=== PATIENT | male | born 1940 | race Caucasian/White ===

== ENCOUNTER → 2017-03-16 | Outpatient (CLI) | payer MEDICARE ==
--- NOTE | 2017-03-16 08:57 | MR ---
MR lumbar spine wo con CLINICAL HISTORY: LUMBAR SPINE PAIN Multiplanar, multiecho imaging of the lumbar spine was obtained without contrast on a 3 Alicia magnet. REFERENCE:None. FINDINGS: There is mild aneurysmal dilatation of the suprarenal abdominal aorta which measures 3.2 c m in size. The infrarenal abdominal aorta is also aneurysmal measuring 3.7 cm. Iliac vessels are norm al in size. Prevertebral soft tissues are otherwise unremarkable. Vertebral body height and alignment are maintained. There is no spondylolysis or spondylolisthesis. Cord signal is normal. The conus ends normally at the level of the superior endplate of L2. At T12-L1, the intervertebral foramina are well maintained. There is no significant compressive disco linh. There is mild hypertrophic change in the facets. At L1-2, the intervertebral foramina are well maintained. There is no significant compressive discopa thy. There is mild hypertrophic change and capsulitis within the facets. At L2-3, the intervertebral foramina are well maintained. There is a diffuse disc displacement. There is hypertrophic change and capsulitis in the facets. At L3-4, the intervertebral foramina are well maintained. There is a diffuse disc displacement. This hypertrophic change and capsulitis within the facets. There is mild central canal stenosis. At L4-5, there is disc space loss and disc desiccation. Intervertebral foramina appear well maintaine d. There is a broad-based disc displacement. This hypertrophic changes in the facets. There is mild c entral canal compromise. At L5-S1, the intervertebral foramina are well maintained. There is a broad-based disc displacement e ffacing the thecal sac without definite neural compression. This hypertrophic change and capsulitis w ithin the facets. IMPRESSION: 1. DIFFUSE DEGENERATIVE DISC DISEASE AND FACET ARTHROPATHY. 2. NO SIGNIFICANT COMPRESSIVE DISCOPATHY OR NEURAL COMPRESSION. 3. ANEURYSMAL DILATATION OF THE ABDOMINAL AORTA.
== END ==
LOC: RADMRIMAIN 07:48
PROVIDERS: ATTEND Family Medicine
DX: M51.36 Other intervertebral disc degeneration, lumbar region (principal); M46.06 Spinal enthesopathy, lumbar region
CPT/HCPCS: 72148

== ENCOUNTER → 2017-03-23 | Outpatient (CLI) | payer MEDICARE ==
--- NOTE | 2017-03-24 23:50 | MR ---
EXAMINATION TYPE: MR hip LT wo con DATE OF EXAM: 03/23/2017 COMPARISON: NONE HISTORY: hip pain, left Standard multiplanar, multisequence MRI departmental protocol Multiplanar, multisequence images of the left hip were acquired. FINDINGS: There is metal artifact from left hip surgery with a pin in the left femoral neck. Right hi p joint space is fairly normal for age. There is narrowing of left hip joint space with mild spur for mation of the acetabulum and the femoral head. I see no focal bone destruction. There is no evidence of a soft tissue mass. Bladder distends smoothly. There is no evidence of avascular necrosis. Sacroil iac joints appear normal. IMPRESSION: Left hip surgery with metal artifact in the femoral neck. No fracture seen. No evidence of avascular necrosis. Mild hypertrophic osteoarthritis in the left hip joint.
== END | disposition home or self-care (01) ==
LOC: RADMRIMAIN 12:37
PROVIDERS: ATTEND Family Medicine
DX: M16.12 Unilateral primary osteoarthritis, left hip (principal); Z98.890 Other specified postprocedural states

== ENCOUNTER → 2019-07-29 | Outpatient (CLI) | payer MEDICARE ==
--- NOTE | 2019-07-29 15:15 | US ---
EXAMINATION TYPE: US kidneys/renal and bladder DATE OF EXAM: 07/29/2019 COMPARISON: NONE CLINICAL HISTORY: N18.2 CKD. CKD EXAM MEASUREMENTS: Right Kidney: 13.6 x 6.5 x 6.0 cm Left Kidney: 14.2 x 7.0 x 5.9 cm Post Void Residual Volume: 223 mL Right Kidney: Moderate hydronephrosis, cyst lateral= 4.0 x 3.7 x 4.0 cm Left Kidney: Severe hydronephrosis with cortical thinning. Bladder: Irregular, thickened bladder wall, possible sessile lesion versus ureterocele on the left. U rinary bladder wall thickening measures up to 9 mm on the left. Bilateral Jets seen: No Normal Post Void Residual: No No nephrolithiasis is seen. The urinary bladder is anechoic with wall thickening. Bilateral ureteral jets are not seen. IMPRESSION: 1. Abnormal exam. There is severe left hydronephrosis and moderate right hydronephrosis. There is cor tical renal thinning on the left indicating acute on chronic component. 2. Abnormally thickened urinary bladder wall seen multifocally measuring up to 9 mm (normal thickness of 3 mm). Additionally there is a sessile mass versus ureterocele on the left near the ureterovesicu lar junction. Direct visualization is recommended.
== END | disposition home or self-care (01) ==
LOC: RADUSWWP 14:25
PROVIDERS: ATTEND Family Medicine
DX: N13.30 Unspecified hydronephrosis (principal); N32.89 Other specified disorders of bladder; N18.2 Chronic kidney disease, stage 2 (mild)
CPT/HCPCS: 76770

== ENCOUNTER 2019-08-21 09:39 | Inpatient (IN) | payer MEDICARE ==
[2019-08-21] MEDS ORDERED: SODIUM CHLORIDE 0.9% 1,000 ML IV STA (10:03)
[2019-08-21] MEDS ORDERED: methylPREDNISolone SOD SUCCI 125 MG/2 ML VIAL IV STA (10:03)
--- NOTE | 2019-08-21 10:17 | ED ---
SOB HPI - General Chief Complaint: Shortness of Breath Stated Complaint: Sob/weakness Time Seen by Provider: 08/21/19 09:40 Source: patient, family, RN notes reviewed Mode of arrival: wheelchair Limitations: no limitations - History of Present Illness Initial Comments: This is a 78-year-old male with a history of COPD who states he's been having difficulty breathing for past several days he has had a cough he did feel feverish last night. Family is concerned he may have pneumonia. He denies any overt chest pain he has been feeling weak. No other symptoms reported at this time no other modifying factors he is not no color phlegm is coughing up. MD Complaint: shortness of breath, cough - Related Data Allergies Allergy/AdvReac Type Severity Reaction Status Date / Time No Known Allergies Allergy Verified 08/21/19 10:09 Review of Systems ROS Statement: Those systems with pertinent positive or pertinent negative responses have been documented in the HPI. ROS Other: All systems not noted in ROS Statement are negative. Past Medical History Past Medical History: Heart Failure, COPD, Hyperlipidemia, Hypertension, Myocardial Infarction (CT), Skin Disorder History of Any Multi-Drug Resistant Organisms: None Reported Past Surgical History: Joint Replacement Past Psychological History: No Psychological Hx Reported Smoking Status: Current every day smoker Past Alcohol Use History: None Reported Past Drug Use History: None Reported General Exam - General Exam Comments Initial Comments: This is a well-developed well-nourished awake alert oriented 3 male Limitations: no limitations General appearance: alert, anxious, in distress Head exam: Present: atraumatic, normocephalic, normal inspection Eye exam: Present: normal appearance, PERRL, EOMI. Absent: scleral icterus, conjunctival injection, periorbital swelling ENT exam: Present: mucous membranes dry Neck exam: Present: normal inspection, full ROM, other (No stridor JVD or bruits). Absent: tenderness, meningismus, lymphadenopathy Respiratory exam: Present: wheezes, accessory muscle use, decreased breath so unds, other (Lower lobe rhonchi). Absent: respiratory distress, rales, rhonchi, stridor Cardiovascular Exam: Present: normal rhythm, tachycardia, normal heart sounds. Absent: systolic murmur, diastolic murmur, rubs, gallop, clicks GI/Abdominal exam: Present: soft, normal bowel sounds. Absent: distended, tenderness, guarding, rebound, rigid Extremities exam: Present: normal inspection, full ROM, normal capillary refill. Absent: tenderness, pedal edema, joint swelling, calf tenderness Back exam: Present: normal inspection Neurological exam: Present: alert, oriented X3, CN II-XII intact Psychiatric exam: Present: normal affect, normal mood Skin exam: Present: warm, dry, intact, other (The patient does demonstrate p soriatic changes to the extremities). Absent: rash Course Vital Signs 08/21/19 08/21/19 08/21/19 09:44 10:00 11:09 Temperature 98.6 F Pulse Rate 130 H 126 H 77 Respiratory 20 16 Rate Blood Pressure 123/65 124/75 O2 Sat by Pulse 78 L 93 L Oximetry 08/21/19 11:30 Temperature Pulse Rate 122 H Respiratory 20 Rate Blood Pressure 112/76 O2 Sat by Pulse 92 L Oximetry - Reevaluation(s) Reevaluation #1: 08/21/19 11:54 Evaluation the patient after initial treatment revealed minimal improvement. Reevaluation #2: 08/21/19 11:56 I did discuss [employer] the patient family members patient does demonstrate evidence of CHF with a COPD exacerbation did have evidence of fever at home a pneumonitis as not ruled out. Additionally he does have evidence of acute kidney injury. He also has elevated troponin which may be in the basis of the kidney injury though and STEMI is considered. Patient be admitted the case is discussed with Dr. Santos Medical Decision Making - Lab Data Result diagrams: 08/21/19 10:10 08/21/19 10:10 Lab Results 08/21/19 08/21/19 08/21/19 Range/Units 10:10 10:10 10:10 WBC 12.4 H (3.8-10.6) k/uL RBC 3.89 L (4.30-5.90) m/uL Hgb 12.6 L (13.0-17.5) gm/dL Hct 41.8 (39.0-53.0) % MCV 107.4 H (80.0-100.0) fL MCH 32.3 (25.0-35.0) pg MCHC 30.1 L (31.0-37.0) g/dL RDW 13.5 (11.5-15.5) % Plt Count 237 (150-450) k/uL Neutrophils % 79 % Lymphocytes % 11 % Monocytes % 6 % Eosinophils % 2 % Basophils % 1 % Neutrophils # 9.9 H (1.3-7.7) k/uL Lymphocytes # 1.4 (1.0-4.8) k/uL Monocytes # 0.7 (0-1.0) k/uL Eosinophils # 0.2 (0-0.7) k/uL Basophils # 0.1 (0-0.2) k/uL Hypochromasia Marked Macrocytosis Moderate PT (9.0-12.0) sec INR (<1.2) APTT (22.0-30.0) sec Sodium 144 (137-145) mmol/L Potassium 4.8 (3.5-5.1) mmol/L Chloride 103 (98-107) mmol/L Carbon Dioxide 27 (22-30) mmol/L Anion Gap 14 mmol/L BUN 61 H (9-20) mg/dL Creatinine 3.11 H (0.66-1.25) mg/dL Est GFR (CKD-EPI)AfAm 21 (>60 ml/min/1.73 sqM) Est GFR (CKD-EPI)NonAf 18 (>60 ml/min/1.73 sqM) Glucose 132 H (74-99) mg/dL Plasma Lactic Acid Jean (0.7-2.0) mmol/L Calcium 9.0 (8.4-10.2) mg/dL Magnesium 2.5 H (1.6-2.3) mg/dL Total Bilirubin 0.6 (0.2-1.3) mg/dL AST 24 (17-59) U/L ALT 24 (21-72) U/L Alkaline Phosphatase 85 (38-126) U/L Troponin I (0.000-0.034) ng/mL NT-Pro-B Natriuret Pep 67768 pg/mL Total Protein 8.7 H (6.3-8.2) g/dL Albumin 4.2 (3.5-5.0) g/dL 08/21/19 08/21/19 08/21/19 Range/Units 10:10 10:10 10:10 WBC (3.8-10.6) k/uL RBC (4.30-5.90) m/uL Hgb (13.0-17.5) gm/dL Hct (39.0-53.0) % MCV (80.0-100.0) fL MCH (25.0-35.0) pg MCHC (31.0-37.0) g/dL RDW (11.5-15.5) % Plt Count (150-450) k/uL Neutrophils % % Lymphocytes % % Monocytes % % Eosinophils % % Basophils % % Neutrophils # (1.3-7.7) k/uL Lymphocytes # (1.0-4.8) k/uL Monocytes # (0-1.0) k/uL Eosinophils # (0-0.7) k/uL Basophils # (0-0.2) k/uL Hypochromasia Macrocytosis PT 9.6 (9.0-12.0) sec INR 0.9 (<1.2) APTT 26.6 (22.0-30.0) sec Sodium (137-145) mmol/L Potassium (3.5-5.1) mmol/L Chloride (98-107) mmol/L Carbon Dioxide (22-30) mmol/L Anion Gap mmol/L BUN (9-20) mg/dL Creatinine (0.66-1.25) mg/dL Est GFR (CKD-EPI)AfAm (>60 ml/min/1.73 sqM) Est GFR (CKD-EPI)NonAf (>60 ml/min/1.73 sqM) Glucose (74-99) mg/dL Plasma Lactic Acid Jean 2.3 H* (0.7-2.0) mmol/L Calcium (8.4-10.2) mg/dL Magnesium (1.6-2.3) mg/dL Total Bilirubin (0.2-1.3) mg/dL AST (17-59) U/L ALT (21-72) U/L Alkaline Phosphatase (38-126) U/L Troponin I 0.620 H* (0.000-0.034) ng/mL NT-Pro-B Natriuret Pep pg/mL Total Protein (6.3-8.2) g/dL Albumin (3.5-5.0) g/dL - EKG Data -: EKG Interpreted by Hi EKG shows normal: sinus rhythm EKG Comments: EKG shows sinus tachycardia of 127 appear interval 150 to QRS 82 QT since QTC 304/441 this is compared with an EKG dated 08/12/12. - Radiology Data Radiology results: report reviewed (I did review the imaging and report there is evidence of bilateral pleural effusions increased pulmonary vascular markings though there appears be unchanged from previous.), image reviewed Critical Care Time Critical Care Time: Yes Critical Care Time: 39 minutes of critical care time which includes initial presentation with history physical labs x-rays several reevaluation patient responsive therapy discuss with the patient family members regarding the findings discussed with Dr. Santos review of old charting admission orders and documentation of the above. Disposition Clinical Impression: Congestive heart failure, Acute exacerbation of chronic obstructive pulmonary disease, Acute respiratory distress syndrome in adult, Pneumonitis, Acute kidney injury, NSTEMI (non-ST elevated myocardial infarction) Disposition: ADMITTED IP TO THIS HOSP Condition: Fair Referrals: Herrera Porter MD [Primary Care Provider] - 1-2 days
[2019-08-21 10:18] LABS: Basophils # (A) 0.1 k/uL (0-0.2); Basophils % (A) 1 %; Eosinophils # (A) 0.2 k/uL (0-0.7); Eosinophils % (A) 2 %; HCT 41.8 % (39.0-53.0); HGB 12.6 gm/dL (13.0-17.5); Hypochromasia Marked; Lymphocytes # (A) 1.4 k/uL (1.0-4.8); Lymphocytes % (A) 11 %; MCH 32.3 pg (25.0-35.0); MCHC 30.1 g/dL (31.0-37.0); MCV 107.4 fL (80.0-100.0); Macrocytosis Moderate; Mean Platelet Volume 7.5; Monocytes # (A) 0.7 k/uL (0-1.0); Monocytes % (A) 6 %; Neutrophils # (A) 9.9 k/uL (1.3-7.7); Neutrophils % (A) 79 %; Platelet Count 237 k/uL (150-450); RBC 3.89 m/uL (4.30-5.90); RDW 13.5 % (11.5-15.5); WBC 12.4 k/uL (3.8-10.6)
[2019-08-21 10:29] LABS: Albumin 4.2 g/dL (3.5-5.0); Magnesium 2.5 mg/dL (1.6-2.3); Potassium 4.8 mmol/L (3.5-5.1); Total Bilirubin 0.6 mg/dL (0.2-1.3); Total Protein 8.7 g/dL (6.3-8.2)
[2019-08-21 10:50] LABS: INR 0.9 (<1.2); Partial Thromboplastin Time 26.6 sec (22.0-30.0); Prothrombin Time 9.6 sec (9.0-12.0)
--- NOTE | 2019-08-21 10:50 | XR ---
EXAMINATION TYPE: XR chest 2V DATE OF EXAM: 08/21/2019 COMPARISON: NONE HISTORY: Shortness of breath TECHNIQUE: Frontal and lateral views of the chest are obtained. FINDINGS: Scattered senescent parenchymal changes noted. Hyperinflation compatible with COPD. Small bilateral pleural effusions with basilar atelectasis. Pulmonary venous congestion noted. No ramona dence for overt failure at this time. Heart size is enlarged. Mediastinal structures are stable and grossly unremarkable. No evidence for hilar prominence. Degenerative changes dorsal spine. IMPRESSION: 1. Small bilateral pleural effusions with basilar atelectasis. Pulmonary venous congestion noted. No evidence for overt failure at this time.
[2019-08-21] MEDS ORDERED: IPRATROPIUM-ALBUTEROL 3 ML NEB INHALATION STA (10:55)
[2019-08-21] MEDS ORDERED: FUROSEMIDE 10 MG/ML 4 ML VIAL IV STA (11:53)
[2019-08-21] MEDS ORDERED: cefTRIAXone IN SWFI 1,000 MG/10 ML SYRINGE IVP STA (11:53)
[2019-08-21] MEDS ORDERED: HEPARIN SODIUM,PORCINE 5,000 UNIT/ML 1 ML VIAL IV ONE (12:04)
[2019-08-21] MEDS ORDERED: NITROGLYCERIN SL TABS 0.4 MG TAB SUBLINGUAL PRN (12:04)
[2019-08-21] MEDS ORDERED: HYDROcodone/APAP 10-325MG 1 EACH TAB PO PRN (12:09)
[2019-08-21] MEDS ORDERED: NITROGLYCERIN OINT 1 INCH/GM PACKET TOPICAL STA (12:09)
[2019-08-21] MEDS ORDERED: HEPARIN SOD,PORK IN 0.45% NACL 25,000 UNIT in 0.45% NACL 1 250ML.BAG IV SCH (12:15)
[2019-08-21] MEDS ORDERED: LORazepam 2 MG/ML INJ IV STA (13:03)
[2019-08-21] MEDS: INSULIN ASPART (NovoLOG) 100 UNIT/ML VIAL SQ SCH ×3 (14:12→21:08)
[2019-08-21] MEDS: SODIUM CHLORIDE 0.9% 1,000 ML IV SCH (14:12)
[2019-08-21] MEDS ORDERED: HEPARIN SODIUM,PORCINE 5,000 UNIT/ML 1 ML VIAL SQ SCH (16:00)
[2019-08-21 16:54] LABS: Glucose,Whole Blood 180 mg/dL (75-99)
[2019-08-21] MEDS: metFORMIN 500 MG TAB PO SCH (17:17)
[2019-08-21] MEDS: GABAPENTIN 300 MG CAP PO SCH ×2 (17:17→20:59)
[2019-08-21] MEDS ORDERED: FUROSEMIDE 10 MG/ML 10 ML VIAL IV STA (20:42)
[2019-08-21] MEDS: OXYBUTYNIN 10 MG TAB.ER.24 PO SCH (20:59)
[2019-08-21] MEDS: CYCLOBENZAPRINE 10 MG TAB PO SCH (21:00)
[2019-08-21 21:07] LABS: Glucose,Whole Blood 171 mg/dL (75-99)
--- NOTE | 2019-08-21 21:22 | P.HPIM ---
History of Present Illness H&P Date: 08/21/19 Chief Complaint: Short of breath, cough History of presenting complaint: This is 72 patient now follows with Dr. rai. Chronic stable medical conditions include diabetes, hypertension, hyperlipidemia, osteoarthritis, chronic kidney disease, home oxygen 2-3 L, chronic low back pain and psoriatic.. Patient patient was brought in by his . Most history is obtained by the at the bedside. At her baseline patient very much sits down and watches television. Does not drive. Has a fair appetite. Normally able to get around the house. Patient started coughing became short of breath wheezing yesterday with a decreased oral intake. Became a bit more confused and acute dose ER. Was given IV Lasix in the ER bronchodilators. Patient has a sitter at the beds [facility]. Patient had been quite a bit short of breath. Up some sputum. No obvious fever or chills. 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 Smoking for many years. No alcohol. Physical examination: VITAL SIGNS: 98.6, 1:30, 20, 123/65, 78% on room air GENERAL: BMI 30.4, laying in bed short of breath,diselved's. EYES: Pupils equal. Conjunctiva normal. HEENT: External appearance of nose and ears normal, oral cavity dry. NECK: JVD not raised; masses not palpable. HEART: First and second heart sounds are normal; no edema. LUNGS: Respiratory rate increased, decreased breaths on some wheezing. ABDOMEN: Soft, nontender, liver spleen not palpable, no masses palpable. PSYCH: Lethargic but arousablel. NEUROLOGICAL: [Cranial nerves grossly intact; no facial asymmetry, moving all 4 limbs LYMPHATICS: No lymph nodes palpable in the axilla and neck INVESTIGATIONS, reviewed in the clinical context: White count 12.4 hemoglobin 12.6 platelets 237 potassium 4.8 bun 61 creatinine 3.11 Troponin I 0.620, 0.807, influenza A and B both negative EKG tracing personally reviewed by me-personally reviewed by me shows normal sinus rhythm, poor R-wave progression, some T-wave changes in anterolateral leads Chest x-ray film personally reviewed by me-venous prominence, fluid in the fissure, right basilar infiltrate Assessment: -Acute on chronic congestive heart failure exacerbation, EF not on -Right-sided pneumonia, suspect gram-negative organism -Acute COPD exacerbation in a current smoker -Diabetes mellitus type 2 on oral hypoglycemic -Hyperlipidemia -Essential hypertension -Primary osteoarthritis -Chronic kidney disease stage IV -Lactic acidosis from pneumonia -Troponin leak 2 positive possibly. Hemodynamic instability. Doubt acute coronary syndrome -Acute delirium from pneumonia etc. Plan: Patient is put on IV ceftriaxone. Sputum to be sent off for Gram stain and culture. Patient did receive a dose of IV Lasix earlier today.. The patient on Lasix drip for at least 12 hours. Strict I's and O's will be followed. Accu- Cheks will be followed with sliding scale insulin. His is at the bedside. Patient also is a sitter.. Consultation was made to cardiology and nephrology. 2-D echo is pending. Care was discussed with the at the bedside. Past Medical History Past Medical History: Heart Failure, COPD, Diabetes Mellitus, Hyperlipidemia, Hypertension, Myocardial Infarction (OR), Osteoarthritis (OA), Renal Disease, Skin Disorder Additional Past Medical History / Comment(s): Bronchitis, home oxygen at 2-3 L/NC prn, chronic respiratory failure, OR per EKG-exact age unknown, NIDDM type II, renal disease-now being followed by Dr. Chester, UTI, chronic back pain, DJD, psoriasis. Last Myocardial Infarction Date:: unkn History of Any Multi-Drug Resistant Organisms: None Reported Past Surgical History: Orthopedic Surgery Additional Past Surgical History / Comment(s): L hip and L leg surgery d/t fractures when pt was in his 20s. Past Anesthesia/Blood Transfusion Reactions: No Reported Reaction Smoking Status: Current every day smoker - Past Family History Father Family Medical History: Myocardial Infarction (OR) Additional Family Medical History / Comment(s): Father of a OR in his early 60s. Mother Family Medical History: No Reported History Medications and Allergies Home Medications Medication Instructions Recorded Confirmed Type Aspirin EC [Ecotrin Low Dose] 81 mg PO DAILY 08/21/19 08/21/19 History Cholecalciferol [Vitamin D3 (25 1,000 unit PO DAILY 08/21/19 08/21/19 History Mcg = 1000 Iu)] Cyclobenzaprine [Flexeril] 10 mg PO HS 08/21/19 08/21/19 History Gabapentin [Neurontin] 300 mg PO TID 08/21/19 08/21/19 History HYDROcodone/APAP 10-325MG [Anderson 1 tab PO Q6H PRN 08/21/19 08/21/19 History 10-325] Oxybutynin Chloride [Oxybutynin 10 mg PO BID 08/21/19 08/21/19 History Chloride ER] amLODIPine [Norvasc] 2.5 mg PO DAILY 08/21/19 08/21/19 History metFORMIN HCL 1,000 mg PO BID 08/21/19 08/21/19 History Allergies Allergy/AdvReac Type Severity Reaction Status Date / Time No Known Allergies Allergy Verified 08/21/19 12:04 Physical Exam Vitals: Vital Signs Temp Pulse Pulse Resp BP BP Pulse Ox 08/21/19 21:04 18 94 L 08/21/19 20:15 18 91 L 08/21/19 20:00 99.5 F 88 18 94/52 76 L 08/21/19 16:00 18 08/21/19 14:37 98.2 F 99 18 112/72 90 L 08/21/19 14:11 98.7 F 116 H 22 118/78 91 L 08/21/19 13:33 97.8 F 120 H 18 119/66 89 L 08/21/19 12:30 118 H 25 H 129/75 89 L 08/21/19 12:00 121 H 22 130/74 86 L 08/21/19 11:30 122 H 20 112/76 92 L 08/21/19 11:09 77 08/21/19 10:00 126 H 16 124/75 93 L 08/21/19 09:44 98.6 F 130 H 20 123/65 78 L Intake and Output 08/21/19 08/21/19 08/21/19 06:59 14:59 22:59 Intake Total 0 Balance 0 Intake: Oral 0 Other: Voiding Method Diaper Incontinent Weight 90.718 kg Results CBC & Chem 7: 08/21/19 10:10 08/21/19 10:10 Labs: Abnormal Lab Results - Last 24 Hours (Table) 08/21/19 08/21/19 08/21/19 Range/Units 10:10 10:10 10:10 WBC 12.4 H (3.8-10.6) k/uL RBC 3.89 L (4.30-5.90) m/uL Hgb 12.6 L (13.0-17.5) gm/dL MCV 107.4 H (80.0-100.0) fL MCHC 30.1 L (31.0-37.0) g/dL Neutrophils # 9.9 H (1.3-7.7) k/uL BUN 61 H (9-20) mg/dL Creatinine 3.11 H (0.66-1.25) mg/dL Glucose 132 H (74-99) mg/dL POC Glucose (mg/dL) (75-99) mg/dL Plasma Lactic Acid Jean (0.7-2.0) mmol/L Magnesium 2.5 H (1.6-2.3) mg/dL Troponin I 0.620 H* (0.000-0.034) ng/mL Total Protein 8.7 H (6.3-8.2) g/dL 08/21/19 08/21/19 08/21/19 Range/Units 10:10 16:01 16:48 WBC (3.8-10.6) k/uL RBC (4.30-5.90) m/uL Hgb (13.0-17.5) gm/dL MCV (80.0-100.0) fL MCHC (31.0-37.0) g/dL Neutrophils # (1.3-7.7) k/uL BUN (9-20) mg/dL Creatinine (0.66-1.25) mg/dL Glucose (74-99) mg/dL POC Glucose (mg/dL) 180 H (75-99) mg/dL Plasma Lactic Acid Jean 2.3 H* (0.7-2.0) mmol/L Magnesium (1.6-2.3) mg/dL Troponin I 0.807 H* (0.000-0.034) ng/mL Total Protein (6.3-8.2) g/dL 08/21/19 Range/Units 21:05 WBC (3.8-10.6) k/uL RBC (4.30-5.90) m/uL Hgb (13.0-17.5) gm/dL MCV (80.0-100.0) fL MCHC (31.0-37.0) g/dL Neutrophils # (1.3-7.7) k/uL BUN (9-20) mg/dL Creatinine (0.66-1.25) mg/dL Glucose (74-99) mg/dL POC Glucose (mg/dL) 171 H (75-99) mg/dL Plasma Lactic Acid Jean (0.7-2.0) mmol/L Magnesium (1.6-2.3) mg/dL Troponin I (0.000-0.034) ng/mL Total Protein (6.3-8.2) g/dL Thrombosis Risk Factor Assmnt - Choose All That Apply Any of the Below Risk Factors Present?: Yes Each Factor Represents 1 point: Abnormal pulmonary function (COPD), Acute OR, Heart failure (<1month) Other Risk Factors: Yes Each Risk Factor Represents 3 Points: Age 75 years or older Other congenital or acquired thrombophilia - If yes, enter type in comment: No Thrombosis Risk Factor Assessment Total Risk Factor Score: 6 Thrombosis Risk Factor Assessment Level: High Risk
[2019-08-21] MEDS: NICOTINE 21MG/24HR PATCH TRANSDERM SCH (21:23)
[2019-08-21] MEDS: methylPREDNISolone SOD SUCCI 40 MG/ML 1 ML VIAL IV SCH (21:24)
[2019-08-21] MEDS: FUROSEMIDE 100 MG in SODIUM CHLORIDE 0.9% 90 ML IV SCH (21:39)
[2019-08-21] MEDS: NYSTATIN 100,000 UNIT/GM POWD 15 GM TOPICAL SCH (21:39)
--- NOTE | 2019-08-21 21:54 | CONS ---
CONSULTATION CHIEF COMPLAINT: Confusion and shortness of breath. John is a 78-year-old gentleman with history of hypertension, dyslipidemia, COPD, who presented to hospital complaining of difficulty in breathing for the last several days. He apparently also has had cough and was feeling feverish. He was also becoming more confused over the last 2 days and agitated; in fact, at the time of my evaluation on the floor the patient already received some Ativan and seems quite sleepy as a result. I obtained my information reviewing the chart and talking to the family members. There is no history of chest pain. There is no prior history of coronary artery disease or congestive heart failure. MEDICATIONS: Medications at home included: 1. Vitamin D. 2. Metformin. 3. Flexeril. 4. Aspirin. 5. Rinard. 6. Neurontin. 7. Norvasc. ALLERGIES: There are NO KNOWN DRUG ALLERGIES. FAMILY HISTORY: Negative for premature coronary artery disease. SOCIAL HISTORY: Significant for smoking. There is no history of EtOH abuse or drug abuse. REVIEW OF SYSTEMS: I am unable to obtain from the patient, who is sedated. PHYSICAL EXAMINATION: Patient is comfortable at rest. Afebrile. Heart rate is 99 beats per minute. Blood pressure is 112/72. Respiratory rate is 18. There is no jugular venous distention. Carotid upstroke is diminished. There is no bruit. Chest exam reveals good air entry bilaterally. Heart exam reveals first and second heart sounds and a systolic murmur at the left lower sternal border. Abdomen is soft. Examination of extremities revealed bilateral pitting edema. LABS/IMAGING: His labs show a white cell count of 12.4. Hemoglobin is 12.6. Platelet count is 237. Potassium is 4.8. BUN is 61, creatinine 3.1. Lactic acid is elevated. BNP is 7200. Troponin is 0.6. EKG shows sinus tachycardia with nonspecific ST-T wave changes. ASSESSMENT: 1. Troponin elevation, probably related to renal failure. 2. Acute-onset renal failure. 3. Confusion; etiology is unclear. Management as per primary. 4. Elevated BNP and leg edema; could be due to congestive heart failure. PLAN: I will obtain a 2D echo and continue to obtain troponins. Stop the intravenous heparin. Just put him on subcutaneous heparin for DVT prophylaxis. His prognosis is guarded. Will adjust therapies as needed. Please consider blood cultures on him. MMODL / IJN: [id number] /
[2019-08-22] MEDS: IPRATROPIUM-ALBUTEROL 3 ML NEB INHALATION SCH ×7 (00:51→23:41)
[2019-08-22] MEDS: METOPROLOL TARTRATE 25 MG TAB PO STA ×2 (01:43→02:42)
[2019-08-22 01:55] LABS: Glucose,Whole Blood 200 mg/dL (75-99)
[2019-08-22 02:12] LABS: ABG Base Excess -0.7 mmol/L; ABG HCO3 29 mmol/L (21-25); ABG Oxygen Saturation 74.7 % (94-97); ABG TCO2 32 mmol/L (19-24); Allen Test Performed? Yes
[2019-08-22 02:22] LABS: Glucose,Whole Blood 202 mg/dL (75-99)
[2019-08-22] MEDS ORDERED: ETOMIDATE 2 MG/ML 10 ML VIAL ONE (02:30)
[2019-08-22] MEDS ORDERED: NALOXONE 0.4 MG/ML 1 ML VIAL IV PRN (02:37)
[2019-08-22] MEDS: PROPOFOL 1,000 MG in EMPTY BAG 1 BAG IV SCH ×4 (02:40→19:52)
[2019-08-22 02:42] LABS: Basophils % (A) 0 %; Eosinophils % (A) 0 %; HCT 38.2 % (39.0-53.0); HGB 11.6 gm/dL (13.0-17.5); Hypochromasia Marked; Lymphocytes # (A) 0.9 k/uL (1.0-4.8); Lymphocytes % (A) 6 %; MCH 32.7 pg (25.0-35.0); MCHC 30.3 g/dL (31.0-37.0); Macrocytosis Moderate; Mean Platelet Volume 7.4; Monocytes # (A) 0.3 k/uL (0-1.0); Monocytes % (A) 2 %; Neutrophils # (A) 13.3 k/uL (1.3-7.7); Neutrophils % (A) 91 %; Platelet Count 317 k/uL (150-450); RBC 3.54 m/uL (4.30-5.90); RDW 13.5 % (11.5-15.5); WBC 14.7 k/uL (3.8-10.6)
[2019-08-22 02:51] LABS: ABG PCO2 96 mmHg (35-45); ABG PH 7.09 (7.35-7.45)
[2019-08-22 02:52] LABS: ABG PO2 51 mmHg (83-108)
--- NOTE | 2019-08-22 02:54 | XR ---
EXAMINATION TYPE: XR chest 1V portable DATE OF EXAM: 08/22/2019 COMPARISON: 08/21/2018 HISTORY: Check line placement TECHNIQUE: Single frontal view of the chest is obtained. FINDINGS: Endotracheal tube is 4 cm from the vidya. There is pulmonary interstitial and alveolar ed cookie. There is some blunting of the costophrenic angles. There is nasogastric tube in the stomach. The re are chest leads. IMPRESSION: Endotracheal tube in good position. There is increased pulmonary edema compared to yeste rday. This could relate to congestive heart failure or RDS.
[2019-08-22 03:02] LABS: Albumin 3.9 g/dL (3.5-5.0); Calcium 8.9 mg/dL (8.4-10.2); Magnesium 2.5 mg/dL (1.6-2.3); Phosphorus 8.3 mg/dL (2.5-4.5); Potassium 5.5 mmol/L (3.5-5.1); Total Bilirubin 0.5 mg/dL (0.2-1.3)
[2019-08-22 03:03] LABS: Cholesterol 157 mg/dL (<200); HDL Cholesterol 35 mg/dL (40-60); LDL Cholesterol,Calculated 98 mg/dL (0-99); Triglycerides 119 mg/dL (<150)
[2019-08-22 03:37] LABS: Appearance,Urine Cloudy (Clear); Bacteria,Urine Rare /hpf; Bilirubin,Urine Negative (Negative); Blood,Urine Large (Negative); Color,Urine Yellow; Glucose,Urine (UA) Negative (Negative); Ketones,Urine Negative (Negative); Leukocyte Esterase,Urine Large (Negative); Nitrite,Urine Negative (Negative); Protein,Urine Trace (Negative); RBC,Urine >182 /hpf (0-5); Squamous Epithelial Cell,Urine <1 /hpf (0-4); Urobilinogen,Urine <2.0 mg/dL (<2.0); WBC,Urine 90 /hpf (0-5)
[2019-08-22 03:41] LABS: ABG Base Excess -0.1 mmol/L; ABG HCO3 27 mmol/L (21-25); ABG Oxygen Saturation 93.3 % (94-97); ABG PCO2 59 mmHg (35-45); ABG PH 7.27 (7.35-7.45); ABG PO2 70 mmHg (83-108); ABG TCO2 29 mmol/L (19-24); Allen Test Performed? Yes
[2019-08-22] MEDS: NOREPINEPHRINE 4 MG in SODIUM CHLORIDE 0.9% 250 ML IV SCH ×2 (04:16→19:08)
[2019-08-22 05:31] LABS: Basophils % (A) 0 %; Eosinophils % (A) 0 %; HCT 33.8 % (39.0-53.0); HGB 10.5 gm/dL (13.0-17.5); Hypochromasia Moderate; Lymphocytes # (A) 0.7 k/uL (1.0-4.8); Lymphocytes % (A) 6 %; MCH 32.7 pg (25.0-35.0); MCHC 31.1 g/dL (31.0-37.0); MCV 105.4 fL (80.0-100.0); Macrocytosis Moderate; Mean Platelet Volume 6.9; Monocytes # (A) 0.5 k/uL (0-1.0); Monocytes % (A) 4 %; Neutrophils # (A) 10.1 k/uL (1.3-7.7); Neutrophils % (A) 89 %; Platelet Count 249 k/uL (150-450); RDW 13.3 % (11.5-15.5); WBC 11.3 k/uL (3.8-10.6)
[2019-08-22 05:55] LABS: Calcium 8.7 mg/dL (8.4-10.2); Potassium 5.2 mmol/L (3.5-5.1)
[2019-08-22] MEDS: INSULIN ASPART (NovoLOG) 100 UNIT/ML VIAL SQ SCH ×4 (06:24→23:55)
[2019-08-22] MEDS: FUROSEMIDE 100 MG in SODIUM CHLORIDE 0.9% 90 ML IV SCH ×3 (06:25→23:17)
[2019-08-22 06:33] LABS: Glucose,Whole Blood 143 mg/dL (75-99)
[2019-08-22] MEDS: metFORMIN 500 MG TAB PO SCH (06:52)
[2019-08-22] MEDS: BUDESONIDE 1 MG/2 ML NEBU INHALATION SCH ×2 (07:27→21:19)
[2019-08-22] MEDS ORDERED: amLODIPine 2.5 MG TAB PO SCH (09:00)
[2019-08-22] MEDS ORDERED: NON FORMULARY DRUG (Aspirin Ec 81 MG) PO SCH (09:00)
[2019-08-22] MEDS ORDERED: ENOXAPARIN 40 MG/0.4 ML SYRINGE SQ SCH (09:00)
--- NOTE | 2019-08-22 09:40 | P.NPCON ---
History of Present Illness - Reason for Consult acute renal failure, chronic renal failure - History of Present Illness Reason for consultation: Acute kidney injury on chronic kidney disease History of present illness: Patient is a 78-year-old male seen in renal consultation for acute kidney injury on chronic kidney disease. Patient has history of chronic kidney disease stage III. Patient's creatinine February 2019 was near 2. This admission his creatinine was 3.11 and is up to 3.86 today. Patient presented to the hospital with progressively worsening shortness of breath over the last 3-4 days. Last night the patient became more confused and was noted to be in acute mixed hypoxic and hypercapnic respiratory failure. He was subsequently intubated and transferred to the intensive care unit. Chest x-ray suggestive of pulmonary edema. He is maintained on Lasix drip. Urine output about 30 mL an hour. Patient had a kidney ultrasound done in July 2019 which revealed severe left-sided and moderate right-sided hydronephrosis. He was also noted to have a thickened bladder wall. Patient also became hypotensive last night the systolic blood pressure in the 50s to 60s. He is currently maintained on low-dose Levophed. He had an echocardiogram done this morning. Patient has a history of diabetes mellitus and is maintained on metformin outpatient. I don't see any nonsteroidals and his home medications. Family is present at bedside. Vital signs are stable. On low-dose Levophed. General: The patient appeared well nourished and normally developed. HEENT: Head exam is unremarkable. Neck is without jugular venous distension. Intubated. LUNGS: Lungs are clear to auscultation and percussion. Breath sounds decreased. HEART: Rate and Rhythm are regular. First and second heart sounds normal. No murmurs, rubs or gallops. ABDOMEN: Abdominal exam reveals normal bowel sounds. Non-tender and non- distended. EXTREMITITES: No clubbing, cyanosis, or edema. Past Medical History Past Medical History: Heart Failure, COPD, Diabetes Mellitus, Hyperlipidemia, Hypertension, Myocardial Infarction (VA), Osteoarthritis (OA), Renal Disease, Skin Disorder Additional Past Medical History / Comment(s): Bronchitis, home oxygen at 2-3 L/NC prn, chronic respiratory failure, VA per EKG-exact age unknown, NIDDM type II, renal disease-now being followed by Dr. Chester, UTI, chronic back pain, DJD, psoriasis. Last Myocardial Infarction Date:: unkn History of Any Multi-Drug Resistant Organisms: None Reported Past Surgical History: Orthopedic Surgery Additional Past Surgical History / Comment(s): L hip and L leg surgery d/t fract ures when pt was in his 20s. Past Anesthesia/Blood Transfusion Reactions: No Reported Reaction Smoking Status: Current every day smoker - Past Family History Father Family Medical History: Myocardial Infarction (VA) Additional Family Medical History / Comment(s): Father of a VA in his early 60s. Mother Family Medical History: No Reported History Medications and Allergies Home Medications Medication Instructions Recorded Confirmed Type Aspirin EC [Ecotrin Low Dose] 81 mg PO DAILY 08/21/19 08/21/19 History Cholecalciferol [Vitamin D3 (25 1,000 unit PO DAILY 08/21/19 08/21/19 History Mcg = 1000 Iu)] Cyclobenzaprine [Flexeril] 10 mg PO HS 08/21/19 08/21/19 History Gabapentin [Neurontin] 300 mg PO TID 08/21/19 08/21/19 History HYDROcodone/APAP 10-325MG [[place] 1 tab PO Q6H PRN 08/21/19 08/21/19 History 10-325] Oxybutynin Chloride [Oxybutynin 10 mg PO BID 08/21/19 08/21/19 History Chloride ER] amLODIPine [Norvasc] 2.5 mg PO DAILY 08/21/19 08/21/19 History metFORMIN HCL 1,000 mg PO BID 08/21/19 08/21/19 History Allergies Allergy/AdvReac Type Severity Reaction Status Date / Time No Known Allergies Allergy Verified 08/21/19 12:04 Physical Exam Vitals: Vital Signs Temp Pulse Pulse Resp BP BP Pulse Ox 08/22/19 08:30 113 H 18 106/68 96 08/22/19 08:15 113 H 18 111/73 97 08/22/19 08:00 98.2 F 114 H 112 H 18 96 08/22/19 07:54 118 H 08/22/19 07:45 113 H 18 109/74 96 08/22/19 07:34 118 H 08/22/19 07:30 116 H 17 97 08/22/19 07:15 112 H 18 111/70 95 08/22/19 07:00 112 H 18 116/74 96 08/22/19 06:45 111 H 18 108/70 96 08/22/19 06:30 114 H 18 121/76 96 08/22/19 06:15 112 H 18 109/70 95 08/22/19 06:00 112 H 18 113/78 95 08/22/19 05:45 112 H 18 110/73 96 08/22/19 05:30 112 H 18 107/72 98 08/22/19 05:15 111 H 17 109/70 08/22/19 05:00 112 H 18 99/68 08/22/19 04:45 111 H 18 109/69 08/22/19 04:30 97.9 F 111 H 18 109/69 95 08/22/19 04:15 112 H 18 86/60 95 08/22/19 04:00 117 H 27 H 54/44 90 L 08/22/19 03:45 115 H 18 65/45 92 L 08/22/19 03:30 120 H 18 64/51 08/22/19 03:15 124 H 15 56/41 93 L 08/22/19 03:00 122 H 16 90/67 08/22/19 02:45 133 H 9 L 130/77 08/22/19 02:30 97.7 F 135 H 30 H 135/78 90 L 08/22/19 01:50 120 H 22 08/22/19 01:04 108 H 08/22/19 00:52 100 08/21/19 23:23 120 H 18 08/21/19 23:19 99.0 F 120 H 18 115/67 93 L 08/21/19 21:15 94 L 08/21/19 21:04 18 94 L 08/21/19 20:15 18 91 L 08/21/19 20:00 99.5 F 88 18 94/52 76 L 08/21/19 16:00 18 08/21/19 14:37 98.2 F 99 18 112/72 90 L 08/21/19 14:11 98.7 F 116 H 22 118/78 91 L 08/21/19 13:33 97.8 F 120 H 18 119/66 89 L 08/21/19 12:30 118 H 25 H 129/75 89 L 08/21/19 12:00 121 H 22 130/74 86 L 08/21/19 11:30 122 H 20 112/76 92 L 08/21/19 11:09 77 08/21/19 10:00 126 H 16 124/75 93 L 08/21/19 09:44 98.6 F 130 H 20 123/65 78 L Intake and Output 08/21/19 08/22/19 08/22/19 22:59 06:59 14:59 Intake Total 0 215.151 40 Output Total 735 60 Balance 0 -519.849 -20 Intake: IV 60 40 Sodium Chloride 0.9% 1, 60 40 000 ml @ 20 mls/hr IV . Q24H [facility] Rx#:[id number] Intake, IV Titration 155.151 Amount Furosemide 100 mg In 87.667 Sodium Chloride 0.9% 90 ml @ 10 MG/HR 10 mls/hr IV .Q10H EUGEN[facility] Rx#: [id number] Norepinephrine 4 mg In 8.065 Sodium Chloride 0.9% 250 ml @ 0.05 MCG/KG/MIN 17. 282 mls/hr IV .[id number] [facility] Rx#:[id number] Propofol 1,000 mg In 59.419 Empty Bag 1 bag @ Titrate IV .Q0M EUGEN[facility] Rx#: [id number] Oral 0 Output: Urine 735 60 Other: Voiding Method Diaper Indwelling Catheter Indwelling Catheter Incontinent # Voids 1 2 Weight 82.4 kg Results - Lab Results Most recent lab results ABG pH 7.27 (7.35-7.45) L 08/22/19 03:40 ABG pCO2 59 mmHg (35-45) H 08/22/19 03:40 ABG pO2 70 mmHg (83-108) L 08/22/19 03:40 ABG HCO3 27 mmol/L (21-25) H 08/22/19 03:40 ABG O2 Saturation 93.3 % (94-97) L 08/22/19 03:40 Calcium 8.7 mg/dL (8.4-10.2) 08/22/19 04:23 Phosphorus 8.3 mg/dL (2.5-4.5) H 08/22/19 02:17 Magnesium 2.5 mg/dL (1.6-2.3) H 08/22/19 02:17 08/22/19 04:23 08/22/19 04:23 Assessment and Plan Plan: Assessment: 1. Acute kidney injury secondary to ATN secondary to hypotension and component of cardiorenal syndrome. Creatinine 3.86 today. There is also concern for obstructive uropathy as his kidney ultrasound from earlier this month revealed bilateral hydronephrosis. Trace proteinuria on UA. 2. Chronic kidney disease stage III. Patient's creatinine in March 2019 was near 2. Etiology is most likely diabetic kidney disease. 3. Acute hypoxic and hypercapnic respiratory failure. Currently intubated. 4. Volume overload. 5. Acute CHF. Unknown ejection fraction. 6. Bilateral hydronephrosis. Plan: Maintain Lasix drip at 10 mL an hour. Avoid nephrotoxins. Discontinue metformin. Consult urology for the hydronephrosis. Follow-up echocardiogram. If ejection fraction less than 35%, will start dobutamine. Continue to monitor renal function and urine output. Hold all at hypertensives. Wean Levophed. Thank you for the consultation. I will continue to follow the patient with you during his hospital stay.
[2019-08-22] MEDS: CHLORHEXIDINE GLUCONATE 15 ML CUP MUCOUS MEM SCH ×2 (09:50→20:07)
[2019-08-22] MEDS: OXYBUTYNIN 10 MG TAB.ER.24 PO SCH ×2 (09:51→20:08)
[2019-08-22] MEDS: ASPIRIN 325 MG TAB PO SCH (09:51)
[2019-08-22] MEDS: NICOTINE 21MG/24HR PATCH TRANSDERM SCH (09:51)
[2019-08-22] MEDS: CHOLECALCIFEROL 1,000 UNIT TAB PO SCH (09:51)
[2019-08-22] MEDS: GABAPENTIN 300 MG CAP PO SCH ×3 (09:51→22:04)
[2019-08-22] MEDS: methylPREDNISolone SOD SUCCI 40 MG/ML 1 ML VIAL IV SCH ×3 (09:51→23:55)
[2019-08-22] MEDS: NYSTATIN 100,000 UNIT/GM POWD 15 GM TOPICAL SCH ×2 (09:52→20:08)
--- NOTE | 2019-08-22 11:48 | ECHOF ---
Referral Reason:CHF MEASUREMENTS -------- HEIGHT: 172.7 cm WEIGHT: 82.1 kg BP: 116/74 RVIDd: 3.6 cm (< 3.3) IVSd: 1.3 cm (0.6 - 1.1) LVIDd: 5.8 cm (3.9 - 5.3) LVPWd: 1.6 cm (0.6 - 1.1) IVSs: 1.5 cm LVIDs: 5.1 cm LVPWs: 2.0 cm LAESV Index (A-L): 31.85 ml/m Ao Diam: 3.0 cm (2.0 - 3.7) AV Cusp: 1.5 cm (1.5 - 2.6) LA Diam: 4.4 cm (2.7 - 3.8) FINDINGS -------- Resting tachycardia (HR>100bpm). This was a technically adequate study. The left ventricular size is normal. There is mild concentric left ventricular hypertrophy. There is severe global hypokinesis of LV . Overall left ventricular systolic function is severely impair ed with, an EF between 20 - 25 %. Increased Lap Grade III Diastolic Dysfunction. The right ventricle is mildly enlarged. LA is midly dilated 29-33ml/m2. The right atrial size is normal. Interatrial and interventricular septum intact. The aortic valve was not well visualized. There is no evidence of aortic regurgitation. There is no evidence of aortic stenosis. Mild mitral regurgitation is present. No regurgitation noted Unable to estimate RVSP due to inadequate TR jet spectral doppler profile. There is no pulmonic regurgitation present. The aortic root size is normal. There is a small, generalized pericardial effusion present. CONCLUSIONS -------- 1. Resting tachycardia (HR>100bpm). 2. This was a technically adequate study. 3. The left ventricular size is normal. 4. There is mild concentric left ventricular hypertrophy. 5. There is severe global hypokinesis of LV . 6. Overall left ventricular systolic function is severely impaired with, an EF between 20 - 25 %. 7. Increased Lap Grade III Diastolic Dysfunction. 8. The right ventricle is mildly enlarged. 9. LA is midly dilated 29-33ml/m2. 10. The right atrial size is normal. 11. Interatrial and interventricular septum intact. 12. The aortic valve was not well visualized. 13. There is no evidence of aortic regurgitation. 14. There is no evidence of aortic stenosis. 15. Mild mitral regurgitation is present. 16. No regurgitation noted 17. Unable to estimate RVSP due to inadequate TR jet spectral doppler profile. 18. There is no pulmonic regurgitation present. 19. The aortic root size is normal. 20. There is a small, generalized pericardial effusion present. W[employer] M[employer] KNITTER: Juany Chamorro RDCS
--- NOTE | 2019-08-22 11:54 | P.CNPUL ---
History of Present Illness Consult date: 08/22/19 Chief complaint: CHF/pneumonia/respiratory failure History of present illness: This is a 78-year-old male patient who was brought into the hospital yesterday because of worsening shortness of breath. The patient follows up with Dr. Porter. He has not been hospitalized here in our location for quite some time. He does have multiple medical problems. He has coronary artery disease and a remote history of IA, congestion heart failure, chronic stage III kidney disease, hypertension, hyperlipidemia and diabetes mellitus and extensive psor iasis. Is a chronic smoker. 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 Over the past 24-48 hours, the patient was having increased shortness of breath. It was thought that he may be having a pneumonia. He did not want in to come into the hospital. He ultimately came into emergency and overnight he became u nresponsive and his blood gas showed acute respiratory acidosis with a pH of 7.09 with a pCO2 of 96 and pO2 of 51 and this was on 100% nonrebreather. Based on that, I made recommendations to intubate the patient around 3 AM this morning. He was placed on a mechanical ventilator and he was brought into the intensive care unit. Currently is on assist control mode of ventilation at the rate of 18 with a tidal volume of 550 FiO2 of 70% and a PEEP of 5. The follow- up blood gases showed a pH of 7.27 with a pCO2 of 59 and pO2 of 70 and this was done and FiO2 of 80%. Peak airway pressure is around 22. He is on propofol which is currently running at 50 g per KG per minute. He is also on norep inephrine infusion at 0.05 g per KG per minute. He was started on Lasix drip at 10 mg an hour. His blood work with a white cell count of 11. Hemoglobin is at 12.6. His potassium level is at 5.2. Creatinine is at 3.8. Troponin maxed was at 1.1 and his EKG showing a sinus rhythm in the form of sinus tachycardia. There are Q waves over the anterior leads consistent with an old anterior wall m yocardial infarction. Echocardiogram has been done and the results are still pending for now. Urine output is in the order of 30 mL an hour and the chest x-ray from today shows adequate positioning of the orotracheal tube. There is pulmonary edema and there is increased consolidation of the right lower lobe which may suggest the potential of an underlying right lower lobe pneumonia. NG tube is in a good location for now. There was copious amount of rest or secretions post intubation and the patient had sputum sent for Gram stain and culture. He was given antibiotics and currently is on Rocephin. His ultrasound the kidneys showed bilateral hydronephrosis. 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 Urology has been consulted. Review of Systems ROS unobtainable: due to endotracheal tube Past Medical History Past Medical History: Heart Failure, COPD, Diabetes Mellitus, Hyperlipidemia, Hypertension, Myocardial Infarction (IA), Osteoarthritis (OA), Renal Disease, Skin Disorder Additional Past Medical History / Comment(s): COPD, home oxygen at 2-3 L/NC prn, chronic respiratory failure, CAD, IA per EKG-exact age unknown, NIDDM type II, chronic kidney disease being followed by Dr. Chester, UTI, chronic back pain, DJD, psoriasis. Last Myocardial Infarction Date:: unkn History of Any Multi-Drug Resistant Organisms: None Reported Past Surgical History: Orthopedic Surgery Additional Past Surgical History / Comment(s): L hip and L leg surgery d/t fractures when pt was in his 20s. Past Anesthesia/Blood Transfusion Reactions: No Reported Reaction Smoking Status: Current every day smoker - Past Family History Father Family Medical History: Myocardial Infarction (IA) Additional Family Medical History / Comment(s): Father of a IA in his early 60s. Mother Family Medical History: No Reported History Medications and Allergies Home Medications Medication Instructions Recorded Confirmed Type Aspirin EC [Ecotrin Low Dose] 81 mg PO DAILY 08/21/19 08/21/19 History Cholecalciferol [Vitamin D3 (25 1,000 unit PO DAILY 08/21/19 08/21/19 History Mcg = 1000 Iu)] Cyclobenzaprine [Flexeril] 10 mg PO HS 08/21/19 08/21/19 History Gabapentin [Neurontin] 300 mg PO TID 08/21/19 08/21/19 History HYDROcodone/APAP 10-325MG [[place] 1 tab PO Q6H PRN 08/21/19 08/21/19 History 10-325] Oxybutynin Chloride [Oxybutynin 10 mg PO BID 08/21/19 08/21/19 History Chloride ER] amLODIPine [Norvasc] 2.5 mg PO DAILY 08/21/19 08/21/19 History metFORMIN HCL 1,000 mg PO BID 08/21/19 08/21/19 History Allergies Allergy/AdvReac Type Severity Reaction Status Date / Time No Known Allergies Allergy Verified 08/21/19 12:04 Physical Exam Vitals: Vital Signs Temp Pulse Pulse Resp BP BP Pulse Ox 08/22/19 11:30 117 H 18 143/133 08/22/19 11:23 120 H 08/22/19 11:15 121 H 10 L 116/78 94 L 08/22/19 11:14 120 H 08/22/19 11:00 118 H 18 113/76 08/22/19 10:45 115 H 18 108/71 97 08/22/19 10:30 115 H 18 114/71 96 08/22/19 10:15 114 H 18 118/77 08/22/19 10:00 117 H 18 117/73 08/22/19 09:45 117 H 18 114/72 97 08/22/19 09:30 115 H 18 113/74 97 08/22/19 09:15 115 H 18 111/75 97 08/22/19 09:00 115 H 18 109/73 97 08/22/19 08:45 115 H 18 101/70 96 08/22/19 08:30 113 H 18 106/68 96 08/22/19 08:15 113 H 18 111/73 97 08/22/19 08:00 98.2 F 114 H 112 H 18 96 08/22/19 07:54 118 H 08/22/19 07:45 113 H 18 109/74 96 08/22/19 07:34 118 H 08/22/19 07:30 116 H 17 97 08/22/19 07:15 112 H 18 111/70 95 08/22/19 07:00 112 H 18 116/74 96 08/22/19 06:45 111 H 18 108/70 96 08/22/19 06:30 114 H 18 121/76 96 08/22/19 06:15 112 H 18 109/70 95 08/22/19 06:00 112 H 18 113/78 95 08/22/19 05:45 112 H 18 110/73 96 08/22/19 05:30 112 H 18 107/72 98 08/22/19 05:15 111 H 17 109/70 08/22/19 05:00 112 H 18 99/68 08/22/19 04:45 111 H 18 109/69 08/22/19 04:30 97.9 F 111 H 18 109/69 95 08/22/19 04:15 112 H 18 86/60 95 08/22/19 04:00 117 H 27 H 54/44 90 L 08/22/19 03:45 115 H 18 65/45 92 L 08/22/19 03:30 120 H 18 64/51 08/22/19 03:15 124 H 15 56/41 93 L 08/22/19 03:00 122 H 16 90/67 08/22/19 02:45 133 H 9 L 130/77 08/22/19 02:30 97.7 F 135 H 30 H 135/78 90 L 08/22/19 01:50 120 H 22 08/22/19 01:04 108 H 08/22/19 00:52 100 08/21/19 23:23 120 H 18 08/21/19 23:19 99.0 F 120 H 18 115/67 93 L 08/21/19 21:15 94 L 08/21/19 21:04 18 94 L 08/21/19 20:15 18 91 L 08/21/19 20:00 99.5 F 88 18 94/52 76 L 08/21/19 16:00 18 08/21/19 14:37 98.2 F 99 18 112/72 90 L 08/21/19 14:11 98.7 F 116 H 22 118/78 91 L 08/21/19 13:33 97.8 F 120 H 18 119/66 89 L 08/21/19 12:30 118 H 25 H 129/75 89 L 08/21/19 12:00 121 H 22 130/74 86 L Intake and Output 08/21/19 08/22/19 08/22/19 22:59 06:59 14:59 Intake Total 0 215.151 60 Output Total 735 110 Balance 0 -519.849 -50 Intake: IV 60 60 Sodium Chloride 0.9% 1, 60 60 000 ml @ 20 mls/hr IV . Q24H EUGEN[facility] Rx#:[id number] Intake, IV Titration 155.151 Amount Furosemide 100 mg In 87.667 Sodium Chloride 0.9% 90 ml @ 10 MG/HR 10 mls/hr IV .Q10H EUGENIO Rx#: [id number] Norepinephrine 4 mg In 8.065 Sodium Chloride 0.9% 250 ml @ 0.05 MCG/KG/MIN 17. 282 mls/hr IV .[id number] EUGEN[facility] Rx#:[id number] Propofol 1,000 mg In 59.419 Empty Bag 1 bag @ Titrate IV .Q0M EUGENIO Rx#: [id number] Oral 0 Output: Urine 735 110 Other: Voiding Method Diaper Indwelling Catheter Indwelling Catheter Incontinent # Voids 1 2 Weight 82.4 kg Gen. appearance sedated, comfortable likely distress. He has a orotracheal and orogastric tube are both in place. His symptoms with the mechanical ventilator. Head exam was generally normal. There was no scleral icterus or corneal arcus. Mucous membranes were moist. Neck was supple and without jugular venous distension, thyromegaly, or carotid bruits. Carotids were easily palpable bilaterally. There was no adenopathy. Heart sounds are tachycardic. It is in a sinus rhythm. No murmurs appreciated.Cardiac exam revealed the PMI to be normally situated and sized. The rhythm was regular and no extrasystoles were noted during several minutes of auscultation. The first and second heart sounds were normal and physiologic splitting of the second heart sound was noted. There were no murmurs, rubs, clicks, or gallops. Lungs were clear to auscultation and percussion, and with normal diaphragmatic excursion. No wheezes or rales were noted. Abdominal exam revealed normal bowel sounds. The abdomen was soft, non-tender, and without masses, organomegaly, or appreciable enlargement of the abdominal aorta. Examination of the extremities revealed easily palpable radial, femoral and pedal pulses. There was no cyanosis, clubbing or edema. Skin the patient has extensive psoriatic patches throughout his body mainly in t he lower extremities bilaterally. Neurologic is well sedated and calm and comfortable, arousable. Pupils are 2 mm in size. No facial asymmetry. Positive cough and gag. Results - Laboratory Findings CBC and BMP: 08/22/19 04:23 08/22/19 04:23 ABG ABG pH 7.27 (7.35-7.45) L 08/22/19 03:40 ABG pCO2 59 mmHg (35-45) H 08/22/19 03:40 ABG pO2 70 mmHg (83-108) L 08/22/19 03:40 ABG O2 Saturation 93.3 % (94-97) L 08/22/19 03:40 PT/INR, D-dimer PT 9.6 sec (9.0-12.0) 08/21/19 10:10 INR 0.9 (<1.2) 08/21/19 10:10 Abnormal lab findings: Abnormal Labs 08/21/19 08/21/19 08/21/19 10:10 10:10 10:10 WBC 12.4 H RBC 3.89 L Hgb 12.6 L Hct MCV 107.4 H MCHC 30.1 L Neutrophils # 9.9 H Lymphocytes # ABG pH ABG pCO2 ABG pO2 ABG HCO3 ABG Total CO2 ABG O2 Saturation Potassium BUN 61 H Creatinine 3.11 H Glucose 132 H POC Glucose (mg/dL) Plasma Lactic Acid Jean Phosphorus Magnesium 2.5 H ALT Troponin I 0.620 H* Total Protein 8.7 H HDL Cholesterol Urine Protein Urine Blood Ur Leukocyte Esterase Urine RBC Urine WBC Urine WBC Clumps Urine Bacteria 08/21/19 08/21/19 08/21/19 10:10 16:01 16:48 WBC RBC Hgb Hct MCV MCHC Neutrophils # Lymphocytes # ABG pH ABG pCO2 ABG pO2 ABG HCO3 ABG Total CO2 ABG O2 Saturation Potassium BUN Creatinine Glucose POC Glucose (mg/dL) 180 H Plasma Lactic Acid Jean 2.3 H* Phosphorus Magnesium ALT Troponin I 0.807 H* Total Protein HDL Cholesterol Urine Protein Urine Blood Ur Leukocyte Esterase Urine RBC Urine WBC Urine WBC Clumps Urine Bacteria 08/21/19 08/21/19 08/22/19 21:05 22:16 01:54 WBC RBC Hgb Hct MCV MCHC Neutrophils # Lymphocytes # ABG pH ABG pCO2 ABG pO2 ABG HCO3 ABG Total CO2 ABG O2 Saturation Potassium BUN Creatinine Glucose POC Glucose (mg/dL) 171 H 200 H Plasma Lactic Acid Jean Phosphorus Magnesium ALT Troponin I 1.140 H* Total Protein HDL Cholesterol Urine Protein Urine Blood Ur Leukocyte Esterase Urine RBC Urine WBC Urine WBC Clumps Urine Bacteria 08/22/19 08/22/19 08/22/19 02:10 02:11 02:17 WBC RBC Hgb Hct MCV MCHC Neutrophils # Lymphocytes # ABG pH 7.09 L* ABG pCO2 96 H* ABG pO2 51 L* ABG HCO3 29 H ABG Total CO2 32 H ABG O2 Saturation 74.7 L Potassium BUN Creatinine Glucose POC Glucose (mg/dL) 202 H Plasma Lactic Acid Jean Phosphorus Magnesium ALT Troponin I Total Protein HDL Cholesterol 35 L Urine Protein Urine Blood Ur Leukocyte Esterase Urine RBC Urine WBC Urine WBC Clumps Urine Bacteria 08/22/19 08/22/19 08/22/19 02:17 02:17 03:10 WBC 14.7 H RBC 3.54 L Hgb 11.6 L Hct 38.2 L MCV 108.0 H MCHC 30.3 L Neutrophils # 13.3 H Lymphocytes # 0.9 L ABG pH ABG pCO2 ABG pO2 ABG HCO3 ABG Total CO2 ABG O2 Saturation Potassium 5.5 H BUN 72 H Creatinine 3.66 H Glucose 224 H POC Glucose (mg/dL) Plasma Lactic Acid Jean Phosphorus 8.3 H Magnesium 2.5 H ALT 17 L Troponin I Total Protein HDL Cholesterol Urine Protein Trace H Urine Blood Large H Ur Leukocyte Esterase Large H Urine RBC >182 H Urine WBC 90 H Urine WBC Clumps Few H Urine Bacteria Rare H 08/22/19 08/22/19 08/22/19 03:40 04:23 04:23 WBC 11.3 H RBC 3.20 L Hgb 10.5 L Hct 33.8 L MCV 105.4 H MCHC Neutrophils # 10.1 H Lymphocytes # 0.7 L ABG pH 7.27 L ABG pCO2 59 H ABG pO2 70 L ABG HCO3 27 H ABG Total CO2 29 H ABG O2 Saturation 93.3 L Potassium 5.2 H BUN 76 H Creatinine 3.86 H Glucose 189 H POC Glucose (mg/dL) Plasma Lactic Acid Jean Phosphorus Magnesium ALT Troponin I Total Protein HDL Cholesterol Urine Protein Urine Blood Ur Leukocyte Esterase Urine RBC Urine WBC Urine WBC Clumps Urine Bacteria 08/22/19 06:21 WBC RBC Hgb Hct MCV MCHC Neutrophils # Lymphocytes # ABG pH ABG pCO2 ABG pO2 ABG HCO3 ABG Total CO2 ABG O2 Saturation Potassium BUN Creatinine Glucose POC Glucose (mg/dL) 143 H Plasma Lactic Acid Jean Phosphorus Magnesium ALT Troponin I Total Protein HDL Cholesterol Urine Protein Urine Blood Ur Leukocyte Esterase Urine RBC Urine WBC Urine WBC Clumps Urine Bacteria - Diagnostic Findings Chest x-ray: image reviewed Assessment and Plan Plan: 1 acute hypoxic/hypercapnic respiratory failure, multifactorial, likely secondary to decompensated CHF/pulmonary edema in addition to pneumonia possibly involving the right lower lobe. The patient had acute respiratory acidosis and acute hypoxic respiratory failure, intubated on a mechanical ventilator. Currently well sedated hemodynamically hypotensive on low-dose pressors 2 congestion heart failure with likely systolic dysfunction, awaiting echocardiogram 3 CAD with previous old IA with Q waves involving the inferior leads. The patient had elevation in troponins with negative acute ST segment elevation or depressions. Consider troponin leak secondary to above. Consider non-STEMI 4 chronic kidney disease, stage III in the patient has bilateral hydronephrosis left more than right and based on the ultrasound of the kidneys there is a lesion at the left UV junction that needs to be further visualized. Urology on the case. 5 diabetes mellitus 6 COPD with chronic hypoxic respiratory failure and the patient on 3 L of oxygen by nasal cannula. He is a smoker smoking around half pack of cigarettes a day. 7 hypertension 8 hyperlipidemia 9 extensive psoriasis Plan Continue vent support. Necessity ventilator changes were done. Check another blood gas and wean down the FiO2 further if possible. Acid base status is improved. Obtain sputum Gram stain and culture. Obtain blood culture. With the patient on a combination of Zosyn and Levaquin for now. Obtain Legionella urine antigen. Obtain echocardiogram the fourth. Continue Lasix drip. Urology consultation. There is a concern of a obstructive uropathy with abnormal ultrasound the bladder showing possibility of a UV junction obstruction. Monitor renal function. Monitor potassium level. Continue bronchodilators. Keep pressors. Incidental triple-lumen catheter. Insert an outlying catheter. Condition is critical. We'll continue to follow. Keep nothing by mouth for another 24 hours. Insulin size. Coverage for blood sugar control. He is on with heparin subcu for DVT prophylaxis every 12 hours. Time with Patient: Greater than 30
[2019-08-22] MEDS ORDERED: HEPARIN SODIUM,PORCINE 5,000 UNIT/ML 1 ML VIAL SQ SCH (12:00)
[2019-08-22] MEDS ORDERED: DOBUTamine DRIP 500 MG in DEXTROSE/WATER 1 250ML.BAG IV SCH (12:15)
--- NOTE | 2019-08-22 12:21 | PN ---
PROGRESS NOTE FOLLOW-UP NOTE: John is a 78-year-old gentleman who was admitted to hospital with shortness of breath, agitation, and he was found to be in renal failure. Patient received Ativan and was quite sleepy. Last night he became short of breath and was given a dose of Lasix and transferred to ICU, where he was found to be in respiratory failure. His pH was 7, pCO2 was 96, PO2 was 51. Patient has been intubated and is currently on vent. Echocardiogram shows severe LV systolic dysfunction. The troponin came back mildly elevated. On his initial admission it was 0.6. It has gone up to 1.1. BUN and creatinine are still elevated at 72 and 3.6. EKG showed sinus tachycardia with poor R- wave progression. Patient is currently on Lasix drip and is making very little urine. Chest x-ray shows worsening pulmonary congestion. On exam, heart rate is 110 beats per minute. Blood pressure is 116/78. Chest exam reveals diminished air entry with occasional rhonchi. Heart exam reveals first and second heart sounds. No gallop. Examination of extremities reveals mild edema with chronic skin changes and diminished pulses. Labs show a hemoglobin of 10.5. BUN is 72, creatinine is 3.6. Potassium is 5.5. ASSESSMENT: 1. Acute-onset systolic heart failure. 2. Acute renal failure. 3. Acute respiratory failure. His respiratory failure is not cardiac in origin. Patient has known COPD and developed hypoventilation and respiratory failure as a result. I agree with the Lasix drip. I do not believe intravenous dobutamine is the right option at this time, given the elevated troponin and possible recent myocardial infarction. If there is no response to the IV Lasix by tomorrow, we will consider starting him on dobutamine and see if it makes a difference. If necessary, we may have to dialyze the patient. MMODL / IJN: [id number] /
[2019-08-22 13:18] LABS: ABG HCO3 28 mmol/L (21-25); ABG Oxygen Saturation 93.6 % (94-97); ABG PCO2 49 mmHg (35-45); ABG PH 7.36 (7.35-7.45); ABG PO2 75 mmHg (83-108); ABG TCO2 29 mmol/L (19-24); Allen Test Performed? Yes
[2019-08-22] MEDS: PIPERACILLIN-TAZOBACTAM 3.375 GM in SODIUM CHLORIDE 0.9% 100 ML IVPB SCH ×2 (13:20→20:05)
--- NOTE | 2019-08-22 13:32 | XR ---
EXAMINATION TYPE: XR chest 1V portable DATE OF EXAM: 08/22/2019 CLINICAL HISTORY: Central line placement. TECHNIQUE: Single AP portable upright view of the chest is obtained. COMPARISON: Chest x-ray from earlier today FINDINGS: Stable-appearing endotracheal and orogastric tubes. New left subclavian central venous cat heter terminating in SVC. Stable mild cardiomegaly. Background chronic parenchymal change with inters titial edema and small bilateral pleural effusions. Improved central vascular congestion and edema/ef fusions from prior. Osseous structures are intact. IMPRESSION: New left subclavian central venous catheter with tip in SVC. No pneumothorax. Improved ce ntral vascular congestion along with interstitial edema and bilateral pleural effusions from comparis on.
[2019-08-22 13:35] LABS: Glucose,Whole Blood 150 mg/dL (75-99)
--- NOTE | 2019-08-22 13:57 | P.GSCN ---
History of Present Illness Consult date: 08/22/19 Reason for Consult: Bilateral hydronephrosis History of present illness: Mr. Iqbal 78-year-old male patient who was admitted to the hospital for shortness of breath. He does have multiple medical problems. The patient was having increased shortness of breath, and went into respiratory distress and required intubation. Urology is counsulted for bilateral hydronephrosis. Creatinine is at 3.8. . His ultrasound the kidneys showed bilateral hydronephrosis that was severe left-sided and moderate right-sided hydronephrosis, in addition to thickening of the urinary bladder wall. There is also a possibile sessile mass Vs Ureterocele near the left UO Per patient He has been having difficulty voiding for the past month, no know hx o gross hematuria, recurrent UTI. No hx of renal stones, or radiation or any abdominal surgery. Review of Systems ROS unobtainable: due to endotracheal tube, due to mental status Past Medical History Past Medical History: Heart Failure, COPD, Diabetes Mellitus, Hyperlipidemia, Hypertension, Myocardial Infarction (NH), Osteoarthritis (OA), Renal Disease, Skin Disorder Additional Past Medical History / Comment(s): COPD, home oxygen at 2-3 L/NC prn, chronic respiratory failure, CAD, NH per EKG-exact age unknown, NIDDM type II, chronic kidney disease being followed by Dr. Chester, UTI, chronic back pain, DJD, psoriasis. Last Myocardial Infarction Date:: unkn History of Any Multi-Drug Resistant Organisms: None Reported Past Surgical History: Orthopedic Surgery Additional Past Surgical History / Comment(s): L hip and L leg surgery d/t fractures when pt was in his 20s. Past Anesthesia/Blood Transfusion Reactions: No Reported Reaction Smoking Status: Current every day smoker - Past Family History Father Family Medical History: Myocardial Infarction (NH) Additional Family Medical History / Comment(s): Father of a NH in his early 60s. Mother Family Medical History: No Reported History Medications and Allergies Home Medications Medication Instructions Recorded Confirmed Type Aspirin EC [Ecotrin Low Dose] 81 mg PO DAILY 08/21/19 08/21/19 History Cholecalciferol [Vitamin D3 (25 1,000 unit PO DAILY 08/21/19 08/21/19 History Mcg = 1000 Iu)] Cyclobenzaprine [Flexeril] 10 mg PO HS 08/21/19 08/21/19 History Gabapentin [Neurontin] 300 mg PO TID 08/21/19 08/21/19 History HYDROcodone/APAP 10-325MG [[place] 1 tab PO Q6H PRN 08/21/19 08/21/19 History 10-325] Oxybutynin Chloride [Oxybutynin 10 mg PO BID 08/21/19 08/21/19 History Chloride ER] amLODIPine [Norvasc] 2.5 mg PO DAILY 08/21/19 08/21/19 History metFORMIN HCL 1,000 mg PO BID 08/21/19 08/21/19 History Allergies Allergy/AdvReac Type Severity Reaction Status Date / Time No Known Allergies Allergy Verified 08/21/19 12:04 Surgical - Exam Vital Signs Temp Pulse Resp BP Pulse Ox 98.6 F 130 H 20 123/65 78 L 08/21/19 09:44 08/21/19 09:44 08/21/19 09:44 08/21/19 09:44 08/21/19 09:44 - General no distress - Respiratory intubated - Abdomen Abdomen: soft, non tender - Genitourinary No circumcised phallus gray with clear yellow urine - Integumentary Psoriasis invloving lower extremity Results - Labs 08/22/19 04:23 08/22/19 04:23 Abnormal Lab Results - Last 24 Hours (Table) 08/21/19 08/21/19 08/21/19 Range/Units 16:01 16:48 21:05 WBC (3.8-10.6) k/uL RBC (4.30-5.90) m/uL Hgb (13.0-17.5) gm/dL Hct (39.0-53.0) % MCV (80.0-100.0) fL MCHC (31.0-37.0) g/dL Neutrophils # (1.3-7.7) k/uL Lymphocytes # (1.0-4.8) k/uL ABG pH (7.35-7.45) ABG pCO2 (35-45) mmHg ABG pO2 (83-108) mmHg ABG HCO3 (21-25) mmol/L ABG Total CO2 (19-24) mmol/L ABG O2 Saturation (94-97) % Potassium (3.5-5.1) mmol/L BUN (9-20) mg/dL Creatinine (0.66-1.25) mg/dL Glucose (74-99) mg/dL POC Glucose (mg/dL) 180 H 171 H (75-99) mg/dL Phosphorus (2.5-4.5) mg/dL Magnesium (1.6-2.3) mg/dL ALT (21-72) U/L Troponin I 0.807 H* (0.000-0.034) ng/mL HDL Cholesterol (40-60) mg/dL Urine Protein (Negative) Urine Blood (Negative) Ur Leukocyte Esterase (Negative) Urine RBC (0-5) /hpf Urine WBC (0-5) /hpf Urine WBC Clumps (None) /hpf Urine Bacteria (None) /hpf 08/21/19 08/22/19 08/22/19 Range/Units 22:16 01:54 02:10 WBC (3.8-10.6) k/uL RBC (4.30-5.90) m/uL Hgb (13.0-17.5) gm/dL Hct (39.0-53.0) % MCV (80.0-100.0) fL MCHC (31.0-37.0) g/dL Neutrophils # (1.3-7.7) k/uL Lymphocytes # (1.0-4.8) k/uL ABG pH (7.35-7.45) ABG pCO2 (35-45) mmHg ABG pO2 (83-108) mmHg ABG HCO3 (21-25) mmol/L ABG Total CO2 (19-24) mmol/L ABG O2 Saturation (94-97) % Potassium (3.5-5.1) mmol/L BUN (9-20) mg/dL Creatinine (0.66-1.25) mg/dL Glucose (74-99) mg/dL POC Glucose (mg/dL) 200 H 202 H (75-99) mg/dL Phosphorus (2.5-4.5) mg/dL Magnesium (1.6-2.3) mg/dL ALT (21-72) U/L Troponin I 1.140 H* (0.000-0.034) ng/mL HDL Cholesterol (40-60) mg/dL Urine Protein (Negative) Urine Blood (Negative) Ur Leukocyte Esterase (Negative) Urine RBC (0-5) /hpf Urine WBC (0-5) /hpf Urine WBC Clumps (None) /hpf Urine Bacteria (None) /hpf 08/22/19 08/22/19 08/22/19 Range/Units 02:11 02:17 02:17 WBC 14.7 H (3.8-10.6) k/uL RBC 3.54 L (4.30-5.90) m/uL Hgb 11.6 L (13.0-17.5) gm/dL Hct 38.2 L (39.0-53.0) % MCV 108.0 H (80.0-100.0) fL MCHC 30.3 L (31.0-37.0) g/dL Neutrophils # 13.3 H (1.3-7.7) k/uL Lymphocytes # 0.9 L (1.0-4.8) k/uL ABG pH 7.09 L* (7.35-7.45) ABG pCO2 96 H* (35-45) mmHg ABG pO2 51 L* (83-108) mmHg ABG HCO3 29 H (21-25) mmol/L ABG Total CO2 32 H (19-24) mmol/L ABG O2 Saturation 74.7 L (94-97) % Potassium (3.5-5.1) mmol/L BUN (9-20) mg/dL Creatinine (0.66-1.25) mg/dL Glucose (74-99) mg/dL POC Glucose (mg/dL) (75-99) mg/dL Phosphorus (2.5-4.5) mg/dL Magnesium (1.6-2.3) mg/dL ALT (21-72) U/L Troponin I (0.000-0.034) ng/mL HDL Cholesterol 35 L (40-60) mg/dL Urine Protein (Negative) Urine Blood (Negative) Ur Leukocyte Esterase (Negative) Urine RBC (0-5) /hpf Urine WBC (0-5) /hpf Urine WBC Clumps (None) /hpf Urine Bacteria (None) /hpf 08/22/19 08/22/19 08/22/19 Range/Units 02:17 03:10 03:40 WBC (3.8-10.6) k/uL RBC (4.30-5.90) m/uL Hgb (13.0-17.5) gm/dL Hct (39.0-53.0) % MCV (80.0-100.0) fL MCHC (31.0-37.0) g/dL Neutrophils # (1.3-7.7) k/uL Lymphocytes # (1.0-4.8) k/uL ABG pH 7.27 L (7.35-7.45) ABG pCO2 59 H (35-45) mmHg ABG pO2 70 L (83-108) mmHg ABG HCO3 27 H (21-25) mmol/L ABG Total CO2 29 H (19-24) mmol/L ABG O2 Saturation 93.3 L (94-97) % Potassium 5.5 H (3.5-5.1) mmol/L BUN 72 H (9-20) mg/dL Creatinine 3.66 H (0.66-1.25) mg/dL Glucose 224 H (74-99) mg/dL POC Glucose (mg/dL) (75-99) mg/dL Phosphorus 8.3 H (2.5-4.5) mg/dL Magnesium 2.5 H (1.6-2.3) mg/dL ALT 17 L (21-72) U/L Troponin I (0.000-0.034) ng/mL HDL Cholesterol (40-60) mg/dL Urine Protein Trace H (Negative) Urine Blood Large H (Negative) Ur Leukocyte Esterase Large H (Negative) Urine RBC >182 H (0-5) /hpf Urine WBC 90 H (0-5) /hpf Urine WBC Clumps Few H (None) /hpf Urine Bacteria Rare H (None) /hpf 08/22/19 08/22/19 08/22/19 Range/Units 04:23 04:23 06:21 WBC 11.3 H (3.8-10.6) k/uL RBC 3.20 L (4.30-5.90) m/uL Hgb 10.5 L (13.0-17.5) gm/dL Hct 33.8 L (39.0-53.0) % MCV 105.4 H (80.0-100.0) fL MCHC (31.0-37.0) g/dL Neutrophils # 10.1 H (1.3-7.7) k/uL Lymphocytes # 0.7 L (1.0-4.8) k/uL ABG pH (7.35-7.45) ABG pCO2 (35-45) mmHg ABG pO2 (83-108) mmHg ABG HCO3 (21-25) mmol/L ABG Total CO2 (19-24) mmol/L ABG O2 Saturation (94-97) % Potassium 5.2 H (3.5-5.1) mmol/L BUN 76 H (9-20) mg/dL Creatinine 3.86 H (0.66-1.25) mg/dL Glucose 189 H (74-99) mg/dL POC Glucose (mg/dL) 143 H (75-99) mg/dL Phosphorus (2.5-4.5) mg/dL Magnesium (1.6-2.3) mg/dL ALT (21-72) U/L Troponin I (0.000-0.034) ng/mL HDL Cholesterol (40-60) mg/dL Urine Protein (Negative) Urine Blood (Negative) Ur Leukocyte Esterase (Negative) Urine RBC (0-5) /hpf Urine WBC (0-5) /hpf Urine WBC Clumps (None) /hpf Urine Bacteria (None) /hpf Microbiology - Last 24 Hours (Table) 08/21/19 10:10 Blood Culture - Preliminary Blood No Growth after 24 hours 08/22/19 03:10 Urine Culture - Preliminary Urine,Voided 08/22/19 03:06 Sputum Culture - Preliminary Sputum Diabetes panel 08/22/19 08/22/19 08/22/19 Range/Units 02:17 02:17 04:23 Sodium 140 142 (137-145) mmol/L Potassium 5.5 H 5.2 H (3.5-5.1) mmol/L Chloride 105 105 (98-107) mmol/L Carbon Dioxide 28 25 (22-30) mmol/L BUN 72 H 76 H (9-20) mg/dL Creatinine 3.66 H 3.86 H (0.66-1.25) mg/dL Glucose 224 H 189 H (74-99) mg/dL Calcium 8.9 8.7 (8.4-10.2) mg/dL AST 30 (17-59) U/L ALT 17 L (21-72) U/L Alkaline Phosphatase 76 (38-126) U/L Total Protein 8.0 (6.3-8.2) g/dL Albumin 3.9 (3.5-5.0) g/dL Triglycerides 119 (<150) mg/dL HDL Cholesterol 35 L (40-60) mg/dL Calcium panel 08/22/19 08/22/19 Range/Units 02:17 04:23 Calcium 8.9 8.7 (8.4-10.2) mg/dL Phosphorus 8.3 H (2.5-4.5) mg/dL Albumin 3.9 (3.5-5.0) g/dL Pituitary panel 08/22/19 08/22/19 Range/Units 02:17 04:23 Sodium 140 142 (137-145) mmol/L Potassium 5.5 H 5.2 H (3.5-5.1) mmol/L Chloride 105 105 (98-107) mmol/L Carbon Dioxide 28 25 (22-30) mmol/L BUN 72 H 76 H (9-20) mg/dL Creatinine 3.66 H 3.86 H (0.66-1.25) mg/dL Glucose 224 H 189 H (74-99) mg/dL Calcium 8.9 8.7 (8.4-10.2) mg/dL Adrenal panel 08/22/19 08/22/19 Range/Units 02:17 04:23 Sodium 140 142 (137-145) mmol/L Potassium 5.5 H 5.2 H (3.5-5.1) mmol/L Chloride 105 105 (98-107) mmol/L Carbon Dioxide 28 25 (22-30) mmol/L BUN 72 H 76 H (9-20) mg/dL Creatinine 3.66 H 3.86 H (0.66-1.25) mg/dL Glucose 224 H 189 H (74-99) mg/dL Calcium 8.9 8.7 (8.4-10.2) mg/dL Total Bilirubin 0.5 (0.2-1.3) mg/dL AST 30 (17-59) U/L ALT 17 L (21-72) U/L Alkaline Phosphatase 76 (38-126) U/L Total Protein 8.0 (6.3-8.2) g/dL Albumin 3.9 (3.5-5.0) g/dL Assessment and Plan Assessment: 70-year-old male admitted to the hospital for shortness of breath currently in the ICU due to respiratory distress he is intubated. Urology is consultative for bilateral Hydronephrosis and a possible mass versus a ureterocele at the left UVJ. He has voiding symptoms at baseline per patient and are no history of gross hematuria or kidney stones Plan: -Keep Gray in place -CT renal stone protocol to better evaluate hydronephrosis
--- NOTE | 2019-08-22 15:48 | P.PN ---
Progress Note - Text Progress Note Date: 08/22/19 Chief Complaint: Short of breath, cough History of presenting complaint: This is 72 patient now follows with Dr. rai. Chronic stable medical conditions include diabetes, hypertension, hyperlipidemia, osteoarthritis, chronic kidney disease, home oxygen 2-3 L, chronic low back pain and psoriatic.. Patient patient was brought in by his . Most history is obtained by the at the bedside. At her baseline patient very much sits down and watches television. Does not drive. Has a fair appetite. Normally able to get around the house. Patient started coughing became short of breath wheezing yesterday with a decreased oral intake. Became a bit more confused and acute dose ER. Was given IV Lasix in the ER bronchodilators. Patient has a sitter at the bedside. Patient had been quite a bit short of breath. Up some sputum. No obvious fever or chills. The patient admitted with a diagnosis of right-sided pneumonia, CHF exacerbation, COPD exacerbation, acute delirium. Patient was started on Lasix drip and IV ceftriaxone. Today-old right patient became more short of breath and went into respiratory distress. Had to be intubated. Copious secretions were obtained. Patient is the ICU with the levo fed drip. Patient seen by Dr. Forrester from critical care. Review of systems cannot be done as patient is intubated Active Medications Hydrocodone Bitart/Acetaminophen ([place] 10) 1 each PO Q6H PRN PRN Reason: Pain Albuterol/Ipratropium (Duoneb 0.5 Mg-3 Mg/3 Ml Soln) 3 ml INHALATION RT-Q4H [facility] Last Admin: 08/22/19 11:10 Dose: 3 ml Documented by: Aspirin (Aspirin) 325 mg PO DAILY [facility] Last Admin: 08/22/19 09:51 Dose: 325 mg Documented by: Budesonide (Pulmicort) 1 mg INHALATION RT-BID [facility] Last Admin: 08/22/19 07:27 Dose: 1 mg Documented by: Chlorhexidine Gluconate (Peridex) 15 ml MUCOUS MEM BID [facility] Last Admin: 08/22/19 09:50 Dose: 15 ml Documented by: Cholecalciferol (Vitamin D3 (25 Mcg = 1000 Iu)) 1,000 unit PO DAILY [facility] Last Admin: 08/22/19 09:51 Dose: 1,000 unit Documented by: Cyclobenzaprine HCl (Flexeril) 10 mg PO HS [facility] Last Admin: 08/21/19 21:00 Dose: 10 mg Documented by: Gabapentin (Neurontin) 300 mg PO TID [facility] Last Admin: 08/22/19 09:51 Dose: 300 mg Documented by: Heparin Sodium (Porcine) (Heparin) 5,000 unit SQ Q12HR [facility] Sodium Chloride (Saline 0.9%) 1,000 mls @ 20 mls/hr IV .Q24H [facility] Last Admin: 08/21/19 14:12 Dose: Not Given Documented by: Furosemide 100 mg/ Sodium (Chloride) 100 mls @ 10 mls/hr IV .Q10H [facility] Last Admin: 08/22/19 06:25 Dose: 10 mg/hr, 10 mls/hr Documented by: Propofol 1,000 mg/ IV Solution 100 mls @ 0 mls/hr IV .Q0M [facility]; Protocol Last Titration: 08/22/19 11:30 Dose: 50 mcg/kg/min, 24.72 mls/hr Documented by: Norepinephrine Bitartrate 4 mg (/ Sodium Chloride) 254 mls @ 17.282 mls/hr IV .[id number] [facility]; Protocol Last Titration: 08/22/19 11:00 Dose: Infused Documented by: Piperacillin Sod/Tazobactam (Sod 3.375 gm/ Sodium Chloride) 100 mls @ 25 mls/hr IVPB Q12HR [facility] Last Admin: 08/22/19 13:20 Dose: 25 mls/hr Documented by: Dobutamine HCl/Dextrose 500 mg (/ IV Solution) 250 mls @ 6.18 mls/hr IV .Q24H [facility] Insulin Aspart (Novolog) 0 unit SQ 0000,0600,1200,1800 [facility]; Protocol Last Admin: 08/22/19 13:28 Dose: 1 unit Documented by: Methylprednisolone Sodium Succinate (Solu-Medrol) 40 mg IV Q8HR [facility] Last Admin: 08/22/19 09:51 Dose: 40 mg Documented by: Naloxone HCl (Narcan) 0.2 mg IV Q2M PRN PRN Reason: Opioid Reversal Nicotine (Habitrol 21mg/24hr Patch) 1 patch TRANSDERM DAILY [facility] Last Admin: 08/22/19 09:51 Dose: 1 patch Documented by: Nitroglycerin (Nitrostat) 0.4 mg SUBLINGUAL Q5M PRN PRN Reason: Chest Pain Nystatin (Mycostatin Powder) 1 applic TOPICAL BID [facility] Last Admin: 08/22/19 09:52 Dose: 1 applic Documented by: Oxybutynin Chloride (Ditropan Xl) 10 mg PO BID [facility] Last Admin: 08/22/19 09:51 Dose: 10 mg Documented by: Physical examination: VITAL SIGNS: 99.6, 118, 20, 110/68, 98% on ventilator GENERAL: Laying in bed, intubated EYES: Pupils equal. Conjunctiva normal. HEENT: External appearance of nose and ears normal, oral cavity dry., Endotracheal tube in place NECK: JVD not raised; masses not palpable. HEART: First and second heart sounds are normal; no edema. LUNGS: Respiratory rate increased, decreased breaths ABDOMEN: Soft, nontender, liver spleen not palpable, no masses palpable. DERMATOLOGICAL: Area of redness in both the groin,siver demarcated plaques, and both legs PSYCH: Unable to assess, intubated. NEUROLOGICAL: Pupils are reactive INVESTIGATIONS, reviewed in the clinical context: White count 10.3 hemoglobin 10.5 platelets 249, ABG noted Potassium 5.2.76 creatinine 3.86 2-D echo-EF 20/25 percent Previous testing White count 12.4 hemoglobin 12.6 platelets 237 potassium 4.8 bun 61 creatinine 3.11 Troponin I 0.620, 0.807, influenza A and B both negative EKG tracing personally reviewed by me-personally reviewed by me shows normal sinus rhythm, poor R-wave progression, some T-wave changes in anterolateral leads Chest x-ray film personally reviewed by me-venous prominence, fluid in the fissure, right basilar infiltrate Abdominal ultrasound on 07/29/2019-severe left hydronephrosis and moderate right hydronephrosis, abnormally thickened urinary bladder wall seen multifocally, additionally a sessile mass questionable degree of the left ureteral was cycled junction Assessment: -Acute on chronic congestive heart failure exacerbation, from systolic and diastolic dysfunction EF 20-25% -Cardiogenic and septic shock requiring pressor support and IV dobutamine -Severe Right-sided pneumonia, suspect gram-negative organism, slow to respond, POA, POA -Acute COPD exacerbation in a current smoker, worsening, POA, POA -Acute hypoxic and hypercapnic respiratory failure due to COPD and pneumonia, POA -Bilateral hydronephrosis, with distal obstruction and evidence of chronic kidney disease on the left kidney -Chronic kidney disease, baseline unknown, including obstructive pattern -Acute renal failure, possibly combination of cardiorenal syndrome and obstructive pattern, including ATN -Hyperkalemia secondary to renal failure -Diabetes mellitus type 2 on oral hypoglycemic -Hyperlipidemia -Essential hypertension -Primary osteoarthritis -Chronic kidney disease stage IV -Lactic acidosis from pneumonia -Troponin leak 2 positive possibly. Hemodynamic instability. Doubt acute coronary syndrome -Acute delirium from pneumonia etc. Plan: Patient is now on IV Zosyn, on the ventilator on the levo fed, IV dobutamine, IV Lasix drip, IV propofol. In the ICU. Prognosis guarded
--- NOTE | 2019-08-22 17:55 | CT ---
EXAMINATION TYPE: CT renal stones wo con DATE OF EXAM: 08/22/2019 HISTORY: bilateral hydronephrosis per order. Flank pain. CT DLP: 1083.4 mGycm. Automated Exposure Control for Dose Reduction was Utilized. TECHNIQUE: CT scan of the abdomen and pelvis is performed without oral or IV contrast. COMPARISON: Chest x-ray earlier today. Renal ultrasound July 29, 2019. FINDINGS: Within the limitations of a non-contrast study, the following observations are made. LUNG BASES: Small right greater than left pleural effusions with associated bibasilar compressive ate lectasis. Prominent bilateral gynecomastia. Tiny pericardial effusion. LIVER/GB: Slightly heterogeneous liver which is somewhat small in size. Gallbladder has distended mar gins. PANCREAS: Mild to moderate generalized fat replaced atrophy. SPLEEN: No significant abnormality is seen. ADRENALS: No significant abnormality is seen. KIDNEYS: There are 3 nonobstructing left renal calculi measuring 2 mm in size.. Severe left-sided hyd ronephrosis with cortical thinning. No obstructing calculus is identified. There is more mild right-s ided hydronephrosis. There is 4.0 cm exophytic hypodense lesion posterior lateral aspect lower pole r ight kidney, Hounsfield units average 32. Bladder is poorly distended with severe concentric wall thi ckening. Caldwell catheter is in place. Foci of nondependent air noted. BOWEL: Orogastric tube coiled in stomach with successful decompression. No suspicious small or large bowel dilatation. Mild prominence of fecal material throughout the colon. More moderate prominence at level of rectum. GENITAL ORGANS: No gross abnormality seen. LYMPH NODES: No greater than 1cm abdominal or pelvic lymph nodes are appreciated. OSSEOUS STRUCTURES: Hemangioma T10 vertebra. Osseous structures demineralized. Partial visualization of surgical change left proximal femur through healed fracture. OTHER: Moderate calcified plaque in ectatic abdominal aorta. Focal ectatic aneurysm up to 4.1 cm with right lateral prominence axial image 88 may be present. Difficulty differentiating IVC versus aorta at this level without fat plane separation. Aneurysm 4.0 cm noted AP diameter axial image 80. IMPRESSION: Abnormal bladder wall thickening, neoplasm cannot be excluded. Other etiologies are not e xcluded. Severe left-sided hydronephrosis and mild right-sided hydronephrosis. No obstructing calculi . Consider cystoscopy to further evaluate. Findings correlate with recent ultrasound. Right-sided hyd ronephrosis but less prominent versus ultrasound. Lesion of concern on CT right kidney corresponds to simple appearing thin-walled cyst on ultrasound. Mild diffuse colonic fecal stasis with slightly mor e moderate rectal fecal stasis. Overall nonobstructive bowel gas pattern. 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
[2019-08-22 18:18] LABS: Glucose,Whole Blood 155 mg/dL (75-99)
[2019-08-22] MEDS: SODIUM CHLORIDE 0.9% 1,000 ML IV SCH (19:09)
[2019-08-22] MEDS: CYCLOBENZAPRINE 10 MG TAB PO SCH (20:07)
--- NOTE | 2019-08-22 23:20 | OP ---
OPERATIVE REPORT PREOP DIAGNOSIS: Acute hypoxic respiratory failure. POSTOP DIAGNOSIS: Acute hypoxic respiratory failure. ILLUTATION DESCRIPTION OF PROCEDURE: Insertion of a triple-lumen catheter site of insertion. Indication Pleural effusion. A time-out was completed verifying correct patient, procedure, site, positioning , and implant (s) or special equipment if applicable. Ultrasound guidance was/was not used and appropriate fluid pocket was identified and marked. Patient was positioned, prepped and draped in usual sterile fashion. Lidocaine was used to anesthetize the area. A Thoracentesis catheter was introduced into the pleural space and fluid was removed. Blood loss was none. A chest x-ray was ordered to evaluate for pneumothorax. Total Fluid Removed @@ Color of Fluid @@ Fluid acute hypoxic respiratory failure, was/was not sent for appropriate. Patient tolerated the procedure well and there were no complications. The right subclavian vein. No bedside complication or bleeding. No pneumothorax on the chest x-ray and a 2nd procedure insertion of an art line catheter site of insertion. The right radial artery. Left radial artery. The left radial artery. No bedside complications or bleeding. Signed my name on 12/1999. Both of these procedures preop diagnosis acute hypoxic respiratory failure. Postop diagnosis same. MMODL / IJN: [id number] /
[2019-08-23 00:04] LABS: Glucose,Whole Blood 190 mg/dL (75-99)
[2019-08-23] MEDS: PROPOFOL 1,000 MG in EMPTY BAG 1 BAG IV SCH ×4 (00:10→19:26)
[2019-08-23] MEDS: IPRATROPIUM-ALBUTEROL 3 ML NEB INHALATION SCH ×5 (03:09→19:53)
[2019-08-23 04:43] LABS: ABG Base Excess 4.2 mmol/L; ABG HCO3 29 mmol/L (21-25); ABG Oxygen Saturation 98.5 % (94-97); ABG PCO2 48 mmHg (35-45); ABG PH 7.39 (7.35-7.45); ABG PO2 129 mmHg (83-108); ABG TCO2 31 mmol/L (19-24); Allen Test Performed? Yes
[2019-08-23 05:35] LABS: Basophils % (A) 0 %; Eosinophils % (A) 0 %; HCT 33.6 % (39.0-53.0); HGB 10.5 gm/dL (13.0-17.5); Lymphocytes # (A) 0.6 k/uL (1.0-4.8); Lymphocytes % (A) 4 %; MCH 31.9 pg (25.0-35.0); MCHC 31.2 g/dL (31.0-37.0); MCV 102.3 fL (80.0-100.0); Macrocytosis Slight; Mean Platelet Volume 7.8; Monocytes # (A) 0.7 k/uL (0-1.0); Monocytes % (A) 5 %; Neutrophils # (A) 14.7 k/uL (1.3-7.7); Neutrophils % (A) 91 %; Platelet Count 206 k/uL (150-450); RBC 3.28 m/uL (4.30-5.90); RDW 13.5 % (11.5-15.5); WBC 16.1 k/uL (3.8-10.6)
[2019-08-23 05:45] LABS: Calcium 8.6 mg/dL (8.4-10.2); Potassium 4.4 mmol/L (3.5-5.1)
[2019-08-23 06:50] LABS: Glucose,Whole Blood 175 mg/dL (75-99)
[2019-08-23] MEDS: INSULIN ASPART (NovoLOG) 100 UNIT/ML VIAL SQ SCH ×3 (07:16→18:20)
[2019-08-23] MEDS: BUDESONIDE 1 MG/2 ML NEBU INHALATION SCH ×2 (07:18→19:53)
[2019-08-23] MEDS: methylPREDNISolone SOD SUCCI 40 MG/ML 1 ML VIAL IV SCH ×2 (08:32→18:20)
[2019-08-23] MEDS: NICOTINE 21MG/24HR PATCH TRANSDERM SCH (08:36)
[2019-08-23] MEDS: ASPIRIN 325 MG TAB PO SCH (08:38)
[2019-08-23] MEDS: CHLORHEXIDINE GLUCONATE 15 ML CUP MUCOUS MEM SCH ×2 (08:38→21:08)
[2019-08-23] MEDS: CHOLECALCIFEROL 1,000 UNIT TAB PO SCH (08:38)
[2019-08-23] MEDS: HEPARIN SODIUM,PORCINE 5,000 UNIT/ML 1 ML VIAL SQ SCH ×2 (08:39→21:08)
[2019-08-23] MEDS: NYSTATIN 100,000 UNIT/GM POWD 15 GM TOPICAL SCH ×2 (08:41→21:08)
[2019-08-23] MEDS: PIPERACILLIN-TAZOBACTAM 3.375 GM in SODIUM CHLORIDE 0.9% 100 ML IVPB SCH ×2 (08:49→21:09)
[2019-08-23] MEDS: GABAPENTIN 300 MG CAP PO SCH (09:17)
[2019-08-23] MEDS: OXYBUTYNIN 10 MG TAB.ER.24 PO SCH (09:17)
--- NOTE | 2019-08-23 09:18 | P.PN ---
Subjective Progress Note Date: 08/23/19 This is a 78-year-old male patient who was brought into the hospital yesterday because of worsening shortness of breath. The patient follows up with Dr. Porter. He has not been hospitalized here in our location for quite some time. He does have multiple medical problems. He has coronary artery disease and a remote history of DE, congestion heart failure, chronic stage III kidney disease, hypertension, hyperlipidemia and diabetes mellitus and extensive psoriasis. Is a chronic smoker. 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 Over the past 24-48 hours, the patient was having increased shortness of breath. It was thought that he may be having a pneumonia. He did not want in to come into the hospital. He ultimately came into emergency and overnight he became unresponsive and his blood gas showed acute respiratory acidosis with a pH of 7.09 with a pCO2 of 96 and pO2 of 51 and this was on 100% nonrebreather. Based on that, I made recommendations to intubate the patient around 3 AM this morning. He was placed on a mechanical ventilator and he was brought into the intensive care unit. Currently is on assist control mode of ventilation at the rate of 18 with a tidal volume of 550 FiO2 of 70% and a PEEP of 5. The follow- up blood gases showed a pH of 7.27 with a pCO2 of 59 and pO2 of 70 and this was done and FiO2 of 80%. Peak airway pressure is around 22. He is on propofol which is currently running at 50 g per KG per minute. He is also on norepinephrine infusion at 0.05 g per KG per minute. He was started on Lasix drip at 10 mg an hour. His blood work with a white cell count of 11. Hemoglobin is at 12.6. His potassium level is at 5.2. Creatinine is at 3.8. Troponin maxed was at 1.1 and his EKG showing a sinus rhythm in the form of sinus tachycardia. There are Q waves over the anterior leads consistent with an old anterior wall myocardial infarction. Echocardiogram has been done and the results are still pending for now. Urine output is in the order of 30 mL an hour and the chest x-ray from today shows adequate positioning of the orotr acheal tube. There is pulmonary edema and there is increased consolidation of the right lower lobe which may suggest the potential of an underlying right lower lobe pneumonia. NG tube is in a good location for now. There was copious amount of rest or secretions post intubation and the patient had sputum sent for Gram stain and culture. He was given antibiotics and currently is on Rocephin. His ultrasound the kidneys showed bilateral hydronephrosis. 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 Urology has been consulted. His evaluation of 08/23/2019 I'm seeing this patient for a follow-up. The patient is well sedated with propofol and is calm and comfortable. He is currently on 50 g per KG per minute of propofol. He remains arousable upon lower degree of sedation. As far as the vent support, the patient is on assist control mode at the rate of 18 with a tidal volume of 550 and FiO2 of 50% with a PEEP of 10. The blood gases from today showed a pH of 7.39 with a pCO2 of 48 and pO2 129 and this was done on FiO2 of 70%. Chest x-ray shows stable findings with CHF and possible right lower lobe pneumonia. ET tube is in a good location. Triple-lumen catheter is in a good location. NG tube is in a good location. The patient is still on Lasix drip at 10 mg an hour. He is producing excellent urine output and urine output is more than 50 mL an hour. The labs from today showed a BUN of 102 with a creatinine of 4.38. His serum bicarbs at 27. Note that the patient had a CAT scan of the abdomen based on the fact that he had bilateral hydronephrosis. The CAT scan was completed yesterday and it showed and confirmed the left-sided hydronephrosis. There is a 3 mm nonobstructive left renal calculus and severe left-sided hydronephrosis with cortical thickening. No obstruction by calculus was identified. There is a moderate degree of right-sided hydronephrosis. There is a 4 cm exophytic lesion posterior lateral aspect of the lower pole of the right kidney. The bladder is poorly distended with severe concentric wall thickening and a Caldwell catheter is in place. There was a concern of a left UV junction obstruction and a cystoscopy will be needed. 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 Urology on the case. Caldwell cath is in place. The patient is currently on IV Zosyn. Sputum and blood culture sent and the results are still pending for now. Echocardiogram showed impaired left ventricular ejection fraction of less than 20%. Cardiology is on the case. Objective - Vital Signs Vital signs: Vital Signs Temp 98.2 F 08/23/19 08:00 Pulse 115 H 08/23/19 09:00 Resp 18 08/23/19 09:00 BP 106/71 08/22/19 20:15 Pulse Ox 96 08/23/19 09:00 Intake & Output 08/22/19 08/23/19 08/23/19 18:59 06:59 18:59 Intake Total 685.935 794.889 122.157 Output Total 630 1215 895 Balance 55.935 -420.111 -772.843 Weight 82.4 kg 85.1 kg Intake: IV 240 240 60 Sodium Chloride 0.9% 1, 240 240 60 000 ml @ 20 mls/hr IV . Q24H [facility] Rx#:[id number] Intake, IV Titration 445.935 554.889 62.157 Amount Furosemide 100 mg In 100 65.833 Sodium Chloride 0.9% 90 ml @ 10 MG/HR 10 mls/hr IV .Q10H [facility] Rx#: [id number] Norepinephrine 4 mg In 245.935 89.056 62.157 Sodium Chloride 0.9% 250 ml @ 0.05 MCG/KG/MIN 17. 282 mls/hr IV .[id number] [facility] Rx#:[id number] Piperacillin-Tazobactam 3 100 .375 gm In Sodium Chloride 0.9% 100 ml @ 25 mls/hr IVPB Q12HR [facility] Rx #:[id number] Propofol 1,000 mg In 100.000 300 Empty Bag 1 bag @ Titrate IV .Q0M [facility] Rx#: [id number] Output: Gastric Drainage 750 Urine 630 465 895 Other: Voiding Method Indwelling Catheter Indwelling Catheter Indwelling Catheter # Bowel Movements 1 ABP, PAP, CO, CI - Last Documented Arterial Blood Pressure 135/58 - Exam Gen. appearance sedated, comfortable likely distress. He has a orotracheal and orogastric tube are both in place. His symptoms with the mechanical ventilator. Head exam was generally normal. There was no scleral icterus or corneal arcus. Mucous membranes were moist. Neck was supple and without jugular venous distension, thyromegaly, or carotid bruits. Carotids were easily palpable bilaterally. There was no adenopathy. Heart sounds in a sinus rhythm. It is in a sinus rhythm. No murmurs appreciated.Cardiac exam revealed the PMI to be normally situated and sized. The rhythm was regular and no extrasystoles were noted during several minutes of auscultation. The first and second heart sounds were normal and physiologic s plitting of the second heart sound was noted. There were no murmurs, rubs, clicks, or gallops. Lungs were clear to auscultation and percussion, and with normal diaphragmatic excursion. No wheezes or rales were noted. Abdominal exam revealed normal bowel sounds. The abdomen was soft, non-tender, and without masses, organomegaly, or appreciable enlargement of the abdominal aorta. Examination of the extremities revealed easily palpable radial, femoral and pedal pulses. There was no cyanosis, clubbing or edema. Skin the patient has extensive psoriatic patches throughout his body mainly in the lower extremities bilaterally. Neurologic is well sedated and calm and comfortable, arousable. Pupils are 2 mm in size. No facial asymmetry. Positive cough and gag. - Labs CBC & Chem 7: 08/23/19 05:00 08/23/19 05:00 Labs: Abnormal Lab Results - Last 24 Hours (Table) 08/22/19 08/22/19 08/22/19 Range/Units 13:16 13:23 18:06 WBC (3.8-10.6) k/uL RBC (4.30-5.90) m/uL Hgb (13.0-17.5) gm/dL Hct (39.0-53.0) % MCV (80.0-100.0) fL Neutrophils # (1.3-7.7) k/uL Lymphocytes # (1.0-4.8) k/uL ABG pCO2 49 H (35-45) mmHg ABG pO2 75 L (83-108) mmHg ABG HCO3 28 H (21-25) mmol/L ABG Total CO2 29 H (19-24) mmol/L ABG O2 Saturation 93.6 L (94-97) % BUN (9-20) mg/dL Creatinine (0.66-1.25) mg/dL Glucose (74-99) mg/dL POC Glucose (mg/dL) 150 H 155 H (75-99) mg/dL 08/22/19 08/23/19 08/23/19 Range/Units 23:52 04:40 05:00 WBC 16.1 H (3.8-10.6) k/uL RBC 3.28 L (4.30-5.90) m/uL Hgb 10.5 L (13.0-17.5) gm/dL Hct 33.6 L (39.0-53.0) % MCV 102.3 H (80.0-100.0) fL Neutrophils # 14.7 H (1.3-7.7) k/uL Lymphocytes # 0.6 L (1.0-4.8) k/uL ABG pCO2 48 H (35-45) mmHg ABG pO2 129 H (83-108) mmHg ABG HCO3 29 H (21-25) mmol/L ABG Total CO2 31 H (19-24) mmol/L ABG O2 Saturation 98.5 H (94-97) % BUN (9-20) mg/dL Creatinine (0.66-1.25) mg/dL Glucose (74-99) mg/dL POC Glucose (mg/dL) 190 H (75-99) mg/dL 08/23/19 08/23/19 Range/Units 05:00 06:38 WBC (3.8-10.6) k/uL RBC (4.30-5.90) m/uL Hgb (13.0-17.5) gm/dL Hct (39.0-53.0) % MCV (80.0-100.0) fL Neutrophils # (1.3-7.7) k/uL Lymphocytes # (1.0-4.8) k/uL ABG pCO2 (35-45) mmHg ABG pO2 (83-108) mmHg ABG HCO3 (21-25) mmol/L ABG Total CO2 (19-24) mmol/L ABG O2 Saturation (94-97) % BUN 102 H* (9-20) mg/dL Creatinine 4.38 H (0.66-1.25) mg/dL Glucose 187 H (74-99) mg/dL POC Glucose (mg/dL) 175 H (75-99) mg/dL Microbiology - Last 24 Hours (Table) 08/22/19 03:06 Gram Stain - Preliminary Sputum Sputum Culture - Preliminary 08/21/19 10:10 Blood Culture - Preliminary Blood No Growth after 24 hours 08/22/19 03:10 Urine Culture - Preliminary Urine,Voided Assessment and Plan Plan: 1 acute hypoxic/hypercapnic respiratory failure, multifactorial, likely secondary to decompensated CHF/pulmonary edema in addition to pneumonia possibly involving the right lower lobe. The patient had acute respiratory acidosis and acute hypoxic respiratory failure, intubated on a mechanical ventilator. Currently well sedated hemodynamically hypotensive on low-dose pressors. This morning, the patient is still on pressors at 0.01 g per KG per minute of norepinephrine. Echo of the heart showed impaired LV function with an EF of around 20-25%. Final report is still pending for now. The patient is covered with IV Zosyn as broad-spectrum antibiotic coverage. He remains on Lasix drip at 10 mg an hour with an excellent urine output. 2 congestion heart failure with likely systolic dysfunction, awaiting echocardiogram, preliminary results showed an EF around 20-25% 3 CAD with previous old DE with Q waves involving the inferior leads. The patient had elevation in troponins with negative acute ST segment elevation or depressions. Consider troponin leak secondary to above. Consider non-STEMI 4 chronic kidney disease, stage III in the patient has bilateral hydronephrosis left more than right and based on the ultrasound of the kidneys there is a lesion at the left UV junction that needs to be further visualized. Urology on the case. The CAT scan of the abdomen was noted and the patient has bilateral hydronephrosis left more than right with possible obstructive uropathy and possibility of bladder tumor cannot be completely excluded. 5 diabetes mellitus 6 COPD with chronic hypoxic respiratory failure and the patient on 3 L of oxygen by nasal cannula. He is a smoker smoking around half pack of cigarettes a day. 7 hypertension 8 hyperlipidemia 9 extensive psoriasis Plan Continue vent support. Check a CVP monitor. Cut down the Lasix down to 5 mg an hour. Continue the levothyroxine and wean it down to continue a mean arterial pressure above 65. Start the patient on enteral feeding for nutritional support. Continue propofol. Keep the same vent setting for today. We'll discuss with urology the possibility of doing a cystoscopy for evaluation of the bladder and obstructive uropathy. Nephrology is on the case. Cardiology is on the case. We'll continue to follow make further recommendations based on his progress. Condition is critical. This critically care evaluation, more than 30 minutes. Family was updated on his condition. Time with Patient: Greater than 30
--- NOTE | 2019-08-23 10:16 | XR ---
EXAMINATION TYPE: XR chest 1V portable DATE OF EXAM: 08/23/2019 COMPARISON: 08/22/2019 HISTORY: SOB, Follow Up FINDINGS: Indwelling tubes and catheters are unchanged. No change in bibasilar opacities. Stable appearance of the cardio-mediastinal structures at this time. Pleural effusion unchanged. IMPRESSION: 1. Stable portable chest. Clinical correlation and follow up until resolution is recommended.
--- NOTE | 2019-08-23 12:16 | P.PN ---
Subjective Patient is seen in follow-up for acute kidney injury on chronic disease. Renal function is worsening. Creatinine up to 4.3 today. Patient's Caldwell catheter was kinked therefore the urine output was low overnight. This morning when the catheter was fixed, 700 mL of urine was obtained. He is maintained on Lasix drip at 5 mL an hour. He remains intubated. Ejection fraction 20-25%. Vital signs are stable. General: The patient appeared well nourished and normally developed. Intubated. HEENT: Head exam is unremarkable. Neck is without jugular venous distension. LUNGS: Lungs are clear to auscultation and percussion. Breath sounds decreased. HEART: Rate and Rhythm are regular. First and second heart sounds normal. No murmurs, rubs or gallops. ABDOMEN: Abdominal exam reveals normal bowel sounds. Non-tender and non- distended. EXTREMITITES: 1+ edema. Objective - Vital Signs Vital signs: Vital Signs Temp 98.2 F 08/23/19 08:00 Pulse 112 H 08/23/19 11:17 Resp 18 08/23/19 11:00 BP 106/71 08/22/19 20:15 Pulse Ox 95 08/23/19 11:00 Intake & Output 08/22/19 08/23/19 08/23/19 18:59 06:59 18:59 Intake Total 685.935 794.889 122.157 Output Total 630 1215 915 Balance 55.935 -420.111 -792.843 Weight 82.4 kg 85.1 kg Intake: IV 240 240 60 Sodium Chloride 0.9% 1, 240 240 60 000 ml @ 20 mls/hr IV . Q24H [facility] Rx#:[id number] Intake, IV Titration 445.935 554.889 62.157 Amount Furosemide 100 mg In 100 65.833 Sodium Chloride 0.9% 90 ml @ 5 MG/HR 5 mls/hr IV .Q20H [facility] Rx#:[id number] Norepinephrine 4 mg In 245.935 89.056 62.157 Sodium Chloride 0.9% 250 ml @ 0.05 MCG/KG/MIN 17. 282 mls/hr IV .[id number] [facility] Rx#:[id number] Piperacillin-Tazobactam 3 100 .375 gm In Sodium Chloride 0.9% 100 ml @ 25 mls/hr IVPB Q12HR [facility] Rx #:[id number] Propofol 1,000 mg In 100.000 300 Empty Bag 1 bag @ Titrate IV .Q0M [facility] Rx#: [id number] Output: Gastric Drainage 750 Urine 630 465 915 Other: Voiding Method Indwelling Catheter Indwelling Catheter Indwelling Catheter # Bowel Movements 1 ABP, PAP, CO, CI - Last Documented Arterial Blood Pressure 90/44 - Labs CBC & Chem 7: 08/23/19 05:00 08/23/19 05:00 Labs: Abnormal Lab Results - Last 24 Hours (Table) 08/22/19 08/22/19 08/22/19 Range/Units 13:16 13:23 18:06 WBC (3.8-10.6) k/uL RBC (4.30-5.90) m/uL Hgb (13.0-17.5) gm/dL Hct (39.0-53.0) % MCV (80.0-100.0) fL Neutrophils # (1.3-7.7) k/uL Lymphocytes # (1.0-4.8) k/uL ABG pCO2 49 H (35-45) mmHg ABG pO2 75 L (83-108) mmHg ABG HCO3 28 H (21-25) mmol/L ABG Total CO2 29 H (19-24) mmol/L ABG O2 Saturation 93.6 L (94-97) % BUN (9-20) mg/dL Creatinine (0.66-1.25) mg/dL Glucose (74-99) mg/dL POC Glucose (mg/dL) 150 H 155 H (75-99) mg/dL 08/22/19 08/23/19 08/23/19 Range/Units 23:52 04:40 05:00 WBC 16.1 H (3.8-10.6) k/uL RBC 3.28 L (4.30-5.90) m/uL Hgb 10.5 L (13.0-17.5) gm/dL Hct 33.6 L (39.0-53.0) % MCV 102.3 H (80.0-100.0) fL Neutrophils # 14.7 H (1.3-7.7) k/uL Lymphocytes # 0.6 L (1.0-4.8) k/uL ABG pCO2 48 H (35-45) mmHg ABG pO2 129 H (83-108) mmHg ABG HCO3 29 H (21-25) mmol/L ABG Total CO2 31 H (19-24) mmol/L ABG O2 Saturation 98.5 H (94-97) % BUN (9-20) mg/dL Creatinine (0.66-1.25) mg/dL Glucose (74-99) mg/dL POC Glucose (mg/dL) 190 H (75-99) mg/dL 08/23/19 08/23/19 Range/Units 05:00 06:38 WBC (3.8-10.6) k/uL RBC (4.30-5.90) m/uL Hgb (13.0-17.5) gm/dL Hct (39.0-53.0) % MCV (80.0-100.0) fL Neutrophils # (1.3-7.7) k/uL Lymphocytes # (1.0-4.8) k/uL ABG pCO2 (35-45) mmHg ABG pO2 (83-108) mmHg ABG HCO3 (21-25) mmol/L ABG Total CO2 (19-24) mmol/L ABG O2 Saturation (94-97) % BUN 102 H* (9-20) mg/dL Creatinine 4.38 H (0.66-1.25) mg/dL Glucose 187 H (74-99) mg/dL POC Glucose (mg/dL) 175 H (75-99) mg/dL Microbiology - Last 24 Hours (Table) 08/22/19 03:10 Urine Culture - Final Urine,Voided 08/22/19 03:06 Gram Stain - Preliminary Sputum Sputum Culture - Preliminary 08/21/19 10:10 Blood Culture - Preliminary Blood No Growth after 24 hours Assessment and Plan Plan: Assessment: 1. Acute kidney injury secondary to ATN secondary to hypotension and component of cardiorenal syndrome. Creatinine 4.38 today. There is also concern for obstructive uropathy as his kidney ultrasound from earlier this month revealed bilateral hydronephrosis. CAT scan done yesterday revealed severe left-sided and mild right-sided hydronephrosis. Trace proteinuria on UA. 2. Chronic kidney disease stage III. Patient's creatinine in March 2019 was near 2. Etiology is most likely diabetic kidney disease. 3. Acute hypoxic and hypercapnic respiratory failure. Currently intubated. 4. Volume overload. Improving. 5. Acute systolic CHF with ejection fraction of 20-25%. 6. Bilateral hydronephrosis. Urology following. 7. Elevated BUN which is due to renal failure as well as steroids. Plan: Maintain Lasix drip at 5 mL an hour. Avoid nephrotoxins. Discontinued metformin. Continue to monitor renal function and urine output. Hold all anti-hypertensives. Off vasopressors. If urine output drops, will start dobutamine. No urgent need for renal replacement therapy at this time.
[2019-08-23] MEDS: SODIUM CHLORIDE 0.9% 1,000 ML IV SCH (13:55)
[2019-08-23 13:58] LABS: Glucose,Whole Blood 159 mg/dL (75-99)
[2019-08-23] MEDS: NOREPINEPHRINE 4 MG in SODIUM CHLORIDE 0.9% 250 ML IV SCH (16:14)
[2019-08-23 17:21] LABS: Glucose,Whole Blood 147 mg/dL (75-99)
--- NOTE | 2019-08-23 18:35 | PN ---
PROGRESS NOTE 78-year-old gentleman that remains intubated and on vent. There is worsening of his renal function, has an ejection fraction of about 20-25%. EXAM: Heart rate is around 110 beats per minute, blood pressure is 90/44, respiratory rate is 18. Chest exam reveals diminished air entry at the bases. Heart exam reveals first and second heart sounds and a systolic murmur at the left lower sternal border. Exam of extremities reveals mild edema, chronic skin changes. The patient is on Levophed, aspirin and subcu heparin. ASSESSMENT: 1. Respiratory failure. 2. Renal failure. 3. Elevated troponin secondary to renal failure. 4. Cardiomyopathy with severe LV dysfunction. PLAN: The patient needs evaluation for his cardiomyopathy once he is more stable medically and the renal functions improve. JESSICA / YVONNEN: [id number] /
--- NOTE | 2019-08-23 19:06 | P.PN ---
Progress Note - Text Progress Note Date: 08/23/19 Chief Complaint: Short of breath, cough Interval history: This is [address] rai. Chronic stable medical conditions include diabetes, hypertension, hyperlipidemia, osteoarthritis, chronic kidney disease, home oxygen 2-3 L, chronic low back pain and psoriatic.. Patient was brought in by his . Most history is obtained by the at the bedside. At her baseline patient very much sits down and watches television. Does not drive. Has a fair appetite. Normally able to get around the house. Patient started coughing became short of breath wheezing for 1 day, with a decreased oral intake. Became a bit more confused and presented ER. Patient was not willing to come to the hospital but brought him in. Was given IV Lasix in the ER , bronchodilators. Patient had been quite a bit short of breath. Bringing some sputum. No obvious fever or chills. admitted with a diagnosis of right-sided pneumonia, CHF exacerbation, COPD exacerbation, acute delirium. Patient also found to have from recent renal ultrasound-bilateral hydronephrosis and possibly growth in the bladder.. Also acute kidney injury . Patient was started on Lasix drip and IV ceftriaxone, switched to IV Zosyn. Patient on the medical floor 10 became lethargic and went into respiratory failure and was intubated on August 22. Today-remains in the ICU. Intubated. FiO2 50% and PEEP of 10. Some secretions were endotracheal tube. NG tube was putting out dark aspirate. Current drips include-Lasix, propofol, levo fed. Patient's and daughter by the bedside. , Review of systems cannot be done as patient is intubated Active Medications Hydrocodone Bitart/Acetaminophen ([place] 10) 1 each PO Q6H PRN PRN Reason: Pain Albuterol/Ipratropium (Duoneb 0.5 Mg-3 Mg/3 Ml Soln) 3 ml INHALATION RT-Q4H [facility] Last Admin: 08/23/19 15:48 Dose: 3 ml Documented by: Aspirin (Aspirin) 325 mg PO DAILY [facility] Last Admin: 08/23/19 08:38 Dose: 325 mg Documented by: Budesonide (Pulmicort) 1 mg INHALATION RT-BID [facility] Last Admin: 08/23/19 07:18 Dose: 1 mg Documented by: Chlorhexidine Gluconate (Peridex) 15 ml MUCOUS MEM BID [facility] Last Admin: 08/23/19 08:38 Dose: 15 ml Documented by: Cholecalciferol (Vitamin D3 (25 Mcg = 1000 Iu)) 1,000 unit PO DAILY [facility] Last Admin: 08/23/19 08:38 Dose: 1,000 unit Documented by: Cyclobenzaprine HCl (Flexeril) 10 mg PO HS [facility] Last Admin: 08/22/19 20:07 Dose: 10 mg Documented by: Heparin Sodium (Porcine) (Heparin) 5,000 unit SQ Q12HR [facility] Last Admin: 08/23/19 08:39 Dose: 5,000 unit Documented by: Sodium Chloride (Saline 0.9%) 1,000 mls @ 20 mls/hr IV .Q24H [facility] Last Admin: 08/23/19 13:55 Dose: 20 mls/hr Documented by: Furosemide 100 mg/ Sodium (Chloride) 100 mls @ 5 mls/hr IV .Q20H [facility] Last Admin: 08/22/19 23:17 Dose: 10 mg/hr, 10 mls/hr Documented by: Propofol 1,000 mg/ IV Solution 100 mls @ 0 mls/hr IV .Q0M [facility]; Protocol Last Admin: 08/23/19 17:11 Dose: 50 mcg/kg/min, 25.53 mls/hr Documented by: Norepinephrine Bitartrate 4 mg (/ Sodium Chloride) 254 mls @ 17.282 mls/hr IV .[id number] [facility]; Protocol Last Admin: 08/23/19 16:14 Dose: Not Given Documented by: Piperacillin Sod/Tazobactam (Sod 3.375 gm/ Sodium Chloride) 100 mls @ 25 mls/hr IVPB Q12HR [facility] Last Admin: 08/23/19 08:49 Dose: 25 mls/hr Documented by: Insulin Aspart (Novolog) 0 unit SQ 0000,0600,1200,1800 [facility]; Protocol Last Admin: 08/23/19 18:20 Dose: 1 unit Documented by: Methylprednisolone Sodium Succinate (Solu-Medrol) 40 mg IV Q8HR [facility] Last Admin: 08/23/19 18:20 Dose: 40 mg Documented by: Naloxone HCl (Narcan) 0.2 mg IV Q2M PRN PRN Reason: Opioid Reversal Nicotine (Habitrol 21mg/24hr Patch) 1 patch TRANSDERM DAILY [facility] Last Admin: 08/23/19 08:36 Dose: 1 patch Documented by: Nitroglycerin (Nitrostat) 0.4 mg SUBLINGUAL Q5M PRN PRN Reason: Chest Pain Nystatin (Mycostatin Powder) 1 applic TOPICAL BID [facility] Last Admin: 08/23/19 08:41 Dose: 1 applic Documented by: Physical examination: VITAL SIGNS: 98.2, 112, 18, 130/54, 96% on ventilator-50% GENERAL: Laying in bed, intubated EYES: Pupils equal. Conjunctiva normal. HEENT: External appearance of nose and ears normal, oral cavity dry., Endotracheal tube in place, NG tube in place NECK: JVD unable to assess,; masses not palpable. HEART: First and second heart sounds are normal; no edema. LUNGS: Respiratory rate increased, decreased breaths ABDOMEN: Soft, nontender, liver spleen not palpable, no masses palpable. DERMATOLOGICAL: Area of redness in both the groin,siver demarcated plaques, and both legs PSYCH: Unable to assess, intubated. NEUROLOGICAL: Pupils are reactive INVESTIGATIONS, reviewed in the clinical context: White count 16.1, hemoglobin 10.5, potassium 4.4, bun 102, creatinine 4.38 Previous testing White count 12.4 hemoglobin 12.6 platelets 237 potassium 4.8 bun 61 creatinine 3.11 Troponin I 0.620, 0.807, influenza A and B both negative EKG tracing personally reviewed by me-personally reviewed by me shows normal sinus rhythm, poor R-wave progression, some T-wave changes in anterolateral leads Chest x-ray film personally reviewed by me-venous prominence, fluid in the fissure, right basilar infiltrate Abdominal ultrasound on 07/29/2019-severe left hydronephrosis and moderate right hydronephrosis, abnormally thickened urinary bladder wall seen multifocally, additionally a sessile mass questionable degree of the left ureteral was cycled junction 2-D [id number] percent Assessment: -Acute on chronic congestive heart failure exacerbation, from systolic and diastolic dysfunction EF 20-25%, slow to respond -Cardiogenic and septic shock requiring pressor support and IV dobutamine, slow to respond -Severe Right-sided pneumonia, suspect gram-negative organism, slow to respond, POA, POA -Acute COPD exacerbation in a current smoker, slow to respond, POA, -Acute hypoxic and hypercapnic respiratory failure due to COPD and pneumonia, POA -Bilateral hydronephrosis, with distal obstruction and evidence of chronic kidney disease on the left kidney -Chronic kidney disease, baseline unknown, including obstructive pattern -Acute renal failure, possibly combination of cardiorenal syndrome and obstructive pattern, including ATN, worsening -Hyperkalemia secondary to renal failure -Diabetes mellitus type 2 on oral hypoglycemic -Hyperlipidemia -Essential hypertension -Primary osteoarthritis -Chronic kidney disease stage IV -Lactic acidosis from pneumonia -Troponin leak 2 positive possibly. Hemodynamic instability. Doubt acute coronary syndrome -Acute delirium from pneumonia etc. Plan: Patient's prognosis still remains guarded. Continue compression pressor support, IV antibiotics and includes Zosyn, and IV Lasix drip and IV propofol and levo fed. Care was discussed with the family the bedside. Cultures are pending.
[2019-08-23] MEDS: CYCLOBENZAPRINE 10 MG TAB PO SCH (21:08)
[2019-08-23] MEDS: FUROSEMIDE 100 MG in SODIUM CHLORIDE 0.9% 90 ML IV SCH (22:06)
[2019-08-24] MEDS: IPRATROPIUM-ALBUTEROL 3 ML NEB INHALATION SCH ×7 (00:28→23:26)
[2019-08-24] MEDS: INSULIN ASPART (NovoLOG) 100 UNIT/ML VIAL SQ SCH ×4 (01:08→17:17)
[2019-08-24] MEDS: methylPREDNISolone SOD SUCCI 40 MG/ML 1 ML VIAL IV SCH ×3 (01:11→16:37)
[2019-08-24 01:15] LABS: Glucose,Whole Blood 178 mg/dL (75-99)
[2019-08-24] MEDS: NOREPINEPHRINE 4 MG in SODIUM CHLORIDE 0.9% 250 ML IV SCH ×2 (01:21→16:13)
[2019-08-24 05:08] LABS: ABG Base Excess 8.5 mmol/L; ABG HCO3 33 mmol/L (21-25); ABG Oxygen Saturation 95.7 % (94-97); ABG PCO2 49 mmHg (35-45); ABG PH 7.44 (7.35-7.45); ABG PO2 90 mmHg (83-108); ABG TCO2 34 mmol/L (19-24); Allen Test Performed? Yes
[2019-08-24 05:55] LABS: Basophils % (A) 0 %; Eosinophils % (A) 0 %; HGB 10.7 gm/dL (13.0-17.5); Lymphocytes # (A) 0.5 k/uL (1.0-4.8); Lymphocytes % (A) 2 %; MCHC 31.6 g/dL (31.0-37.0); MCV 101.3 fL (80.0-100.0); Macrocytosis Slight; Mean Platelet Volume 8.1; Monocytes % (A) 5 %; Neutrophils # (A) 17.2 k/uL (1.3-7.7); Neutrophils % (A) 91 %; Platelet Count 193 k/uL (150-450); RBC 3.35 m/uL (4.30-5.90); RDW 13.5 % (11.5-15.5); WBC 18.8 k/uL (3.8-10.6)
[2019-08-24 06:09] LABS: Calcium 8.2 mg/dL (8.4-10.2); Potassium 3.6 mmol/L (3.5-5.1)
[2019-08-24 06:45] LABS: Glucose,Whole Blood 154 mg/dL (75-99)
[2019-08-24] MEDS: BUDESONIDE 1 MG/2 ML NEBU INHALATION SCH ×2 (07:21→20:09)
--- NOTE | 2019-08-24 08:35 | XR ---
EXAMINATION TYPE: XR chest 1V portable DATE OF EXAM: 08/24/2019 CLINICAL HISTORY: Difficulty breathing progress study. TECHNIQUE: Single AP portable upright view of the chest is obtained. COMPARISON: Chest x-ray from one day earlier and older studies. FINDINGS: Stable endotracheal tube, orogastric tube, and left subclavian central venous catheter. Chronic parenchymal changes with bibasilar opacities redemonstrated. Cardiac silhouette size is stabl e and within normal limits. Osseous structures are intact. IMPRESSION: Chronic parenchymal changes with right greater than left bibasilar acute infiltrate and/o r atelectasis are redemonstrated. Suspect stable small to tiny bilateral pleural effusion seen better on recent CT.
[2019-08-24] MEDS: ASPIRIN 81 MG PO SCH (08:45)
[2019-08-24] MEDS: CHLORHEXIDINE GLUCONATE 15 ML CUP MUCOUS MEM SCH ×2 (08:45→22:19)
[2019-08-24] MEDS: NICOTINE 21MG/24HR PATCH TRANSDERM SCH (08:45)
[2019-08-24] MEDS: METOPROLOL TARTRATE 25 MG TAB PO SCH ×2 (08:45→22:19)
[2019-08-24] MEDS: CHOLECALCIFEROL 1,000 UNIT TAB PO SCH (08:46)
[2019-08-24] MEDS: ATORVASTATIN 40 MG TAB PO SCH (08:46)
[2019-08-24] MEDS: HEPARIN SODIUM,PORCINE 5,000 UNIT/ML 1 ML VIAL SQ SCH ×2 (08:46→22:19)
[2019-08-24] MEDS: PIPERACILLIN-TAZOBACTAM 3.375 GM in SODIUM CHLORIDE 0.9% 100 ML IVPB SCH ×2 (08:47→22:19)
[2019-08-24] MEDS: NYSTATIN 100,000 UNIT/GM POWD 15 GM TOPICAL SCH (08:47)
--- NOTE | 2019-08-24 08:53 | PN ---
PROGRESS NOTE Mr. Iqbal is a 78-year-old male who presented with symptoms of progressive dyspnea and respiratory failure requiring mechanical ventilation. He was noted to have severely impaired left ventricular systolic function and possible pneumonia in addition to CHF. He has underlying renal failure that has worsened. Hemodynamically, he is stable. He is on no pressor. Continued to be in sinus tachycardia and he is on IV Lasix drip. He has good urinary output. He is sedated. He has no evidence of ventricle ectopic activity or atrial arrhythmia. He continues to be on aspirin once a day, Lasix 5 mg an hour, methyl prednisolone 40 mg IV q.8 hours. PHYSICAL EXAMINATION: Blood pressure running in the 120s to 140s with a heart rate in the low 100s. LUNGS: Clear anteriorly. HEART: Regular rate and rhythm, tachycardic, S1, S2. No S3. No rub. ABDOMEN: Soft, positive bowel sounds, no organomegaly. EXTREMITIES: No significant edema. LAB DATA: Revealed a hemoglobin of 10.7, white blood cell of 18.8. BUN and creatinine of 118 and 4.45, potassium 3.6. IMPRESSION: 1. Respiratory failure with a combination of pneumonia and fluid overload, congestive heart failure with systolic dysfunction. His echocardiogram that was performed on 08/22 revealed ejection fraction 20% to 25% with mild mitral regurgitation. 2. Worsening renal failure. 3. History of coronary artery disease. 4. Sinus tachycardia. 5. History of diabetes. 6. History of chronic obstructive lung disease and chronic tobacco use. 7. History of hyperlipidemia. RECOMMENDATION: Will continue present therapy. I will add to his regimen a low-dose beta quin. I will also follow his renal function closely. The prognosis remains guarded. MMODL / IJN: [id number] /
[2019-08-24] MEDS: PROPOFOL 1,000 MG in EMPTY BAG 1 BAG IV SCH ×4 (09:00→21:56)
--- NOTE | 2019-08-24 10:15 | P.PN ---
Subjective Progress Note Date: 08/24/19 Principal diagnosis: acute hypoxic and hypercapnic respiratory failure secondary to acute exacerbation of COPD, community-acquired right lower lobe pneumonia and acute systolic congestive heart failure. This is a 78-year-old male patient who was brought into the hospital yesterday because of worsening shortness of breath. The patient follows up with Dr. Porter. He has not been hospitalized here in our location for quite some time. He does have multiple medical problems. He has coronary artery disease and a remote history of AK, congestion heart failure, chronic stage III kidney disease, hypertension, hyperlipidemia and diabetes mellitus and extensive psoriasis. Is a chronic smoker. 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 Over the past 24-48 hours, the patient was having increased shortness of breath. It was thought that he may be having a pneumonia. He did not want in to come into the hospital. He ultimately came into emergency and overnight he became unresponsive and his blood gas showed acute respiratory acidosis with a pH of 7.09 with a pCO2 of 96 and pO2 of 51 and this was on 100% nonrebreather. Based on that, I made recommendations to intubate the patient around 3 AM this morning. He was placed on a mechanical ventilator and he was brought into the intensive care unit. Currently is on assist control mode of ventilation at the rate of 18 with a tidal volume of 550 FiO2 of 70% and a PEEP of 5. The follow- up blood gases showed a pH of 7.27 with a pCO2 of 59 and pO2 of 70 and this was done and FiO2 of 80%. Peak airway pressure is around 22. He is on propofol which is currently running at 50 g per KG per minute. He is also on norepinephrine infusion at 0.05 g per KG per minute. He was started on Lasix drip at 10 mg an hour. His blood work with a white cell count of 11. Hemoglobin is at 12.6. His potassium level is at 5.2. Creatinine is at 3.8. Troponin maxed was at 1.1 and his EKG showing a sinus rhythm in the form of sinus tachycardia. There are Q waves over the anterior leads consistent with an old anterior wall myocardial infarction. Echocardiogram has been done and the results are still pending for now. Urine output is in the order of 30 mL an hour and the chest x-ray from today shows adequate positioning of the suzette tracheal tube. There is pulmonary edema and there is increased consolidation of the right lower lobe which may suggest the potential of an underlying right lower lobe pneumonia. NG tube is in a good location for now. There was copious amount of rest or secretions post intubation and the patient had sputum sent for Gram stain and culture. He was given antibiotics and currently is on Rocephin. His ultrasound the kidneys showed bilateral hydronephrosis. 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 Urology has been consulted. His evaluation of 08/23/2019 I'm seeing this patient for a follow-up. The patient is well sedated with propofol and is calm and comfortable. He is currently on 50 g per KG per minute of propofol. He remains arousable upon lower degree of sedation. As far as the vent support, the patient is on assist control mode at the rate of 18 with a tidal volume of 550 and FiO2 of 50% with a PEEP of 10. The blood gases from today showed a pH of 7.39 with a pCO2 of 48 and pO2 129 and this was done on FiO2 of 70%. Chest x-ray shows stable findings with CHF and possible right lower lobe pneumonia. ET tube is in a good location. Triple-lumen catheter is in a good location. NG tube is in a good location. The patient is still on Lasix drip at 10 mg an hour. He is producing excellent urine output and urine output is more than 50 mL an hour. The labs from today showed a BUN of 102 with a creatinine of 4.38. His serum bicarbs at 27. Note that the patient had a CAT scan of the abdomen based on the fact that he had bilateral hydronephrosis. The CAT scan was completed yesterday and it showed and confirmed the left-sided hydronephrosis. There is a 3 mm nonobstructive left renal calculus and severe left-sided hydronephrosis with cortical thickening. No obstruction by calculus was identified. There is a moderate degree of right-sided hydronephrosis. There is a 4 cm exophytic lesion posterior lateral aspect of the lower pole of the right kidney. The bladder is poorly distended with severe concentric wall thickening and a Caldwell catheter is in place. There was a concern of a left UV junction obstruction and a cystoscopy will be needed. 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 Urology on the case. Caldwell cath is in place. The patient is currently on IV Zosyn. Sputum and blood culture sent and the results are still pending for now. Echocardiogram showed impaired left ventricular ejection fraction of less than 20%. Cardiology is on the case. Patient was reevaluated today on 08/24/2019, remains on mechanical ventilation, and his ventilator settings are tidal volume of 550 assist-control rate of 18 FiO2 of 50% PEEP of 10 and I lowered the down to 8. Remains on multiple drips including Lasix at 5 mg per hour. He is also on propofol at 50 mcg/kg/m,ABG showed a pO2 of 90 pCO2 of 49 and pH of 7.44. His peak airway pressure is in the high 20s, and plateau pressure is about 19.chest x-ray continues to show evidence of right lower lobe infiltrate.with chronic parenchymal changes and bib asilar atelectasis.patient is not requiring any pressors at this point, his renal functioning seems to be worsening, added Lasix drip was cut down from 10-5 mg per hour. Urine output remains excellent.his last echocardiogram showed ejection fraction of 20-25%. And mild mitral regurgitation.CBC showed leukocytosis with WBC count of 18.8 hemoglobin is 10.7. Electrolytes showed sodium 145 potassium 3.6 bicarb is 31BUN is 118 creatinine 4.45, gradually rising since 08/21 from 3.11. Patient remains on diuretics, bronchodilators, methylprednisolone, beta blockers,and Zosyn empirically.again he is not requiring any pressors today. Remains on GI and DVT prophylaxis. He is also on insulin as per protocol. Objective - Vital Signs Vital signs: Vital Signs Temp 98.4 F 08/24/19 08:00 Pulse 114 H 08/24/19 09:00 Resp 18 08/24/19 09:00 BP 130/85 08/23/19 16:00 Pulse Ox 95 08/24/19 09:00 Intake & Output 08/23/19 08/24/19 08/24/19 18:59 06:59 18:59 Intake Total 537.229 437.443 340 Output Total 2395 1640 305 Balance -0877.771 -1202.557 35 Weight 85.1 kg 80.1 kg Intake: IV 270 250 60 Sodium Chloride 0.9% 1, 270 250 60 000 ml @ 20 mls/hr IV . Q24H [facility] Rx#:[id number] Intake, IV Titration 262.229 157.443 200 Amount Furosemide 100 mg In 100 100 Sodium Chloride 0.9% 90 ml @ 5 MG/HR 5 mls/hr IV .Q20H [facility] Rx#:[id number] Norepinephrine 4 mg In 62.229 Sodium Chloride 0.9% 250 ml @ 0.05 MCG/KG/MIN 17. 282 mls/hr IV .[id number] [facility] Rx#:[id number] Piperacillin-Tazobactam 3 100 .375 gm In Sodium Chloride 0.9% 100 ml @ 25 mls/hr IVPB Q12HR [facility] Rx #:[id number] Propofol 1,000 mg In 100 157.443 Empty Bag 1 bag @ Titrate IV .Q0M [facility] Rx#: [id number] Tube Feeding 5 30 20 Other 60 Output: Gastric Drainage 600 200 Urine 1795 1440 305 Other: Voiding Method Indwelling Catheter Indwelling Catheter Indwelling Catheter # Voids 2 # Bowel Movements 1 1 ABP, PAP, CO, CI - Last Documented Arterial Blood Pressure 122/53 - Exam Physical Exam: Revealed a 78-year-old white male, on mechanical ventilation, sedated, on propofol drip. Very comfortable. Head: Atraumatic, normocephalic. HEENT:[Neck is supple.] [No neck masses.] [No thyromegaly.] [No JVD.]PERRLA, EOMI, no icterus, moist mucous membranes noted.endotracheal tube and orogastric tube are intact. Chest: [symmetrical chest expansion, minimal fine crackles at the bases, no rhonchi and no wheezes. No chest wall tenderness.] Cardiac Exam: [Normal S1 and S2, no S3 gallop,2/6 systolic murmur at the left lower sternal border. Abdomen: [obese,Soft, nontender, no megaly, no rebound, no guarding, normal bowel sounds.] Extremities: [No clubbing, trace of bipedal edema, no cyanosis.] Neurological Exam: sedated, on propofol, could not fully assess neurologically. Patient will be given a sedation interruption, and mental status will be assessed. Psychiatric: Cannot be assessed. Skin: extensive psoriasis patches noted throughout the whole body and lower extremities bilaterally. Lymphatics: No lymphadenopathy. - Labs CBC & Chem 7: 08/24/19 05:30 08/24/19 05:30 Labs: Abnormal Lab Results - Last 24 Hours (Table) 08/23/19 08/23/19 08/24/19 Range/Units 13:46 17:10 01:03 WBC (3.8-10.6) k/uL RBC (4.30-5.90) m/uL Hgb (13.0-17.5) gm/dL Hct (39.0-53.0) % MCV (80.0-100.0) fL Neutrophils # (1.3-7.7) k/uL Lymphocytes # (1.0-4.8) k/uL ABG pCO2 (35-45) mmHg ABG HCO3 (21-25) mmol/L ABG Total CO2 (19-24) mmol/L Carbon Dioxide (22-30) mmol/L BUN (9-20) mg/dL Creatinine (0.66-1.25) mg/dL Glucose (74-99) mg/dL POC Glucose (mg/dL) 159 H 147 H 178 H (75-99) mg/dL Calcium (8.4-10.2) mg/dL 08/24/19 08/24/19 08/24/19 Range/Units 05:06 05:30 05:30 WBC 18.8 H (3.8-10.6) k/uL RBC 3.35 L (4.30-5.90) m/uL Hgb 10.7 L (13.0-17.5) gm/dL Hct 34.0 L (39.0-53.0) % MCV 101.3 H (80.0-100.0) fL Neutrophils # 17.2 H (1.3-7.7) k/uL Lymphocytes # 0.5 L (1.0-4.8) k/uL ABG pCO2 49 H (35-45) mmHg ABG HCO3 33 H (21-25) mmol/L ABG Total CO2 34 H (19-24) mmol/L Carbon Dioxide 31 H (22-30) mmol/L BUN 118 H* (9-20) mg/dL Creatinine 4.45 H (0.66-1.25) mg/dL Glucose 183 H (74-99) mg/dL POC Glucose (mg/dL) (75-99) mg/dL Calcium 8.2 L (8.4-10.2) mg/dL 08/24/19 Range/Units 06:24 WBC (3.8-10.6) k/uL RBC (4.30-5.90) m/uL Hgb (13.0-17.5) gm/dL Hct (39.0-53.0) % MCV (80.0-100.0) fL Neutrophils # (1.3-7.7) k/uL Lymphocytes # (1.0-4.8) k/uL ABG pCO2 (35-45) mmHg ABG HCO3 (21-25) mmol/L ABG Total CO2 (19-24) mmol/L Carbon Dioxide (22-30) mmol/L BUN (9-20) mg/dL Creatinine (0.66-1.25) mg/dL Glucose (74-99) mg/dL POC Glucose (mg/dL) 154 H (75-99) mg/dL Calcium (8.4-10.2) mg/dL Microbiology - Last 24 Hours (Table) 08/21/19 10:10 Blood Culture - Preliminary Blood No Growth after 48 hours 08/22/19 03:10 Urine Culture - Final Urine,Voided Assessment and Plan Assessment: impression: 1 acute hypoxic and hypercapnic respiratory failure secondary to pneumonia, most likely community-acquired involving the right lower lobe, acute exacerbation of COPD, and acute systolic congestive heart failure. 2 acute systolic congestive heart failure, ejection fraction of 20-25%. 3 acute exacerbation of COPD 4 acute right lower lobe cavity community-acquired pneumonia 5 chronic kidney disease stage III and there is evidence of acute on chronic kidney injury. Abnormal renal CT, showing significant left sided hydronephrosis, being addressed by urology, and there is a possibility of bladder tumor. 6 type 2 diabetes, patient remains on insulin as per protocol. 7 benign essential hypertension 8 dyslipidemia 9 history of extensive psoriasis. 10 chronic hypoxic respiratory failure patient has been on oxygen at 2-3 L/m when necessary. 11 history of coronary artery disease and previous AK 12 chronic back pain. Recommendation: Continue ventilatory support, no changes made and ventilator settings except cut down the PEEP to 8. Hold propofol, and brief assessment of mental status today. Continue diuretics, bronchodilators, antibiotics, steroids, Continue GI and DVT prophylaxis. Urology to address his abnormal renal CT as well as his hydronephrosis and questionable bladder tumor. Continue to monitor daily labs including renal profile, and electrolytes. daily assessment of chest x-ray and ABG Daily assessment of mental status off sedation Daily assessment of ventilatory settings and adjustments accordingly based on the ABG No plans to wean and extubate today. Discussed his condition with his family at bedside, and they were fully updated on his overall critical care status. Critical care time is 40 minutes. Time with Patient: Greater than 30
[2019-08-24] MEDS: FUROSEMIDE 100 MG in SODIUM CHLORIDE 0.9% 90 ML IV SCH (11:05)
[2019-08-24] MEDS ORDERED: Potassium Replacement Protocol 1 EACH MISC MISCELLANE PRN (12:18)
[2019-08-24 12:19] LABS: Glucose,Whole Blood 170 mg/dL (75-99)
[2019-08-24] MEDS: SODIUM CHLORIDE 0.9% 1,000 ML IV SCH (12:30)
[2019-08-24] MEDS: POTASSIUM BICARBONATE/CIT AC 20 MEQ TABLET.EFF NG-TUBE SCH (13:04)
--- NOTE | 2019-08-24 13:41 | P.PN ---
Subjective Patient is seen in follow-up for acute kidney injury on chronic disease. Renal function is fairly stable. Creatinine 4.45 today. Patient is nonoliguric with urine output over 75 mL per hour. He is maintained on Lasix drip at 5 mL an hour. Also started on tube feeding. He remains intubated. Ejection fraction 20-25%. Vital signs are stable. General: The patient appeared well nourished and normally developed. Intubated. HEENT: Head exam is unremarkable. Neck is without jugular venous distension. LUNGS: Lungs are clear to auscultation and percussion. Breath sounds decreased. HEART: Rate and Rhythm are regular. First and second heart sounds normal. No murmurs, rubs or gallops. ABDOMEN: Abdominal exam reveals normal bowel sounds. Non-tender and non- distended. EXTREMITITES: 1+ edema. Objective - Vital Signs Vital signs: Vital Signs Temp 98.7 F 08/24/19 12:00 Pulse 107 H 08/24/19 12:00 Resp 17 08/24/19 12:00 BP 130/85 08/23/19 16:00 Pulse Ox 94 L 08/24/19 12:00 Intake & Output 08/23/19 08/24/19 08/24/19 18:59 06:59 18:59 Intake Total 537.229 437.443 609.355 Output Total 2395 1640 690 Balance -1857.771 -1202.557 -80.645 Weight 85.1 kg 80.1 kg Intake: IV 270 250 140 Sodium Chloride 0.9% 1, 270 250 140 000 ml @ 20 mls/hr IV . Q24H [facility] Rx#:[id number] Intake, IV Titration 262.229 157.443 289.355 Amount Furosemide 100 mg In 100 100 Sodium Chloride 0.9% 90 ml @ 5 MG/HR 5 mls/hr IV .Q20H [facility] Rx#:[id number] Norepinephrine 4 mg In 62.229 Sodium Chloride 0.9% 250 ml @ 0.05 MCG/KG/MIN 17. 282 mls/hr IV .[id number] [facility] Rx#:[id number] Piperacillin-Tazobactam 3 100 .375 gm In Sodium Chloride 0.9% 100 ml @ 25 mls/hr IVPB Q12HR [facility] Rx #:[id number] Propofol 1,000 mg In 100 157.443 89.355 Empty Bag 1 bag @ Titrate IV .Q0M [facility] Rx#: [id number] Tube Feeding 5 30 90 Other 90 Output: Gastric Drainage 600 200 Urine 1795 1440 690 Other: Voiding Method Indwelling Catheter Indwelling Catheter Indwelling Catheter # Voids 2 # Bowel Movements 1 1 ABP, PAP, CO, CI - Last Documented Arterial Blood Pressure 111/50 - Labs CBC & Chem 7: 08/24/19 05:30 08/24/19 05:30 Labs: Abnormal Lab Results - Last 24 Hours (Table) 08/23/19 08/23/19 08/24/19 Range/Units 13:46 17:10 01:03 WBC (3.8-10.6) k/uL RBC (4.30-5.90) m/uL Hgb (13.0-17.5) gm/dL Hct (39.0-53.0) % MCV (80.0-100.0) fL Neutrophils # (1.3-7.7) k/uL Lymphocytes # (1.0-4.8) k/uL ABG pCO2 (35-45) mmHg ABG HCO3 (21-25) mmol/L ABG Total CO2 (19-24) mmol/L Carbon Dioxide (22-30) mmol/L BUN (9-20) mg/dL Creatinine (0.66-1.25) mg/dL Glucose (74-99) mg/dL POC Glucose (mg/dL) 159 H 147 H 178 H (75-99) mg/dL Calcium (8.4-10.2) mg/dL 08/24/19 08/24/19 08/24/19 Range/Units 05:06 05:30 05:30 WBC 18.8 H (3.8-10.6) k/uL RBC 3.35 L (4.30-5.90) m/uL Hgb 10.7 L (13.0-17.5) gm/dL Hct 34.0 L (39.0-53.0) % MCV 101.3 H (80.0-100.0) fL Neutrophils # 17.2 H (1.3-7.7) k/uL Lymphocytes # 0.5 L (1.0-4.8) k/uL ABG pCO2 49 H (35-45) mmHg ABG HCO3 33 H (21-25) mmol/L ABG Total CO2 34 H (19-24) mmol/L Carbon Dioxide 31 H (22-30) mmol/L BUN 118 H* (9-20) mg/dL Creatinine 4.45 H (0.66-1.25) mg/dL Glucose 183 H (74-99) mg/dL POC Glucose (mg/dL) (75-99) mg/dL Calcium 8.2 L (8.4-10.2) mg/dL 08/24/19 08/24/19 Range/Units 06:24 12:08 WBC (3.8-10.6) k/uL RBC (4.30-5.90) m/uL Hgb (13.0-17.5) gm/dL Hct (39.0-53.0) % MCV (80.0-100.0) fL Neutrophils # (1.3-7.7) k/uL Lymphocytes # (1.0-4.8) k/uL ABG pCO2 (35-45) mmHg ABG HCO3 (21-25) mmol/L ABG Total CO2 (19-24) mmol/L Carbon Dioxide (22-30) mmol/L BUN (9-20) mg/dL Creatinine (0.66-1.25) mg/dL Glucose (74-99) mg/dL POC Glucose (mg/dL) 154 H 170 H (75-99) mg/dL Calcium (8.4-10.2) mg/dL Microbiology - Last 24 Hours (Table) 08/21/19 10:10 Blood Culture - Preliminary Blood No Growth after 72 hours 08/22/19 03:10 Urine Culture - Final Urine,Voided Assessment and Plan Plan: Assessment: 1. Acute kidney injury secondary to ATN secondary to hypotension and component of cardiorenal syndrome. Creatinine fairly stable at 4.45 today. There is also concern for obstructive uropathy as his kidney ultrasound from earlier this month revealed bilateral hydronephrosis. CAT scan done yesterday revealed severe left-sided and mild right-sided hydronephrosis. Trace proteinuria on UA. 2. Chronic kidney disease stage III. Patient's creatinine in March 2019 was near 2. Etiology is most likely diabetic kidney disease. 3. Acute hypoxic and hypercapnic respiratory failure. Currently intubated. 4. Volume overload. Improving. 5. Acute systolic CHF with ejection fraction of 20-25%. 6. Bilateral hydronephrosis. Urology following. 7. Elevated BUN which is due to renal failure as well as steroids. 8. Hyperkalemia secondary to diuresis. Plan: Discontinue Lasix drip. Start Lasix 40 mg IV twice daily. Replace potassium. 40 mEq today. Avoid nephrotoxins. Discontinued metformin. Continue to monitor renal function and urine output. Off vasopressors. If urine output drops, will start dobutamine. No urgent need for renal replacement therapy at this time.
--- NOTE | 2019-08-24 15:08 | P.PN ---
Subjective Progress Note Date: 08/24/19 Principal diagnosis: Bilateral hydronephrosis No acute overnight events, he underwent a CT on Saturday which showed bilateral hydronephrosis and a thickened bladder wall. No gross hematuria noted. Objective - Vital Signs Vital signs: Vital Signs Temp 98.7 F 08/24/19 12:00 Pulse 112 H 08/24/19 14:00 Resp 19 08/24/19 14:00 BP 130/85 08/23/19 16:00 Pulse Ox 94 L 08/24/19 14:00 Intake & Output 08/23/19 08/24/19 08/24/19 18:59 06:59 18:59 Intake Total 537.229 437.443 680.995 Output Total 2395 1640 815 Balance -1857.771 -1202.557 -134.005 Weight 85.1 kg 80.1 kg Intake: IV 270 250 160 Sodium Chloride 0.9% 1, 270 250 160 000 ml @ 20 mls/hr IV . Q24H [facility] Rx#:[id number] Intake, IV Titration 262.229 157.443 320.995 Amount Furosemide 100 mg In 100 100 Sodium Chloride 0.9% 90 ml @ 5 MG/HR 5 mls/hr IV .Q20H [facility] Rx#:[id number] Norepinephrine 4 mg In 62.229 Sodium Chloride 0.9% 250 ml @ 0.05 MCG/KG/MIN 17. 282 mls/hr IV .[id number] [facility] Rx#:[id number] Piperacillin-Tazobactam 3 100 .375 gm In Sodium Chloride 0.9% 100 ml @ 25 mls/hr IVPB Q12HR [facility] Rx #:[id number] Propofol 1,000 mg In 100 157.443 120.995 Empty Bag 1 bag @ Titrate IV .Q0M [facility] Rx#: [id number] Tube Feeding 5 30 110 Other 90 Output: Gastric Drainage 600 200 Urine 1795 1440 815 Other: Voiding Method Indwelling Catheter Indwelling Catheter Indwelling Catheter # Voids 2 # Bowel Movements 1 1 ABP, PAP, CO, CI - Last Documented Arterial Blood Pressure 109/50 - Constitutional General appearance: Present: no acute distress - Respiratory Details: Intubated - Genitourinary Genitourinary Comment(s): Caldwell draining clear yellow urine - Labs CBC & Chem 7: 08/24/19 05:30 08/24/19 05:30 Labs: Abnormal Lab Results - Last 24 Hours (Table) 08/23/19 08/24/19 08/24/19 Range/Units 17:10 01:03 05:06 WBC (3.8-10.6) k/uL RBC (4.30-5.90) m/uL Hgb (13.0-17.5) gm/dL Hct (39.0-53.0) % MCV (80.0-100.0) fL Neutrophils # (1.3-7.7) k/uL Lymphocytes # (1.0-4.8) k/uL ABG pCO2 49 H (35-45) mmHg ABG HCO3 33 H (21-25) mmol/L ABG Total CO2 34 H (19-24) mmol/L Carbon Dioxide (22-30) mmol/L BUN (9-20) mg/dL Creatinine (0.66-1.25) mg/dL Glucose (74-99) mg/dL POC Glucose (mg/dL) 147 H 178 H (75-99) mg/dL Calcium (8.4-10.2) mg/dL 08/24/19 08/24/19 08/24/19 Range/Units 05:30 05:30 06:24 WBC 18.8 H (3.8-10.6) k/uL RBC 3.35 L (4.30-5.90) m/uL Hgb 10.7 L (13.0-17.5) gm/dL Hct 34.0 L (39.0-53.0) % MCV 101.3 H (80.0-100.0) fL Neutrophils # 17.2 H (1.3-7.7) k/uL Lymphocytes # 0.5 L (1.0-4.8) k/uL ABG pCO2 (35-45) mmHg ABG HCO3 (21-25) mmol/L ABG Total CO2 (19-24) mmol/L Carbon Dioxide 31 H (22-30) mmol/L BUN 118 H* (9-20) mg/dL Creatinine 4.45 H (0.66-1.25) mg/dL Glucose 183 H (74-99) mg/dL POC Glucose (mg/dL) 154 H (75-99) mg/dL Calcium 8.2 L (8.4-10.2) mg/dL 08/24/19 Range/Units 12:08 WBC (3.8-10.6) k/uL RBC (4.30-5.90) m/uL Hgb (13.0-17.5) gm/dL Hct (39.0-53.0) % MCV (80.0-100.0) fL Neutrophils # (1.3-7.7) k/uL Lymphocytes # (1.0-4.8) k/uL ABG pCO2 (35-45) mmHg ABG HCO3 (21-25) mmol/L ABG Total CO2 (19-24) mmol/L Carbon Dioxide (22-30) mmol/L BUN (9-20) mg/dL Creatinine (0.66-1.25) mg/dL Glucose (74-99) mg/dL POC Glucose (mg/dL) 170 H (75-99) mg/dL Calcium (8.4-10.2) mg/dL Microbiology - Last 24 Hours (Table) 08/22/19 03:06 Gram Stain - Final Sputum Sputum Culture - Final Corynebacterium striatum 08/21/19 10:10 Blood Culture - Preliminary Blood No Growth after 72 hours 08/22/19 03:10 Urine Culture - Final Urine,Voided Assessment and Plan Assessment: 70-year-old male admitted to the hospital for shortness of breath currently in the ICU due to respiratory distress he is intubated. Urology is consultative for bilateral Hydronephrosis and a possible mass versus a ureterocele at the left UVJ. Underwent a CT which showed persistent hydronephrosis, severe on the left and mild on the right. Was also significant bladder wall thickening Plan: -Keep Caldwell in place -Repeat ultrasound tomorrow to assess for improvement of hydronephrosis with bladder drainage -Continue to trend creatinine
[2019-08-24 17:13] LABS: Glucose,Whole Blood 202 mg/dL (75-99)
[2019-08-24] MEDS: CYCLOBENZAPRINE 10 MG TAB PO SCH (22:19)
[2019-08-24] MEDS: FUROSEMIDE 10 MG/ML 4 ML VIAL IV SCH (22:19)
[2019-08-25 00:09] LABS: Glucose,Whole Blood 241 mg/dL (75-99)
--- NOTE | 2019-08-25 00:39 | P.PN ---
Progress Note - Text Progress Note Date: 08/24/19 Chief Complaint: Short of breath, cough Interval history: This is [address] rai. Chronic stable medical conditions include diabetes, hypertension, hyperlipidemia, osteoarthritis, chronic kidney disease, home oxygen 2-3 L, chronic low back pain and psoriatic.. Patient was brought in by his . Most history is obtained by the at the bedside. At her baseline patient very much sits down and watches television. Does not drive. Has a fair appetite. Normally able to get around the house. Patient started coughing became short of breath wheezing for 1 day, with a decreased oral intake. Became a bit more confused and presented ER. Patient was not willing to come to the hospital but brought him in. Was given IV Lasix in the ER , bronchodilators. Patient had been quite a bit short of breath. Bringing some sputum. No obvious fever or chills. admitted with a diagnosis of right-sided pneumonia, CHF exacerbation, COPD exacerbation, acute delirium. Patient also found to have from recent renal ultrasound-bilateral hydronephrosis and possibly growth in the bladder.. Also acute kidney injury . Patient was started on Lasix drip and IV ceftriaxone, switched to IV Zosyn. Patient on the medical floor 10 became lethargic and went into respiratory failure and was intubated on August 22. Today-ICU. Started on tube feeds at 20 mL an hour. Remains on the ventilator with FiO2 15 of PEEP of 8. Had a bowel movement. She was taking also Lasix drip. On Lasix bolus. He was on IV propofol. at the bedside. , Review of systems cannot be done as patient is intubated Active Medications Hydrocodone Bitart/Acetaminophen ([place] 10) 1 each PO Q6H PRN PRN Reason: Pain Albuterol/Ipratropium (Duoneb 0.5 Mg-3 Mg/3 Ml Soln) 3 ml INHALATION RT-Q4H [facility] Last Admin: 08/24/19 23:26 Dose: 3 ml Documented by: Aspirin (Aspirin) 81 mg PO DAILY [facility] Last Admin: 08/24/19 08:45 Dose: 81 mg Documented by: Atorvastatin Calcium (Lipitor) 40 mg PO DAILY [facility] Last Admin: 08/24/19 08:46 Dose: 40 mg Documented by: Budesonide (Pulmicort) 1 mg INHALATION RT-BID [facility] Last Admin: 08/24/19 20:09 Dose: 1 mg Documented by: Chlorhexidine Gluconate (Peridex) 15 ml MUCOUS MEM BID [facility] Last Admin: 08/24/19 22:19 Dose: 15 ml Documented by: Cholecalciferol (Vitamin D3 (25 Mcg = 1000 Iu)) 1,000 unit PO DAILY [facility] Last Admin: 08/24/19 08:46 Dose: 1,000 unit Documented by: Cyclobenzaprine HCl (Flexeril) 10 mg PO HS [facility] Last Admin: 08/24/19 22:19 Dose: 10 mg Documented by: Furosemide (Lasix) 40 mg IV Q12HR [facility] Last Admin: 08/24/19 22:19 Dose: 40 mg Documented by: Heparin Sodium (Porcine) (Heparin) 5,000 unit SQ Q12HR [facility] Last Admin: 08/24/19 22:19 Dose: 5,000 unit Documented by: Sodium Chloride (Saline 0.9%) 1,000 mls @ 20 mls/hr IV .Q24H [facility] Last Admin: 08/24/19 12:30 Dose: Not Given Documented by: Propofol 1,000 mg/ IV Solution 100 mls @ 0 mls/hr IV .Q0M [facility]; Protocol Last Admin: 08/24/19 21:56 Dose: 45 mcg/kg/min, 21.627 mls/hr Documented by: Norepinephrine Bitartrate 4 mg (/ Sodium Chloride) 254 mls @ 17.282 mls/hr IV .[id number] [facility]; Protocol Last Admin: 08/24/19 16:13 Dose: Not Given Documented by: Piperacillin Sod/Tazobactam (Sod 3.375 gm/ Sodium Chloride) 100 mls @ 25 mls/hr IVPB Q12HR [facility] Last Admin: 08/24/19 22:19 Dose: 25 mls/hr Documented by: Insulin Aspart (Novolog) 0 unit SQ 0000,0600,1200,1800 [facility]; Protocol Last Admin: 08/24/19 17:17 Dose: 2 unit Documented by: Methylprednisolone Sodium Succinate (Solu-Medrol) 40 mg IV Q8HR [facility] Last Admin: 08/24/19 16:37 Dose: 40 mg Documented by: Metoprolol Tartrate (Lopressor) 25 mg PO BID [facility] Last Admin: 08/24/19 22:19 Dose: 25 mg Documented by: Miscellaneous Information (Potassium Per Protocol) 1 each MISCELLANE DAILY PRN; Protocol PRN Reason: Per Protocol Naloxone HCl (Narcan) 0.2 mg IV Q2M PRN PRN Reason: Opioid Reversal Nicotine (Habitrol 21mg/24hr Patch) 1 patch TRANSDERM DAILY [facility] Last Admin: 08/24/19 08:45 Dose: 1 patch Documented by: Nitroglycerin (Nitrostat) 0.4 mg SUBLINGUAL Q5M PRN PRN Reason: Chest Pain Nystatin (Mycostatin Powder) 1 applic TOPICAL BID [facility] Last Admin: 08/24/19 08:47 Dose: 1 applic Documented by: Physical examination: VITAL SIGNS: 99, 114, 18, 11 4/51, 94% on the ventilator GENERAL: Laying in bed, intubated EYES: Pupils equal. Conjunctiva normal. HEENT: External appearance of nose and ears normal, oral cavity dry., Endotracheal tube in place, NG tube in place NECK: JVD unable to assess,; masses not palpable. HEART: First and second heart sounds are normal; no edema. LUNGS: Respiratory rate increased, decreased breaths ABDOMEN: Soft, nontender, liver spleen not palpable, no masses palpable. DERMATOLOGICAL: Area of redness in both the groin,siver demarcated plaques, and both legs PSYCH: Unable to assess, intubated. NEUROLOGICAL: Pupils are reactive INVESTIGATIONS, reviewed in the clinical context: White count 18.8 hemoglobin 10.7 potassium 3.6 bun 118 creatinine 4.45 Previous testing White count 12.4 hemoglobin 12.6 platelets 237 potassium 4.8 bun 61 creatinine 3.11 Troponin I 0.620, 0.807, influenza A and B both negative EKG tracing personally reviewed by me-personally reviewed by me shows normal sinus rhythm, poor R-wave progression, some T-wave changes in anterolateral leads Chest x-ray film personally reviewed by me-venous prominence, fluid in the fissure, right basilar infiltrate Abdominal ultrasound on 07/29/2019-severe left hydronephrosis and moderate right hydronephrosis, abnormally thickened urinary bladder wall seen multifocally, additionally a sessile mass questionable degree of the left ureteral was cycled junction 2-D [id number] percent Assessment: -Acute on chronic congestive heart failure exacerbation, from systolic and diastolic dysfunction EF 20-25%, slow to respond -Cardiogenic and septic shock requiring pressor support and IV dobutamine, slow to respond -Severe Right-sided pneumonia, suspect gram-negative organism, slow to respond, POA, POA -Acute COPD exacerbation in a current smoker, slow to respond, POA, -Acute hypoxic and hypercapnic respiratory failure due to COPD and pneumonia, POA -Bilateral hydronephrosis, with distal obstruction and evidence of chronic kidney disease on the left kidney -Chronic kidney disease, baseline unknown, including obstructive pattern -Acute renal failure, possibly combination of cardiorenal syndrome and obstructive pattern, including ATN, worsening -Hyperkalemia secondary to renal failure -Diabetes mellitus type 2 on oral hypoglycemic -Hyperlipidemia -Essential hypertension -Primary osteoarthritis -Chronic kidney disease stage IV -Lactic acidosis from pneumonia -Troponin leak 2 positive possibly. Hemodynamic instability. Doubt acute coronary syndrome -Acute delirium from pneumonia etc. Plan: Continue current medication treatment plan. Patient is on IV bolus Lasix. On propofol. Weaning trial tomorrow. Prognosis guarded. Antibiotics include Zosyn. Lasix 40 mg every 12. Spoke to the at the bedside.
[2019-08-25] MEDS: methylPREDNISolone SOD SUCCI 40 MG/ML 1 ML VIAL IV SCH ×3 (00:40→16:07)
[2019-08-25] MEDS: INSULIN ASPART (NovoLOG) 100 UNIT/ML VIAL SQ SCH ×4 (00:40→18:12)
[2019-08-25] MEDS: NYSTATIN 100,000 UNIT/GM POWD 15 GM TOPICAL SCH ×3 (01:50→20:36)
[2019-08-25] MEDS: PROPOFOL 1,000 MG in EMPTY BAG 1 BAG IV SCH ×3 (01:50→10:16)
[2019-08-25] MEDS: IPRATROPIUM-ALBUTEROL 3 ML NEB INHALATION SCH ×6 (03:18→23:15)
[2019-08-25 04:59] LABS: Basophils % (A) 0 %; Eosinophils % (A) 0 %; HCT 33.2 % (39.0-53.0); HGB 10.7 gm/dL (13.0-17.5); Lymphocytes # (A) 0.4 k/uL (1.0-4.8); Lymphocytes % (A) 2 %; MCH 32.6 pg (25.0-35.0); MCHC 32.2 g/dL (31.0-37.0); MCV 101.1 fL (80.0-100.0); Macrocytosis Slight; Mean Platelet Volume 8.6; Monocytes # (A) 0.6 k/uL (0-1.0); Monocytes % (A) 3 %; Neutrophils # (A) 18.1 k/uL (1.3-7.7); Neutrophils % (A) 94 %; Platelet Count 217 k/uL (150-450); RBC 3.28 m/uL (4.30-5.90); RDW 13.5 % (11.5-15.5); WBC 19.2 k/uL (3.8-10.6)
[2019-08-25 05:09] LABS: Calcium 8.4 mg/dL (8.4-10.2); Potassium 4.1 mmol/L (3.5-5.1)
[2019-08-25] MEDS: NOREPINEPHRINE 4 MG in SODIUM CHLORIDE 0.9% 250 ML IV SCH ×2 (06:35→20:24)
[2019-08-25 06:48] LABS: Glucose,Whole Blood 194 mg/dL (75-99)
[2019-08-25 07:22] LABS: ABG Base Excess 10.5 mmol/L; ABG HCO3 35 mmol/L (21-25); ABG Oxygen Saturation 95.7 % (94-97); ABG PCO2 54 mmHg (35-45); ABG PH 7.42 (7.35-7.45); ABG PO2 82 mmHg (83-108); ABG TCO2 37 mmol/L (19-24)
[2019-08-25] MEDS: BUDESONIDE 1 MG/2 ML NEBU INHALATION SCH ×2 (07:26→19:32)
--- NOTE | 2019-08-25 08:31 | XR ---
EXAMINATION TYPE: XR chest 1V portable DATE OF EXAM: 08/25/2019 Comparison: 08/24/2019 Clinical History: 78-year-old male Tube placement Findings: ET tube is satisfactory. NG tube courses below the diaphragm is looped within the expected gastric fu ndus. Left subclavian CVC tip at the mid to lower SVC. Heart upper limits of normal in size. Relative upper lung lucencies and hyperinflation suggests underlying COPD. Mild patchy residual bibasilar opa cities remain. Impression: COPD with stable patchy bibasilar infiltrates.
[2019-08-25] MEDS: FUROSEMIDE 10 MG/ML 4 ML VIAL IV SCH ×2 (08:46→20:35)
[2019-08-25] MEDS: CHOLECALCIFEROL 1,000 UNIT TAB PO SCH (08:46)
[2019-08-25] MEDS: CHLORHEXIDINE GLUCONATE 15 ML CUP MUCOUS MEM SCH ×2 (08:46→20:35)
[2019-08-25] MEDS: ATORVASTATIN 40 MG TAB PO SCH (08:46)
[2019-08-25] MEDS: ASPIRIN 81 MG PO SCH (08:46)
[2019-08-25] MEDS: NICOTINE 21MG/24HR PATCH TRANSDERM SCH (08:47)
[2019-08-25] MEDS: HEPARIN SODIUM,PORCINE 5,000 UNIT/ML 1 ML VIAL SQ SCH ×2 (08:47→20:35)
[2019-08-25] MEDS: METOPROLOL TARTRATE 25 MG TAB PO SCH ×3 (08:47→20:35)
--- NOTE | 2019-08-25 08:47 | PN ---
PROGRESS NOTE Mr. Iqbal is a 78-year-old male who presented with symptoms of progressive dyspnea and subsequently respiratory failure requiring mechanical ventilation. He remains sedated and intubated. He is in sinus tachycardia. He has probable community-acquired pneumonia with exacerbation of COPD and systolic congestive heart failure. Patient has a known history of cardiomyopathy with ejection fraction of 20% to 25%. His blood pressure has been stable. He has not required any pressors. His urine output has been good. He is in sinus mechanism. He continues to be at this time on aspirin 81 mg daily, Lipitor 40 mg daily, furosemide 40 mg IV q.12 hours, metoprolol tartrate 25 mg twice a day, Solu-Medrol, Nicotine patch in addition to the antibiotics. PHYSICAL EXAMINATION: Blood pressure 120/50 with a heart rate in the 100s. LUNGS: Clear anteriorly. HEART: Tachycardic, S1, S2. No S3. No rub appreciated. ABDOMEN: Soft, positive bowel sounds. EXTREMITIES: No edema. LAB DATA: Revealed BUN and creatinine 129 and 4.31, potassium 4.1, hemoglobin of 10.7. His sodium is up to 147. IMPRESSION: 1. Respiratory failure, multifactorial with evidence of pneumonia and of systolic heart failure. 2. Severe cardiomyopathy. 3. Exacerbation of chronic obstructive pulmonary disease. 4. Worsening renal failure. 5. History of diabetes mellitus. 6. History of psoriasis. 7. Prior history of coronary artery disease. RECOMMENDATION: From the cardiac standpoint, I will continue on the present therapy. I will increase the dose of his beta quin. Will continue to follow his renal function and depending on his progress further recommendation will be made. The prognosis remains guarded. MMODL / IJN: [id number] /
[2019-08-25] MEDS: PIPERACILLIN-TAZOBACTAM 3.375 GM in SODIUM CHLORIDE 0.9% 100 ML IVPB SCH ×2 (09:05→20:36)
[2019-08-25] MEDS: DEXTROSE 5% IN WATER 1,000 ML IV SCH (09:13)
--- NOTE | 2019-08-25 11:28 | US ---
EXAMINATION TYPE: US kidneys/renal and bladder DATE OF EXAM: 08/25/2019 COMPARISON: 07/29/2019 CLINICAL HISTORY: 78-year-old male Hematuria. TECHNIQUE: Multiple sonographic images of the kidneys and bladder are obtained. FINDINGS: EXAM MEASUREMENTS: Right Kidney: 11.7 x 4.7 x 5.5 cm Left Kidney: 10.2 x 4.8 x 5.6 cm [employer] notes: ICU patient on vent, difficult to assess left kidney due to patient position. Right Kidney: cyst measuring 3.1 x 3.0 x 3.4cm. No hydronephrosis. Left Kidney: Moderate to severe hydronephrosis, limited visualization Bladder: Nondistended with Caldwell catheter in place. IMPRESSION: 1. Persistent moderate to severe left-sided hydronephrosis. 2. The previous hydronephrosis within the right kidney has resolved. 3. Caldwell catheter in place. 4. Benign 3.4 cm right renal cyst.
--- NOTE | 2019-08-25 11:32 | P.PN ---
Subjective Progress Note Date: 08/25/19 Principal diagnosis: acute hypoxic and hypercapnic respiratory failure secondary to acute exacerbation of COPD, community-acquired right lower lobe pneumonia and acute systolic congestive heart failure. This is a 78-year-old male patient who was brought into the hospital yesterday because of worsening shortness of breath. The patient follows up with Dr. Porter. He has not been hospitalized here in our location for quite some time. He does have multiple medical problems. He has coronary artery disease and a remote history of MS, congestion heart failure, chronic stage III kidney disease, hypertension, hyperlipidemia and diabetes mellitus and extensive psoriasis. Is a chronic smoker. 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 Over the past 24-48 hours, the patient was having increased shortness of breath. It was thought that he may be having a pneumonia. He did not want in to come into the hospital. He ultimately came into emergency and overnight he became unresponsive and his blood gas showed acute respiratory acidosis with a pH of 7.09 with a pCO2 of 96 and pO2 of 51 and this was on 100% nonrebreather. Based on that, I made recommendations to intubate the patient around 3 AM this morning. He was placed on a mechanical ventilator and he was brought into the intensive care unit. Currently is on assist control mode of ventilation at the rate of 18 with a tidal volume of 550 FiO2 of 70% and a PEEP of 5. The follow- up blood gases showed a pH of 7.27 with a pCO2 of 59 and pO2 of 70 and this was done and FiO2 of 80%. Peak airway pressure is around 22. He is on propofol which is currently running at 50 g per KG per minute. He is also on norepinephrine infusion at 0.05 g per KG per minute. He was started on Lasix drip at 10 mg an hour. His blood work with a white cell count of 11. Hemoglobin is at 12.6. His potassium level is at 5.2. Creatinine is at 3.8. Troponin maxed was at 1.1 and his EKG showing a sinus rhythm in the form of sinus tachycardia. There are Q waves over the anterior leads consistent with an old anterior wall myocardial infarction. Echocardiogram has been done and the results are still pending for now. Urine output is in the order of 30 mL an hour and the chest x-ray from today shows adequate positioning of the suzette tracheal tube. There is pulmonary edema and there is increased consolidation of the right lower lobe which may suggest the potential of an underlying right lower lobe pneumonia. NG tube is in a good location for now. There was copious amount of rest or secretions post intubation and the patient had sputum sent for Gram stain and culture. He was given antibiotics and currently is on Rocephin. His ultrasound the kidneys showed bilateral hydronephrosis. 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 Urology has been consulted. His evaluation of 08/23/2019 I'm seeing this patient for a follow-up. The patient is well sedated with propofol and is calm and comfortable. He is currently on 50 g per KG per minute of propofol. He remains arousable upon lower degree of sedation. As far as the vent support, the patient is on assist control mode at the rate of 18 with a tidal volume of 550 and FiO2 of 50% with a PEEP of 10. The blood gases from today showed a pH of 7.39 with a pCO2 of 48 and pO2 129 and this was done on FiO2 of 70%. Chest x-ray shows stable findings with CHF and possible right lower lobe pneumonia. ET tube is in a good location. Triple-lumen catheter is in a good location. NG tube is in a good location. The patient is still on Lasix drip at 10 mg an hour. He is producing excellent urine output and urine output is more than 50 mL an hour. The labs from today showed a BUN of 102 with a creatinine of 4.38. His serum bicarbs at 27. Note that the patient had a CAT scan of the abdomen based on the fact that he had bilateral hydronephrosis. The CAT scan was completed yesterday and it showed and confirmed the left-sided hydronephrosis. There is a 3 mm nonobstructive left renal calculus and severe left-sided hydronephrosis with cortical thickening. No obstruction by calculus was identified. There is a moderate degree of right-sided hydronephrosis. There is a 4 cm exophytic lesion posterior lateral aspect of the lower pole of the right kidney. The bladder is poorly distended with severe concentric wall thickening and a Caldwell catheter is in place. There was a concern of a left UV junction obstruction and a cystoscopy will be needed. 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 Urology on the case. Caldwell cath is in place. The patient is currently on IV Zosyn. Sputum and blood culture sent and the results are still pending for now. Echocardiogram showed impaired left ventricular ejection fraction of less than 20%. Cardiology is on the case. Patient was reevaluated today on 08/24/2019, remains on mechanical ventilation, and his ventilator settings are tidal volume of 550 assist-control rate of 18 FiO2 of 50% PEEP of 10 and I lowered the down to 8. Remains on multiple drips including Lasix at 5 mg per hour. He is also on propofol at 50 mcg/kg/m,ABG showed a pO2 of 90 pCO2 of 49 and pH of 7.44. His peak airway pressure is in the high 20s, and plateau pressure is about 19.chest x-ray continues to show evidence of right lower lobe infiltrate.with chronic parenchymal changes and bib asilar atelectasis.patient is not requiring any pressors at this point, his renal functioning seems to be worsening, added Lasix drip was cut down from 10-5 mg per hour. Urine output remains excellent.his last echocardiogram showed ejection fraction of 20-25%. And mild mitral regurgitation.CBC showed leukocytosis with WBC count of 18.8 hemoglobin is 10.7. Electrolytes showed sodium 145 potassium 3.6 bicarb is 31BUN is 118 creatinine 4.45, gradually rising since 08/21 from 3.11. Patient remains on diuretics, bronchodilators, methylprednisolone, beta blockers,and Zosyn empirically.again he is not requiring any pressors today. Remains on GI and DVT prophylaxis. He is also on insulin as per protocol. Reevaluated today on 08/25/2019, remains in the ICU, mechanically ventilated, his ventilator settings are tidal volume of 550 assist-control rate 18 FiO2 of 50%, and PEEP was cut down to 5. ABG showed a pO2 of 82 pCO2 of 54 pH of 7.42. Patient is not requiring any pressors, he is still on propofol at 45 mcg/kg/m, his IV fluid was changed to D5W, and I have recommended fluid boluses/free water via nasogastric tube. His urine output is excellent at 75 ML per hour. Patient is a scheduled by urology to have a renal ultrasound, may require nephrostomy tube placement. However that's yet to be decided. Chest x-ray, continues to show COPD and patchy bibasilar infiltrates. Remains on Lasix at 40 mg IV push every 12 hours. Remains on antibiotics, and bronchodilators. His mental status was assessed yesterday off sedation, and he seemed to be appropriate according to the nurse taking care of him. We plan to have sedation interruption also today, and assessment of mental status. However considering his ABG is marginal, considering his chest x-ray, I have no plans to extubate the patient today. But if the patient is to have nephrostomy tube placement, hopefully it could be done today. Renal profile remains abnormal with a BUN of 129 creatinine 4.31. Slightly improved compared to creatinine yesterday of 4.45. Nutrition-jenkins, the patient remains on enteral feeding via nasogastric tube. He also remains on GI and DVT prophylaxis. And on insulin as per protocol. Objective - Vital Signs Vital signs: Vital Signs Temp 99.3 F 08/25/19 08:00 Pulse 105 H 08/25/19 11:00 Resp 19 08/25/19 11:00 BP 118/70 08/25/19 09:00 Pulse Ox 93 L 08/25/19 11:00 Intake & Output 08/24/19 08/25/19 08/25/19 18:59 06:59 18:59 Intake Total 594.223 0488.345 561.191 Output Total 1115 1175 640 Balance -175.645 -70.655 -78.809 Weight 80.6 kg 80.6 kg Intake: IV 240 240 260 Dextrose 5% in Water 1, 100 000 ml @ 50 mls/hr IV . Q20H [facility] Rx#:[id number] Piperacillin-Tazobactam 3 100 .375 gm In Sodium Chloride 0.9% 100 ml @ 25 mls/hr IVPB Q12HR [facility] Rx #:[id number] Sodium Chloride 0.9% 1, 240 240 60 000 ml @ 20 mls/hr IV . Q24H [facility] Rx#:[id number] Intake, IV Titration 389.355 384.345 86.191 Amount Furosemide 100 mg In 100 Sodium Chloride 0.9% 90 ml @ 5 MG/HR 5 mls/hr IV .Q20H [facility] Rx#:[id number] Piperacillin-Tazobactam 3 100 100 .375 gm In Sodium Chloride 0.9% 100 ml @ 25 mls/hr IVPB Q12HR [facility] Rx #:[id number] Propofol 1,000 mg In 189.355 284.345 86.191 Empty Bag 1 bag @ Titrate IV .Q0M [facility] Rx#: [id number] Tube Feeding 190 420 150 Other 120 60 65 Output: Urine 1115 1175 640 Other: Voiding Method Indwelling Catheter Indwelling Catheter Indwelling Catheter # Bowel Movements 1 ABP, PAP, CO, CI - Last Documented Arterial Blood Pressure 137/61 - Exam Physical Exam: Revealed a 78-year-old white male, on mechanical ventilation, sedated, on propofol drip. Very comfortable. Head: Atraumatic, normocephalic. HEENT:[Neck is supple.] [No neck masses.] [No thyromegaly.] [No JVD.]PERRLA, EOMI, no icterus, moist mucous membranes noted.endotracheal tube and orogastric tube are intact. Chest: [symmetrical chest expansion, minimal fine crackles at the bases, no rhonchi and no wheezes. No chest wall tenderness.] Cardiac Exam: [Normal S1 and S2, no S3 gallop,2/6 systolic murmur at the left lower sternal border. Abdomen: [obese,Soft, nontender, no megaly, no rebound, no guarding, normal bowel sounds.] Extremities: [No clubbing, trace of bipedal edema, no cyanosis.] Neurological Exam: sedated, on propofol, could not fully assess neurologically. Patient will be given a sedation interruption, and mental status will be assessed. Psychiatric: Cannot be assessed. Skin: extensive psoriasis patches noted throughout the whole body and lower extremities bilaterally. Lymphatics: No lymphadenopathy. - Labs CBC & Chem 7: 08/25/19 04:50 08/25/19 04:50 Labs: Abnormal Lab Results - Last 24 Hours (Table) 08/24/19 08/24/19 08/24/19 Range/Units 12:08 17:02 23:57 WBC (3.8-10.6) k/uL RBC (4.30-5.90) m/uL Hgb (13.0-17.5) gm/dL Hct (39.0-53.0) % MCV (80.0-100.0) fL Neutrophils # (1.3-7.7) k/uL Lymphocytes # (1.0-4.8) k/uL ABG pCO2 (35-45) mmHg ABG pO2 (83-108) mmHg ABG HCO3 (21-25) mmol/L ABG Total CO2 (19-24) mmol/L Sodium (137-145) mmol/L Carbon Dioxide (22-30) mmol/L BUN (9-20) mg/dL Creatinine (0.66-1.25) mg/dL Glucose (74-99) mg/dL POC Glucose (mg/dL) 170 H 202 H 241 H (75-99) mg/dL Phosphorus (2.5-4.5) mg/dL 08/25/19 08/25/19 08/25/19 Range/Units 04:50 04:50 04:50 WBC 19.2 H (3.8-10.6) k/uL RBC 3.28 L (4.30-5.90) m/uL Hgb 10.7 L (13.0-17.5) gm/dL Hct 33.2 L (39.0-53.0) % MCV 101.1 H (80.0-100.0) fL Neutrophils # 18.1 H (1.3-7.7) k/uL Lymphocytes # 0.4 L (1.0-4.8) k/uL ABG pCO2 (35-45) mmHg ABG pO2 (83-108) mmHg ABG HCO3 (21-25) mmol/L ABG Total CO2 (19-24) mmol/L Sodium 147 H (137-145) mmol/L Carbon Dioxide 35 H (22-30) mmol/L BUN 129 H* (9-20) mg/dL Creatinine 4.31 H (0.66-1.25) mg/dL Glucose 196 H (74-99) mg/dL POC Glucose (mg/dL) (75-99) mg/dL Phosphorus 6.0 H (2.5-4.5) mg/dL 08/25/19 08/25/19 Range/Units 06:37 07:18 WBC (3.8-10.6) k/uL RBC (4.30-5.90) m/uL Hgb (13.0-17.5) gm/dL Hct (39.0-53.0) % MCV (80.0-100.0) fL Neutrophils # (1.3-7.7) k/uL Lymphocytes # (1.0-4.8) k/uL ABG pCO2 54 H (35-45) mmHg ABG pO2 82 L (83-108) mmHg ABG HCO3 35 H (21-25) mmol/L ABG Total CO2 37 H (19-24) mmol/L Sodium (137-145) mmol/L Carbon Dioxide (22-30) mmol/L BUN (9-20) mg/dL Creatinine (0.66-1.25) mg/dL Glucose (74-99) mg/dL POC Glucose (mg/dL) 194 H (75-99) mg/dL Phosphorus (2.5-4.5) mg/dL Microbiology - Last 24 Hours (Table) 08/22/19 03:06 Gram Stain - Final Sputum Sputum Culture - Final Corynebacterium striatum 08/21/19 10:10 Blood Culture - Preliminary Blood No Growth after 72 hours Assessment and Plan Assessment: impression: 1 acute hypoxic and hypercapnic respiratory failure secondary to pneumonia, most likely community-acquired involving the right lower lobe, acute exacerbation of COPD, and acute systolic congestive heart failure. 2 acute systolic congestive heart failure, ejection fraction of 20-25%. 3 acute exacerbation of COPD 4 acute right lower lobe cavity community-acquired pneumonia 5 chronic kidney disease stage III and there is evidence of acute on chronic kidney injury. Abnormal renal CT, showing significant left sided hydronephrosis , being addressed by urology, and there is a possibility of bladder tumor. 6 type 2 diabetes, patient remains on insulin as per protocol. 7 benign essential hypertension 8 dyslipidemia 9 history of extensive psoriasis. 10 chronic hypoxic respiratory failure patient has been on oxygen at 2-3 L/m when necessary. 11 history of coronary artery disease and previous MS 12 chronic back pain. Recommendation: Continue ventilatory support, PEEP was decreased to 5. Brief hold off sedation today and mental status assessment again today. Continue diuretics, bronchodilators, antibiotics, steroids, Continue GI and DVT prophylaxis. Urology is addressing his hydronephrosis, may or may not require surgery. Continue to monitor daily labs including renal profile, and electrolytes. Continue daily assessment of chest x-ray and ABG Continued daily assessment of mental status off sedation Daily assessment of ventilatory settings and adjustments accordingly based on the ABG Again I have no plans to wean her x-ray the patient today, his overall pulmonary status remains marginal, not to mention the patient may require surgery for his hydronephrosis, that is yet to be decided upon by urology. Critical care time is 35 minutes. We'll continue to follow. Time with Patient: Greater than 30
[2019-08-25 12:19] LABS: Glucose,Whole Blood 236 mg/dL (75-99)
[2019-08-25] MEDS ORDERED: INSULIN NPH 300 UNIT/3 ML VIAL SQ STA (12:29)
[2019-08-25 12:59] LABS: Glucose,Whole Blood 234 mg/dL (75-99)
--- NOTE | 2019-08-25 13:19 | P.PN ---
Subjective Progress Note Date: 08/25/19 Principal diagnosis: Left hydronephrosi No acute overnight events, he underwent resolution of right hydronephrosis and persistent left hydro. No gross hematuria noted. Objective - Vital Signs Vital signs: Vital Signs Temp 98.9 F 08/25/19 12:00 Pulse 101 H 08/25/19 13:00 Resp 19 08/25/19 13:00 BP 118/70 08/25/19 09:00 Pulse Ox 92 L 08/25/19 13:00 Intake & Output 08/24/19 08/25/19 08/25/19 18:59 06:59 18:59 Intake Total 053.571 2883.345 751.191 Output Total 1115 1175 1020 Balance -175.645 -70.655 -268.809 Weight 80.6 kg 80.6 kg Intake: IV 240 240 360 Dextrose 5% in Water 1, 200 000 ml @ 50 mls/hr IV . Q20H [facility] Rx#:[id number] Piperacillin-Tazobactam 3 100 .375 gm In Sodium Chloride 0.9% 100 ml @ 25 mls/hr IVPB Q12HR [facility] Rx #:[id number] Sodium Chloride 0.9% 1, 240 240 60 000 ml @ 20 mls/hr IV . Q24H [facility] Rx#:[id number] Intake, IV Titration 389.355 384.345 86.191 Amount Furosemide 100 mg In 100 Sodium Chloride 0.9% 90 ml @ 5 MG/HR 5 mls/hr IV .Q20H [facility] Rx#:[id number] Piperacillin-Tazobactam 3 100 100 .375 gm In Sodium Chloride 0.9% 100 ml @ 25 mls/hr IVPB Q12HR [facility] Rx #:[id number] Propofol 1,000 mg In 189.355 284.345 86.191 Empty Bag 1 bag @ Titrate IV .Q0M [facility] Rx#: [id number] Tube Feeding 190 420 210 Other 120 60 95 Output: Urine 1115 1175 1020 Other: Voiding Method Indwelling Catheter Indwelling Catheter Indwelling Catheter # Bowel Movements 1 ABP, PAP, CO, CI - Last Documented Arterial Blood Pressure 130/57 - Constitutional General appearance: Present: no acute distress - Respiratory Details: intubated - Genitourinary Genitourinary Comment(s): Caldwell draining clear yellow urine - Labs CBC & Chem 7: 08/25/19 04:50 08/25/19 04:50 Labs: Abnormal Lab Results - Last 24 Hours (Table) 08/24/19 08/24/19 08/25/19 Range/Units 17:02 23:57 04:50 WBC (3.8-10.6) k/uL RBC (4.30-5.90) m/uL Hgb (13.0-17.5) gm/dL Hct (39.0-53.0) % MCV (80.0-100.0) fL Neutrophils # (1.3-7.7) k/uL Lymphocytes # (1.0-4.8) k/uL ABG pCO2 (35-45) mmHg ABG pO2 (83-108) mmHg ABG HCO3 (21-25) mmol/L ABG Total CO2 (19-24) mmol/L Sodium 147 H (137-145) mmol/L Carbon Dioxide 35 H (22-30) mmol/L BUN 129 H* (9-20) mg/dL Creatinine 4.31 H (0.66-1.25) mg/dL Glucose 196 H (74-99) mg/dL POC Glucose (mg/dL) 202 H 241 H (75-99) mg/dL Phosphorus (2.5-4.5) mg/dL 08/25/19 08/25/19 08/25/19 Range/Units 04:50 04:50 06:37 WBC 19.2 H (3.8-10.6) k/uL RBC 3.28 L (4.30-5.90) m/uL Hgb 10.7 L (13.0-17.5) gm/dL Hct 33.2 L (39.0-53.0) % MCV 101.1 H (80.0-100.0) fL Neutrophils # 18.1 H (1.3-7.7) k/uL Lymphocytes # 0.4 L (1.0-4.8) k/uL ABG pCO2 (35-45) mmHg ABG pO2 (83-108) mmHg ABG HCO3 (21-25) mmol/L ABG Total CO2 (19-24) mmol/L Sodium (137-145) mmol/L Carbon Dioxide (22-30) mmol/L BUN (9-20) mg/dL Creatinine (0.66-1.25) mg/dL Glucose (74-99) mg/dL POC Glucose (mg/dL) 194 H (75-99) mg/dL Phosphorus 6.0 H (2.5-4.5) mg/dL 08/25/19 08/25/19 08/25/19 Range/Units 07:18 12:07 12:48 WBC (3.8-10.6) k/uL RBC (4.30-5.90) m/uL Hgb (13.0-17.5) gm/dL Hct (39.0-53.0) % MCV (80.0-100.0) fL Neutrophils # (1.3-7.7) k/uL Lymphocytes # (1.0-4.8) k/uL ABG pCO2 54 H (35-45) mmHg ABG pO2 82 L (83-108) mmHg ABG HCO3 35 H (21-25) mmol/L ABG Total CO2 37 H (19-24) mmol/L Sodium (137-145) mmol/L Carbon Dioxide (22-30) mmol/L BUN (9-20) mg/dL Creatinine (0.66-1.25) mg/dL Glucose (74-99) mg/dL POC Glucose (mg/dL) 236 H 234 H (75-99) mg/dL Phosphorus (2.5-4.5) mg/dL Microbiology - Last 24 Hours (Table) 08/21/19 10:10 Blood Culture - Preliminary Blood No Growth after 96 hours 08/22/19 03:06 Gram Stain - Final Sputum Sputum Culture - Final Corynebacterium striatum Assessment and Plan Assessment: 70-year-old male admitted to the hospital for shortness of breath currently in the ICU due to respiratory distress he is intubated. Urology is consultative for bilateral Hydronephrosis and a possible mass versus a ureterocele at the left UVJ. Underwent a CT which showed persistent hydronephrosis, severe on the left and mild on the right. Was also significant bladder wall thickening. RBUS this am showed resolution of right hydro and moderate-severe left hydro Plan: -Keep Caldwell in place -RBUS showed resolution of right hydro and persistent left hydro.Of note left side appears to show cortical thinning and hydro appears chronic in nature. Given resolution of right hydro, no need for ureteral stent will continue to trend patient creatinine. Ok to extubate from Urology standpoint. -Outpatient cystoscopy to evaluate bladder wall thickening
[2019-08-25 18:13] LABS: Glucose,Whole Blood 226 mg/dL (75-99)
--- NOTE | 2019-08-25 20:02 | PN ---
PROGRESS NOTE The patient is seen for followup for acute kidney injury. Patient's renal function is slightly improved with creatinine down to 4.3 from 4.4 yesterday. His urine output has been at 300 to 150 mL an hour. The patient remains on the vent. Blood pressure this morning 111/67, heart rate of 104 per minute. Patient is afebrile. On examination of the heart S1, S2. Examination of the lungs, bilateral breath sounds are heard. Abdomen is soft, distended. Exam of lower extremities shows edema 1+ bilaterally. [employer] exam cannot be performed. LABS SHOW: Sodium 147, potassium 4.1, chloride 103, BUN 129, serum creatinine 4.31, calcium 8.4, phosphorus 6.0. ASSESSMENT: 1. Acute kidney injury, acute tubular necrosis, currently nonoliguric with good urine output. Lasix drip is now discontinued and patient is maintained on IV Lasix q.12 hours, which we can continue for now. Serum creatinine is slightly improved. Hopefully renal function will continue to improve. No nephrotoxic agents on board at this time. 2. Volume overload currently improved, status post Lasix drip. 3. Acute hypoxic respiratory failure, currently maintained on the vent. 4. Congestive heart failure, acute systolic. 5. Cardiomyopathy, ejection fraction 20-25 percent. 6. Elevated BUN secondary to steroids. 7. 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 Previous creatinine around 2 mg/dL. 8. Bilateral hydronephrosis. Patient has been evaluated by Urology. Repeat ultrasound shows resolution of right hydro with persistent left hydronephrosis. No plans for urological stenting at this time from urology standpoint. 9. Hypernatremia, started on D5W. PLAN: Continue to monitor for for need for renal replacement therapy. Repeat labs in a.m. Continue to avoid nephrotoxic agents. MMODL / IJN: [id number] /
[2019-08-25] MEDS: CYCLOBENZAPRINE 10 MG TAB PO SCH (20:35)
[2019-08-25] MEDS ORDERED: INSULIN DETEMIR (LEVEMIR) 100 UNIT/ML SYR SQ SCH (21:00)
--- NOTE | 2019-08-25 22:07 | P.PN ---
Progress Note - Text Progress Note Date: 08/25/19 Chief Complaint: Short of breath, cough Interval history: This is [address] rai. Chronic stable medical conditions include diabetes, hypertension, hyperlipidemia, osteoarthritis, chronic kidney disease, home oxygen 2-3 L, chronic low back pain and psoriatic.. Patient was brought in by his . Most history is obtained by the at the bedside. At her baseline patient very much sits down and watches television. Does not drive. Has a fair appetite. Normally able to get around the house. Patient started coughing became short of breath wheezing for 1 day, with a decreased oral intake. Became a bit more confused and presented ER. Patient was not willing to come to the hospital but brought him in. Was given IV Lasix in the ER , bronchodilators. Patient had been quite a bit short of breath. Bringing some sputum. No obvious fever or chills. admitted with a diagnosis of right-sided pneumonia, CHF exacerbation, COPD exacerbation, acute delirium. Patient also found to have from recent renal ultrasound-bilateral hydronephrosis and possibly growth in the bladder.. Also acute kidney injury . Patient was started on Lasix drip and IV ceftriaxone, switched to IV Zosyn. Patient on the medical floor 10 became lethargic and went into respiratory failure and was intubated on August 22. Patient was put on IV Lasix drip and IV propofol. Today-ICU. Today FiO2 70% and a PEEP of 5 on the ventilator. 2 feeding up to 30 mL an hour. Patient is on propofol since this morning. Patient had some nonpurposeful movements. Does not Follow commands. Endotracheal tube is putting out some white secretions. Given a dose of NPH this afternoon. Review of systems cannot be done as patient is intubated Active Medications Acetaminophen (Tylenol Tab) 650 mg PO Q4HR PRN PRN Reason: Fever and/ or Pain Hydrocodone Bitart/Acetaminophen ([place] 10) 1 each PO Q6H PRN PRN Reason: Pain Last Admin: 08/25/19 10:19 Dose: 1 each Documented by: Albuterol/Ipratropium (Duoneb 0.5 Mg-3 Mg/3 Ml Soln) 3 ml INHALATION RT-Q4H [facility] Last Admin: 08/25/19 19:32 Dose: 3 ml Documented by: Aspirin (Aspirin) 81 mg PO DAILY [facility] Last Admin: 08/25/19 08:46 Dose: 81 mg Documented by: Atorvastatin Calcium (Lipitor) 40 mg PO DAILY [facility] Last Admin: 08/25/19 08:46 Dose: 40 mg Documented by: Budesonide (Pulmicort) 1 mg INHALATION RT-BID [facility] Last Admin: 08/25/19 19:32 Dose: 1 mg Documented by: Chlorhexidine Gluconate (Peridex) 15 ml MUCOUS MEM BID [facility] Last Admin: 08/25/19 20:35 Dose: 15 ml Documented by: Cholecalciferol (Vitamin D3 (25 Mcg = 1000 Iu)) 1,000 unit PO DAILY [facility] Last Admin: 08/25/19 08:46 Dose: 1,000 unit Documented by: Cyclobenzaprine HCl (Flexeril) 10 mg PO HS [facility] Last Admin: 08/25/19 20:35 Dose: 10 mg Documented by: Furosemide (Lasix) 40 mg IV Q12HR [facility] Last Admin: 08/25/19 20:35 Dose: 40 mg Documented by: Heparin Sodium (Porcine) (Heparin) 5,000 unit SQ Q12HR [facility] Last Admin: 08/25/19 20:35 Dose: 5,000 unit Documented by: Propofol 1,000 mg/ IV Solution 100 mls @ 0 mls/hr IV .Q0M [facility]; Protocol Last Titration: 08/25/19 11:05 Dose: 0 mcg/kg/min, 0 mls/hr Documented by: Norepinephrine Bitartrate 4 mg (/ Sodium Chloride) 254 mls @ 17.282 mls/hr IV .[id number] [facility]; Protocol Last Admin: 08/25/19 20:24 Dose: Not Given Documented by: Piperacillin Sod/Tazobactam (Sod 3.375 gm/ Sodium Chloride) 100 mls @ 25 mls/hr IVPB Q12HR [facility] Last Admin: 08/25/19 20:36 Dose: 25 mls/hr Documented by: Dextrose/Water (Dextrose 5%-Water Iv Soln) 1,000 mls @ 50 mls/hr IV .Q20H [facility] Last Admin: 08/25/19 09:13 Dose: 50 mls/hr Documented by: Insulin Aspart (Novolog) 0 unit SQ 0000,0600,1200,1800 [facility]; Protocol Last Admin: 08/25/19 18:12 Dose: 3 unit Documented by: Insulin Detemir (Levemir) 12 unit SQ HS [facility] Last Admin: 08/25/19 20:35 Dose: 12 unit Documented by: Methylprednisolone Sodium Succinate (Solu-Medrol) 40 mg IV Q8HR [facility] Last Admin: 08/25/19 16:07 Dose: 40 mg Documented by: Metoprolol Tartrate (Lopressor) 25 mg PO TID [facility] Last Admin: 08/25/19 20:35 Dose: 25 mg Documented by: Miscellaneous Information (Potassium Per Protocol) 1 each MISCELLANE DAILY PRN; Protocol PRN Reason: Per Protocol Naloxone HCl (Narcan) 0.2 mg IV Q2M PRN PRN Reason: Opioid Reversal Nicotine (Habitrol 21mg/24hr Patch) 1 patch TRANSDERM DAILY [facility] Last Admin: 08/25/19 08:47 Dose: 1 patch Documented by: Nitroglycerin (Nitrostat) 0.4 mg SUBLINGUAL Q5M PRN PRN Reason: Chest Pain Nystatin (Mycostatin Powder) 1 applic TOPICAL BID [facility] Last Admin: 08/25/19 20:36 Dose: 1 applic Documented by: Physical examination: VITAL SIGNS: 98.9, 105, 19, 135/58, 83% on the ventilator GENERAL: Laying in bed, intubated EYES: Pupils equal. Conjunctiva normal. HEENT: External appearance of nose and ears normal, oral cavity dry., Endo tracheal tube in place, on G-tube feedings NECK: JVD unable to assess,; masses not palpable. HEART: First and second heart sounds are normal; no edema. LUNGS: Respiratory rate increased, decreased breaths ABDOMEN: Soft, nontender, liver spleen not palpable, no masses palpable. DERMATOLOGICAL: Area of redness in both the groin,siver demarcated plaques, and both legs PSYCH: Unable to assess, intubated. NEUROLOGICAL: Pupils are reactive, making nonpurposeful movements INVESTIGATIONS, reviewed in the clinical context: White count 90.2 hemoglobin 10.7 potassium 4.1 bun 4429 creatinine 4.3 on phosphorus 6 Previous testing White count 12.4 hemoglobin 12.6 platelets 237 potassium 4.8 bun 61 creatinine 3.11 Troponin I 0.620, 0.807, influenza A and B both negative EKG tracing personally reviewed by me-personally reviewed by me shows normal sinus rhythm, poor R-wave progression, some T-wave changes in anterolateral leads Chest x-ray film personally reviewed by me-venous prominence, fluid in the fissure, right basilar infiltrate Abdominal ultrasound on 07/29/2019-severe left hydronephrosis and moderate right hydronephrosis, abnormally thickened urinary bladder wall seen multifocally, additionally a sessile mass questionable degree of the left ureteral was cycled junction 2-D [id number]-[id number] percent Assessment: -Acute on chronic congestive heart failure exacerbation, from systolic and diastolic dysfunction EF 20-25%, slow improvement -Cardiogenic and septic shock requiring pressor support and IV dobutamine, stabilized -Severe Right-sided pneumonia, suspect gram-negative organism, slow to respond, POA, -Acute COPD exacerbation in a current smoker, slow to respond, POA, -Acute hypoxic and hypercapnic respiratory failure due to COPD and pneumonia, POA, requiring ventilator support -Bilateral hydronephrosis, with distal obstruction and evidence of chronic kidney disease on the left kidney, right hydronephrosis improved -Chronic kidney disease, baseline unknown, including obstructive pattern -Acute renal failure, possibly combination of cardiorenal syndrome and obstructive pattern, including ATN, slow to respond -Hyperkalemia secondary to renal failure, improved -Diabetes mellitus type 2 on oral hypoglycemic -Hyperlipidemia -Essential hypertension -Primary osteoarthritis -Chronic kidney disease stage IV -Lactic acidosis from pneumonia -Troponin leak 2 positive possibly. Hemodynamic instability. Doubt acute coronary syndrome -Acute delirium from pneumonia etc. Plan: Patient remains on IV Zosyn. 2 feeding is gone up to 30 mL an hour. Start the patient on Levemir 12 units starting tonight. Also in IV Solu-Medrol. Patient is on IV Lasix 40 mg every 12. Prognosis remains guarded. Off propofol since this morning
[2019-08-26 00:07] LABS: Glucose,Whole Blood 219 mg/dL (75-99)
[2019-08-26] MEDS: methylPREDNISolone SOD SUCCI 40 MG/ML 1 ML VIAL IV SCH ×4 (00:08→23:47)
[2019-08-26] MEDS: INSULIN ASPART (NovoLOG) 100 UNIT/ML VIAL SQ SCH ×6 (00:08→23:47)
[2019-08-26] MEDS: ACETAMINOPHEN TAB 325 MG TAB PO PRN ×2 (02:32→12:02)
[2019-08-26 04:33] LABS: Basophils % (A) 0 %; Eosinophils # (A) 0.2 k/uL (0-0.7); Eosinophils % (A) 1 %; HCT 33.6 % (39.0-53.0); HGB 10.8 gm/dL (13.0-17.5); Hypochromasia Slight; Lymphocytes # (A) 0.4 k/uL (1.0-4.8); Lymphocytes % (A) 2 %; MCH 32.6 pg (25.0-35.0); MCHC 32.1 g/dL (31.0-37.0); MCV 101.5 fL (80.0-100.0); Macrocytosis Slight; Mean Platelet Volume 8.3; Monocytes # (A) 0.6 k/uL (0-1.0); Monocytes % (A) 3 %; Neutrophils # (A) 17.6 k/uL (1.3-7.7); Neutrophils % (A) 93 %; Platelet Count 215 k/uL (150-450); RBC 3.31 m/uL (4.30-5.90); RDW 13.3 % (11.5-15.5); WBC 18.9 k/uL (3.8-10.6)
[2019-08-26 04:42] LABS: Calcium 8.4 mg/dL (8.4-10.2); Potassium 4.1 mmol/L (3.5-5.1)
[2019-08-26] MEDS: IPRATROPIUM-ALBUTEROL 3 ML NEB INHALATION SCH ×6 (05:16→23:51)
[2019-08-26] MEDS: DEXTROSE 5% IN WATER 1,000 ML IV SCH (05:34)
[2019-08-26 06:22] LABS: Glucose,Whole Blood 233 mg/dL (75-99)
[2019-08-26 07:11] LABS: ABG Base Excess 10.6 mmol/L; ABG HCO3 34 mmol/L (21-25); ABG Oxygen Saturation 94.5 % (94-97); ABG PCO2 47 mmHg (35-45); ABG PH 7.47 (7.35-7.45); ABG PO2 79 mmHg (83-108); ABG TCO2 36 mmol/L (19-24)
[2019-08-26] MEDS: BUDESONIDE 1 MG/2 ML NEBU INHALATION SCH ×2 (07:17→19:14)
[2019-08-26 07:19] LABS: Glucose,Whole Blood 232 mg/dL (75-99)
[2019-08-26] MEDS: PROPOFOL 1,000 MG in EMPTY BAG 1 BAG IV SCH ×4 (07:40→22:30)
[2019-08-26] MEDS: ATORVASTATIN 40 MG TAB PO SCH (08:03)
[2019-08-26] MEDS: ASPIRIN 81 MG PO SCH (08:03)
[2019-08-26] MEDS: CHLORHEXIDINE GLUCONATE 15 ML CUP MUCOUS MEM SCH ×2 (08:03→20:20)
[2019-08-26] MEDS: HEPARIN SODIUM,PORCINE 5,000 UNIT/ML 1 ML VIAL SQ SCH ×2 (08:03→20:21)
[2019-08-26] MEDS: METOPROLOL TARTRATE 25 MG TAB PO SCH ×3 (08:03→20:54)
[2019-08-26] MEDS: FUROSEMIDE 10 MG/ML 4 ML VIAL IV SCH ×2 (08:03→20:21)
[2019-08-26] MEDS: PIPERACILLIN-TAZOBACTAM 3.375 GM in SODIUM CHLORIDE 0.9% 100 ML IVPB SCH ×2 (08:03→20:21)
[2019-08-26] MEDS: NICOTINE 21MG/24HR PATCH TRANSDERM SCH (08:03)
[2019-08-26] MEDS: CHOLECALCIFEROL 1,000 UNIT TAB PO SCH (08:03)
[2019-08-26] MEDS ORDERED: INSULIN NPH 300 UNIT/3 ML VIAL SQ STA (08:12)
--- NOTE | 2019-08-26 08:13 | PN ---
PROGRESS NOTE Mr. Iqbal is a 78-year-old male who presented with progressive dyspnea and respiratory failure, requiring mechanical ventilation. He remains intubated. He is off sedation. He is opening his eyes. He is not following commands yet. Hemodynamically, he is stable. There is no evidence of malignant arrhythmia. He has been seen by the Urology Service and may require nephrostomy. If he is also being followed by the nephrology service. The by the nephrology service regarding his renal failure. MEDICATION: At this time includes aspirin once a day, Lipitor 40 mg daily, Lasix 40 mg IV q.12 hours, insulin, metoprolol tartrate 25 mg 3 times a day. PHYSICAL EXAMINATION: Blood pressure 115/60 with a heart rate in the low 100s, afebrile. LUNGS: No wheezes anteriorly. HEART: Regular rate and rhythm. S1, S2. No S3 with a systolic murmur. ABDOMEN: Soft, positive bowel sounds, no organomegaly. EXTREMITIES: With no significant edema. LAB DATA: From today revealed a BUN and creatinine of 145 and 3.8. His creatinine is improved compared to yesterday, potassium 4.1. His hemoglobin is 10.8, white blood cell of 18.9. His urine output has been stable. IMPRESSION: 1. Respiratory failure, multifactorial with evidence of pneumonia and congestive heart failure with systolic dysfunction. 2. Worsening chronic kidney disease with left-sided hydronephrosis. 3. Prior history of hypertension. 4. History is stage III diabetes. 5. Psoriasis. 6. History of hyperlipidemia. 7. Prior history of coronary artery disease. RECOMMENDATION: From the cardiac standpoint, will continue present therapy. Dr. Mcdermott is addressing the issue of weaning and extubation. The patient underwent an abdominal ultrasound yesterday revealed moderate to severe left-sided hydronephrosis and evidence of a right renal cyst. Will await the input of the Nephrology Service. Depending on his progress, further recommendation will be made. MMODL / IJN: [id number] /
--- NOTE | 2019-08-26 08:17 | XR ---
EXAMINATION TYPE: XR chest 1V portable DATE OF EXAM: 08/26/2019 COMPARISON: 08/25/2019 HISTORY: SOB, Follow Up FINDINGS: Indwelling tubes and catheters are unchanged. No change in bibasilar opacities. Stable appearance of the cardio-mediastinal structures at this time. Pleural effusion unchanged. IMPRESSION: 1. Stable portable chest. Clinical correlation and follow up until resolution is recommended.
[2019-08-26] MEDS: NYSTATIN 100,000 UNIT/GM POWD 15 GM TOPICAL SCH ×2 (08:21→20:21)
[2019-08-26 08:34] LABS: Glucose,Whole Blood 188 mg/dL (75-99)
[2019-08-26] MEDS: NYSTATIN 100,000 UNIT/ML SUSP 500,000 UNIT/5 ML CUP PO SCH ×4 (10:40→20:55)
--- NOTE | 2019-08-26 11:44 | P.PN ---
Subjective Progress Note Date: 08/26/19 Principal diagnosis: acute hypoxic and hypercapnic respiratory failure secondary to acute exacerbation of COPD, community-acquired right lower lobe pneumonia and acute systolic congestive heart failure. This is a 78-year-old male patient who was brought into the hospital yesterday because of worsening shortness of breath. The patient follows up with Dr. Porter. He has not been hospitalized here in our location for quite some time. He does have multiple medical problems. He has coronary artery disease and a remote history of [place], congestion heart failure, chronic stage III kidney disease, hypertension, hyperlipidemia and diabetes mellitus and extensive psoriasis. Is a chronic smoker. 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 Over the past 24-48 hours, the patient was having increased shortness of breath. It was thought that he may be having a pneumonia. He did not want in to come into the hospital. He ultimately came into emergency and overnight he became unresponsive and his blood gas showed acute respiratory acidosis with a pH of 7.09 with a pCO2 of 96 and pO2 of 51 and this was on 100% nonrebreather. Based on that, I made recommendations to intubate the patient around 3 AM this morning. He was placed on a mechanical ventilator and he was brought into the intensive care unit. Currently is on assist control mode of ventilation at the rate of 18 with a tidal volume of 550 FiO2 of 70% and a PEEP of 5. The follow- up blood gases showed a pH of 7.27 with a pCO2 of 59 and pO2 of 70 and this was done and FiO2 of 80%. Peak airway pressure is around 22. He is on propofol which is currently running at 50 g per KG per minute. He is also on norepinephrine infusion at 0.05 g per KG per minute. He was started on Lasix drip at 10 mg an hour. His blood work with a white cell count of 11. Hemoglobin is at 12.6. His potassium level is at 5.2. Creatinine is at 3.8. Troponin maxed was at 1.1 and his EKG showing a sinus rhythm in the form of sinus tachycardia. There are Q waves over the anterior leads consistent with an old anterior wall myocardial infarction. Echocardiogram has been done and the results are still pending for now. Urine output is in the order of 30 mL an hour and the chest x-ray from today shows adequate positioning of the suzette tracheal tube. There is pulmonary edema and there is increased consolidation of the right lower lobe which may suggest the potential of an underlying right lower lobe pneumonia. NG tube is in a good location for now. There was copious amount of rest or secretions post intubation and the patient had sputum sent for Gram stain and culture. He was given antibiotics and currently is on Rocephin. His ultrasound the kidneys showed bilateral hydronephrosis. 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 Urology has been consulted. His evaluation of 08/23/2019 I'm seeing this patient for a follow-up. The patient is well sedated with propofol and is calm and comfortable. He is currently on 50 g per KG per minute of propofol. He remains arousable upon lower degree of sedation. As far as the vent support, the patient is on assist control mode at the rate of 18 with a tidal volume of 550 and FiO2 of 50% with a PEEP of 10. The blood gases from today showed a pH of 7.39 with a pCO2 of 48 and pO2 129 and this was done on FiO2 of 70%. Chest x-ray shows stable findings with CHF and possible right lower lobe pneumonia. ET tube is in a good location. Triple-lumen catheter is in a good location. NG tube is in a good location. The patient is still on Lasix drip at 10 mg an hour. He is producing excellent urine output and urine output is more than 50 mL an hour. The labs from today showed a BUN of 102 with a creatinine of 4.38. His serum bicarbs at 27. Note that the patient had a CAT scan of the abdomen based on the fact that he had bilateral hydronephrosis. The CAT scan was completed yesterday and it showed and confirmed the left-sided hydronephrosis. There is a 3 mm nonobstructive left renal calculus and severe left-sided hydronephrosis with cortical thickening. No obstruction by calculus was identified. There is a moderate degree of right-sided hydronephrosis. There is a 4 cm exophytic lesion posterior lateral aspect of the lower pole of the right kidney. The bladder is poorly distended with severe concentric wall thickening and a Caldwell catheter is in place. There was a concern of a left UV junction obstruction and a cystoscopy will be needed. 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 Urology on the case. Caldwell cath is in place. The patient is currently on IV Zosyn. Sputum and blood culture sent and the results are still pending for now. Echocardiogram showed impaired left ventricular ejection fraction of less than 20%. Cardiology is on the case. Patient was reevaluated today on 08/24/2019, remains on mechanical ventilation, and his ventilator settings are tidal volume of 550 assist-control rate of 18 FiO2 of 50% PEEP of 10 and I lowered the down to 8. Remains on multiple drips including Lasix at 5 mg per hour. He is also on propofol at 50 mcg/kg/m,ABG showed a pO2 of 90 pCO2 of 49 and pH of 7.44. His peak airway pressure is in the high 20s, and plateau pressure is about 19.chest x-ray continues to show evidence of right lower lobe infiltrate.with chronic parenchymal changes and bib asilar atelectasis.patient is not requiring any pressors at this point, his renal functioning seems to be worsening, added Lasix drip was cut down from 10-5 mg per hour. Urine output remains excellent.his last echocardiogram showed ejection fraction of 20-25%. And mild mitral regurgitation.CBC showed leukocytosis with WBC count of 18.8 hemoglobin is 10.7. Electrolytes showed sodium 145 potassium 3.6 bicarb is 31BUN is 118 creatinine 4.45, gradually rising since 08/21 from 3.11. Patient remains on diuretics, bronchodilators, methylprednisolone, beta blockers,and Zosyn empirically.again he is not requiring any pressors today. Remains on GI and DVT prophylaxis. He is also on insulin as per protocol. Reevaluated today on 08/25/2019, remains in the ICU, mechanically ventilated, his ventilator settings are tidal volume of 550 assist-control rate 18 FiO2 of 50%, and PEEP was cut down to 5. ABG showed a pO2 of 82 pCO2 of 54 pH of 7.42. Patient is not requiring any pressors, he is still on propofol at 45 mcg/kg/m, his IV fluid was changed to D5W, and I have recommended fluid boluses/free water via nasogastric tube. His urine output is excellent at 75 ML per hour. Patient is a scheduled by urology to have a renal ultrasound, may require nephrostomy tube placement. However that's yet to be decided. Chest x-ray, continues to show COPD and patchy bibasilar infiltrates. Remains on Lasix at 40 mg IV push every 12 hours. Remains on antibiotics, and bronchodilators. His mental status was assessed yesterday off sedation, and he seemed to be appropriate according to the nurse taking care of him. We plan to have sedation interruption also today, and assessment of mental status. However considering his ABG is marginal, considering his chest x-ray, I have no plans to extubate the patient today. But if the patient is to have nephrostomy tube placement, hopefully it could be done today. Renal profile remains abnormal with a BUN of 129 creatinine 4.31. Slightly improved compared to creatinine yesterday of 4.45. Nutrition-jenkins, the patient remains on enteral feeding via nasogastric tube. He also remains on GI and DVT prophylaxis. And on insulin as per protocol. Patient was reevaluated again today in the ICU on 08/26/2019, remains intubated and mechanically ventilated. Overnight, his pulmonary status has deteriorated, oxygenation worsened, chest x-ray also worsened with worsening right lower lobe infiltrate and suspect ongoing interstitial edema. Although the patient has a good urine output. His FiO2 had to be increased to 70%, his PEEP was increased today to 10 again, remains on tidal volume of 550, and assist control rate of 18. His ABG on 70% today and PEEP of 5 showed a pO2 of 79 pCO2 of 47 pH of 7.47. Hence the patient was placed on a high PEEP, and I plan to titrate down his FiO2 hopefully back to 50%. Patient is obviously not ready to be weaned. It took the patient about 20 hours off sedation yesterday to respond and follow simple instructions. He was quite sedated off propofol all day yesterday. And this was for roughly about 20 hours. Today the patient is back on propofol, he was getting extremely agitated earlier, and he had to be placed back on propofol. He is at 45 mcg/kg/m. He is not requiring any pressors, he is hemody namically stable. Again his chest x-ray is worse, his CBC showed leukocytosis with WBC of 18.9 hemoglobin is 10.8. Electrolytes remain abnormal with a sodium of 147, and I recommended that we continue free water flushes via nasogastric tube today. The Lasix dose will remain the same, patient is diuresing quite well with 2 doses of Lasix a day. Objective - Vital Signs Vital signs: Vital Signs Temp 99.4 F 08/26/19 08:00 Pulse 108 H 08/26/19 11:17 Resp 18 08/26/19 11:00 BP 108/60 08/26/19 06:00 Pulse Ox 94 L 08/26/19 11:00 Intake & Output 08/25/19 08/26/19 08/26/19 18:59 06:59 18:59 Intake Total 1703.665 3166 688.970 Output Total 1682049 455 Balance -163.809 -788 233.970 Weight 80.6 kg 81.5 kg Intake: IV 610 600 250 Dextrose 5% in Water 1, 450 600 150 000 ml @ 50 mls/hr IV . Q20H [facility] Rx#:[id number] Piperacillin-Tazobactam 3 100 100 .375 gm In Sodium Chloride 0.9% 100 ml @ 25 mls/hr IVPB Q12HR [facility] Rx #:[id number] Sodium Chloride 0.9% 1, 60 000 ml @ 20 mls/hr IV . Q24H [facility] Rx#:[id number] Intake, IV Titration 86.191 30.970 Amount Propofol 1,000 mg In 86.191 30.970 Empty Bag 1 bag @ Titrate IV .Q0M [facility] Rx#: [id number] Tube Feeding 360 462 138 Other 465 200 270 Output: Urine 1684 2049 455 Other: Voiding Method Indwelling Catheter Indwelling Catheter Indwelling Catheter # Bowel Movements 1 1 ABP, PAP, CO, CI - Last Documented Arterial Blood Pressure 132/63 - Exam Physical Exam: Revealed a 78-year-old white male, on mechanical ventilation, sedated, on propofol drip. Head: Atraumatic, normocephalic. HEENT:[Neck is supple.] [No neck masses.] [No thyromegaly.] [No JVD.]PERRLA, EOMI, no icterus, moist mucous membranes noted.endotracheal tube and orogastric tube are intact. Chest: [symmetrical chest expansion, minimal fine crackles at the bases, no rhonchi and no wheezes. No chest wall tenderness.] Cardiac Exam: [Normal S1 and S2, no S3 gallop,2/6 systolic murmur at the left lower sternal border. Abdomen: [obese,Soft, nontender, no megaly, no rebound, no guarding, normal bowel sounds.] Extremities: [No clubbing, trace of bipedal edema, no cyanosis.] Neurological Exam: sedated, on propofol, patient was following instructions off propofol, however he was getting a bit agitated earlier today. Psychiatric: Cannot be assessed. Skin: extensive psoriasis patches noted throughout the whole body and lower extremities bilaterally. Lymphatics: No lymphadenopathy. - Labs CBC & Chem 7: 08/26/19 04:20 08/26/19 04:20 Labs: Abnormal Lab Results - Last 24 Hours (Table) 08/25/19 08/25/19 08/25/19 Range/Units 12:07 12:48 18:02 WBC (3.8-10.6) k/uL RBC (4.30-5.90) m/uL Hgb (13.0-17.5) gm/dL Hct (39.0-53.0) % MCV (80.0-100.0) fL Neutrophils # (1.3-7.7) k/uL Lymphocytes # (1.0-4.8) k/uL ABG pH (7.35-7.45) ABG pCO2 (35-45) mmHg ABG pO2 (83-108) mmHg ABG HCO3 (21-25) mmol/L ABG Total CO2 (19-24) mmol/L Sodium (137-145) mmol/L Carbon Dioxide (22-30) mmol/L BUN (9-20) mg/dL Creatinine (0.66-1.25) mg/dL Glucose (74-99) mg/dL POC Glucose (mg/dL) 236 H 234 H 226 H (75-99) mg/dL 08/25/19 08/26/19 08/26/19 Range/Units 23:56 04:20 04:20 WBC 18.9 H (3.8-10.6) k/uL RBC 3.31 L (4.30-5.90) m/uL Hgb 10.8 L (13.0-17.5) gm/dL Hct 33.6 L (39.0-53.0) % MCV 101.5 H (80.0-100.0) fL Neutrophils # 17.6 H (1.3-7.7) k/uL Lymphocytes # 0.4 L (1.0-4.8) k/uL ABG pH (7.35-7.45) ABG pCO2 (35-45) mmHg ABG pO2 (83-108) mmHg ABG HCO3 (21-25) mmol/L ABG Total CO2 (19-24) mmol/L Sodium 147 H (137-145) mmol/L Carbon Dioxide 33 H (22-30) mmol/L BUN 145 H* (9-20) mg/dL Creatinine 3.80 H (0.66-1.25) mg/dL Glucose 219 H (74-99) mg/dL POC Glucose (mg/dL) 219 H (75-99) mg/dL 08/26/19 08/26/19 08/26/19 Range/Units 06:10 07:06 07:08 WBC (3.8-10.6) k/uL RBC (4.30-5.90) m/uL Hgb (13.0-17.5) gm/dL Hct (39.0-53.0) % MCV (80.0-100.0) fL Neutrophils # (1.3-7.7) k/uL Lymphocytes # (1.0-4.8) k/uL ABG pH 7.47 H (7.35-7.45) ABG pCO2 47 H (35-45) mmHg ABG pO2 79 L (83-108) mmHg ABG HCO3 34 H (21-25) mmol/L ABG Total CO2 36 H (19-24) mmol/L Sodium (137-145) mmol/L Carbon Dioxide (22-30) mmol/L BUN (9-20) mg/dL Creatinine (0.66-1.25) mg/dL Glucose (74-99) mg/dL POC Glucose (mg/dL) 233 H 232 H (75-99) mg/dL 08/26/19 Range/Units 08:21 WBC (3.8-10.6) k/uL RBC (4.30-5.90) m/uL Hgb (13.0-17.5) gm/dL Hct (39.0-53.0) % MCV (80.0-100.0) fL Neutrophils # (1.3-7.7) k/uL Lymphocytes # (1.0-4.8) k/uL ABG pH (7.35-7.45) ABG pCO2 (35-45) mmHg ABG pO2 (83-108) mmHg ABG HCO3 (21-25) mmol/L ABG Total CO2 (19-24) mmol/L Sodium (137-145) mmol/L Carbon Dioxide (22-30) mmol/L BUN (9-20) mg/dL Creatinine (0.66-1.25) mg/dL Glucose (74-99) mg/dL POC Glucose (mg/dL) 188 H (75-99) mg/dL Microbiology - Last 24 Hours (Table) 08/21/19 10:10 Blood Culture - Preliminary Blood No Growth after 96 hours Assessment and Plan Assessment: impression: 1 acute hypoxic and hypercapnic respiratory failure secondary to pneumonia, most likely community-acquired involving the right lower lobe, acute exacerbation of COPD, and acute systolic congestive heart failure. 2 acute systolic congestive heart failure, ejection fraction of 20-25%. 3 acute exacerbation of COPD 4 acute right lower lobe cavity community-acquired pneumonia 5 chronic kidney disease stage III and there is evidence of acute on chronic kidney injury. Abnormal renal CT, showing significant left sided hydronep hrosis, being addressed by urology, and there is a possibility of bladder tumor. 6 type 2 diabetes, patient remains on insulin as per protocol. 7 benign essential hypertension 8 dyslipidemia 9 history of extensive psoriasis. 10 chronic hypoxic respiratory failure patient has been on oxygen at 2-3 L/m when necessary. 11 history of coronary artery disease and previous [place] 12 chronic back pain. Recommendation: Continue ventilatory support, FiO2 is up to 70% and PEEP is up to 10, plan to titrate the PEEP down again to 50%. Daily sedation interruption and assessment of mental status. 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 Continue diuretics, bronchodilators, antibiotics, steroids, Continue GI and DVT prophylaxis. No plans by urology to have any urological intervention. Continue to monitor daily labs including renal profile, and electrolytes. Continue daily assessment of chest x-ray and ABG Continued daily assessment of mental status off sedation Daily assessment of ventilatory settings and adjustments accordingly based on the ABG Continue enteral feeding. No plans for weaning today. Patient has worsened from the pulmonary perspective over the last 24 hours. Critical care time is 34 minutes. We'll continue to follow. Time with Patient: Greater than 30
[2019-08-26 12:00] LABS: Glucose,Whole Blood 181 mg/dL (75-99)
--- NOTE | 2019-08-26 16:09 | PN ---
PROGRESS NOTE Patient is seen for followup for acute kidney injury. Renal function has improved. However, BUN is significantly elevated to 145. Serum creatinine is down to 3.8 from peak of 4.45. Urine output is maintained at about 100 to 200 mL/hour. Patient is maintained on IV Lasix. He had been on Lasix drip, which is now discontinued. Patient remains on the vent. His FiO2 was increased this morning. Patient remains on sedation as well. PHYSICAL EXAMINATION: On examination, blood pressure was 121/59, heart rate 111 per minute. He is afebrile. EXAMINATION OF THE HEART: S1 and S2. EXAMINATION OF LUNGS: Decreased breath sounds at bases. Patient is on the vent. ABDOMEN: Soft, non-tender. Examination of lower extremities shows trace edema. LANDSCAPE CONTRACTOR exam cannot be performed. LABS: Sodium 147, potassium 4.1. CO2 is 33, BUN 145, serum creatinine 3.8. ASSESSMENT: 1. Acute kidney injury, acute tubular necrosis, currently nonoliguric and improving, although his BUN is disproportionately elevated and it is higher today, most likely secondary to steroids, recent diuresis. 2. Mild hypernatremia, maintained on D5W and free water down the feeding tube. I will increase the free water with the tube feedings. 3. Congestive heart failure; ejection fraction 20% to 25%. 4. Chronic kidney disease, stage III, secondary to diabetic kidney disease. Previous creatinine around 2 mg/dL. 5. Hydronephrosis bilaterally with improvement in right hydronephrosis and persistent left hydronephrosis which is most likely chronic. 6. Volume overload, currently improved. PLAN: Recommend to decrease steroids. Continue to avoid nephrotoxic agents. Decrease Lasix in a.m. MMODL / IJN: [id number] /
[2019-08-26 17:06] LABS: Glucose,Whole Blood 244 mg/dL (75-99)
--- NOTE | 2019-08-26 17:32 | P.PN ---
Progress Note - Text Progress Note Date: 08/26/19 Chief Complaint: Short of breath, cough Interval history: This is [address] rai. Chronic stable medical conditions include diabetes, hypertension, hyperlipidemia, osteoarthritis, chronic kidney disease, home oxygen 2-3 L, chronic low back pain and psoriatic.. Patient was brought in by his . Most history is obtained by the at the bedside. At her baseline patient very much sits down and watches television. Does not drive. Has a fair appetite. Normally able to get around the house. Patient started coughing became short of breath wheezing for 1 day, with a decreased oral intake. Became a bit more confused and presented ER. Patient was not willing to come to the hospital but brought him in. Was given IV Lasix in the ER , bronchodilators. Patient had been quite a bit short of breath. Bringing some sputum. No obvious fever or chills. admitted with a diagnosis of right-sided pneumonia, CHF exacerbation, COPD exacerbation, acute delirium. Patient also found to have from recent renal ultrasound-bilateral hydronephrosis and possibly growth in the bladder.. Also acute kidney injury . Patient was started on Lasix drip and IV ceftriaxone, switched to IV Zosyn. Patient on the medical floor 10 became lethargic and went into respiratory failure and was intubated on August 22. Patient was put on IV Lasix drip and IV propofol. Today-ICU. On the vent with FiO2 65% and a PEEP of 10. Put on propofol this m orning. We'll mild sedation. Spoke to the respiratory therapist did have significant secretions with endotracheal tube this morning. Tube feeding at 42 mL an hour. at the bedside. Review of systems cannot be done as patient is intubated Active Medications Acetaminophen (Tylenol Tab) 650 mg PO Q4HR PRN PRN Reason: Fever and/ or Pain Last Admin: 08/26/19 12:02 Dose: 650 mg Documented by: Hydrocodone Bitart/Acetaminophen (Liberty 10) 1 each PO Q6H PRN PRN Reason: Pain Last Admin: 08/25/19 10:19 Dose: 1 each Documented by: Albuterol/Ipratropium (Duoneb 0.5 Mg-3 Mg/3 Ml Soln) 3 ml INHALATION RT-Q4H [facility] Last Admin: 08/26/19 15:28 Dose: 3 ml Documented by: Aspirin (Aspirin) 81 mg PO DAILY [facility] Last Admin: 08/26/19 08:03 Dose: 81 mg Documented by: Atorvastatin Calcium (Lipitor) 40 mg PO DAILY [facility] Last Admin: 08/26/19 08:03 Dose: 40 mg Documented by: Budesonide (Pulmicort) 1 mg INHALATION RT-BID [facility] Last Admin: 08/26/19 07:17 Dose: 1 mg Documented by: Chlorhexidine Gluconate (Peridex) 15 ml MUCOUS MEM BID [facility] Last Admin: 08/26/19 08:03 Dose: 15 ml Documented by: Cholecalciferol (Vitamin D3 (25 Mcg = 1000 Iu)) 1,000 unit PO DAILY [facility] Last Admin: 08/26/19 08:03 Dose: 1,000 unit Documented by: Cyclobenzaprine HCl (Flexeril) 10 mg PO HS [facility] Last Admin: 08/25/19 20:35 Dose: 10 mg Documented by: Furosemide (Lasix) 40 mg IV Q12HR [facility] Last Admin: 08/26/19 08:03 Dose: 40 mg Documented by: Heparin Sodium (Porcine) (Heparin) 5,000 unit SQ Q12HR [facility] Last Admin: 08/26/19 08:03 Dose: 5,000 unit Documented by: Propofol 1,000 mg/ IV Solution 100 mls @ 0 mls/hr IV .Q0M [facility]; Protocol Last Titration: 08/26/19 15:13 Dose: 45 mcg/kg/min, 22.005 mls/hr Documented by: Piperacillin Sod/Tazobactam (Sod 3.375 gm/ Sodium Chloride) 100 mls @ 25 mls/hr IVPB Q12HR [facility] Last Admin: 08/26/19 08:03 Dose: 25 mls/hr Documented by: Dextrose/Water (Dextrose 5%-Water Iv Soln) 1,000 mls @ 50 mls/hr IV .Q20H [facility] Last Admin: 08/26/19 05:34 Dose: 50 mls/hr Documented by: Insulin Aspart (Novolog) 0 unit SQ Q4H [facility]; Protocol Last Admin: 08/26/19 17:01 Dose: 3 unit Documented by: Insulin Detemir (Levemir) 20 unit SQ [facility] Methylprednisolone Sodium Succinate (Solu-Medrol) 40 mg IV Q8HR [facility] Last Admin: 08/26/19 08:21 Dose: 40 mg Documented by: Metoprolol Tartrate (Lopressor) 25 mg PO TID [facility] Last Admin: 08/26/19 17:01 Dose: 25 mg Documented by: Miscellaneous Information (Potassium Per Protocol) 1 each MISCELLANE DAILY PRN; Protocol PRN Reason: Per Protocol Naloxone HCl (Narcan) 0.2 mg IV Q2M PRN PRN Reason: Opioid Reversal Nicotine (Habitrol 21mg/24hr Patch) 1 patch TRANSDERM DAILY [facility] Last Admin: 08/26/19 08:03 Dose: 1 patch Documented by: Nitroglycerin (Nitrostat) 0.4 mg SUBLINGUAL Q5M PRN PRN Reason: Chest Pain Nystatin (Mycostatin Powder) 1 applic TOPICAL BID [facility] Last Admin: 08/26/19 08:21 Dose: 1 applic Documented by: Nystatin (Mycostatin Oral Susp) 500,000 unit PO QID [facility] Last Admin: 08/26/19 12:02 Dose: 500,000 unit Documented by: Physical examination: VITAL SIGNS: 100.4, 107, 18, 130/62, and 95% on ventilator GENERAL: Laying in bed, intubated EYES: Pupils equal. Conjunctiva normal. HEENT: External appearance of nose and ears normal, oral cavity dry., Endotracheal tube in place, on G-tube feedings NECK: JVD unable to assess,; masses not palpable. HEART: First and second heart sounds are normal; no edema. LUNGS: Respiratory rate increased, decreased breaths ABDOMEN: Soft, nontender, liver spleen not palpable, no masses palpable. DERMATOLOGICAL: Area of redness in both the groin,siver demarcated plaques, and both legs PSYCH: Unable to assess, intubated. NEUROLOGICAL: Pupils are reactive, making nonpurposeful movements INVESTIGATIONS, reviewed in the clinical context: White count 18.9, hemoglobin 10.8 platelets 215 potassium 4.1 bun 145 creatinine 3.8 Previous testing White count 12.4 hemoglobin 12.6 platelets 237 potassium 4.8 bun 61 creatinine 3.11 Troponin I 0.620, 0.807, influenza A and B both negative EKG tracing personally reviewed by me-personally reviewed by me shows normal sinus rhythm, poor R-wave progression, some T-wave changes in anterolateral leads Chest x-ray film personally reviewed by me-venous prominence, fluid in the fissure, right basilar infiltrate Abdominal ultrasound on 07/29/2019-severe left hydronephrosis and moderate right hydronephrosis, abnormally thickened urinary bladder wall seen multifocally, additionally a sessile mass questionable 2-D [id number] percent Assessment: -Acute on chronic congestive heart failure exacerbation, from systolic and diastolic dysfunction EF 20-25%, slow improvement, on IV Lasix -Cardiogenic and septic shock requiring pressor support and IV dobutamine, stabilized -Severe Right-sided pneumonia, suspect gram-negative organism, slow to respond, POA, still having some fevers -Acute COPD exacerbation in a current smoker, slow to respond, POA, -Acute hypoxic and hypercapnic respiratory failure due to COPD and pneumonia, POA, requiring ventilator support -Bilateral hydronephrosis, with distal obstruction and evidence of chronic kidney disease on the left kidney, right hydronephrosis improved -Chronic kidney disease, baseline unknown, including obstructive pattern -Acute renal failure, possibly combination of cardiorenal syndrome and ob structive pattern, including ATN, worsening -Hyperkalemia secondary to renal failure, improved -Diabetes mellitus type 2 on oral hypoglycemic -Hyperlipidemia -Essential hypertension -Primary osteoarthritis -Chronic kidney disease stage IV -Lactic acidosis from pneumonia -Troponin leak 2 positive possibly. Hemodynamic instability. Doubt acute coronary syndrome -Acute delirium from pneumonia sepsis Plan: Patient based on the ventilator. Remains on IV Lasix 40 mg every 12. On IV Solu-Medrol 40 mg every 8. IV Zosyn. Propofol was started this morning again. Spoke to the at the bedside. Patient remains rather sick.
[2019-08-26] MEDS: CYCLOBENZAPRINE 10 MG TAB PO SCH (20:20)
[2019-08-26 20:25] LABS: Glucose,Whole Blood 189 mg/dL (75-99)
[2019-08-26] MEDS ORDERED: INSULIN DETEMIR (LEVEMIR) 100 UNIT/ML SYR SQ SCH (21:00)
[2019-08-26 23:52] LABS: Glucose,Whole Blood 185 mg/dL (75-99)
[2019-08-27] MEDS: PROPOFOL 1,000 MG in EMPTY BAG 1 BAG IV SCH ×5 (02:24→20:12)
[2019-08-27] MEDS: DEXTROSE 5% IN WATER 1,000 ML IV SCH (02:25)
[2019-08-27] MEDS: IPRATROPIUM-ALBUTEROL 3 ML NEB INHALATION SCH ×5 (03:04→19:06)
[2019-08-27 04:39] LABS: Basophils % (A) 0 %; Eosinophils # (A) 0.1 k/uL (0-0.7); Eosinophils % (A) 1 %; HCT 35.8 % (39.0-53.0); HGB 11.2 gm/dL (13.0-17.5); Hypochromasia Slight; Lymphocytes # (A) 0.5 k/uL (1.0-4.8); Lymphocytes % (A) 3 %; MCHC 31.4 g/dL (31.0-37.0); MCV 101.9 fL (80.0-100.0); Macrocytosis Slight; Mean Platelet Volume 10.1; Monocytes # (A) 0.6 k/uL (0-1.0); Monocytes % (A) 3 %; Neutrophils # (A) 16.3 k/uL (1.3-7.7); Neutrophils % (A) 93 %; Platelet Count 194 k/uL (150-450); RBC 3.51 m/uL (4.30-5.90); RDW 13.4 % (11.5-15.5); WBC 17.6 k/uL (3.8-10.6)
[2019-08-27 04:40] LABS: Glucose,Whole Blood 222 mg/dL (75-99)
[2019-08-27] MEDS: INSULIN ASPART (NovoLOG) 100 UNIT/ML VIAL SQ SCH ×5 (04:46→20:12)
[2019-08-27 04:50] LABS: Albumin 3.3 g/dL (3.5-5.0); Calcium 8.5 mg/dL (8.4-10.2); Potassium 4.5 mmol/L (3.5-5.1); Total Bilirubin 0.8 mg/dL (0.2-1.3); Total Protein 6.8 g/dL (6.3-8.2)
[2019-08-27 07:46] LABS: ABG Base Excess 10.2 mmol/L; ABG HCO3 35 mmol/L (21-25); ABG Oxygen Saturation 94.6 % (94-97); ABG PCO2 52 mmHg (35-45); ABG PH 7.43 (7.35-7.45); ABG PO2 81 mmHg (83-108); ABG TCO2 36 mmol/L (19-24); Allen Test Performed? Yes
[2019-08-27] MEDS: BUDESONIDE 1 MG/2 ML NEBU INHALATION SCH ×2 (07:55→19:06)
[2019-08-27] MEDS: METOPROLOL TARTRATE 25 MG TAB PO SCH ×3 (08:18→21:48)
[2019-08-27] MEDS: CHOLECALCIFEROL 1,000 UNIT TAB PO SCH (08:18)
[2019-08-27] MEDS: ATORVASTATIN 40 MG TAB PO SCH (08:18)
[2019-08-27] MEDS: NYSTATIN 100,000 UNIT/ML SUSP 500,000 UNIT/5 ML CUP PO SCH ×4 (08:18→21:47)
[2019-08-27] MEDS: CHLORHEXIDINE GLUCONATE 15 ML CUP MUCOUS MEM SCH ×2 (08:18→21:47)
[2019-08-27] MEDS: ASPIRIN 81 MG PO SCH (08:18)
[2019-08-27] MEDS: HEPARIN SODIUM,PORCINE 5,000 UNIT/ML 1 ML VIAL SQ SCH ×2 (08:19→21:50)
[2019-08-27] MEDS: NICOTINE 21MG/24HR PATCH TRANSDERM SCH (08:19)
[2019-08-27] MEDS: PIPERACILLIN-TAZOBACTAM 3.375 GM in SODIUM CHLORIDE 0.9% 100 ML IVPB SCH ×2 (08:19→21:47)
[2019-08-27] MEDS: methylPREDNISolone SOD SUCCI 40 MG/ML 1 ML VIAL IV SCH ×2 (08:19→15:59)
[2019-08-27] MEDS: FUROSEMIDE 10 MG/ML 4 ML VIAL IV SCH ×2 (08:19→21:47)
[2019-08-27] MEDS: NYSTATIN 100,000 UNIT/GM POWD 15 GM TOPICAL SCH ×2 (08:20→21:47)
--- NOTE | 2019-08-27 08:52 | XR ---
EXAMINATION TYPE: XR chest 1V portable DATE OF EXAM: 08/27/2019 COMPARISON: 08/26/2019 INDICATION: Tube placement TECHNIQUE: Single frontal view of the chest is obtained. FINDINGS: The heart size is normal. The pulmonary vasculature is normal. The lungs are clear. Nipple shadows likely present at the right base. Right lower lobe infiltrate beltre s improved. Left lower lobe infiltrate has largely resolved. Endotracheal tube is present with tip above the vidya. Nasogastric tube transverses the thorax the t ip in the left upper quadrant of the abdomen. Left central venous catheter is present with the tip in the superior vena cava region. EKG leads overlie the chest. IMPRESSION: 1. Improving bibasilar infiltrates. 2. Lines and catheters discussed above.
[2019-08-27 08:55] LABS: Glucose,Whole Blood 180 mg/dL (75-99)
--- NOTE | 2019-08-27 09:28 | PN ---
PROGRESS NOTE Mr. Iqbal is a 78-year-old male who presented with respiratory failure and pneumonia with evidence of congestive heart failure with systolic dysfunction. He remains intubated and sedated. Hemodynamically, he is stable. He was not felt to be a candidate for weaning and extubation yesterday. There is no evidence of malignant arrhythmia. He continues to be at this time on aspirin, Lipitor 40 mg daily, Lasix 40 mg IV q.12 hours, insulin, metoprolol tartrate 25 mg three times a day, Solu-Medrol. PHYSICAL EXAMINATION: Blood pressure 115/70 with a heart rate in the low 100s. LUNGS: Clear anteriorly. HEART: S1, S2. No S3 with a systolic murmur. No diastolic murmur. No rub. ABDOMEN: Soft. Positive bowel sounds. No organomegaly. EXTREMITIES: No edema with evidence of psoriasis. LAB DATA: Potassium 4.5, BUN and creatinine 149 and 3.55 with some improvement compared to yesterday on the creatinine. His hemoglobin is 11.2, white blood cell count is 17.6. IMPRESSION: 1. Respiratory failure with a combination of pneumonia and exacerbation of congestive heart failure with systolic dysfunction. 2. Worsening chronic kidney disease, acute on chronic, with left-sided hydronephrosis. 3. Hypertension. 4. Psoriasis. 5. Hyperlipidemia. 6. History of coronary artery disease. RECOMMENDATIONS: From the cardiac standpoint, will continue on the present therapy. Dr. Mcdermott is addressing the issue of the ventilator. The patient remains sedated at this time. Unfortunately, the prognosis remains quite guarded. MMODL / IJN: [id number] /
--- NOTE | 2019-08-27 10:42 | P.PN ---
Subjective Patient is seen in follow-up for acute kidney injury on chronic disease. Renal function improving. Creatinine 3.55 today. Patient is nonoliguric with urine output over 75 mL per hour. He is maintained on Lasix 40 mg IV twice daily. Maintained on tube feeding. He remains intubated. Ejection fraction 20-25%. Sodium level 144 today. Vital signs are stable. General: The patient appeared well nourished and normally developed. Intubated. HEENT: Head exam is unremarkable. Neck is without jugular venous distension. LUNGS: Lungs are clear to auscultation and percussion. Breath sounds decreased. HEART: Rate and Rhythm are regular. First and second heart sounds normal. No murmurs, rubs or gallops. ABDOMEN: Abdominal exam reveals normal bowel sounds. Non-tender and non- distended. EXTREMITITES: Trace edema. Objective - Vital Signs Vital signs: Vital Signs Temp 98.5 F 08/27/19 08:00 Pulse 92 08/27/19 10:00 Resp 25 H 08/27/19 10:00 BP 107/71 08/27/19 09:00 Pulse Ox 94 L 08/27/19 10:00 Intake & Output 08/26/19 08/27/19 08/27/19 18:59 06:59 18:59 Intake Total 2144.931 2322.172 146 Output Total 1305 1275 160 Balance 027.373 6144.172 -14 Weight 78.5 kg Intake: IV 700 600 100 Dextrose 5% in Water 1, 600 600 100 000 ml @ 50 mls/hr IV . Q20H [facility] Rx#:[id number] Piperacillin-Tazobactam 3 100 .375 gm In Sodium Chloride 0.9% 100 ml @ 25 mls/hr IVPB Q12HR [facility] Rx #:[id number] Intake, IV Titration 154.931 270.172 Amount Propofol 1,000 mg In 154.931 270.172 Empty Bag 1 bag @ Titrate IV .Q0M [facility] Rx#: [id number] Tube Feeding 460 552 46 Other 830 900 Output: Urine 1305 1275 160 Other: Voiding Method Indwelling Catheter Indwelling Catheter Indwelling Catheter # Bowel Movements 1 ABP, PAP, CO, CI - Last Documented Arterial Blood Pressure 132/63 - Labs CBC & Chem 7: 08/27/19 04:33 08/27/19 04:33 Labs: Abnormal Lab Results - Last 24 Hours (Table) 08/26/19 08/26/19 08/26/19 Range/Units 11:48 16:54 20:13 WBC (3.8-10.6) k/uL RBC (4.30-5.90) m/uL Hgb (13.0-17.5) gm/dL Hct (39.0-53.0) % MCV (80.0-100.0) fL Neutrophils # (1.3-7.7) k/uL Lymphocytes # (1.0-4.8) k/uL ABG pCO2 (35-45) mmHg ABG pO2 (83-108) mmHg ABG HCO3 (21-25) mmol/L ABG Total CO2 (19-24) mmol/L Carbon Dioxide (22-30) mmol/L BUN (9-20) mg/dL Creatinine (0.66-1.25) mg/dL Glucose (74-99) mg/dL POC Glucose (mg/dL) 181 H 244 H 189 H (75-99) mg/dL AST (17-59) U/L ALT (21-72) U/L Albumin (3.5-5.0) g/dL 08/26/19 08/27/19 08/27/19 Range/Units 23:41 04:28 04:33 WBC 17.6 H (3.8-10.6) k/uL RBC 3.51 L (4.30-5.90) m/uL Hgb 11.2 L (13.0-17.5) gm/dL Hct 35.8 L (39.0-53.0) % MCV 101.9 H (80.0-100.0) fL Neutrophils # 16.3 H (1.3-7.7) k/uL Lymphocytes # 0.5 L (1.0-4.8) k/uL ABG pCO2 (35-45) mmHg ABG pO2 (83-108) mmHg ABG HCO3 (21-25) mmol/L ABG Total CO2 (19-24) mmol/L Carbon Dioxide (22-30) mmol/L BUN (9-20) mg/dL Creatinine (0.66-1.25) mg/dL Glucose (74-99) mg/dL POC Glucose (mg/dL) 185 H 222 H (75-99) mg/dL AST (17-59) U/L ALT (21-72) U/L Albumin (3.5-5.0) g/dL 08/27/19 08/27/19 08/27/19 Range/Units 04:33 07:41 08:44 WBC (3.8-10.6) k/uL RBC (4.30-5.90) m/uL Hgb (13.0-17.5) gm/dL Hct (39.0-53.0) % MCV (80.0-100.0) fL Neutrophils # (1.3-7.7) k/uL Lymphocytes # (1.0-4.8) k/uL ABG pCO2 52 H (35-45) mmHg ABG pO2 81 L (83-108) mmHg ABG HCO3 35 H (21-25) mmol/L ABG Total CO2 36 H (19-24) mmol/L Carbon Dioxide 33 H (22-30) mmol/L BUN 149 H* (9-20) mg/dL Creatinine 3.55 H (0.66-1.25) mg/dL Glucose 235 H (74-99) mg/dL POC Glucose (mg/dL) 180 H (75-99) mg/dL AST 85 H (17-59) U/L ALT 97 H (21-72) U/L Albumin 3.3 L (3.5-5.0) g/dL Microbiology - Last 24 Hours (Table) 08/21/19 10:10 Blood Culture - Preliminary Blood No Growth after 120 hours Assessment and Plan Plan: Assessment: 1. Acute kidney injury secondary to ATN secondary to hypotension and component of cardiorenal syndrome. Renal function improving. Creatinine 3.55 today. There was also concern for obstructive uropathy as his kidney ultrasound from earlier this month revealed bilateral hydronephrosis. Repeat ultrasound shows resolved right-sided hydronephrosis. Trace proteinuria on UA. 2. Chronic kidney disease stage III. Patient's creatinine in March 2019 was near 2. Etiology is most likely diabetic kidney disease. 3. Acute hypoxic and hypercapnic respiratory failure. Currently intubated. 4. Volume overload. Improving. 5. Acute systolic CHF with ejection fraction of 20-25%. 6. Bilateral hydronephrosis. Urology following. Repeat ultrasound revealed resolution of right-sided hydronephrosis. 7. Elevated BUN which is due to renal failure as well as steroids. No evidence of bleeding. 8. Hyponatremia secondary to lack of oral water intake. Better. Plan: Maintained Lasix 40 mg IV twice daily. Continue to monitor renal function and urine output. Discontinue D5W. Increase free water flushes with tube feeding to 400 mL every 4 hours.
[2019-08-27 12:02] LABS: Glucose,Whole Blood 204 mg/dL (75-99)
--- NOTE | 2019-08-27 12:25 | P.PN ---
Subjective Progress Note Date: 08/27/19 Principal diagnosis: acute hypoxic and hypercapnic respiratory failure secondary to acute exacerbation of COPD, community-acquired right lower lobe pneumonia and acute systolic congestive heart failure. This is a 78-year-old male patient who was brought into the hospital yesterday because of worsening shortness of breath. The patient follows up with Dr. Porter. He has not been hospitalized here in our location for quite some time. He does have multiple medical problems. He has coronary artery disease and a remote history of [place], congestion heart failure, chronic stage III kidney disease, hypertension, hyperlipidemia and diabetes mellitus and extensive psoriasis. Is a chronic smoker. 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 Over the past 24-48 hours, the patient was having increased shortness of breath. It was thought that he may be having a pneumonia. He did not want in to come into the hospital. He ultimately came into emergency and overnight he became unresponsive and his blood gas showed acute respiratory acidosis with a pH of 7.09 with a pCO2 of 96 and pO2 of 51 and this was on 100% nonrebreather. Based on that, I made recommendations to intubate the patient around 3 AM this morning. He was placed on a mechanical ventilator and he was brought into the intensive care unit. Currently is on assist control mode of ventilation at the rate of 18 with a tidal volume of 550 FiO2 of 70% and a PEEP of 5. The follow- up blood gases showed a pH of 7.27 with a pCO2 of 59 and pO2 of 70 and this was done and FiO2 of 80%. Peak airway pressure is around 22. He is on propofol which is currently running at 50 g per KG per minute. He is also on norepinephrine infusion at 0.05 g per KG per minute. He was started on Lasix drip at 10 mg an hour. His blood work with a white cell count of 11. Hemoglobin is at 12.6. His potassium level is at 5.2. Creatinine is at 3.8. Troponin maxed was at 1.1 and his EKG showing a sinus rhythm in the form of sinus tachycardia. There are Q waves over the anterior leads consistent with an old anterior wall myocardial infarction. Echocardiogram has been done and the results are still pending for now. Urine output is in the order of 30 mL an hour and the chest x-ray from today shows adequate positioning of the suzette tracheal tube. There is pulmonary edema and there is increased consolidation of the right lower lobe which may suggest the potential of an underlying right lower lobe pneumonia. NG tube is in a good location for now. There was copious amount of rest or secretions post intubation and the patient had sputum sent for Gram stain and culture. He was given antibiotics and currently is on Rocephin. His ultrasound the kidneys showed bilateral hydronephrosis. 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 Urology has been consulted. His evaluation of 08/23/2019 I'm seeing this patient for a follow-up. The patient is well sedated with propofol and is calm and comfortable. He is currently on 50 g per KG per minute of propofol. He remains arousable upon lower degree of sedation. As far as the vent support, the patient is on assist control mode at the rate of 18 with a tidal volume of 550 and FiO2 of 50% with a PEEP of 10. The blood gases from today showed a pH of 7.39 with a pCO2 of 48 and pO2 129 and this was done on FiO2 of 70%. Chest x-ray shows stable findings with CHF and possible right lower lobe pneumonia. ET tube is in a good location. Triple-lumen catheter is in a good location. NG tube is in a good location. The patient is still on Lasix drip at 10 mg an hour. He is producing excellent urine output and urine output is more than 50 mL an hour. The labs from today showed a BUN of 102 with a creatinine of 4.38. His serum bicarbs at 27. Note that the patient had a CAT scan of the abdomen based on the fact that he had bilateral hydronephrosis. The CAT scan was completed yesterday and it showed and confirmed the left-sided hydronephrosis. There is a 3 mm nonobstructive left renal calculus and severe left-sided hydronephrosis with cortical thickening. No obstruction by calculus was identified. There is a moderate degree of right-sided hydronephrosis. There is a 4 cm exophytic lesion posterior lateral aspect of the lower pole of the right kidney. The bladder is poorly distended with severe concentric wall thickening and a Caldwell catheter is in place. There was a concern of a left UV junction obstruction and a cystoscopy will be needed. 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 Urology on the case. Caldwell cath is in place. The patient is currently on IV Zosyn. Sputum and blood culture sent and the results are still pending for now. Echocardiogram showed impaired left ventricular ejection fraction of less than 20%. Cardiology is on the case. Patient was reevaluated today on 08/24/2019, remains on mechanical ventilation, and his ventilator settings are tidal volume of 550 assist-control rate of 18 FiO2 of 50% PEEP of 10 and I lowered the down to 8. Remains on multiple drips including Lasix at 5 mg per hour. He is also on propofol at 50 mcg/kg/m,ABG showed a pO2 of 90 pCO2 of 49 and pH of 7.44. His peak airway pressure is in the high 20s, and plateau pressure is about 19.chest x-ray continues to show evidence of right lower lobe infiltrate.with chronic parenchymal changes and bib asilar atelectasis.patient is not requiring any pressors at this point, his renal functioning seems to be worsening, added Lasix drip was cut down from 10-5 mg per hour. Urine output remains excellent.his last echocardiogram showed ejection fraction of 20-25%. And mild mitral regurgitation.CBC showed leukocytosis with WBC count of 18.8 hemoglobin is 10.7. Electrolytes showed sodium 145 potassium 3.6 bicarb is 31BUN is 118 creatinine 4.45, gradually rising since 08/21 from 3.11. Patient remains on diuretics, bronchodilators, methylprednisolone, beta blockers,and Zosyn empirically.again he is not requiring any pressors today. Remains on GI and DVT prophylaxis. He is also on insulin as per protocol. Reevaluated today on 08/25/2019, remains in the ICU, mechanically ventilated, his ventilator settings are tidal volume of 550 assist-control rate 18 FiO2 of 50%, and PEEP was cut down to 5. ABG showed a pO2 of 82 pCO2 of 54 pH of 7.42. Patient is not requiring any pressors, he is still on propofol at 45 mcg/kg/m, his IV fluid was changed to D5W, and I have recommended fluid boluses/free water via nasogastric tube. His urine output is excellent at 75 ML per hour. Patient is a scheduled by urology to have a renal ultrasound, may require nephrostomy tube placement. However that's yet to be decided. Chest x-ray, continues to show COPD and patchy bibasilar infiltrates. Remains on Lasix at 40 mg IV push every 12 hours. Remains on antibiotics, and bronchodilators. His mental status was assessed yesterday off sedation, and he seemed to be appropriate according to the nurse taking care of him. We plan to have sedation interruption also today, and assessment of mental status. However considering his ABG is marginal, considering his chest x-ray, I have no plans to extubate the patient today. But if the patient is to have nephrostomy tube placement, hopefully it could be done today. Renal profile remains abnormal with a BUN of 129 creatinine 4.31. Slightly improved compared to creatinine yesterday of 4.45. Nutrition-jenkins, the patient remains on enteral feeding via nasogastric tube. He also remains on GI and DVT prophylaxis. And on insulin as per protocol. Patient was reevaluated again today in the ICU on 08/26/2019, remains intubated and mechanically ventilated. Overnight, his pulmonary status has deteriorated, oxygenation worsened, chest x-ray also worsened with worsening right lower lobe infiltrate and suspect ongoing interstitial edema. Although the patient has a good urine output. His FiO2 had to be increased to 70%, his PEEP was increased today to 10 again, remains on tidal volume of 550, and assist control rate of 18. His ABG on 70% today and PEEP of 5 showed a pO2 of 79 pCO2 of 47 pH of 7.47. Hence the patient was placed on a high PEEP, and I plan to titrate down his FiO2 hopefully back to 50%. Patient is obviously not ready to be weaned. It took the patient about 20 hours off sedation yesterday to respond and follow simple instructions. He was quite sedated off propofol all day yesterday. And this was for roughly about 20 hours. Today the patient is back on propofol, he was getting extremely agitated earlier, and he had to be placed back on propofol. He is at 45 mcg/kg/m. He is not requiring any pressors, he is hemody namically stable. Again his chest x-ray is worse, his CBC showed leukocytosis with WBC of 18.9 hemoglobin is 10.8. Electrolytes remain abnormal with a sodium of 147, and I recommended that we continue free water flushes via nasogastric tube today. The Lasix dose will remain the same, patient is diuresing quite well with 2 doses of Lasix a day. Reevaluated today on 08/27/2019, patient remains in the ICU, intubated, mechanically ventilated. Yesterday his chest x-ray showed worsening, his oxyg enation deteriorated, he had to be placed on a PEEP of 10 and FiO2 of 70%. He remains on a PEEP of 10, his FiO2 is down to 55%. And his ABG earlier on 60% showed pO2 of 81 pCO2 of 52 pH of 7.43. Chest x-ray showed slight improvement in his interstitial edema and the right lower lobe pneumonia. But not completely resolved. His ventilator settings are assist control rate of 18, tidal volume of 550, FiO2 of 55%, and PEEP is at 10. Patient will be given a sedation holiday, and we'll assess mental status again today, but clearly he is not ready for weaning. I did explain that to the family at bedside. WBC count is 17.6 hemoglobin is 11.2, a left lites are normal sodium is improving. Renal profile is basically about the same with elevated BUN of 149 creatinine of 3.55, urine output seems to be excellent. But he continues to have elevated BUN and creatinine. Nutrition-jenkins, the patient remains on enteral feeding. He is not requiring any pressors. Remains on bronchodilators and steroids. And on insulin. Remains on free water flushes. Sodium did improve with free water. Objective - Vital Signs Vital signs: Vital Signs Temp 99.2 F 08/27/19 12:00 Pulse 98 08/27/19 12:00 Resp 20 08/27/19 12:00 BP 110/70 08/27/19 12:00 Pulse Ox 93 L 08/27/19 12:00 Intake & Output 08/26/19 08/27/19 08/27/19 18:59 06:59 18:59 Intake Total 2144.931 2322.172 426 Output Total 1305 1275 640 Balance 287.197 7644.172 -214 Weight 78.5 kg Intake: IV 700 600 280 Dextrose 5% in Water 1, 600 600 180 000 ml @ 50 mls/hr IV . Q20H [facility] Rx#:[id number] Piperacillin-Tazobactam 3 100 100 .375 gm In Sodium Chloride 0.9% 100 ml @ 25 mls/hr IVPB Q12HR [facility] Rx #:[id number] Intake, IV Titration 154.931 270.172 100 Amount Propofol 1,000 mg In 154.931 270.172 100 Empty Bag 1 bag @ Titrate IV .Q0M [facility] Rx#: [id number] Tube Feeding 460 552 46 Other 830 900 Output: Urine 1305 1275 640 Other: Voiding Method Indwelling Catheter Indwelling Catheter Indwelling Catheter # Bowel Movements 1 ABP, PAP, CO, CI - Last Documented Arterial Blood Pressure 120/58 - Exam Physical Exam: Revealed a 78-year-old white male, remains on propofol this morning, sedated. Head: Atraumatic, normocephalic. HEENT:[Neck is supple.] [No neck masses.] [No thyromegaly.] [No JVD.]PERRLA, EOMI, no icterus, moist mucous membranes noted.endotracheal tube and orogastric tube are intact. Chest: [symmetrical chest expansion, minimal fine crackles at the bases, no rhonchi and no wheezes. No chest wall tenderness.] Cardiac Exam: [Normal S1 and S2, no S3 gallop,2/6 systolic murmur at the left lower sternal border. Abdomen: [obese,Soft, nontender, no megaly, no rebound, no guarding, normal bowel sounds.] Extremities: [No clubbing, trace of bipedal edema, no cyanosis.] Neurological Exam: sedated, on propofol, patient was following instructions off propofol, however he was getting a bit agitated earlier today. Psychiatric: Cannot be assessed. Skin: extensive psoriasis patches noted throughout the whole body and lower extremities bilaterally. Lymphatics: No lymphadenopathy. - Labs CBC & Chem 7: 08/27/19 04:33 08/27/19 04:33 Labs: Abnormal Lab Results - Last 24 Hours (Table) 08/26/19 08/26/19 08/26/19 Range/Units 16:54 20:13 23:41 WBC (3.8-10.6) k/uL RBC (4.30-5.90) m/uL Hgb (13.0-17.5) gm/dL Hct (39.0-53.0) % MCV (80.0-100.0) fL Neutrophils # (1.3-7.7) k/uL Lymphocytes # (1.0-4.8) k/uL ABG pCO2 (35-45) mmHg ABG pO2 (83-108) mmHg ABG HCO3 (21-25) mmol/L ABG Total CO2 (19-24) mmol/L Carbon Dioxide (22-30) mmol/L BUN (9-20) mg/dL Creatinine (0.66-1.25) mg/dL Glucose (74-99) mg/dL POC Glucose (mg/dL) 244 H 189 H 185 H (75-99) mg/dL AST (17-59) U/L ALT (21-72) U/L Albumin (3.5-5.0) g/dL 08/27/19 08/27/19 08/27/19 Range/Units 04:28 04:33 04:33 WBC 17.6 H (3.8-10.6) k/uL RBC 3.51 L (4.30-5.90) m/uL Hgb 11.2 L (13.0-17.5) gm/dL Hct 35.8 L (39.0-53.0) % MCV 101.9 H (80.0-100.0) fL Neutrophils # 16.3 H (1.3-7.7) k/uL Lymphocytes # 0.5 L (1.0-4.8) k/uL ABG pCO2 (35-45) mmHg ABG pO2 (83-108) mmHg ABG HCO3 (21-25) mmol/L ABG Total CO2 (19-24) mmol/L Carbon Dioxide 33 H (22-30) mmol/L BUN 149 H* (9-20) mg/dL Creatinine 3.55 H (0.66-1.25) mg/dL Glucose 235 H (74-99) mg/dL POC Glucose (mg/dL) 222 H (75-99) mg/dL AST 85 H (17-59) U/L ALT 97 H (21-72) U/L Albumin 3.3 L (3.5-5.0) g/dL 08/27/19 08/27/19 08/27/19 Range/Units 07:41 08:44 11:49 WBC (3.8-10.6) k/uL RBC (4.30-5.90) m/uL Hgb (13.0-17.5) gm/dL Hct (39.0-53.0) % MCV (80.0-100.0) fL Neutrophils # (1.3-7.7) k/uL Lymphocytes # (1.0-4.8) k/uL ABG pCO2 52 H (35-45) mmHg ABG pO2 81 L (83-108) mmHg ABG HCO3 35 H (21-25) mmol/L ABG Total CO2 36 H (19-24) mmol/L Carbon Dioxide (22-30) mmol/L BUN (9-20) mg/dL Creatinine (0.66-1.25) mg/dL Glucose (74-99) mg/dL POC Glucose (mg/dL) 180 H 204 H (75-99) mg/dL AST (17-59) U/L ALT (21-72) U/L Albumin (3.5-5.0) g/dL Microbiology - Last 24 Hours (Table) 08/21/19 10:10 Blood Culture - Final Blood No Growth after 144 hours Assessment and Plan Assessment: impression: 1 acute hypoxic and hypercapnic respiratory failure secondary to pneumonia, most likely community-acquired involving the right lower lobe, acute exacerbation of COPD, and acute systolic congestive heart failure. 2 acute systolic congestive heart failure, ejection fraction of 20-25%. 3 acute exacerbation of COPD 4 acute right lower lobe cavity community-acquired pneumonia 5 chronic kidney disease stage III and there is evidence of acute on chronic kidney injury. Abnormal renal CT, showing significant left sided hydronephrosis, being addressed by urology, and there is a possibility of bladder tumor. 6 type 2 diabetes, patient remains on insulin as per protocol. 7 benign essential hypertension 8 dyslipidemia 9 history of extensive psoriasis. 10 chronic hypoxic respiratory failure patient has been on oxygen at 2-3 L/m when necessary. 11 history of coronary artery disease and previous [place] 12 chronic back pain. Recommendation: Continue ventilatory support, continue PEEP 10, FiO2 at 55%, assist control rate of 18 tidal volume of 550. Daily sedation interruption and assessment of mental status But not ready for weaning trials. Continue diuretics, bronchodilators, antibiotics, steroids, Continue GI and DVT prophylaxis. Continue to monitor daily labs including renal profile, and electrolytes. Continue daily assessment of chest x-ray and ABG Continued daily assessment of mental status off sedation Daily assessment of ventilatory settings and adjustments accordingly based on the ABG Continue enteral feeding. No plans for weaning today. Family was updated on his condition today, made aware that his prognosis is guarded, made aware that if no significant improvement is noted in the next few days, may have to consider tracheostomy and PEG tube placement early next week. We'll continue to follow. Critical care time is33 minutes. Time with Patient: Greater than 30
[2019-08-27] MEDS ORDERED: INSULIN NPH 300 UNIT/3 ML VIAL SQ ONE (13:00)
[2019-08-27 14:06] LABS: Glucose,Whole Blood 196 mg/dL (75-99)
[2019-08-27 16:03] LABS: Glucose,Whole Blood 177 mg/dL (75-99)
[2019-08-27 20:09] LABS: Glucose,Whole Blood 214 mg/dL (75-99)
[2019-08-27] MEDS: PANTOPRAZOLE 40 MG/10 ML VIAL IVP SCH (21:47)
[2019-08-27] MEDS: INSULIN DETEMIR (LEVEMIR) 100 UNIT/ML SYR SQ SCH (21:48)
[2019-08-27] MEDS: CYCLOBENZAPRINE 10 MG TAB PO SCH (21:48)
[2019-08-27 22:34] LABS: HCT 34.8 % (39.0-53.0); HGB 10.9 gm/dL (13.0-17.5); Hypochromasia Slight; MCH 31.8 pg (25.0-35.0); MCHC 31.3 g/dL (31.0-37.0); MCV 101.4 fL (80.0-100.0); Macrocytosis Slight; Mean Platelet Volume 11.9; Platelet Count 204 k/uL (150-450); RBC 3.43 m/uL (4.30-5.90); RDW 13.3 % (11.5-15.5); WBC 20.5 k/uL (3.8-10.6)
[2019-08-28 00:09] LABS: Glucose,Whole Blood 223 mg/dL (75-99)
[2019-08-28] MEDS: methylPREDNISolone SOD SUCCI 40 MG/ML 1 ML VIAL IV SCH ×4 (00:15→18:33)
[2019-08-28] MEDS: INSULIN ASPART (NovoLOG) 100 UNIT/ML VIAL SQ SCH ×6 (00:15→20:29)
[2019-08-28] MEDS: IPRATROPIUM-ALBUTEROL 3 ML NEB INHALATION SCH ×6 (00:16→21:01)
[2019-08-28] MEDS: PROPOFOL 1,000 MG in EMPTY BAG 1 BAG IV SCH ×5 (00:44→20:33)
[2019-08-28 04:25] LABS: Basophils % (A) 0 %; Eosinophils # (A) 0.2 k/uL (0-0.7); Eosinophils % (A) 1 %; HCT 33.7 % (39.0-53.0); HGB 10.7 gm/dL (13.0-17.5); Hypochromasia Slight; Lymphocytes # (A) 0.5 k/uL (1.0-4.8); Lymphocytes % (A) 3 %; MCH 31.9 pg (25.0-35.0); MCHC 31.7 g/dL (31.0-37.0); MCV 100.8 fL (80.0-100.0); Mean Platelet Volume 11.2; Monocytes # (A) 0.7 k/uL (0-1.0); Monocytes % (A) 4 %; Neutrophils # (A) 16.9 k/uL (1.3-7.7); Neutrophils % (A) 92 %; Platelet Count 186 k/uL (150-450); RBC 3.34 m/uL (4.30-5.90); RDW 13.1 % (11.5-15.5); WBC 18.5 k/uL (3.8-10.6)
[2019-08-28 04:27] LABS: Glucose,Whole Blood 233 mg/dL (75-99)
[2019-08-28 04:34] LABS: Albumin 3.3 g/dL (3.5-5.0); Calcium 8.2 mg/dL (8.4-10.2); Magnesium 2.3 mg/dL (1.6-2.3); Phosphorus 8.5 mg/dL (2.5-4.5); Potassium 4.6 mmol/L (3.5-5.1); Total Bilirubin 0.8 mg/dL (0.2-1.3); Total Protein 6.7 g/dL (6.3-8.2)
[2019-08-28 07:12] LABS: ABG Base Excess 6.9 mmol/L; ABG HCO3 32 mmol/L (21-25); ABG Oxygen Saturation 92.7 % (94-97); ABG PCO2 51 mmHg (35-45); ABG PO2 72 mmHg (83-108); ABG TCO2 33 mmol/L (19-24); Allen Test Performed? Yes
[2019-08-28] MEDS: BUDESONIDE 1 MG/2 ML NEBU INHALATION SCH ×2 (07:17→21:01)
--- NOTE | 2019-08-28 08:14 | XR ---
EXAMINATION TYPE: XR chest 1V portable DATE OF EXAM: 08/28/2019 CLINICAL HISTORY: Difficulty breathing progress study. TECHNIQUE: Single AP portable upright view of the chest is obtained. COMPARISON: Chest x-ray from one day earlier and older studies. FINDINGS: Stable endotracheal tube, orogastric tube, and left subclavian central venous catheter. Ov erlying EKG leads redemonstrated. Background chronic parenchymal change with persistent bibasilar opacities and suspected tiny bilatera l pleural effusions. Cardiac silhouette size stable and within normal limits. Slight underlying scoli otic curvature is present. IMPRESSION: Overall stable findings, chronic parenchymal changes with patchy bibasilar acute infilt rate and/or atelectasis and suspected small to tiny bilateral pleural effusions all remain present.
[2019-08-28 08:28] LABS: Glucose,Whole Blood 195 mg/dL (75-99)
[2019-08-28] MEDS: PIPERACILLIN-TAZOBACTAM 3.375 GM in SODIUM CHLORIDE 0.9% 100 ML IVPB SCH ×2 (08:29→22:50)
[2019-08-28] MEDS: HEPARIN SODIUM,PORCINE 5,000 UNIT/ML 1 ML VIAL SQ SCH ×2 (08:29→22:49)
[2019-08-28] MEDS: CHLORHEXIDINE GLUCONATE 15 ML CUP MUCOUS MEM SCH ×2 (08:29→22:49)
[2019-08-28] MEDS: NYSTATIN 100,000 UNIT/ML SUSP 500,000 UNIT/5 ML CUP PO SCH ×4 (08:29→23:34)
[2019-08-28] MEDS: NICOTINE 21MG/24HR PATCH TRANSDERM SCH (08:29)
[2019-08-28] MEDS: FUROSEMIDE 10 MG/ML 4 ML VIAL IV SCH ×2 (08:29→22:49)
[2019-08-28] MEDS: PANTOPRAZOLE 40 MG/10 ML VIAL IVP SCH ×2 (08:29→22:50)
[2019-08-28] MEDS: ASPIRIN 81 MG PO SCH (08:30)
[2019-08-28] MEDS: CHOLECALCIFEROL 1,000 UNIT TAB PO SCH (08:30)
[2019-08-28] MEDS: ATORVASTATIN 40 MG TAB PO SCH (08:30)
[2019-08-28] MEDS: METOPROLOL TARTRATE 25 MG TAB PO SCH ×3 (08:30→22:49)
[2019-08-28] MEDS: NYSTATIN 100,000 UNIT/GM POWD 15 GM TOPICAL SCH ×2 (08:31→22:50)
--- NOTE | 2019-08-28 09:15 | PN ---
PROGRESS NOTE Mr. Iqbal is a 78-year-old male with a history of severe cardiomyopathy, history of chronic obstructive lung disease, who presented with progressive dyspnea, respiratory failure, requiring mechanical ventilation, was diagnosed with pneumonia with congestive heart failure with systolic dysfunction. He remains intubated and sedated. He has worsening of his renal function. His urine output has been stable. He has no malignant arrhythmia. He has no episodes of hypotension. He is tolerating his treatment. He has not been a candidate for weaning so far. He is tolerating enteral feeding. He continues to be at this time on aspirin once a day, Lipitor 40 mg daily, Lasix 40 mg IV q.12 hours, metoprolol tartrate 25 mg 3 times a day. PHYSICAL EXAMINATION: Blood pressure 117/70 with a heart rate in 90s. LUNGS: Clear anteriorly, no wheezes. HEART: Regular rate and rhythm. S1, S2. No S3. No rub. ABDOMEN: Soft. Positive bowel sounds, no organomegaly. EXTREMITIES: No edema. SKIN: With psoriasis changes. Chest x-ray shows bibasilar infiltrate with no significant changes. LAB DATA: Revealed hemoglobin 10.7, white blood cell of 18.5. BUN and creatinine are 161 and 3.36. Potassium 4.6. His urine output remains good. IMPRESSION: 1. Respiratory failure with pneumonia, superimposed on congestive heart failure with systolic dysfunction. 2. Worsening renal failure with good urine output. 3. Cardiomyopathy. 4. Chronic obstructive pulmonary disease. 5. Diabetes mellitus. 6. Hypertension. 7. Hyperlipidemia. 8. History of coronary artery disease. RECOMMENDATION: From the cardiac standpoint, will continue supportive care. He is stable at this time. Patient may require dialysis because of the worsening BUN. The issue of PEG tube and tracheostomy was discussed with the family and apparently they have not made a decision at this point. So far he has not been showing significant improvement in regards to weaning. MMODL / IJN: [id number] /
--- NOTE | 2019-08-28 10:56 | P.PN ---
Progress Note - Text Progress Note Date: 08/27/19 Chief Complaint: Short of breath, cough Interval history: This is [address] rai. Chronic stable medical conditions include diabetes, hypertension, hyperlipidemia, osteoarthritis, chronic kidney disease, home oxygen 2-3 L, chronic low back pain and psoriatic.. Patient was brought in by his . Most history is obtained by the at the bedside. At her baseline patient very much sits down and watches television. Does not drive. Has a fair appetite. Normally able to get around the house. Patient started coughing became short of breath wheezing for 1 day, with a decreased oral intake. Became a bit more confused and presented ER. Patient was not willing to come to the hospital but brought him in. Was given IV Lasix in the ER , bronchodilators. Patient had been quite a bit short of breath. Bringing some sputum. No obvious fever or chills. admitted with a diagnosis of right-sided pneumonia, CHF exacerbation, COPD exacerbation, acute delirium. Patient also found to have from recent renal ultrasound-bilateral hydronephrosis and possibly growth in the bladder.. Also acute kidney injury . Patient was started on Lasix drip and IV ceftriaxone, switched to IV Zosyn. Patient on the medical floor became lethargic and went into respiratory failure and was intubated on August 22. Patient was put on IV Lasix drip and IV propofol. Also in IV dobutamine-discontinued. Today-ICU. Remains on the ventilator. FiO2 55% and a PEEP of 10. 2 feeding at 46 mL an hour. Remains on IV propofol. Sedated. Telemetry shows sinus rhythm. at the bedside. Review of systems cannot be done as patient is intubated Current medications reviewed from today's electronic records Physical examination: VITAL SIGNS: 99, 104, 18, 110/70, 94% on the ventilator GENERAL: Laying in bed, intubated EYES: Pupils equal. Conjunctiva normal. HEENT: External appearance of nose and ears normal, oral cavity dry., Endotracheal tube in place, on G-tube feedings NECK: JVD unable to assess,; masses not palpable. HEART: First and second heart sounds are normal; no edema. LUNGS: Respiratory rate increased, decreased breath sounds ABDOMEN: Soft, nontender, liver spleen not palpable, no masses palpable. DERMATOLOGICAL: Area of redness in both the groin,siver demarcated plaques, and both legs PSYCH: Unable to assess, intubated. NEUROLOGICAL: Pupils are reactive, making nonpurposeful movements INVESTIGATIONS, reviewed in the clinical context: White count 20.5 hemoglobin 10.9 Previous testing White count 12.4 hemoglobin 12.6 platelets 237 potassium 4.8 bun 61 creatinine 3.11 Troponin I 0.620, 0.807, influenza A and B both negative EKG tracing personally reviewed by me-personally reviewed by me shows normal sinus rhythm, poor R-wave progression, some T-wave changes in anterolateral leads Chest x-ray film personally reviewed by me-venous prominence, fluid in the fissure, right basilar infiltrate Abdominal ultrasound on 07/29/2019-severe left hydronephrosis and moderate right hydronephrosis, abnormally thickened urinary bladder wall seen multifocally, additionally a sessile mass questionable 2-D [id number] percent Assessment: -Acute on chronic congestive heart failure exacerbation, from systolic and diastolic dysfunction EF 20-25%, slow improvement, on IV Lasix-bolus -Cardiogenic and septic shock requiring pressor support and IV dobutamine, stabilized -Severe Right-sided pneumonia, suspect gram-negative organism, slow to respond, POA, still having some fevers -Acute COPD exacerbation in a current smoker, slow to respond, POA, -Acute hypoxic and hypercapnic respiratory failure due to COPD and pneumonia, POA, requiring ventilator support -Bilateral hydronephrosis, with distal obstruction and evidence of chronic kidney disease on the left kidney, right hydronephrosis improved -Chronic kidney disease, baseline unknown, including obstructive pattern -Acute renal failure, possibly combination of cardiorenal syndrome and obstructive pattern, including ATN, worsening -Hyperkalemia secondary to renal failure, improved -Diabetes mellitus type 2 on oral hypoglycemic, uncontrolled with hyperglycemia -Hyperlipidemia -Essential hypertension -Primary osteoarthritis -Chronic kidney disease stage IV -Lactic acidosis from pneumonia -Troponin leak 2 positive possibly. Hemodynamic instability. Doubt acute coronary syndrome -Acute delirium from pneumonia sepsis Plan: Patient remains on IV Lasix bolus, propofol, tube feedings. Insulin doses being adjusted. Care discussed with the at the bedside. Prognosis remains guarded. IV antibiotics including IV Zosyn. On IV steroids.
[2019-08-28 12:10] LABS: Glucose,Whole Blood 206 mg/dL (75-99)
--- NOTE | 2019-08-28 13:00 | P.PN ---
Subjective Progress Note Date: 08/28/19 Principal diagnosis: acute hypoxic and hypercapnic respiratory failure secondary to acute exacerbation of COPD, community-acquired right lower lobe pneumonia and acute systolic congestive heart failure. This is a 78-year-old male patient who was brought into the hospital yesterday because of worsening shortness of breath. The patient follows up with Dr. Porter. He has not been hospitalized here in our location for quite some time. He does have multiple medical problems. He has coronary artery disease and a remote history of [place], congestion heart failure, chronic stage III kidney disease, hypertension, hyperlipidemia and diabetes mellitus and extensive psoriasis. Is a chronic smoker. 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 Over the past 24-48 hours, the patient was having increased shortness of breath. It was thought that he may be having a pneumonia. He did not want in to come into the hospital. He ultimately came into emergency and overnight he became unresponsive and his blood gas showed acute respiratory acidosis with a pH of 7.09 with a pCO2 of 96 and pO2 of 51 and this was on 100% nonrebreather. Based on that, I made recommendations to intubate the patient around 3 AM this morning. He was placed on a mechanical ventilator and he was brought into the intensive care unit. Currently is on assist control mode of ventilation at the rate of 18 with a tidal volume of 550 FiO2 of 70% and a PEEP of 5. The follow- up blood gases showed a pH of 7.27 with a pCO2 of 59 and pO2 of 70 and this was done and FiO2 of 80%. Peak airway pressure is around 22. He is on propofol which is currently running at 50 g per KG per minute. He is also on norepinephrine infusion at 0.05 g per KG per minute. He was started on Lasix drip at 10 mg an hour. His blood work with a white cell count of 11. Hemoglobin is at 12.6. His potassium level is at 5.2. Creatinine is at 3.8. Troponin maxed was at 1.1 and his EKG showing a sinus rhythm in the form of sinus tachycardia. There are Q waves over the anterior leads consistent with an old anterior wall myocardial infarction. Echocardiogram has been done and the results are still pending for now. Urine output is in the order of 30 mL an hour and the chest x-ray from today shows adequate positioning of the suzette tracheal tube. There is pulmonary edema and there is increased consolidation of the right lower lobe which may suggest the potential of an underlying right lower lobe pneumonia. NG tube is in a good location for now. There was copious amount of rest or secretions post intubation and the patient had sputum sent for Gram stain and culture. He was given antibiotics and currently is on Rocephin. His ultrasound the kidneys showed bilateral hydronephrosis. 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 Urology has been consulted. His evaluation of 08/23/2019 I'm seeing this patient for a follow-up. The patient is well sedated with propofol and is calm and comfortable. He is currently on 50 g per KG per minute of propofol. He remains arousable upon lower degree of sedation. As far as the vent support, the patient is on assist control mode at the rate of 18 with a tidal volume of 550 and FiO2 of 50% with a PEEP of 10. The blood gases from today showed a pH of 7.39 with a pCO2 of 48 and pO2 129 and this was done on FiO2 of 70%. Chest x-ray shows stable findings with CHF and possible right lower lobe pneumonia. ET tube is in a good location. Triple-lumen catheter is in a good location. NG tube is in a good location. The patient is still on Lasix drip at 10 mg an hour. He is producing excellent urine output and urine output is more than 50 mL an hour. The labs from today showed a BUN of 102 with a creatinine of 4.38. His serum bicarbs at 27. Note that the patient had a CAT scan of the abdomen based on the fact that he had bilateral hydronephrosis. The CAT scan was completed yesterday and it showed and confirmed the left-sided hydronephrosis. There is a 3 mm nonobstructive left renal calculus and severe left-sided hydronephrosis with cortical thickening. No obstruction by calculus was identified. There is a moderate degree of right-sided hydronephrosis. There is a 4 cm exophytic lesion posterior lateral aspect of the lower pole of the right kidney. The bladder is poorly distended with severe concentric wall thickening and a Caldwell catheter is in place. There was a concern of a left UV junction obstruction and a cystoscopy will be needed. 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 Urology on the case. Caldwell cath is in place. The patient is currently on IV Zosyn. Sputum and blood culture sent and the results are still pending for now. Echocardiogram showed impaired left ventricular ejection fraction of less than 20%. Cardiology is on the case. Patient was reevaluated today on 08/24/2019, remains on mechanical ventilation, and his ventilator settings are tidal volume of 550 assist-control rate of 18 FiO2 of 50% PEEP of 10 and I lowered the down to 8. Remains on multiple drips including Lasix at 5 mg per hour. He is also on propofol at 50 mcg/kg/m,ABG showed a pO2 of 90 pCO2 of 49 and pH of 7.44. His peak airway pressure is in the high 20s, and plateau pressure is about 19.chest x-ray continues to show evidence of right lower lobe infiltrate.with chronic parenchymal changes and bib asilar atelectasis.patient is not requiring any pressors at this point, his renal functioning seems to be worsening, added Lasix drip was cut down from 10-5 mg per hour. Urine output remains excellent.his last echocardiogram showed ejection fraction of 20-25%. And mild mitral regurgitation.CBC showed leukocytosis with WBC count of 18.8 hemoglobin is 10.7. Electrolytes showed sodium 145 potassium 3.6 bicarb is 31BUN is 118 creatinine 4.45, gradually rising since 08/21 from 3.11. Patient remains on diuretics, bronchodilators, methylprednisolone, beta blockers,and Zosyn empirically.again he is not requiring any pressors today. Remains on GI and DVT prophylaxis. He is also on insulin as per protocol. Reevaluated today on 08/25/2019, remains in the ICU, mechanically ventilated, his ventilator settings are tidal volume of 550 assist-control rate 18 FiO2 of 50%, and PEEP was cut down to 5. ABG showed a pO2 of 82 pCO2 of 54 pH of 7.42. Patient is not requiring any pressors, he is still on propofol at 45 mcg/kg/m, his IV fluid was changed to D5W, and I have recommended fluid boluses/free water via nasogastric tube. His urine output is excellent at 75 ML per hour. Patient is a scheduled by urology to have a renal ultrasound, may require nephrostomy tube placement. However that's yet to be decided. Chest x-ray, continues to show COPD and patchy bibasilar infiltrates. Remains on Lasix at 40 mg IV push every 12 hours. Remains on antibiotics, and bronchodilators. His mental status was assessed yesterday off sedation, and he seemed to be appropriate according to the nurse taking care of him. We plan to have sedation interruption also today, and assessment of mental status. However considering his ABG is marginal, considering his chest x-ray, I have no plans to extubate the patient today. But if the patient is to have nephrostomy tube placement, hopefully it could be done today. Renal profile remains abnormal with a BUN of 129 creatinine 4.31. Slightly improved compared to creatinine yesterday of 4.45. Nutrition-jenkins, the patient remains on enteral feeding via nasogastric tube. He also remains on GI and DVT prophylaxis. And on insulin as per protocol. Patient was reevaluated again today in the ICU on 08/26/2019, remains intubated and mechanically ventilated. Overnight, his pulmonary status has deteriorated, oxygenation worsened, chest x-ray also worsened with worsening right lower lobe infiltrate and suspect ongoing interstitial edema. Although the patient has a good urine output. His FiO2 had to be increased to 70%, his PEEP was increased today to 10 again, remains on tidal volume of 550, and assist control rate of 18. His ABG on 70% today and PEEP of 5 showed a pO2 of 79 pCO2 of 47 pH of 7.47. Hence the patient was placed on a high PEEP, and I plan to titrate down his FiO2 hopefully back to 50%. Patient is obviously not ready to be weaned. It took the patient about 20 hours off sedation yesterday to respond and follow simple instructions. He was quite sedated off propofol all day yesterday. And this was for roughly about 20 hours. Today the patient is back on propofol, he was getting extremely agitated earlier, and he had to be placed back on propofol. He is at 45 mcg/kg/m. He is not requiring any pressors, he is hemody namically stable. Again his chest x-ray is worse, his CBC showed leukocytosis with WBC of 18.9 hemoglobin is 10.8. Electrolytes remain abnormal with a sodium of 147, and I recommended that we continue free water flushes via nasogastric tube today. The Lasix dose will remain the same, patient is diuresing quite well with 2 doses of Lasix a day. Reevaluated today on 08/27/2019, patient remains in the ICU, intubated, mechanically ventilated. Yesterday his chest x-ray showed worsening, his oxyg enation deteriorated, he had to be placed on a PEEP of 10 and FiO2 of 70%. He remains on a PEEP of 10, his FiO2 is down to 55%. And his ABG earlier on 60% showed pO2 of 81 pCO2 of 52 pH of 7.43. Chest x-ray showed slight improvement in his interstitial edema and the right lower lobe pneumonia. But not completely resolved. His ventilator settings are assist control rate of 18, tidal volume of 550, FiO2 of 55%, and PEEP is at 10. Patient will be given a sedation holiday, and we'll assess mental status again today, but clearly he is not ready for weaning. I did explain that to the family at bedside. WBC count is 17.6 hemoglobin is 11.2, a left lites are normal sodium is improving. Renal profile is basically about the same with elevated BUN of 149 creatinine of 3.55, urine output seems to be excellent. But he continues to have elevated BUN and creatinine. Nutrition-jenkins, the patient remains on enteral feeding. He is not requiring any pressors. Remains on bronchodilators and steroids. And on insulin. Remains on free water flushes. Sodium did improve with free water. Reevaluated today on 08/28/2019, remains intubated, mechanically ventilated, patient is basically the same today compared to yesterday. His ABG is marginal. Remains on 55% FiO2, and PEEP was at 10. However after evaluating the patient, I cut down the FiO2 to 50%, and increased the PEEP to 12. His ABG this morning showed a pO2 of 72 pCO2 of 51 pH of 7.40. WBC count is 18.5 hemoglobin is 10.7. Renal functioning is worse today, BUN is up to 161 creatinine is 3.36. Patient continues to have good urine output with diuretics. Chest x-ray showed chronic parenchymal changes and patchy bibasilar infiltrates, small tiny pleural effusions noted. Ordered repeat sputum cultures, and these are pending. His last cultures were negative. Patient remains on assist control mode of 18, tidal volume of 550, PEEP is 12 today, FiO2 is down to 50%. Patient is tolerating enteral feeding. He is not requiring any pressors. And he seems to follow simple instructions once sedation is placed on hold. Patient is back on propofol this morning. His mental status was assessed earlier, and it was intact according to the nurse taking care of him. Remains on Zosyn empirically. Objective - Vital Signs Vital signs: Vital Signs Temp 98.8 F 08/28/19 08:00 Pulse 94 08/28/19 11:36 Resp 20 08/28/19 11:00 BP 118/71 08/28/19 11:00 Pulse Ox 92 L 08/28/19 11:00 Intake & Output 08/27/19 08/28/19 08/28/19 18:59 06:59 18:59 Intake Total 353.360 8866.325 392 Output Total 1140 895 820 Balance -362.498 0555.325 -428 Weight 80.7 kg 80.7 kg Intake: IV 460 285 200 Dextrose 5% in Water 1, 360 210 60 000 ml @ 50 mls/hr IV . Q20H [facility] Rx#:[id number] Piperacillin-Tazobactam 3 100 75 100 .375 gm In Sodium Chloride 0.9% 100 ml @ 25 mls/hr IVPB Q12HR [facility] Rx #:[id number] d5w kvo 40 Intake, IV Titration 194.988 272.325 100 Amount Propofol 1,000 mg In 194.988 272.325 100 Empty Bag 1 bag @ Titrate IV .Q0M [facility] Rx#: [id number] Tube Feeding 138 598 92 Lipid 25 Piperacillin-Tazobactam 3 25 .375 gm In Sodium Chloride 0.9% 100 ml @ 25 mls/hr IVPB Q12HR [facility] Rx #:[id number] Other 1200 Output: Urine 1140 895 820 Other: Voiding Method Indwelling Catheter Indwelling Catheter Indwelling Catheter # Bowel Movements 1 ABP, PAP, CO, CI - Last Documented Arterial Blood Pressure 120/53 - Exam Physical Exam: Revealed a 78-year-old white male, on mechanical ventilation, sedated, in no distress. Head: Atraumatic, normocephalic. HEENT:[Neck is supple.] [No neck masses.] [No thyromegaly.] [No JVD.]PERRLA, EOMI, no icterus, moist mucous membranes noted.endotracheal tube and orogastric tube are intact. Chest: [symmetrical chest expansion, crackles at the bases, no rhonchi no wheezes Cardiac Exam: [Normal S1 and S2, no S3 gallop,2/6 systolic murmur at the left lower sternal border. Abdomen: [obese,Soft, nontender, no megaly, no rebound, no guarding, normal bowel sounds.] Extremities: [No clubbing, trace of bipedal edema, no cyanosis.] Neurological Exam: sedated, on propofol, patient was following instructions off propofol, according to his nurse. Psychiatric: Cannot be assessed. Skin: extensive psoriasis patches noted throughout the whole body and lower extremities bilaterally. Lymphatics: No lymphadenopathy. - Labs CBC & Chem 7: 08/28/19 04:15 08/28/19 04:15 Labs: Abnormal Lab Results - Last 24 Hours (Table) 08/27/19 08/27/19 08/27/19 Range/Units 13:55 15:53 19:57 WBC (3.8-10.6) k/uL RBC (4.30-5.90) m/uL Hgb (13.0-17.5) gm/dL Hct (39.0-53.0) % MCV (80.0-100.0) fL Neutrophils # (1.3-7.7) k/uL Lymphocytes # (1.0-4.8) k/uL ABG pCO2 (35-45) mmHg ABG pO2 (83-108) mmHg ABG HCO3 (21-25) mmol/L ABG Total CO2 (19-24) mmol/L ABG O2 Saturation (94-97) % BUN (9-20) mg/dL Creatinine (0.66-1.25) mg/dL Glucose (74-99) mg/dL POC Glucose (mg/dL) 196 H 177 H 214 H (75-99) mg/dL Calcium (8.4-10.2) mg/dL Phosphorus (2.5-4.5) mg/dL ALT (21-72) U/L Albumin (3.5-5.0) g/dL 08/27/19 08/27/1919 Range/Units 22:20 23:57 04:15 WBC 20.5 H 18.5 H (3.8-10.6) k/uL RBC 3.43 L 3.34 L (4.30-5.90) m/uL Hgb 10.9 L 10.7 L (13.0-17.5) gm/dL Hct 34.8 L 33.7 L (39.0-53.0) % MCV 101.4 H 100.8 H (80.0-100.0) fL Neutrophils # 16.9 H (1.3-7.7) k/uL Lymphocytes # 0.5 L (1.0-4.8) k/uL ABG pCO2 (35-45) mmHg ABG pO2 (83-108) mmHg ABG HCO3 (21-25) mmol/L ABG Total CO2 (19-24) mmol/L ABG O2 Saturation (94-97) % BUN (9-20) mg/dL Creatinine (0.66-1.25) mg/dL Glucose (74-99) mg/dL POC Glucose (mg/dL) 223 H (75-99) mg/dL Calcium (8.4-10.2) mg/dL Phosphorus (2.5-4.5) mg/dL ALT (21-72) U/L Albumin (3.5-5.0) g/dL 08/28/19 08/28/19 08/28/19 Range/Units 04:15 04:15 07:06 WBC (3.8-10.6) k/uL RBC (4.30-5.90) m/uL Hgb (13.0-17.5) gm/dL Hct (39.0-53.0) % MCV (80.0-100.0) fL Neutrophils # (1.3-7.7) k/uL Lymphocytes # (1.0-4.8) k/uL ABG pCO2 51 H (35-45) mmHg ABG pO2 72 L (83-108) mmHg ABG HCO3 32 H (21-25) mmol/L ABG Total CO2 33 H (19-24) mmol/L ABG O2 Saturation 92.7 L (94-97) % BUN 161 H* (9-20) mg/dL Creatinine 3.36 H (0.66-1.25) mg/dL Glucose 230 H (74-99) mg/dL POC Glucose (mg/dL) 233 H (75-99) mg/dL Calcium 8.2 L (8.4-10.2) mg/dL Phosphorus 8.5 H (2.5-4.5) mg/dL ALT 95 H (21-72) U/L Albumin 3.3 L (3.5-5.0) g/dL 08/28/19 08/28/19 Range/Units 08:17 11:59 WBC (3.8-10.6) k/uL RBC (4.30-5.90) m/uL Hgb (13.0-17.5) gm/dL Hct (39.0-53.0) % MCV (80.0-100.0) fL Neutrophils # (1.3-7.7) k/uL Lymphocytes # (1.0-4.8) k/uL ABG pCO2 (35-45) mmHg ABG pO2 (83-108) mmHg ABG HCO3 (21-25) mmol/L ABG Total CO2 (19-24) mmol/L ABG O2 Saturation (94-97) % BUN (9-20) mg/dL Creatinine (0.66-1.25) mg/dL Glucose (74-99) mg/dL POC Glucose (mg/dL) 195 H 206 H (75-99) mg/dL Calcium (8.4-10.2) mg/dL Phosphorus (2.5-4.5) mg/dL ALT (21-72) U/L Albumin (3.5-5.0) g/dL Microbiology - Last 24 Hours (Table) 08/21/19 10:10 Blood Culture - Final Blood No Growth after 144 hours Assessment and Plan Assessment: impression: 1 acute hypoxic and hypercapnic respiratory failure secondary to pneumonia, most likely community-acquired involving the right lower lobe, acute exacerbation of COPD, and acute systolic congestive heart failure. 2 acute systolic congestive heart failure, ejection fraction of 20-25%. 3 acute exacerbation of COPD 4 acute right lower lobe cavity community-acquired pneumonia 5 chronic kidney disease stage III and there is evidence of acute on chronic kidney injury. Abnormal renal CT, showing significant left sided hydronephrosis, being addressed by urology, and there is a possibility of bladder tumor. 6 type 2 diabetes, patient remains on insulin as per protocol. 7 benign essential hypertension 8 dyslipidemia 9 history of extensive psoriasis. 10 chronic hypoxic respiratory failure patient has been on oxygen at 2-3 L/m when necessary. 11 history of coronary artery disease and previous [place] 12 chronic back pain. Recommendation: Continue ventilatory support, increase PEEP to 12 cut down FiO2 to 50%. Daily sedation interruption and assessment of mental status Continue diuretics, bronchodilators, antibiotics, steroids, Continue GI and DVT prophylaxis. Continue to monitor daily labs including renal profile, and electrolytes. Continue daily assessment of chest x-ray and ABG Continued daily assessment of mental status off sedation Daily assessment of ventilatory settings and adjustments accordingly based on the ABG. Today the change was basically addressing PEEP up to 12 and FiO2 down to 50%. Continue enteral feeding. No plans for weaning today. I had a long discussion with all his family members today, updated them on his doses and condition, and touch bases with them regarding tracheostomy and PEG tube placement most likely this will be done next week. Patient has been on mechanical ventilation now for 8 days. And so far I have not seen any progression to the point of weaning or extubation. Most likely he will require tracheostomy and PEG tube placement. Again prognosis is extremely poor and guarded. We'll continue to follow. Critical care time is 40 minutes Time with Patient: Greater than 30
[2019-08-28 14:52] LABS: Glucose,Whole Blood 193 mg/dL (75-99)
--- NOTE | 2019-08-28 15:20 | PN ---
PROGRESS NOTE Patient is seen for followup for acute kidney injury. Patient remains on the vent. Overall general condition is about the same. His serum creatinine is slightly lower at 3.36 from 3.5, however, his BUN is up to 161. Urine output is maintained at 80-100 an hour. The patient had been on D5W for hypernatremia, which seems to have improved. PHYSICAL EXAMINATION: This morning, blood pressure was 120/53, heart rate 92 per minute, he is afebrile. Examination of the heart S1, S2. Examination of lungs, bilateral breath sounds are heard. Patient is on the vent. Abdomen is soft, non-tender. Examination of the lower extremities shows chronic skin changes, 1+ edema is noted bilaterally. LABS: Show hemoglobin 10.7, sodium 142, potassium 4.6, chloride 98, BUN 161, serum creatinine 3.3. ASSESSMENT: 1. Acute kidney injury, acute tubular necrosis, nonoliguric with improving creatinine; however, BUN is disproportionately elevated and continues to increase. BUN is up to 161. The steroids have been decreased and in view of persistent volume overload as well, I will start dialysis. This is been discussed with the patient's and she is agreeable. We will plan for first treatment tomorrow. 2. Disproportionately elevated BUN, secondary to steroids, hypercatabolic state. 3. Acute hypoxic and hypercapnic respiratory failure. 4. Hypernatremia, currently improved. 5. Volume overload maintained on IV push Lasix, currently improving. 6. Chronic kidney disease stage III, previous creatinine around 2, most likely secondary to diabetic kidney disease. 7. Hydronephrosis noted on ultrasound initially with repeat ultrasound showing resolution of right-sided hydronephrosis. PLAN: Consult Vascular Surgery for dialysis catheter placement. We will plan for first treatment tomorrow given the significantly elevated BUN and persistent volume overload. MMODL / IJN: [id number] /
--- NOTE | 2019-08-28 15:32 | P.GSCN ---
History of Present Illness Consult date: 08/28/19 Reason for Consult: Respiratory failure, malnutrition History of present illness: This a 78-year-old male who has developed respiratory failure on the ventilator and protein calorie malnutrition. I've asked him regarding possible tracheostomy and PEG tube placement. Past Medical History Past Medical History: Heart Failure, COPD, Diabetes Mellitus, Hyperlipidemia, Hypertension, Myocardial Infarction (HI), Osteoarthritis (OA), Renal Disease, Skin Disorder Additional Past Medical History / Comment(s): COPD, home oxygen at 2-3 L/NC prn, chronic respiratory failure, CAD, HI per EKG-exact age unknown, NIDDM type II, chronic kidney disease being followed by Dr. Chester, UTI, chronic back pain, DJD, psoriasis. Last Myocardial Infarction Date:: unkn History of Any Multi-Drug Resistant Organisms: None Reported Past Surgical History: Orthopedic Surgery Additional Past Surgical History / Comment(s): L hip and L leg surgery d/t fractures when pt was in his 20s. Past Anesthesia/Blood Transfusion Reactions: No Reported Reaction Smoking Status: Current every day smoker - Past Family History Father Family Medical History: Myocardial Infarction (HI) Additional Family Medical History / Comment(s): Father of a HI in his early 60s. Mother Family Medical History: No Reported History Medications and Allergies Home Medications Medication Instructions Recorded Confirmed Type Aspirin EC [Ecotrin Low Dose] 81 mg PO DAILY 08/21/19 08/21/19 History Cholecalciferol [Vitamin D3 (25 1,000 unit PO DAILY 08/21/19 08/21/19 History Mcg = 1000 Iu)] Cyclobenzaprine [Flexeril] 10 mg PO HS 08/21/19 08/21/19 History Gabapentin [Neurontin] 300 mg PO TID 08/21/19 08/21/19 History HYDROcodone/APAP 10-325MG [[place] 1 tab PO Q6H PRN 08/21/19 08/21/19 History 10-325] Oxybutynin Chloride [Oxybutynin 10 mg PO BID 08/21/19 08/21/19 History Chloride ER] amLODIPine [Norvasc] 2.5 mg PO DAILY 08/21/19 08/21/19 History metFORMIN HCL 1,000 mg PO BID 08/21/19 08/21/19 History Allergies Allergy/AdvReac Type Severity Reaction Status Date / Time No Known Allergies Allergy Verified 08/21/19 12:04 Surgical - Exam Vital Signs Temp Pulse Resp BP Pulse Ox 98.6 F 130 H 20 123/65 78 L 08/21/19 09:44 08/21/19 09:44 08/21/19 09:44 08/21/19 09:44 08/21/19 09:44 - General well developed - Neck Patient is on ventilator. - Respiratory normal expansion - Abdomen Abdomen: soft, non tender Results - Labs 08/28/19 04:15 08/28/19 04:15 Abnormal Lab Results - Last 24 Hours (Table) 08/27/19 08/27/19 08/27/19 Range/Units 15:53 19:57 22:20 WBC 20.5 H (3.8-10.6) k/uL RBC 3.43 L (4.30-5.90) m/uL Hgb 10.9 L (13.0-17.5) gm/dL Hct 34.8 L (39.0-53.0) % MCV 101.4 H (80.0-100.0) fL Neutrophils # (1.3-7.7) k/uL Lymphocytes # (1.0-4.8) k/uL ABG pCO2 (35-45) mmHg ABG pO2 (83-108) mmHg ABG HCO3 (21-25) mmol/L ABG Total CO2 (19-24) mmol/L ABG O2 Saturation (94-97) % BUN (9-20) mg/dL Creatinine (0.66-1.25) mg/dL Glucose (74-99) mg/dL POC Glucose (mg/dL) 177 H 214 H (75-99) mg/dL Calcium (8.4-10.2) mg/dL Phosphorus (2.5-4.5) mg/dL ALT (21-72) U/L Albumin (3.5-5.0) g/dL 08/27/19 08/28/19 08/28/19 Range/Units 23:57 04:15 04:15 WBC 18.5 H (3.8-10.6) k/uL RBC 3.34 L (4.30-5.90) m/uL Hgb 10.7 L (13.0-17.5) gm/dL Hct 33.7 L (39.0-53.0) % MCV 100.8 H (80.0-100.0) fL Neutrophils # 16.9 H (1.3-7.7) k/uL Lymphocytes # 0.5 L (1.0-4.8) k/uL ABG pCO2 (35-45) mmHg ABG pO2 (83-108) mmHg ABG HCO3 (21-25) mmol/L ABG Total CO2 (19-24) mmol/L ABG O2 Saturation (94-97) % BUN 161 H* (9-20) mg/dL Creatinine 3.36 H (0.66-1.25) mg/dL Glucose 230 H (74-99) mg/dL POC Glucose (mg/dL) 223 H (75-99) mg/dL Calcium 8.2 L (8.4-10.2) mg/dL Phosphorus 8.5 H (2.5-4.5) mg/dL ALT 95 H (21-72) U/L Albumin 3.3 L (3.5-5.0) g/dL 08/28/19 08/28/19 08/28/19 Range/Units 04:15 07:06 08:17 WBC (3.8-10.6) k/uL RBC (4.30-5.90) m/uL Hgb (13.0-17.5) gm/dL Hct (39.0-53.0) % MCV (80.0-100.0) fL Neutrophils # (1.3-7.7) k/uL Lymphocytes # (1.0-4.8) k/uL ABG pCO2 51 H (35-45) mmHg ABG pO2 72 L (83-108) mmHg ABG HCO3 32 H (21-25) mmol/L ABG Total CO2 33 H (19-24) mmol/L ABG O2 Saturation 92.7 L (94-97) % BUN (9-20) mg/dL Creatinine (0.66-1.25) mg/dL Glucose (74-99) mg/dL POC Glucose (mg/dL) 233 H 195 H (75-99) mg/dL Calcium (8.4-10.2) mg/dL Phosphorus (2.5-4.5) mg/dL ALT (21-72) U/L Albumin (3.5-5.0) g/dL 08/28/19 08/28/19 Range/Units 11:59 14:50 WBC (3.8-10.6) k/uL RBC (4.30-5.90) m/uL Hgb (13.0-17.5) gm/dL Hct (39.0-53.0) % MCV (80.0-100.0) fL Neutrophils # (1.3-7.7) k/uL Lymphocytes # (1.0-4.8) k/uL ABG pCO2 (35-45) mmHg ABG pO2 (83-108) mmHg ABG HCO3 (21-25) mmol/L ABG Total CO2 (19-24) mmol/L ABG O2 Saturation (94-97) % BUN (9-20) mg/dL Creatinine (0.66-1.25) mg/dL Glucose (74-99) mg/dL POC Glucose (mg/dL) 206 H 193 H (75-99) mg/dL Calcium (8.4-10.2) mg/dL Phosphorus (2.5-4.5) mg/dL ALT (21-72) U/L Albumin (3.5-5.0) g/dL Microbiology - Last 24 Hours (Table) 08/21/19 10:10 Blood Culture - Final Blood No Growth after 144 hours Diabetes panel 08/28/19 Range/Units 04:15 Sodium 142 (137-145) mmol/L Potassium 4.6 (3.5-5.1) mmol/L Chloride 98 (98-107) mmol/L Carbon Dioxide 29 (22-30) mmol/L BUN 161 H* (9-20) mg/dL Creatinine 3.36 H (0.66-1.25) mg/dL Glucose 230 H (74-99) mg/dL Calcium 8.2 L (8.4-10.2) mg/dL AST 59 (17-59) U/L ALT 95 H (21-72) U/L Alkaline Phosphatase 54 (38-126) U/L Total Protein 6.7 (6.3-8.2) g/dL Albumin 3.3 L (3.5-5.0) g/dL Calcium panel 08/28/19 Range/Units 04:15 Calcium 8.2 L (8.4-10.2) mg/dL Phosphorus 8.5 H (2.5-4.5) mg/dL Albumin 3.3 L (3.5-5.0) g/dL Pituitary panel 08/28/19 Range/Units 04:15 Sodium 142 (137-145) mmol/L Potassium 4.6 (3.5-5.1) mmol/L Chloride 98 (98-107) mmol/L Carbon Dioxide 29 (22-30) mmol/L BUN 161 H* (9-20) mg/dL Creatinine 3.36 H (0.66-1.25) mg/dL Glucose 230 H (74-99) mg/dL Calcium 8.2 L (8.4-10.2) mg/dL Adrenal panel 08/28/19 Range/Units 04:15 Sodium 142 (137-145) mmol/L Potassium 4.6 (3.5-5.1) mmol/L Chloride 98 (98-107) mmol/L Carbon Dioxide 29 (22-30) mmol/L BUN 161 H* (9-20) mg/dL Creatinine 3.36 H (0.66-1.25) mg/dL Glucose 230 H (74-99) mg/dL Calcium 8.2 L (8.4-10.2) mg/dL Total Bilirubin 0.8 (0.2-1.3) mg/dL AST 59 (17-59) U/L ALT 95 H (21-72) U/L Alkaline Phosphatase 54 (38-126) U/L Total Protein 6.7 (6.3-8.2) g/dL Albumin 3.3 L (3.5-5.0) g/dL Assessment and Plan Assessment: Respiratory failure we will perform tracheostomy on Saturday or Saturday. Protein calorie mild attrition we'll perform PEG tube placement
--- NOTE | 2019-08-28 15:56 | CONS ---
CONSULTATION The patient was seen on consultation for placement of a dialysis catheter for acute chronic renal failure. Patient has been intubated, history of respiratory failure with history of COPD and also patient has a community-acquired right lower lobe pneumonia and also has history of congestive heart failure and stage 3 kidney disease. PHYSICAL EXAMINATION: Patient was seen. He is on ventilator. He has bilateral rhonchi of the lung and also abdomen is soft. No pulses are present. PLAN: Placement of the dialysis catheter. risks and complications discussed. MMODL / IJN: [id number] /
[2019-08-28 16:00] LABS: Glucose,Whole Blood 184 mg/dL (75-99)
--- NOTE | 2019-08-28 16:25 | XR ---
EXAMINATION TYPE: XR chest 1V portable DATE OF EXAM: 08/28/2019 CLINICAL HISTORY: Difficulty breathing and hypoxia. TECHNIQUE: Single AP portable upright view of the chest is obtained. COMPARISON: Chest x-ray from earlier today an older studies FINDINGS: Persistent endotracheal and orogastric tubes. Stable left subclavian central venous cathet er. Background chronic emphysematous and parenchymal changes bilaterally with small to tiny bilateral pleural effusions. No new suspicious focal airspace opacity or pneumothorax. Cardiac silhouette size stable and within normal limits with atherosclerotic aorta. Osseous structures are intact. IMPRESSION: Chronic changes with multiple tiny bilateral pleural effusions and improving bibasilar ac diana atelectasis and/or infiltrate. No new infiltrate is seen.
[2019-08-28 20:11] LABS: Glucose,Whole Blood 194 mg/dL (75-99)
--- NOTE | 2019-08-28 22:09 | PCN ---
PROCEDURE NOTE PRE-PROCEDURE DIAGNOSIS: Acute on chronic renal failure. PROCEDURE: Placement of a dialysis catheter, right femoral approach. DESCRIPTION OF PROCEDURE: Patient was seen in his room. Right groin was prepped and draped in sterile manner. Lidocaine plain 1% was infiltrated. Micropuncture was introduced into right common femoral vein. Micropuncture guidewire was passed and 4-Urdu dilator advanced on the top of the guidewire. Then we passed a regular guidewire and dilator was advanced on the top of the guidewire. Then we placed a dialysis catheter on the top of the guidewire, flushed with heparin saline and hep-locked, secured with 3-0 nylon. Dressing applied. Patient tolerated the procedure well. MMODL / IJN: [id number] /
[2019-08-28] MEDS: CYCLOBENZAPRINE 10 MG TAB PO SCH (22:49)
[2019-08-28] MEDS: INSULIN DETEMIR (LEVEMIR) 100 UNIT/ML SYR SQ SCH (22:51)
[2019-08-28 23:56] LABS: Glucose,Whole Blood 134 mg/dL (75-99)
[2019-08-29] MEDS: INSULIN ASPART (NovoLOG) 100 UNIT/ML VIAL SQ SCH ×6 (00:25→20:24)
[2019-08-29] MEDS: IPRATROPIUM-ALBUTEROL 3 ML NEB INHALATION SCH ×6 (00:48→20:16)
[2019-08-29] MEDS: methylPREDNISolone SOD SUCCI 40 MG/ML 1 ML VIAL IV SCH ×4 (00:54→17:55)
[2019-08-29 04:43] LABS: Glucose,Whole Blood 128 mg/dL (75-99)
[2019-08-29 07:41] LABS: ABG Base Excess 6.3 mmol/L; ABG HCO3 32 mmol/L (21-25); ABG Oxygen Saturation 90.5 % (94-97); ABG PCO2 56 mmHg (35-45); ABG PH 7.36 (7.35-7.45); ABG PO2 64 mmHg (83-108); ABG TCO2 34 mmol/L (19-24); Allen Test Performed? Yes
[2019-08-29] MEDS: BUDESONIDE 1 MG/2 ML NEBU INHALATION SCH ×2 (07:47→20:16)
[2019-08-29 07:57] LABS: Glucose,Whole Blood 149 mg/dL (75-99)
[2019-08-29 08:22] LABS: Basophils % (A) 0 %; Eosinophils # (A) 0.1 k/uL (0-0.7); Eosinophils % (A) 0 %; HCT 35.7 % (39.0-53.0); HGB 11.3 gm/dL (13.0-17.5); Lymphocytes # (A) 0.8 k/uL (1.0-4.8); Lymphocytes % (A) 4 %; MCH 31.8 pg (25.0-35.0); MCHC 31.7 g/dL (31.0-37.0); MCV 100.2 fL (80.0-100.0); Mean Platelet Volume 9.8; Monocytes # (A) 1.2 k/uL (0-1.0); Monocytes % (A) 6 %; Neutrophils # (A) 19.1 k/uL (1.3-7.7); Neutrophils % (A) 89 %; Platelet Count 191 k/uL (150-450); RBC 3.56 m/uL (4.30-5.90); RDW 13.2 % (11.5-15.5); WBC 21.4 k/uL (3.8-10.6)
[2019-08-29 08:32] LABS: Calcium 8.4 mg/dL (8.4-10.2); Potassium 3.6 mmol/L (3.5-5.1)
[2019-08-29] MEDS: PIPERACILLIN-TAZOBACTAM 3.375 GM in SODIUM CHLORIDE 0.9% 100 ML IVPB SCH ×2 (09:00→22:26)
[2019-08-29] MEDS: FUROSEMIDE 10 MG/ML 4 ML VIAL IV SCH (09:13)
[2019-08-29] MEDS: CHLORHEXIDINE GLUCONATE 15 ML CUP MUCOUS MEM SCH ×2 (09:13→22:30)
[2019-08-29] MEDS: ATORVASTATIN 40 MG TAB PO SCH (09:13)
[2019-08-29] MEDS: NYSTATIN 100,000 UNIT/ML SUSP 500,000 UNIT/5 ML CUP PO SCH ×4 (09:14→22:50)
[2019-08-29] MEDS: PANTOPRAZOLE 40 MG/10 ML VIAL IVP SCH ×2 (09:14→22:27)
[2019-08-29] MEDS: NYSTATIN 100,000 UNIT/GM POWD 15 GM TOPICAL SCH ×2 (09:14→22:34)
[2019-08-29] MEDS: CHOLECALCIFEROL 1,000 UNIT TAB PO SCH (09:14)
[2019-08-29] MEDS: ASPIRIN 81 MG PO SCH (09:14)
[2019-08-29] MEDS: HEPARIN SODIUM,PORCINE 5,000 UNIT/ML 1 ML VIAL SQ SCH ×2 (09:14→22:30)
[2019-08-29] MEDS: NICOTINE 21MG/24HR PATCH TRANSDERM SCH (09:14)
--- NOTE | 2019-08-29 10:11 | P.PN ---
Subjective Progress Note Date: 08/29/19 Seen and examined for the follow-up of acute kidney injury. Started on hemodialysis today. Initially tolerating well and then dropping blood pressures. Goal UF was 1 L, change to 0 UF. Objective - Vital Signs Vital signs: Vital Signs Temp 97.8 F 08/29/19 04:00 Pulse 96 08/29/19 08:34 Resp 19 08/29/19 07:00 BP 81/59 08/28/19 17:00 Pulse Ox 91 L 08/29/19 07:00 Intake & Output 08/28/19 08/29/19 08/29/19 18:59 06:59 18:59 Intake Total 668.118 430 20 Output Total 1465 685 50 Balance -796.882 -255 -30 Weight 80.7 kg 79.8 kg Intake: IV 340 240 20 Dextrose 5% in Water 1, 60 000 ml @ 50 mls/hr IV . Q20H EUGENIO Rx#:[id number] Piperacillin-Tazobactam 3 100 .375 gm In Sodium Chloride 0.9% 100 ml @ 25 mls/hr IVPB Q12HR EUGENIO Rx #:[id number] d5w kvo 180 240 20 Intake, IV Titration 190.118 100 Amount Propofol 1,000 mg In 190.118 100 Empty Bag 1 bag @ Titrate IV .Q0M EUGENIO Rx#: [id number] Tube Feeding 138 90 Output: Urine 1465 685 50 Other: Voiding Method Indwelling Catheter Indwelling Catheter # Bowel Movements 1 1 ABP, PAP, CO, CI - Last Documented Arterial Blood Pressure 122/60 - Exam No acute distress S1-S2 heard Decreased breath sounds Oral intubation [place] catheter Trace edema Right groin Zoran - Labs CBC & Chem 7: 08/29/19 08:00 08/29/19 08:00 Labs: Abnormal Lab Results - Last 24 Hours (Table) 08/28/19 08/28/19 08/28/19 Range/Units 11:59 14:50 15:58 WBC (3.8-10.6) k/uL RBC (4.30-5.90) m/uL Hgb (13.0-17.5) gm/dL Hct (39.0-53.0) % MCV (80.0-100.0) fL Neutrophils # (1.3-7.7) k/uL Lymphocytes # (1.0-4.8) k/uL Monocytes # (0-1.0) k/uL ABG pCO2 (35-45) mmHg ABG pO2 (83-108) mmHg ABG HCO3 (21-25) mmol/L ABG Total CO2 (19-24) mmol/L ABG O2 Saturation (94-97) % BUN (9-20) mg/dL Creatinine (0.66-1.25) mg/dL Glucose (74-99) mg/dL POC Glucose (mg/dL) 206 H 193 H 184 H (75-99) mg/dL 08/28/19 08/28/19 08/29/19 Range/Units 20:09 23:55 04:41 WBC (3.8-10.6) k/uL RBC (4.30-5.90) m/uL Hgb (13.0-17.5) gm/dL Hct (39.0-53.0) % MCV (80.0-100.0) fL Neutrophils # (1.3-7.7) k/uL Lymphocytes # (1.0-4.8) k/uL Monocytes # (0-1.0) k/uL ABG pCO2 (35-45) mmHg ABG pO2 (83-108) mmHg ABG HCO3 (21-25) mmol/L ABG Total CO2 (19-24) mmol/L ABG O2 Saturation (94-97) % BUN (9-20) mg/dL Creatinine (0.66-1.25) mg/dL Glucose (74-99) mg/dL POC Glucose (mg/dL) 194 H 134 H 128 H (75-99) mg/dL 08/29/19 08/29/19 08/29/19 Range/Units 07:40 07:55 08:00 WBC 21.4 H (3.8-10.6) k/uL RBC 3.56 L (4.30-5.90) m/uL Hgb 11.3 L (13.0-17.5) gm/dL Hct 35.7 L (39.0-53.0) % MCV 100.2 H (80.0-100.0) fL Neutrophils # 19.1 H (1.3-7.7) k/uL Lymphocytes # 0.8 L (1.0-4.8) k/uL Monocytes # 1.2 H (0-1.0) k/uL ABG pCO2 56 H (35-45) mmHg ABG pO2 64 L (83-108) mmHg ABG HCO3 32 H (21-25) mmol/L ABG Total CO2 34 H (19-24) mmol/L ABG O2 Saturation 90.5 L (94-97) % BUN (9-20) mg/dL Creatinine (0.66-1.25) mg/dL Glucose (74-99) mg/dL POC Glucose (mg/dL) 149 H (75-99) mg/dL 08/29/19 Range/Units 08:00 WBC (3.8-10.6) k/uL RBC (4.30-5.90) m/uL Hgb (13.0-17.5) gm/dL Hct (39.0-53.0) % MCV (80.0-100.0) fL Neutrophils # (1.3-7.7) k/uL Lymphocytes # (1.0-4.8) k/uL Monocytes # (0-1.0) k/uL ABG pCO2 (35-45) mmHg ABG pO2 (83-108) mmHg ABG HCO3 (21-25) mmol/L ABG Total CO2 (19-24) mmol/L ABG O2 Saturation (94-97) % BUN 169 H* (9-20) mg/dL Creatinine 3.03 H (0.66-1.25) mg/dL Glucose 139 H (74-99) mg/dL POC Glucose (mg/dL) (75-99) mg/dL Microbiology - Last 24 Hours (Table) 08/28/19 16:27 Gram Stain - Preliminary Sputum Sputum Culture - Preliminary Assessment and Plan Assessment: #1 nonoliguric acute kidney injury secondary to ischemic ATN. Disproportionate rise in BUNs secondary to steroids and volume depletion. #2 chronic kidney disease stage III secondary to diabetic kidney disease with a baseline creatinine of 2.0 MG per DL. #3 acute respiratory failure on ventilator with 50% FiO2 and 8 of PEEP. #4 hyponatremia resolved #5 mild hyperkalemia with alkalosis #6 respiratory acidosis with metabolic alkalosis. Plan: #1 hemodialysis today, 2.5 hours, decreased U of cold to 0 UF 4 hypotension #2 stop Lasix #3 avoid nephrotoxic agents and hypotensive episodes #4 plan hemodialysis again tomorrow.
[2019-08-29 12:10] LABS: Glucose,Whole Blood 99 mg/dL (75-99)
[2019-08-29] MEDS: PROPOFOL 1,000 MG in EMPTY BAG 1 BAG IV SCH ×2 (12:39→15:32)
[2019-08-29] MEDS: METOPROLOL TARTRATE 25 MG TAB PO SCH ×3 (12:41→22:31)
--- NOTE | 2019-08-29 12:57 | P.PN ---
Subjective Progress Note Date: 08/29/19 Principal diagnosis: acute hypoxic and hypercapnic respiratory failure secondary to acute exacerbation of COPD, community-acquired right lower lobe pneumonia and acute systolic congestive heart failure. This is a 78-year-old male patient who was brought into the hospital yesterday because of worsening shortness of breath. The patient follows up with Dr. Porter. He has not been hospitalized here in our location for quite some time. He does have multiple medical problems. He has coronary artery disease and a remote history of [place], congestion heart failure, chronic stage III kidney disease, hypertension, hyperlipidemia and diabetes mellitus and extensive psoriasis. Is a chronic smoker. 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 Over the past 24-48 hours, the patient was having increased shortness of breath. It was thought that he may be having a pneumonia. He did not want in to come into the hospital. He ultimately came into emergency and overnight he became unresponsive and his blood gas showed acute respiratory acidosis with a pH of 7.09 with a pCO2 of 96 and pO2 of 51 and this was on 100% nonrebreather. Based on that, I made recommendations to intubate the patient around 3 AM this morning. He was placed on a mechanical ventilator and he was brought into the intensive care unit. Currently is on assist control mode of ventilation at the rate of 18 with a tidal volume of 550 FiO2 of 70% and a PEEP of 5. The follow- up blood gases showed a pH of 7.27 with a pCO2 of 59 and pO2 of 70 and this was done and FiO2 of 80%. Peak airway pressure is around 22. He is on propofol which is currently running at 50 g per KG per minute. He is also on norepinephrine infusion at 0.05 g per KG per minute. He was started on Lasix drip at 10 mg an hour. His blood work with a white cell count of 11. Hemoglobin is at 12.6. His potassium level is at 5.2. Creatinine is at 3.8. Troponin maxed was at 1.1 and his EKG showing a sinus rhythm in the form of sinus tachycardia. There are Q waves over the anterior leads consistent with an old anterior wall myocardial infarction. Echocardiogram has been done and the results are still pending for now. Urine output is in the order of 30 mL an hour and the chest x-ray from today shows adequate positioning of the suzette tracheal tube. There is pulmonary edema and there is increased consolidation of the right lower lobe which may suggest the potential of an underlying right lower lobe pneumonia. NG tube is in a good location for now. There was copious amount of rest or secretions post intubation and the patient had sputum sent for Gram stain and culture. He was given antibiotics and currently is on Rocephin. His ultrasound the kidneys showed bilateral hydronephrosis. 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 Urology has been consulted. His evaluation of 08/23/2019 I'm seeing this patient for a follow-up. The patient is well sedated with propofol and is calm and comfortable. He is currently on 50 g per KG per minute of propofol. He remains arousable upon lower degree of sedation. As far as the vent support, the patient is on assist control mode at the rate of 18 with a tidal volume of 550 and FiO2 of 50% with a PEEP of 10. The blood gases from today showed a pH of 7.39 with a pCO2 of 48 and pO2 129 and this was done on FiO2 of 70%. Chest x-ray shows stable findings with CHF and possible right lower lobe pneumonia. ET tube is in a good location. Triple-lumen catheter is in a good location. NG tube is in a good location. The patient is still on Lasix drip at 10 mg an hour. He is producing excellent urine output and urine output is more than 50 mL an hour. The labs from today showed a BUN of 102 with a creatinine of 4.38. His serum bicarbs at 27. Note that the patient had a CAT scan of the abdomen based on the fact that he had bilateral hydronephrosis. The CAT scan was completed yesterday and it showed and confirmed the left-sided hydronephrosis. There is a 3 mm nonobstructive left renal calculus and severe left-sided hydronephrosis with cortical thickening. No obstruction by calculus was identified. There is a moderate degree of right-sided hydronephrosis. There is a 4 cm exophytic lesion posterior lateral aspect of the lower pole of the right kidney. The bladder is poorly distended with severe concentric wall thickening and a Caldwell catheter is in place. There was a concern of a left UV junction obstruction and a cystoscopy will be needed. 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 Urology on the case. Caldwell cath is in place. The patient is currently on IV Zosyn. Sputum and blood culture sent and the results are still pending for now. Echocardiogram showed impaired left ventricular ejection fraction of less than 20%. Cardiology is on the case. Patient was reevaluated today on 08/24/2019, remains on mechanical ventilation, and his ventilator settings are tidal volume of 550 assist-control rate of 18 FiO2 of 50% PEEP of 10 and I lowered the down to 8. Remains on multiple drips including Lasix at 5 mg per hour. He is also on propofol at 50 mcg/kg/m,ABG showed a pO2 of 90 pCO2 of 49 and pH of 7.44. His peak airway pressure is in the high 20s, and plateau pressure is about 19.chest x-ray continues to show evidence of right lower lobe infiltrate.with chronic parenchymal changes and bib asilar atelectasis.patient is not requiring any pressors at this point, his renal functioning seems to be worsening, added Lasix drip was cut down from 10-5 mg per hour. Urine output remains excellent.his last echocardiogram showed ejection fraction of 20-25%. And mild mitral regurgitation.CBC showed leukocytosis with WBC count of 18.8 hemoglobin is 10.7. Electrolytes showed sodium 145 potassium 3.6 bicarb is 31BUN is 118 creatinine 4.45, gradually rising since 08/21 from 3.11. Patient remains on diuretics, bronchodilators, methylprednisolone, beta blockers,and Zosyn empirically.again he is not requiring any pressors today. Remains on GI and DVT prophylaxis. He is also on insulin as per protocol. Reevaluated today on 08/25/2019, remains in the ICU, mechanically ventilated, his ventilator settings are tidal volume of 550 assist-control rate 18 FiO2 of 50%, and PEEP was cut down to 5. ABG showed a pO2 of 82 pCO2 of 54 pH of 7.42. Patient is not requiring any pressors, he is still on propofol at 45 mcg/kg/m, his IV fluid was changed to D5W, and I have recommended fluid boluses/free water via nasogastric tube. His urine output is excellent at 75 ML per hour. Patient is a scheduled by urology to have a renal ultrasound, may require nephrostomy tube placement. However that's yet to be decided. Chest x-ray, continues to show COPD and patchy bibasilar infiltrates. Remains on Lasix at 40 mg IV push every 12 hours. Remains on antibiotics, and bronchodilators. His mental status was assessed yesterday off sedation, and he seemed to be appropriate according to the nurse taking care of him. We plan to have sedation interruption also today, and assessment of mental status. However considering his ABG is marginal, considering his chest x-ray, I have no plans to extubate the patient today. But if the patient is to have nephrostomy tube placement, hopefully it could be done today. Renal profile remains abnormal with a BUN of 129 creatinine 4.31. Slightly improved compared to creatinine yesterday of 4.45. Nutrition-jenkins, the patient remains on enteral feeding via nasogastric tube. He also remains on GI and DVT prophylaxis. And on insulin as per protocol. Patient was reevaluated again today in the ICU on 08/26/2019, remains intubated and mechanically ventilated. Overnight, his pulmonary status has deteriorated, oxygenation worsened, chest x-ray also worsened with worsening right lower lobe infiltrate and suspect ongoing interstitial edema. Although the patient has a good urine output. His FiO2 had to be increased to 70%, his PEEP was increased today to 10 again, remains on tidal volume of 550, and assist control rate of 18. His ABG on 70% today and PEEP of 5 showed a pO2 of 79 pCO2 of 47 pH of 7.47. Hence the patient was placed on a high PEEP, and I plan to titrate down his FiO2 hopefully back to 50%. Patient is obviously not ready to be weaned. It took the patient about 20 hours off sedation yesterday to respond and follow simple instructions. He was quite sedated off propofol all day yesterday. And this was for roughly about 20 hours. Today the patient is back on propofol, he was getting extremely agitated earlier, and he had to be placed back on propofol. He is at 45 mcg/kg/m. He is not requiring any pressors, he is hemody namically stable. Again his chest x-ray is worse, his CBC showed leukocytosis with WBC of 18.9 hemoglobin is 10.8. Electrolytes remain abnormal with a sodium of 147, and I recommended that we continue free water flushes via nasogastric tube today. The Lasix dose will remain the same, patient is diuresing quite well with 2 doses of Lasix a day. Reevaluated today on 08/27/2019, patient remains in the ICU, intubated, mechanically ventilated. Yesterday his chest x-ray showed worsening, his oxyg enation deteriorated, he had to be placed on a PEEP of 10 and FiO2 of 70%. He remains on a PEEP of 10, his FiO2 is down to 55%. And his ABG earlier on 60% showed pO2 of 81 pCO2 of 52 pH of 7.43. Chest x-ray showed slight improvement in his interstitial edema and the right lower lobe pneumonia. But not completely resolved. His ventilator settings are assist control rate of 18, tidal volume of 550, FiO2 of 55%, and PEEP is at 10. Patient will be given a sedation holiday, and we'll assess mental status again today, but clearly he is not ready for weaning. I did explain that to the family at bedside. WBC count is 17.6 hemoglobin is 11.2, a left lites are normal sodium is improving. Renal profile is basically about the same with elevated BUN of 149 creatinine of 3.55, urine output seems to be excellent. But he continues to have elevated BUN and creatinine. Nutrition-jenkins, the patient remains on enteral feeding. He is not requiring any pressors. Remains on bronchodilators and steroids. And on insulin. Remains on free water flushes. Sodium did improve with free water. Reevaluated today on 08/28/2019, remains intubated, mechanically ventilated, patient is basically the same today compared to yesterday. His ABG is marginal. Remains on 55% FiO2, and PEEP was at 10. However after evaluating the patient, I cut down the FiO2 to 50%, and increased the PEEP to 12. His ABG this morning showed a pO2 of 72 pCO2 of 51 pH of 7.40. WBC count is 18.5 hemoglobin is 10.7. Renal functioning is worse today, BUN is up to 161 creatinine is 3.36. Patient continues to have good urine output with diuretics. Chest x-ray showed chronic parenchymal changes and patchy bibasilar infiltrates, small tiny pleural effusions noted. Ordered repeat sputum cultures, and these are pending. His last cultures were negative. Patient remains on assist control mode of 18, tidal volume of 550, PEEP is 12 today, FiO2 is down to 50%. Patient is tolerating enteral feeding. He is not requiring any pressors. And he seems to follow simple instructions once sedation is placed on hold. Patient is back on propofol this morning. His mental status was assessed earlier, and it was intact according to the nurse taking care of him. Remains on Zosyn empirically. Reevaluated today on 08/29/2019, remains in the ICU, intubated, mechanically ventilated. Patient is presently receiving hemodialysis. ABG remains marginal in spite of high PEEP at 12, and his FiO2 was increased yesterday to 55. Today I dialed his PEEP down, seemed to do better on a lower PEEP, hence I kept the PEEP at 8 and I kept him at 55% FiO2. I believe his PEEP may be affecting his LV function. And a lower PEEP may be better for him. ABG on 12 of PEEP and FiO2 of 55% showed a pO2 of 64 pCO2 of 56 pH of 7.36. His WBC count today is 21.4 hemoglobin is 11.3. Elective lites are normal BUN is 169 creatinine is 3.03, and that being addressed by nephrology, presently on hemodialysis. Repeat sputum cultures are negative so far, and nondiagnostic. Remains empirically on Zosyn. Chest x-ray today showed chronic changes, tiny pleural effusions noted, improved bibasilar atelectasis and/or infiltrates. Objective - Vital Signs Vital signs: Vital Signs Temp 97.9 F 08/29/19 12:26 Pulse 95 08/29/19 12:01 Resp 20 08/29/19 12:26 BP 111/62 08/29/19 12:26 Pulse Ox 100 08/29/19 12:01 Intake & Output 08/28/19 08/29/19 08/29/19 18:59 06:59 18:59 Intake Total 668.118 530 730 Output Total 1465 685 220 Balance -796.882 -155 510 Weight 80.7 kg 79.8 kg Intake: IV 340 240 220 Dextrose 5% in Water 1, 60 000 ml @ 50 mls/hr IV . Q20H [facility] Rx#:[id number] Piperacillin-Tazobactam 3 100 100 .375 gm In Sodium Chloride 0.9% 100 ml @ 25 mls/hr IVPB Q12HR [facility] Rx #:[id number] d5w kvo 180 240 120 Intake, IV Titration 190.118 200 Amount Propofol 1,000 mg In 190.118 200 Empty Bag 1 bag @ Titrate IV .Q0M [facility] Rx#: [id number] Tube Feeding 138 90 210 Hemodialysis 300 Output: Urine 1465 685 220 Hemodialysis 0 Other: Voiding Method Indwelling Catheter Indwelling Catheter Indwelling Catheter # Bowel Movements 1 1 ABP, PAP, CO, CI - Last Documented Arterial Blood Pressure 100/84 - Exam Physical Exam: Revealed a 78-year-old white male, on mechanical ventilation, sedated, in no distress. Head: Atraumatic, normocephalic. HEENT:[Neck is supple.] [No neck masses.] [No thyromegaly.] [No JVD.]PERRLA, EOMI, no icterus, moist mucous membranes noted.endotracheal tube and orogastric tube are intact. Chest: [symmetrical chest expansion, crackles at the bases, no rhonchi no wheezes Cardiac Exam: [Normal S1 and S2, no S3 gallop,2/6 systolic murmur at the left lower sternal border. Abdomen: [obese,Soft, nontender, no megaly, no rebound, no guarding, normal bowel sounds.] Extremities: [No clubbing, trace of bipedal edema, no cyanosis.] Neurological Exam: sedated, on propofol, could not be performed. Psychiatric: Cannot be assessed. Skin: extensive psoriasis patches noted throughout the whole body and lower extremities bilaterally. Lymphatics: No lymphadenopathy. - Labs CBC & Chem 7: 08/29/19 08:00 08/29/19 08:00 Labs: Abnormal Lab Results - Last 24 Hours (Table) 08/28/19 08/28/19 08/28/19 Range/Units 14:50 15:58 20:09 WBC (3.8-10.6) k/uL RBC (4.30-5.90) m/uL Hgb (13.0-17.5) gm/dL Hct (39.0-53.0) % MCV (80.0-100.0) fL Neutrophils # (1.3-7.7) k/uL Lymphocytes # (1.0-4.8) k/uL Monocytes # (0-1.0) k/uL ABG pCO2 (35-45) mmHg ABG pO2 (83-108) mmHg ABG HCO3 (21-25) mmol/L ABG Total CO2 (19-24) mmol/L ABG O2 Saturation (94-97) % BUN (9-20) mg/dL Creatinine (0.66-1.25) mg/dL Glucose (74-99) mg/dL POC Glucose (mg/dL) 193 H 184 H 194 H (75-99) mg/dL 08/28/19 08/29/19 08/29/19 Range/Units 23:55 04:41 07:40 WBC (3.8-10.6) k/uL RBC (4.30-5.90) m/uL Hgb (13.0-17.5) gm/dL Hct (39.0-53.0) % MCV (80.0-100.0) fL Neutrophils # (1.3-7.7) k/uL Lymphocytes # (1.0-4.8) k/uL Monocytes # (0-1.0) k/uL ABG pCO2 56 H (35-45) mmHg ABG pO2 64 L (83-108) mmHg ABG HCO3 32 H (21-25) mmol/L ABG Total CO2 34 H (19-24) mmol/L ABG O2 Saturation 90.5 L (94-97) % BUN (9-20) mg/dL Creatinine (0.66-1.25) mg/dL Glucose (74-99) mg/dL POC Glucose (mg/dL) 134 H 128 H (75-99) mg/dL 08/29/19 08/29/19 08/29/19 Range/Units 07:55 08:00 08:00 WBC 21.4 H (3.8-10.6) k/uL RBC 3.56 L (4.30-5.90) m/uL Hgb 11.3 L (13.0-17.5) gm/dL Hct 35.7 L (39.0-53.0) % MCV 100.2 H (80.0-100.0) fL Neutrophils # 19.1 H (1.3-7.7) k/uL Lymphocytes # 0.8 L (1.0-4.8) k/uL Monocytes # 1.2 H (0-1.0) k/uL ABG pCO2 (35-45) mmHg ABG pO2 (83-108) mmHg ABG HCO3 (21-25) mmol/L ABG Total CO2 (19-24) mmol/L ABG O2 Saturation (94-97) % BUN 169 H* (9-20) mg/dL Creatinine 3.03 H (0.66-1.25) mg/dL Glucose 139 H (74-99) mg/dL POC Glucose (mg/dL) 149 H (75-99) mg/dL Microbiology - Last 24 Hours (Table) 08/28/19 16:27 Gram Stain - Preliminary Sputum Sputum Culture - Preliminary Assessment and Plan Assessment: impression: 1 acute hypoxic and hypercapnic respiratory failure secondary to pneumonia, most likely community-acquired involving the right lower lobe, acute exacerbation of COPD, and acute systolic congestive heart failure. 2 acute systolic congestive heart failure, ejection fraction of 20-25%. 3 acute exacerbation of COPD 4 acute right lower lobe cavity community-acquired pneumonia 5 chronic kidney disease stage III and there is evidence of acute on chronic kidney injury. Patient is now on hemodialysis. 6 type 2 diabetes, patient remains on insulin as per protocol. 7 benign essential hypertension 8 dyslipidemia 9 history of extensive psoriasis. 10 chronic hypoxic respiratory failure patient has been on oxygen at 2-3 L/m when necessary. 11 history of coronary artery disease and previous [place] 12 chronic back pain. Recommendation: Continue ventilatory support, lower PEEP to 8, and FiO2 at 55% today, hopefully can cut down the FiO2 down further. Daily sedation interruption and assessment of mental status Continue diuretics, bronchodilators, antibiotics, steroids, Continue daily hemodialysis. As per nephrology. Continue GI and DVT prophylaxis. Continue to monitor daily labs including renal profile, and electrolytes. Continue daily assessment of chest x-ray and ABG Continued daily assessment of mental status off sedation Daily assessment of ventilatory settings and adjustments accordingly based on the ABG. Today, I lowered his PEEP down to 8 and kept him on FiO2 of 55%. Patient may do better on her lower PEEP.. Continue enteral feeding. Considering his overall condition and margin ABG, no plans to weaning. Overall prognosis remains poor and guarded, we have already consulted general surgery to consider tracheostomy next week and PEG tube placement. Family is aware of his condition, critical care time is 34 minutes. Time with Patient: Greater than 30
[2019-08-29 16:10] LABS: Glucose,Whole Blood 174 mg/dL (75-99)
[2019-08-29 20:17] LABS: Glucose,Whole Blood 206 mg/dL (75-99)
[2019-08-29] MEDS: CYCLOBENZAPRINE 10 MG TAB PO SCH (22:30)
[2019-08-29] MEDS: INSULIN DETEMIR (LEVEMIR) 100 UNIT/ML SYR SQ SCH (22:35)
--- NOTE | 2019-08-29 22:47 | P.PN ---
Subjective Progress Note Date: 08/29/19 CHIEF COMPLAINT: Vent dependent respiratory failure HISTORY OF PRESENT ILLNESS: The patient is a 78-year-old male vent dependent respiratory failure and protein malnutrition. He is on full ventilatory support and on tube feeds. ROS: Past fevers. No chills. No new chest pain. PHYSICAL EXAM: VITAL SIGNS: Reviewed CONSTITUTIONAL: Well developed and in no acute distress. EYES: Conjuctivae without sclera icterus. Extraocular movements grossly intact. HEAD, EARS, NOSE, THROAT: Head is atraumatic, normocephalic. RESPIRATORY: Mechanical ventilation. CARDIOVASCULAR: Palpable 2+ radial pulses. ABDOMEN: Soft. No peritonitis. MUSCULOSKELETAL: No gross deformity of the lower extremities noted. No clubbing. No cyanosis. SKIN: Moderate psoriasis. NEUROLOGIC: No focal or lateralizing signs. PSYCH: Sedated. CLINICAL LABS: White blood cell count elevated over 21,000 ASSESSMENT: 1. Vent dependent failure 2. Protein malnutrition PLAN: 1. He has been on the vent almost 2 weeks 2. Tracheostomy and gastrostomy tube placement advised Objective - Vital Signs Vital signs: Vital Signs Temp 99.1 F 08/29/19 20:00 Pulse 83 08/29/19 20:34 Resp 18 08/29/19 20:00 BP 111/62 08/29/19 12:26 Pulse Ox 94 L 08/29/19 20:00 Intake & Output 08/29/19 08/29/19 08/30/19 06:59 18:59 06:59 Intake Total 530 1085.222 100 Output Total 685 450 115 Balance -155 635.222 -15 Weight 79.8 kg Intake: IV 240 340 40 Piperacillin-Tazobactam 3 100 .375 gm In Sodium Chloride 0.9% 100 ml @ 25 mls/hr IVPB Q12HR [facility] Rx #:[id number] d5w kvo 240 240 40 Intake, IV Titration 200 55.222 Amount Propofol 1,000 mg In 200 55.222 Empty Bag 1 bag @ Titrate IV .Q0M [facility] Rx#: [id number] Tube Feeding 90 390 60 Hemodialysis 300 Output: Urine 685 450 115 Hemodialysis 0 Other: Voiding Method Indwelling Catheter Indwelling Catheter # Bowel Movements 1 ABP, PAP, CO, CI - Last Documented Arterial Blood Pressure 129/63 - Labs CBC & Chem 7: 08/29/19 08:00 08/29/19 08:00 Labs: Abnormal Lab Results - Last 24 Hours (Table) 08/28/19 08/29/19 08/29/19 Range/Units 23:55 04:41 07:40 WBC (3.8-10.6) k/uL RBC (4.30-5.90) m/uL Hgb (13.0-17.5) gm/dL Hct (39.0-53.0) % MCV (80.0-100.0) fL Neutrophils # (1.3-7.7) k/uL Lymphocytes # (1.0-4.8) k/uL Monocytes # (0-1.0) k/uL ABG pCO2 56 H (35-45) mmHg ABG pO2 64 L (83-108) mmHg ABG HCO3 32 H (21-25) mmol/L ABG Total CO2 34 H (19-24) mmol/L ABG O2 Saturation 90.5 L (94-97) % BUN (9-20) mg/dL Creatinine (0.66-1.25) mg/dL Glucose (74-99) mg/dL POC Glucose (mg/dL) 134 H 128 H (75-99) mg/dL 08/29/19 08/29/19 08/29/19 Range/Units 07:55 08:00 08:00 WBC 21.4 H (3.8-10.6) k/uL RBC 3.56 L (4.30-5.90) m/uL Hgb 11.3 L (13.0-17.5) gm/dL Hct 35.7 L (39.0-53.0) % MCV 100.2 H (80.0-100.0) fL Neutrophils # 19.1 H (1.3-7.7) k/uL Lymphocytes # 0.8 L (1.0-4.8) k/uL Monocytes # 1.2 H (0-1.0) k/uL ABG pCO2 (35-45) mmHg ABG pO2 (83-108) mmHg ABG HCO3 (21-25) mmol/L ABG Total CO2 (19-24) mmol/L ABG O2 Saturation (94-97) % BUN 169 H* (9-20) mg/dL Creatinine 3.03 H (0.66-1.25) mg/dL Glucose 139 H (74-99) mg/dL POC Glucose (mg/dL) 149 H (75-99) mg/dL 08/29/19 08/29/19 Range/Units 16:08 20:16 WBC (3.8-10.6) k/uL RBC (4.30-5.90) m/uL Hgb (13.0-17.5) gm/dL Hct (39.0-53.0) % MCV (80.0-100.0) fL Neutrophils # (1.3-7.7) k/uL Lymphocytes # (1.0-4.8) k/uL Monocytes # (0-1.0) k/uL ABG pCO2 (35-45) mmHg ABG pO2 (83-108) mmHg ABG HCO3 (21-25) mmol/L ABG Total CO2 (19-24) mmol/L ABG O2 Saturation (94-97) % BUN (9-20) mg/dL Creatinine (0.66-1.25) mg/dL Glucose (74-99) mg/dL POC Glucose (mg/dL) 174 H 206 H (75-99) mg/dL Microbiology - Last 24 Hours (Table) 08/28/19 16:27 Gram Stain - Preliminary Sputum Sputum Culture - Preliminary Assessment and Plan (1) Protein-calorie malnutrition, moderate Current Visit: Yes Status: Acute Code(s): E44.0 - MODERATE PROTEIN-CALORIE MALNUTRITION SNOMED Code(s): 123365741 (2) Ventilator dependence Current Visit: Yes Status: Acute Code(s): Z99.11 - DEPENDENCE ON RESPIRATOR [VENTILATOR] STATUS SNOMED Code(s): 327262795 (3) Acute exacerbation of chronic obstructive pulmonary disease Current Visit: Yes Status: Acute Code(s): J44.1 - CHRONIC OBSTRUCTIVE PULMONARY DISEASE W (ACUTE) EXACERBATION SNOMED Code(s): 106204970
[2019-08-29 22:59] LABS: Hepatitis B Surface AB- Quant 3.5 mIU/mL; Hepatitis B Surface Antibody Non-Reactive (Non-Reactive); Hepatitis B Surface Antigen Non-Reactive (Non-Reactive)
--- NOTE | 2019-08-29 23:06 | P.PN ---
Subjective Progress Note Date: 08/28/19 Principal diagnosis: Acute on chronic CHF with systolic dysfunction This is [address] rai. Chronic stable medical conditions include diabetes, hypertension, hyperlipidemia, osteoarthritis, chronic kidney disease, home oxygen 2-3 L, chronic low back pain and psoriatic.. Patient was brought in by his . Most history is obtained by the at the bedside. At her baseline patient very much sits down and watches television. Does not drive. Has a fair appetite. Normally able to get around the house. Patient started coughing became short of breath wheezing for 1 day, with a decreased oral intake. Became a bit more confused and presented ER. Patient was not willing to come to the hospital but brought him in. Was given IV Lasix in the ER , bronchodilators. Patient had been quite a bit short of breath. Bringing some sputum. No obvious fever or chills. admitted with a diagnosis of right-sided pneumonia, CHF exacerbation, COPD e xacerbation, acute delirium. Patient also found to have from recent renal ultrasound-bilateral hydronephrosis and possibly growth in the bladder.. Also acute kidney injury . Patient was started on Lasix drip and IV ceftriaxone, switched to IV Zosyn. Patient on the medical floor became lethargic and went into respiratory failure and was intubated on August 22. Patient was put on IV Lasix drip and IV propofol. Also in IV dobutamine-discontinued. 08/27/2019. Remains on the ventilator. FiO2 55% and a PEEP of 10. 2 feeding at 46 mL an hour. Remains on IV propofol. Sedated. Telemetry shows sinus rhythm. at the bedside. 08/28/2019 Patient is currently on mechanical ventilator and sedated. Renal function continues to get worse with BUN 161 and creatinine 3.36. WBC count went up to 18.5 and hemoglobin level X.7. Patient is having bilateral lower action the significant swelling and chest x-ray showed chronic parenchymal changes and patchy bibasilar infiltrates and tiny pleural effusion. Patient was started on Zosyn empirically. Cultures have been negative. Lasix is on hold due to worsening renal function. Nephrology and pulmonary is following. Planning for renal replacement therapy. Review of systems cannot be done as patient is intubated Current medications reviewed from today's electronic records Objective - Vital Signs Vital signs: Vital Signs Temp 98.8 F 08/28/19 08:00 Pulse 94 08/28/19 11:36 Resp 20 08/28/19 11:00 BP 118/71 08/28/19 11:00 Pulse Ox 92 L 08/28/19 11:00 Intake & Output 08/27/19 08/28/19 08/28/19 18:59 06:59 18:59 Intake Total 926.198 3097.325 392 Output Total 1140 895 820 Balance -138.189 6536.325 -428 Weight 80.7 kg 80.7 kg Intake: IV 460 285 200 Dextrose 5% in Water 1, 360 210 60 000 ml @ 50 mls/hr IV . Q20H [facility] Rx#:[id number] Piperacillin-Tazobactam 3 100 75 100 .375 gm In Sodium Chloride 0.9% 100 ml @ 25 mls/hr IVPB Q12HR [facility] Rx #:[id number] d5w kvo 40 Intake, IV Titration 194.988 272.325 100 Amount Propofol 1,000 mg In 194.988 272.325 100 Empty Bag 1 bag @ Titrate IV .Q0M [facility] Rx#: [id number] Tube Feeding 138 598 92 Lipid 25 Piperacillin-Tazobactam 3 25 .375 gm In Sodium Chloride 0.9% 100 ml @ 25 mls/hr IVPB Q12HR [facility] Rx #:[id number] Other 1200 Output: Urine 1140 895 820 Other: Voiding Method Indwelling Catheter Indwelling Catheter Indwelling Catheter # Bowel Movements 1 ABP, PAP, CO, CI - Last Documented Arterial Blood Pressure 120/53 - Exam GENERAL: Laying in bed, intubated EYES: Pupils equal. Conjunctiva normal. HEENT: External appearance of nose and ears normal, oral cavity dry., Endotr acheal tube in place, on G-tube feedings NECK: JVD unable to assess,; masses not palpable. HEART: First and second heart sounds are normal; no edema. LUNGS: Respiratory rate increased, decreased breath sounds ABDOMEN: Soft, nontender, liver spleen not palpable, no masses palpable. DERMATOLOGICAL: Area of redness in both the groin,siver demarcated plaques, and both legs PSYCH: Unable to assess, intubated. NEUROLOGICAL: Pupils are reactive, making nonpurposeful movements INVESTIGATIONS, reviewed in the clinical context: White count 20.5 hemoglobin 10.9 Previous testing White count 12.4 hemoglobin 12.6 platelets 237 potassium 4.8 bun 61 creatinine 3.11 Troponin I 0.620, 0.807, influenza A and B both negative EKG tracing personally reviewed by me-personally reviewed by me shows normal sinus rhythm, poor R-wave progression, some T-wave changes in anterolateral leads Chest x-ray film personally reviewed by me-venous prominence, fluid in the fissure, right basilar infiltrate Abdominal ultrasound on 07/29/2019-severe left hydronephrosis and moderate right hydronephrosis, abnormally thickened urinary bladder wall seen multifocally, additionally a sessile mass questionable 2-D [id number]-91-25 percent - Labs CBC & Chem 7: 08/29/19 08:00 08/29/19 08:00 Labs: Abnormal Lab Results - Last 24 Hours (Table) 08/27/19 08/27/19 08/27/19 Range/Units 15:53 19:57 22:20 WBC 20.5 H (3.8-10.6) k/uL RBC 3.43 L (4.30-5.90) m/uL Hgb 10.9 L (13.0-17.5) gm/dL Hct 34.8 L (39.0-53.0) % MCV 101.4 H (80.0-100.0) fL Neutrophils # (1.3-7.7) k/uL Lymphocytes # (1.0-4.8) k/uL ABG pCO2 (35-45) mmHg ABG pO2 (83-108) mmHg ABG HCO3 (21-25) mmol/L ABG Total CO2 (19-24) mmol/L ABG O2 Saturation (94-97) % BUN (9-20) mg/dL Creatinine (0.66-1.25) mg/dL Glucose (74-99) mg/dL POC Glucose (mg/dL) 177 H 214 H (75-99) mg/dL Calcium (8.4-10.2) mg/dL Phosphorus (2.5-4.5) mg/dL ALT (21-72) U/L Albumin (3.5-5.0) g/dL 08/27/19 08/28/19 08/28/19 Range/Units 23:57 04:15 04:15 WBC 18.5 H (3.8-10.6) k/uL RBC 3.34 L (4.30-5.90) m/uL Hgb 10.7 L (13.0-17.5) gm/dL Hct 33.7 L (39.0-53.0) % MCV 100.8 H (80.0-100.0) fL Neutrophils # 16.9 H (1.3-7.7) k/uL Lymphocytes # 0.5 L (1.0-4.8) k/uL ABG pCO2 (35-45) mmHg ABG pO2 (83-108) mmHg ABG HCO3 (21-25) mmol/L ABG Total CO2 (19-24) mmol/L ABG O2 Saturation (94-97) % BUN 161 H* (9-20) mg/dL Creatinine 3.36 H (0.66-1.25) mg/dL Glucose 230 H (74-99) mg/dL POC Glucose (mg/dL) 223 H (75-99) mg/dL Calcium 8.2 L (8.4-10.2) mg/dL Phosphorus 8.5 H (2.5-4.5) mg/dL ALT 95 H (21-72) U/L Albumin 3.3 L (3.5-5.0) g/dL 08/28/19 08/28/19 08/28/19 Range/Units 04:15 07:06 08:17 WBC (3.8-10.6) k/uL RBC (4.30-5.90) m/uL Hgb (13.0-17.5) gm/dL Hct (39.0-53.0) % MCV (80.0-100.0) fL Neutrophils # (1.3-7.7) k/uL Lymphocytes # (1.0-4.8) k/uL ABG pCO2 51 H (35-45) mmHg ABG pO2 72 L (83-108) mmHg ABG HCO3 32 H (21-25) mmol/L ABG Total CO2 33 H (19-24) mmol/L ABG O2 Saturation 92.7 L (94-97) % BUN (9-20) mg/dL Creatinine (0.66-1.25) mg/dL Glucose (74-99) mg/dL POC Glucose (mg/dL) 233 H 195 H (75-99) mg/dL Calcium (8.4-10.2) mg/dL Phosphorus (2.5-4.5) mg/dL ALT (21-72) U/L Albumin (3.5-5.0) g/dL 08/28/19 Range/Units 11:59 WBC (3.8-10.6) k/uL RBC (4.30-5.90) m/uL Hgb (13.0-17.5) gm/dL Hct (39.0-53.0) % MCV (80.0-100.0) fL Neutrophils # (1.3-7.7) k/uL Lymphocytes # (1.0-4.8) k/uL ABG pCO2 (35-45) mmHg ABG pO2 (83-108) mmHg ABG HCO3 (21-25) mmol/L ABG Total CO2 (19-24) mmol/L ABG O2 Saturation (94-97) % BUN (9-20) mg/dL Creatinine (0.66-1.25) mg/dL Glucose (74-99) mg/dL POC Glucose (mg/dL) 206 H (75-99) mg/dL Calcium (8.4-10.2) mg/dL Phosphorus (2.5-4.5) mg/dL ALT (21-72) U/L Albumin (3.5-5.0) g/dL Microbiology - Last 24 Hours (Table) 08/21/19 10:10 Blood Culture - Final Blood No Growth after 144 hours Assessment and Plan Assessment: -Acute on chronic congestive heart failure exacerbation, from systolic and diastolic dysfunction EF 20-25%, slow improvement, was on IV Lasix-bolus. On hold due to ANIA. -Cardiogenic and septic shock requiring pressor support and IV dobutamine, stabilized -Severe Right-sided pneumonia, suspect gram-negative organism, slow to respond, POA, still having some fevers -Acute COPD exacerbation in a current smoker, slow to respond, POA, -Acute hypoxic and hypercapnic respiratory failure due to COPD and pneumonia, POA, requiring ventilator support -Bilateral hydronephrosis, with distal obstruction and evidence of chronic kidney disease on the left kidney, right hydronephrosis improved -Chronic kidney disease, baseline unknown, including obstructive pattern -Acute renal failure, possibly combination of cardiorenal syndrome and o bstructive pattern, including ATN, worsening -Hyperkalemia secondary to renal failure, improved -Diabetes mellitus type 2 on oral hypoglycemic, uncontrolled with hyperglycemia -Hyperlipidemia -Essential hypertension -Primary osteoarthritis -Chronic kidney disease stage IV -Lactic acidosis from pneumonia -Troponin leak 2 positive possibly. Hemodynamic instability. Doubt acute coronary syndrome -Acute delirium from pneumonia sepsis Plan: Currently the sixth are on hold. Continue with empiric antibiotics. Follow up renal function. 2 feedings as tolerated.. Insulin doses being adjusted. Care discussed with the at the bedside. Prognosis remains guarded. IV antibiotics including IV Zosyn. On IV steroids. Time with Patient: Greater than 30
--- NOTE | 2019-08-29 23:11 | P.PN ---
Subjective Progress Note Date: 08/29/19 Principal diagnosis: Acute on chronic CHF with systolic dysfunction This is [address] rai. Chronic stable medical conditions include diabetes, hypertension, hyperlipidemia, osteoarthritis, chronic kidney disease, home oxygen 2-3 L, chronic low back pain and psoriatic.. Patient was brought in by his . Most history is obtained by the at the bedside. At her baseline patient very much sits down and watches television. Does not drive. Has a fair appetite. Normally able to get around the house. Patient started coughing became short of breath wheezing for 1 day, with a decreased oral intake. Became a bit more confused and presented ER. Patient was not willing to come to the hospital but brought him in. Was given IV Lasix in the ER , bronchodilators. Patient had been quite a bit short of breath. Bringing some sputum. No obvious fever or chills. admitted with a diagnosis of right-sided pneumonia, CHF exacerbation, COPD e xacerbation, acute delirium. Patient also found to have from recent renal ultrasound-bilateral hydronephrosis and possibly growth in the bladder.. Also acute kidney injury . Patient was started on Lasix drip and IV ceftriaxone, switched to IV Zosyn. Patient on the medical floor became lethargic and went into respiratory failure and was intubated on August 22. Patient was put on IV Lasix drip and IV propofol. Also in IV dobutamine-discontinued. 08/27/2019. Remains on the ventilator. FiO2 55% and a PEEP of 10. 2 feeding at 46 mL an hour. Remains on IV propofol. Sedated. Telemetry shows sinus rhythm. at the bedside. 08/28/2019 Patient is currently on mechanical ventilator and sedated. Renal function continues to get worse with BUN 161 and creatinine 3.36. WBC count went up to 18.5 and hemoglobin level X.7. Patient is having bilateral lower action the significant swelling and chest x-ray showed chronic parenchymal changes and patchy bibasilar infiltrates and tiny pleural effusion. Patient was started on Zosyn empirically. Cultures have been negative. Lasix is on hold due to worsening renal function. Nephrology and pulmonary is following. Planning for renal replacement therapy. 08/29/2019 Patient remained on mechanical ventilator. Patient was started on hemodialysis today. Creatinine level increased to 3.03 and BUN 169 today. WBC count increased to 21.4 and hemoglobin 11.3. Patient is currently on antibiotics in the form of Zosyn. ABG showed pH of 7.36, pCO2 56 and PaO2 64. Chest x-ray showed chronic changes, tiny pleural effusions. Bibasilar a telectasis/infiltrates. Pulmonary and nephrology is following. Review of systems cannot be done as patient is intubated Current medications reviewed from today's electronic records Objective - Vital Signs Vital signs: Vital Signs Temp 99.1 F 08/29/19 20:00 Pulse 84 08/29/19 22:00 Resp 20 08/29/19 22:00 BP 111/62 08/29/19 12:26 Pulse Ox 94 L 08/29/19 22:00 Intake & Output 08/29/19 08/29/19 08/30/19 06:59 18:59 06:59 Intake Total 530 1085.222 140 Output Total 685 450 240 Balance -155 635.222 -100 Weight 79.8 kg Intake: IV 240 340 80 Piperacillin-Tazobactam 3 100 .375 gm In Sodium Chloride 0.9% 100 ml @ 25 mls/hr IVPB Q12HR [facility] Rx #:[id number] d5w kvo 240 240 80 Intake, IV Titration 200 55.222 Amount Propofol 1,000 mg In 200 55.222 Empty Bag 1 bag @ Titrate IV .Q0M [facility] Rx#: [id number] Tube Feeding 90 390 60 Hemodialysis 300 Output: Urine 685 450 240 Hemodialysis 0 Other: Voiding Method Indwelling Catheter Indwelling Catheter # Bowel Movements 1 ABP, PAP, CO, CI - Last Documented Arterial Blood Pressure 115/56 - Exam GENERAL: Laying in bed, intubated EYES: Pupils equal. Conjunctiva normal. HEENT: External appearance of nose and ears normal, oral cavity dry., Endotracheal tube in place, on G-tube feedings NECK: JVD unable to assess,; masses not palpable. HEART: First and second heart sounds are normal; no edema. LUNGS: Respiratory rate increased, decreased breath sounds ABDOMEN: Soft, nontender, liver spleen not palpable, no masses palpable. DERMATOLOGICAL: Area of redness in both the groin,siver demarcated plaques, and both legs PSYCH: Unable to assess, intubated. NEUROLOGICAL: Pupils are reactive, making nonpurposeful movements INVESTIGATIONS, reviewed in the clinical context: White count 20.5 hemoglobin 10.9 Previous testing White count 12.4 hemoglobin 12.6 platelets 237 potassium 4.8 bun 61 creatinine 3.11 Troponin I 0.620, 0.807, influenza A and B both negative EKG tracing personally reviewed by me-personally reviewed by me shows normal sinus rhythm, poor R-wave progression, some T-wave changes in anterolateral leads Chest x-ray film personally reviewed by me-venous prominence, fluid in the fissure, right basilar infiltrate Abdominal ultrasound on 07/29/2019-severe left hydronephrosis and moderate right hydronephrosis, abnormally thickened urinary bladder wall seen multifocally, ad ditionally a sessile mass questionable 2-D khaf-[id number]-20-25 percent - Labs CBC & Chem 7: 08/29/19 08:00 08/29/19 08:00 Labs: Abnormal Lab Results - Last 24 Hours (Table) 08/28/19 08/29/19 08/29/19 Range/Units 23:55 04:41 07:40 WBC (3.8-10.6) k/uL RBC (4.30-5.90) m/uL Hgb (13.0-17.5) gm/dL Hct (39.0-53.0) % MCV (80.0-100.0) fL Neutrophils # (1.3-7.7) k/uL Lymphocytes # (1.0-4.8) k/uL Monocytes # (0-1.0) k/uL ABG pCO2 56 H (35-45) mmHg ABG pO2 64 L (83-108) mmHg ABG HCO3 32 H (21-25) mmol/L ABG Total CO2 34 H (19-24) mmol/L ABG O2 Saturation 90.5 L (94-97) % BUN (9-20) mg/dL Creatinine (0.66-1.25) mg/dL Glucose (74-99) mg/dL POC Glucose (mg/dL) 134 H 128 H (75-99) mg/dL 08/29/19 08/29/19 08/29/19 Range/Units 07:55 08:00 08:00 WBC 21.4 H (3.8-10.6) k/uL RBC 3.56 L (4.30-5.90) m/uL Hgb 11.3 L (13.0-17.5) gm/dL Hct 35.7 L (39.0-53.0) % MCV 100.2 H (80.0-100.0) fL Neutrophils # 19.1 H (1.3-7.7) k/uL Lymphocytes # 0.8 L (1.0-4.8) k/uL Monocytes # 1.2 H (0-1.0) k/uL ABG pCO2 (35-45) mmHg ABG pO2 (83-108) mmHg ABG HCO3 (21-25) mmol/L ABG Total CO2 (19-24) mmol/L ABG O2 Saturation (94-97) % BUN 169 H* (9-20) mg/dL Creatinine 3.03 H (0.66-1.25) mg/dL Glucose 139 H (74-99) mg/dL POC Glucose (mg/dL) 149 H (75-99) mg/dL 08/29/19 08/29/19 Range/Units 16:08 20:16 WBC (3.8-10.6) k/uL RBC (4.30-5.90) m/uL Hgb (13.0-17.5) gm/dL Hct (39.0-53.0) % MCV (80.0-100.0) fL Neutrophils # (1.3-7.7) k/uL Lymphocytes # (1.0-4.8) k/uL Monocytes # (0-1.0) k/uL ABG pCO2 (35-45) mmHg ABG pO2 (83-108) mmHg ABG HCO3 (21-25) mmol/L ABG Total CO2 (19-24) mmol/L ABG O2 Saturation (94-97) % BUN (9-20) mg/dL Creatinine (0.66-1.25) mg/dL Glucose (74-99) mg/dL POC Glucose (mg/dL) 174 H 206 H (75-99) mg/dL Microbiology - Last 24 Hours (Table) 08/28/19 16:27 Gram Stain - Preliminary Sputum Sputum Culture - Preliminary Assessment and Plan Assessment: -Acute on chronic congestive heart failure exacerbation, from systolic and diastolic dysfunction EF 20-25%, slow improvement, was on IV Lasix-bolus. On hold due to ANIA. -Cardiogenic and septic shock requiring pressor support and IV dobutamine, sta bilized -Severe Right-sided pneumonia, suspect gram-negative organism, slow to respond, POA, still having some fevers -Acute COPD exacerbation in a current smoker, slow to respond, POA, -Acute hypoxic and hypercapnic respiratory failure due to COPD and pneumonia, POA, requiring ventilator support -Bilateral hydronephrosis, with distal obstruction and evidence of chronic kidney disease on the left kidney, right hydronephrosis improved -Chronic kidney disease, baseline unknown, including obstructive pattern -Acute renal failure, nonoliguric. possibly combination of cardiorenal syndrome and obstructive pattern, including ATN, worsening restarted on hemodialysis on 08/29/2019 -Hyperkalemia secondary to renal failure, improved -Diabetes mellitus type 2 on oral hypoglycemic, uncontrolled with hyperglycemia -Hyperlipidemia -Essential hypertension -Primary osteoarthritis -Chronic kidney disease stage IV -Lactic acidosis from pneumonia -Troponin leak 2 positive possibly. Hemodynamic instability. Doubt acute coronary syndrome -Acute delirium from pneumonia sepsis Plan: Currently Lasix on hold. Continue with empiric antibiotics. Follow up renal function. Tube feedings feedings as tolerated.. Insulin doses being adjusted. Care discussed with the at the bedside. Prognosis remains guarded. IV antibiotics including IV Zosyn. On IV steroids. Time with Patient: Greater than 30
[2019-08-29 23:53] LABS: Glucose,Whole Blood 187 mg/dL (75-99)
[2019-08-30] MEDS: INSULIN ASPART (NovoLOG) 100 UNIT/ML VIAL SQ SCH ×6 (00:16→21:00)
[2019-08-30] MEDS: methylPREDNISolone SOD SUCCI 40 MG/ML 1 ML VIAL IV SCH ×4 (00:54→18:02)
[2019-08-30] MEDS: IPRATROPIUM-ALBUTEROL 3 ML NEB INHALATION SCH ×7 (01:10→23:34)
[2019-08-30 04:01] LABS: Glucose,Whole Blood 173 mg/dL (75-99)
[2019-08-30 06:47] LABS: Basophils % (A) 0 %; Eosinophils # (A) 0.1 k/uL (0-0.7); Eosinophils % (A) 0 %; HCT 32.2 % (39.0-53.0); HGB 10.6 gm/dL (13.0-17.5); Lymphocytes # (A) 0.7 k/uL (1.0-4.8); Lymphocytes % (A) 3 %; MCH 32.5 pg (25.0-35.0); MCHC 32.9 g/dL (31.0-37.0); MCV 98.8 fL (80.0-100.0); Mean Platelet Volume 11.5; Monocytes # (A) 1.1 k/uL (0-1.0); Monocytes % (A) 5 %; Neutrophils # (A) 21.2 k/uL (1.3-7.7); Neutrophils % (A) 92 %; Platelet Count 175 k/uL (150-450); RBC 3.26 m/uL (4.30-5.90); RDW 13.2 % (11.5-15.5); WBC 23.1 k/uL (3.8-10.6)
[2019-08-30 06:55] LABS: Calcium 8.6 mg/dL (8.4-10.2); Potassium 3.7 mmol/L (3.5-5.1)
--- NOTE | 2019-08-30 06:55 | XR ---
EXAMINATION TYPE: XR chest 1V portable DATE OF EXAM: 08/30/2019 HISTORY: Intubated. REFERENCE: Previous study dated 08/28/2019 the patient's. FINDINGS: The patient is ET tube and NG tube remain in place, unchanged in appearance. There is a lef t subclavian catheter in place. Its tip is in the superior vena cava. The lungs are overinflated. There is worsening opacity of the left lung base. There are small, bilate ral effusions. The heart is not enlarged. IMPRESSION: 1. COPD. 2. WORSENING LEFT BASILAR OPACITY, LIKELY REPRESENTING PNEUMONIA. 3. SMALL, BILATERAL EFFUSIONS.
[2019-08-30 07:28] LABS: ABG Base Excess 1.1 mmol/L; ABG HCO3 26 mmol/L (21-25); ABG Oxygen Saturation 94.3 % (94-97); ABG PCO2 44 mmHg (35-45); ABG PH 7.38 (7.35-7.45); ABG PO2 77 mmHg (83-108); ABG TCO2 28 mmol/L (19-24); Allen Test Performed? Yes
[2019-08-30] MEDS: BUDESONIDE 1 MG/2 ML NEBU INHALATION SCH ×2 (07:35→19:53)
--- NOTE | 2019-08-30 08:43 | P.PN ---
Subjective Progress Note Date: 08/30/19 Seen and examined for the follow-up of acute kidney injury. Started on hemodialysis yesterday. Tolerating well today. Still on a ventilator. Minimal UF goal. Objective - Vital Signs Vital signs: Vital Signs Temp 98.1 F 08/30/19 04:00 Pulse 93 08/30/19 07:50 Resp 18 08/30/19 07:00 BP 111/62 08/29/19 12:26 Pulse Ox 95 08/30/19 07:00 Intake & Output 08/29/19 08/30/19 08/30/19 18:59 06:59 18:59 Intake Total 1085.222 360 20 Output Total 450 760 75 Balance 635.222 -400 -55 Weight 82.5 kg Intake: IV 340 240 20 Piperacillin-Tazobactam 3 100 .375 gm In Sodium Chloride 0.9% 100 ml @ 25 mls/hr IVPB Q12HR [facility] Rx #:[id number] d5w kvo 240 240 20 Intake, IV Titration 55.222 Amount Propofol 1,000 mg In 55.222 Empty Bag 1 bag @ Titrate IV .Q0M [facility] Rx#: [id number] Tube Feeding 390 120 Hemodialysis 300 Output: Urine 450 760 75 Hemodialysis 0 Other: Voiding Method Indwelling Catheter Indwelling Catheter ABP, PAP, CO, CI - Last Documented Arterial Blood Pressure 118/54 - Exam No acute distress S1-S2 heard Decreased breath sounds Oral intubation Caldwell catheter Trace edema Right groin Zoran - Labs CBC & Chem 7: 08/30/19 06:30 08/30/19 06:30 Labs: Abnormal Lab Results - Last 24 Hours (Table) 08/29/19 08/29/19 08/29/19 Range/Units 08:00 16:08 20:16 WBC (3.8-10.6) k/uL RBC (4.30-5.90) m/uL Hgb (13.0-17.5) gm/dL Hct (39.0-53.0) % Neutrophils # (1.3-7.7) k/uL Lymphocytes # (1.0-4.8) k/uL Monocytes # (0-1.0) k/uL ABG pO2 (83-108) mmHg ABG HCO3 (21-25) mmol/L ABG Total CO2 (19-24) mmol/L Sodium (137-145) mmol/L Chloride (98-107) mmol/L BUN 169 H* (9-20) mg/dL Creatinine 3.03 H (0.66-1.25) mg/dL Glucose 139 H (74-99) mg/dL POC Glucose (mg/dL) 174 H 206 H (75-99) mg/dL 08/29/19 08/30/19 08/30/19 Range/Units 23:52 03:59 06:30 WBC 23.1 H (3.8-10.6) k/uL RBC 3.26 L (4.30-5.90) m/uL Hgb 10.6 L (13.0-17.5) gm/dL Hct 32.2 L (39.0-53.0) % Neutrophils # 21.2 H (1.3-7.7) k/uL Lymphocytes # 0.7 L (1.0-4.8) k/uL Monocytes # 1.1 H (0-1.0) k/uL ABG pO2 (83-108) mmHg ABG HCO3 (21-25) mmol/L ABG Total CO2 (19-24) mmol/L Sodium (137-145) mmol/L Chloride (98-107) mmol/L BUN (9-20) mg/dL Creatinine (0.66-1.25) mg/dL Glucose (74-99) mg/dL POC Glucose (mg/dL) 187 H 173 H (75-99) mg/dL 08/30/19 08/30/19 Range/Units 06:30 07:21 WBC (3.8-10.6) k/uL RBC (4.30-5.90) m/uL Hgb (13.0-17.5) gm/dL Hct (39.0-53.0) % Neutrophils # (1.3-7.7) k/uL Lymphocytes # (1.0-4.8) k/uL Monocytes # (0-1.0) k/uL ABG pO2 77 L (83-108) mmHg ABG HCO3 26 H (21-25) mmol/L ABG Total CO2 28 H (19-24) mmol/L Sodium 133 L (137-145) mmol/L Chloride 95 L (98-107) mmol/L BUN 124 H* (9-20) mg/dL Creatinine 2.31 H (0.66-1.25) mg/dL Glucose 149 H (74-99) mg/dL POC Glucose (mg/dL) (75-99) mg/dL Microbiology - Last 24 Hours (Table) 08/28/19 16:27 Gram Stain - Preliminary Sputum Sputum Culture - Preliminary Assessment and Plan Assessment: #1 nonoliguric acute kidney injury secondary to ischemic ATN. Disproportionate rise in BUNs secondary to steroids and volume depletion. #2 chronic kidney disease stage III secondary to diabetic kidney disease with a baseline creatinine of 2.0 MG per DL. #3 acute respiratory failure on ventilator with 50% FiO2 and 8 of PEEP. #4 hyponatremia resolved #5 mild hyperkalemia with alkalosis #6 respiratory acidosis with metabolic alkalosis. Plan: #1 hemodialysis yesterday 2.5 hours, decreased U of cold to 0 UF with hypoten brook[place]nn and plan minimal UF today. #2 hemodialysis again tomorrow. #3 avoid nephrotoxic agents and hypotensive episodes #4 ICU care
[2019-08-30 08:45] LABS: Glucose,Whole Blood 109 mg/dL (75-99)
[2019-08-30] MEDS: PIPERACILLIN-TAZOBACTAM 3.375 GM in SODIUM CHLORIDE 0.9% 100 ML IVPB SCH ×2 (08:59→21:52)
[2019-08-30] MEDS: CHLORHEXIDINE GLUCONATE 15 ML CUP MUCOUS MEM SCH ×2 (09:00→21:51)
[2019-08-30] MEDS: PANTOPRAZOLE 40 MG/10 ML VIAL IVP SCH ×2 (09:00→21:51)
[2019-08-30] MEDS: CHOLECALCIFEROL 1,000 UNIT TAB PO SCH (09:01)
[2019-08-30] MEDS: METOPROLOL TARTRATE 25 MG TAB PO SCH ×3 (09:01→21:52)
[2019-08-30] MEDS: ASPIRIN 81 MG PO SCH (09:01)
[2019-08-30] MEDS: NYSTATIN 100,000 UNIT/ML SUSP 500,000 UNIT/5 ML CUP PO SCH ×4 (09:01→22:00)
[2019-08-30] MEDS: NICOTINE 21MG/24HR PATCH TRANSDERM SCH (09:01)
[2019-08-30] MEDS: ATORVASTATIN 40 MG TAB PO SCH (09:01)
[2019-08-30] MEDS: HEPARIN SODIUM,PORCINE 5,000 UNIT/ML 1 ML VIAL SQ SCH ×2 (09:01→21:51)
[2019-08-30] MEDS: NYSTATIN 100,000 UNIT/GM POWD 15 GM TOPICAL SCH ×2 (09:02→21:53)
[2019-08-30] MEDS ORDERED: VANCOMYCIN IV PER PHARMACY 1 EACH MISC MISCELLANE PRN (09:48)
[2019-08-30] MEDS ORDERED: VANCOMYCIN 1,500 MG in SODIUM CHLORIDE 0.9% 250 ML IVPB ONE (11:00)
[2019-08-30 11:52] LABS: Glucose,Whole Blood 135 mg/dL (75-99)
[2019-08-30] MEDS: PROPOFOL 1,000 MG in EMPTY BAG 1 BAG IV SCH ×2 (11:56→16:52)
--- NOTE | 2019-08-30 12:19 | P.PN ---
Subjective Progress Note Date: 08/30/19 Principal diagnosis: acute hypoxic and hypercapnic respiratory failure secondary to acute exacerbation of COPD, community-acquired right lower lobe pneumonia and acute systolic congestive heart failure. This is a 78-year-old male patient who was brought into the hospital yesterday because of worsening shortness of breath. The patient follows up with Dr. Porter. He has not been hospitalized here in our location for quite some time. He does have multiple medical problems. He has coronary artery disease and a remote history of RI, congestion heart failure, chronic stage III kidney disease, hypertension, hyperlipidemia and diabetes mellitus and extensive psoriasis. Is a chronic smoker. 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 Over the past 24-48 hours, the patient was having increased shortness of breath. It was thought that he may be having a pneumonia. He did not want in to come into the hospital. He ultimately came into emergency and overnight he became unresponsive and his blood gas showed acute respiratory acidosis with a pH of 7.09 with a pCO2 of 96 and pO2 of 51 and this was on 100% nonrebreather. Based on that, I made recommendations to intubate the patient around 3 AM this morning. He was placed on a mechanical ventilator and he was brought into the intensive care unit. Currently is on assist control mode of ventilation at the rate of 18 with a tidal volume of 550 FiO2 of 70% and a PEEP of 5. The follow- up blood gases showed a pH of 7.27 with a pCO2 of 59 and pO2 of 70 and this was done and FiO2 of 80%. Peak airway pressure is around 22. He is on propofol which is currently running at 50 g per KG per minute. He is also on norepinephrine infusion at 0.05 g per KG per minute. He was started on Lasix drip at 10 mg an hour. His blood work with a white cell count of 11. Hemoglobin is at 12.6. His potassium level is at 5.2. Creatinine is at 3.8. Troponin maxed was at 1.1 and his EKG showing a sinus rhythm in the form of sinus tachycardia. There are Q waves over the anterior leads consistent with an old anterior wall myocardial infarction. Echocardiogram has been done and the results are still pending for now. Urine output is in the order of 30 mL an hour and the chest x-ray from today shows adequate positioning of the suzette tracheal tube. There is pulmonary edema and there is increased consolidation of the right lower lobe which may suggest the potential of an underlying right lower lobe pneumonia. NG tube is in a good location for now. There was copious amount of rest or secretions post intubation and the patient had sputum sent for Gram stain and culture. He was given antibiotics and currently is on Rocephin. His ultrasound the kidneys showed bilateral hydronephrosis. 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 Urology has been consulted. His evaluation of 08/23/2019 I'm seeing this patient for a follow-up. The patient is well sedated with propofol and is calm and comfortable. He is currently on 50 g per KG per minute of propofol. He remains arousable upon lower degree of sedation. As far as the vent support, the patient is on assist control mode at the rate of 18 with a tidal volume of 550 and FiO2 of 50% with a PEEP of 10. The blood gases from today showed a pH of 7.39 with a pCO2 of 48 and pO2 129 and this was done on FiO2 of 70%. Chest x-ray shows stable findings with CHF and possible right lower lobe pneumonia. ET tube is in a good location. Triple-lumen catheter is in a good location. NG tube is in a good location. The patient is still on Lasix drip at 10 mg an hour. He is producing excellent urine output and urine output is more than 50 mL an hour. The labs from today showed a BUN of 102 with a creatinine of 4.38. His serum bicarbs at 27. Note that the patient had a CAT scan of the abdomen based on the fact that he had bilateral hydronephrosis. The CAT scan was completed yesterday and it showed and confirmed the left-sided hydronephrosis. There is a 3 mm nonobstructive left renal calculus and severe left-sided hydronephrosis with cortical thickening. No obstruction by calculus was identified. There is a moderate degree of right-sided hydronephrosis. There is a 4 cm exophytic lesion posterior lateral aspect of the lower pole of the right kidney. The bladder is poorly distended with severe concentric wall thickening and a Caldwell catheter is in place. There was a concern of a left UV junction obstruction and a cystoscopy will be needed. 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 Urology on the case. Caldwell cath is in place. The patient is currently on IV Zosyn. Sputum and blood culture sent and the results are still pending for now. Echocardiogram showed impaired left ventricular ejection fraction of less than 20%. Cardiology is on the case. Patient was reevaluated today on 08/24/2019, remains on mechanical ventilation, and his ventilator settings are tidal volume of 550 assist-control rate of 18 FiO2 of 50% PEEP of 10 and I lowered the down to 8. Remains on multiple drips including Lasix at 5 mg per hour. He is also on propofol at 50 mcg/kg/m,ABG showed a pO2 of 90 pCO2 of 49 and pH of 7.44. His peak airway pressure is in the high 20s, and plateau pressure is about 19.chest x-ray continues to show evidence of right lower lobe infiltrate.with chronic parenchymal changes and bib asilar atelectasis.patient is not requiring any pressors at this point, his renal functioning seems to be worsening, added Lasix drip was cut down from 10-5 mg per hour. Urine output remains excellent.his last echocardiogram showed ejection fraction of 20-25%. And mild mitral regurgitation.CBC showed leukocytosis with WBC count of 18.8 hemoglobin is 10.7. Electrolytes showed sodium 145 potassium 3.6 bicarb is 31BUN is 118 creatinine 4.45, gradually rising since 08/21 from 3.11. Patient remains on diuretics, bronchodilators, methylprednisolone, beta blockers,and Zosyn empirically.again he is not requiring any pressors today. Remains on GI and DVT prophylaxis. He is also on insulin as per protocol. Reevaluated today on 08/25/2019, remains in the ICU, mechanically ventilated, his ventilator settings are tidal volume of 550 assist-control rate 18 FiO2 of 50%, and PEEP was cut down to 5. ABG showed a pO2 of 82 pCO2 of 54 pH of 7.42. Patient is not requiring any pressors, he is still on propofol at 45 mcg/kg/m, his IV fluid was changed to D5W, and I have recommended fluid boluses/free water via nasogastric tube. His urine output is excellent at 75 ML per hour. Patient is a scheduled by urology to have a renal ultrasound, may require nephrostomy tube placement. However that's yet to be decided. Chest x-ray, continues to show COPD and patchy bibasilar infiltrates. Remains on Lasix at 40 mg IV push every 12 hours. Remains on antibiotics, and bronchodilators. His mental status was assessed yesterday off sedation, and he seemed to be appropriate according to the nurse taking care of him. We plan to have sedation interruption also today, and assessment of mental status. However considering his ABG is marginal, considering his chest x-ray, I have no plans to extubate the patient today. But if the patient is to have nephrostomy tube placement, hopefully it could be done today. Renal profile remains abnormal with a BUN of 129 creatinine 4.31. Slightly improved compared to creatinine yesterday of 4.45. Nutrition-jenkins, the patient remains on enteral feeding via nasogastric tube. He also remains on GI and DVT prophylaxis. And on insulin as per protocol. Patient was reevaluated again today in the ICU on 08/26/2019, remains intubated and mechanically ventilated. Overnight, his pulmonary status has deteriorated, oxygenation worsened, chest x-ray also worsened with worsening right lower lobe infiltrate and suspect ongoing interstitial edema. Although the patient has a good urine output. His FiO2 had to be increased to 70%, his PEEP was increased today to 10 again, remains on tidal volume of 550, and assist control rate of 18. His ABG on 70% today and PEEP of 5 showed a pO2 of 79 pCO2 of 47 pH of 7.47. Hence the patient was placed on a high PEEP, and I plan to titrate down his FiO2 hopefully back to 50%. Patient is obviously not ready to be weaned. It took the patient about 20 hours off sedation yesterday to respond and follow simple instructions. He was quite sedated off propofol all day yesterday. And this was for roughly about 20 hours. Today the patient is back on propofol, he was getting extremely agitated earlier, and he had to be placed back on propofol. He is at 45 mcg/kg/m. He is not requiring any pressors, he is hemody namically stable. Again his chest x-ray is worse, his CBC showed leukocytosis with WBC of 18.9 hemoglobin is 10.8. Electrolytes remain abnormal with a sodium of 147, and I recommended that we continue free water flushes via nasogastric tube today. The Lasix dose will remain the same, patient is diuresing quite well with 2 doses of Lasix a day. Reevaluated today on 08/27/2019, patient remains in the ICU, intubated, mechanically ventilated. Yesterday his chest x-ray showed worsening, his oxyg enation deteriorated, he had to be placed on a PEEP of 10 and FiO2 of 70%. He remains on a PEEP of 10, his FiO2 is down to 55%. And his ABG earlier on 60% showed pO2 of 81 pCO2 of 52 pH of 7.43. Chest x-ray showed slight improvement in his interstitial edema and the right lower lobe pneumonia. But not completely resolved. His ventilator settings are assist control rate of 18, tidal volume of 550, FiO2 of 55%, and PEEP is at 10. Patient will be given a sedation holiday, and we'll assess mental status again today, but clearly he is not ready for weaning. I did explain that to the family at bedside. WBC count is 17.6 hemoglobin is 11.2, a left lites are normal sodium is improving. Renal profile is basically about the same with elevated BUN of 149 creatinine of 3.55, urine output seems to be excellent. But he continues to have elevated BUN and creatinine. Nutrition-jenkins, the patient remains on enteral feeding. He is not requiring any pressors. Remains on bronchodilators and steroids. And on insulin. Remains on free water flushes. Sodium did improve with free water. Reevaluated today on 08/28/2019, remains intubated, mechanically ventilated, patient is basically the same today compared to yesterday. His ABG is marginal. Remains on 55% FiO2, and PEEP was at 10. However after evaluating the patient, I cut down the FiO2 to 50%, and increased the PEEP to 12. His ABG this morning showed a pO2 of 72 pCO2 of 51 pH of 7.40. WBC count is 18.5 hemoglobin is 10.7. Renal functioning is worse today, BUN is up to 161 creatinine is 3.36. Patient continues to have good urine output with diuretics. Chest x-ray showed chronic parenchymal changes and patchy bibasilar infiltrates, small tiny pleural effusions noted. Ordered repeat sputum cultures, and these are pending. His last cultures were negative. Patient remains on assist control mode of 18, tidal volume of 550, PEEP is 12 today, FiO2 is down to 50%. Patient is tolerating enteral feeding. He is not requiring any pressors. And he seems to follow simple instructions once sedation is placed on hold. Patient is back on propofol this morning. His mental status was assessed earlier, and it was intact according to the nurse taking care of him. Remains on Zosyn empirically. Reevaluated today on 08/29/2019, remains in the ICU, intubated, mechanically ventilated. Patient is presently receiving hemodialysis. ABG remains marginal in spite of high PEEP at 12, and his FiO2 was increased yesterday to 55. Today I dialed his PEEP down, seemed to do better on a lower PEEP, hence I kept the PEEP at 8 and I kept him at 55% FiO2. I believe his PEEP may be affecting his LV function. And a lower PEEP may be better for him. ABG on 12 of PEEP and FiO2 of 55% showed a pO2 of 64 pCO2 of 56 pH of 7.36. His WBC count today is 21.4 hemoglobin is 11.3. Electrolytes are normal BUN is 169 creatinine is 3.03, and that being addressed by nephrology, presently on hemodialysis. Repeat sputum cultures are negative so far, and nondiagnostic. Remains empirically on Zosyn. Chest x-ray today showed chronic changes, tiny pleural effusions noted, improved bibasilar atelectasis and/or infiltrates. Reevaluated today on 08/30/2019, still in the ICU, intubated, on mechanical ventilation, patient received hemodialysis this morning. And 500 mL of fluid were removed. Patient is down to a PEEP of 8, and today I cut down his FiO2 to 50%. His ABG this morning showed a pO2 of 77 pCO2 of 44 pH of 7.38. Renal functioning is improving, BUN is 124 creatinine 2.31. Electrolytes are relatively normal. Sodium is 133. CBC is also unremarkable. However his white count is up to 23.1. Has been gradually rising, and today I have noted that his chest x-ray is showing a new infiltrate/pneumonia involving the left lower lobe. Patient has significant amount of endotracheal tube secretions, I went ahead and ordered another culture on the sputum, and add vancomycin. I am suspecting that the patient may be developing a hospital-acquired pneumonia involving the left lower lobe. His initial right lower lobe pneumonia is significantly improved based on the chest x-ray today. Weaning from mechanical ventilation is to be delayed, patient is not ready for any form of weaning at this point. However I have instructed the nurses to hold his sedation today, assess mental status, and place back on ventilatory support once his mental status is verified. His ABG is marginal at best. And again the patient has significant amount of endotracheal tube secretions, this will make weaning extremely difficult at this point. In the meantime the patient was seen by general surgery, I still believe the patient will need tracheostomy and PEG tube placement. And this will likely be done tomorrow unless a dramatic improvement is noted clinically in the next 24 hours. Objective - Vital Signs Vital signs: Vital Signs Temp 98.4 F 08/30/19 09:12 Pulse 95 08/30/19 11:46 Resp 42 H 08/30/19 11:00 BP 118/72 08/30/19 09:12 Pulse Ox 90 L 08/30/19 11:00 Intake & Output 08/29/19 08/30/19 08/30/19 18:59 06:59 18:59 Intake Total 1085.593 782 3079 Output Total 425 773 5845 Balance 635.222 -400 -90 Weight 82.5 kg Intake: IV 340 240 220 Piperacillin-Tazobactam 3 100 100 .375 gm In Sodium Chloride 0.9% 100 ml @ 25 mls/hr IVPB Q12HR [facility] Rx #:[id number] d5w kvo 240 240 120 Intake, IV Titration 55.222 100 Amount Propofol 1,000 mg In 55.222 100 Empty Bag 1 bag @ Titrate IV .Q0M EUGEN[facility] Rx#: [id number] Tube Feeding 390 120 150 Hemodialysis 300 Other 800 Output: Urine 450 760 360 Hemodialysis 0 500 Other 500 Other: Voiding Method Indwelling Catheter Indwelling Catheter Indwelling Catheter ABP, PAP, CO, CI - Last Documented Arterial Blood Pressure 128/58 - Exam Physical Exam: Revealed a 78-year-old white male, on mechanical ventilation, sedated, in no distress. Head: Atraumatic, normocephalic. HEENT:[Neck is supple.] [No neck masses.] [No thyromegaly.] [No JVD.]PERRLA, EOMI, no icterus, moist mucous membranes noted.endotracheal tube and orogastric tube are intact. Chest: [symmetrical chest expansion, crackles at the bases, rhonchi and wheezes noted today. Cardiac Exam: [Normal S1 and S2, no S3 gallop,2/6 systolic murmur at the left lower sternal border. Abdomen: [obese,Soft, nontender, no megaly, no rebound, no guarding, normal bowel sounds.] Extremities: [No clubbing, trace of bipedal edema, no cyanosis.] Neurological Exam: sedated, on propofol, could not be performed. Psychiatric: Cannot be assessed. Skin: extensive psoriasis patches noted throughout the whole body and lower extremities bilaterally. Lymphatics: No lymphadenopathy. - Labs CBC & Chem 7: 08/30/19 06:30 08/30/19 06:30 Labs: Abnormal Lab Results - Last 24 Hours (Table) 08/29/19 08/29/19 08/29/19 Range/Units 16:08 20:16 23:52 WBC (3.8-10.6) k/uL RBC (4.30-5.90) m/uL Hgb (13.0-17.5) gm/dL Hct (39.0-53.0) % Neutrophils # (1.3-7.7) k/uL Lymphocytes # (1.0-4.8) k/uL Monocytes # (0-1.0) k/uL ABG pO2 (83-108) mmHg ABG HCO3 (21-25) mmol/L ABG Total CO2 (19-24) mmol/L Sodium (137-145) mmol/L Chloride (98-107) mmol/L BUN (9-20) mg/dL Creatinine (0.66-1.25) mg/dL Glucose (74-99) mg/dL POC Glucose (mg/dL) 174 H 206 H 187 H (75-99) mg/dL 08/30/19 08/30/19 08/30/19 Range/Units 03:59 06:30 06:30 WBC 23.1 H (3.8-10.6) k/uL RBC 3.26 L (4.30-5.90) m/uL Hgb 10.6 L (13.0-17.5) gm/dL Hct 32.2 L (39.0-53.0) % Neutrophils # 21.2 H (1.3-7.7) k/uL Lymphocytes # 0.7 L (1.0-4.8) k/uL Monocytes # 1.1 H (0-1.0) k/uL ABG pO2 (83-108) mmHg ABG HCO3 (21-25) mmol/L ABG Total CO2 (19-24) mmol/L Sodium 133 L (137-145) mmol/L Chloride 95 L (98-107) mmol/L BUN 124 H* (9-20) mg/dL Creatinine 2.31 H (0.66-1.25) mg/dL Glucose 149 H (74-99) mg/dL POC Glucose (mg/dL) 173 H (75-99) mg/dL 08/30/19 08/30/19 08/30/19 Range/Units 07:21 08:44 11:51 WBC (3.8-10.6) k/uL RBC (4.30-5.90) m/uL Hgb (13.0-17.5) gm/dL Hct (39.0-53.0) % Neutrophils # (1.3-7.7) k/uL Lymphocytes # (1.0-4.8) k/uL Monocytes # (0-1.0) k/uL ABG pO2 77 L (83-108) mmHg ABG HCO3 26 H (21-25) mmol/L ABG Total CO2 28 H (19-24) mmol/L Sodium (137-145) mmol/L Chloride (98-107) mmol/L BUN (9-20) mg/dL Creatinine (0.66-1.25) mg/dL Glucose (74-99) mg/dL POC Glucose (mg/dL) 109 H 135 H (75-99) mg/dL Microbiology - Last 24 Hours (Table) 08/28/19 16:27 Gram Stain - Final Sputum Sputum Culture - Final Assessment and Plan Assessment: impression: 1 acute hypoxic and hypercapnic respiratory failure secondary to pneumonia, most likely community-acquired involving the right lower lobe, acute exacerbation of COPD, and acute systolic congestive heart failure. 2 acute systolic congestive heart failure, ejection fraction of 20-25%. 3 acute exacerbation of COPD 4 acute right lower lobe cavity community-acquired pneumonia 5 chronic kidney disease stage III and there is evidence of acute on chronic kidney injury. Remains on hemodialysis 6 type 2 diabetes, patient remains on insulin as per protocol. 7 benign essential hypertension 8 dyslipidemia 9 history of extensive psoriasis. 10 chronic hypoxic respiratory failure patient has been on oxygen at 2-3 L/m when necessary. 11 history of coronary artery disease and previous RI 12 chronic back pain. 13 suspected acute hospital-acquired pneumonia involving the left lower lobe. This is relatively new compared to previous x-rays of the chest. Hence vancomycin was added to Zosyn. Cultures are pending. Recommendation: Continue ventilatory support, continue FiO2 of 50%, keep the PEEP at 8 continue assist control rate at 18 and tidal volume at 550. Consider lowering PEEP if his O2 saturation improves above 93% in the next 24 hours. Daily sedation interruption and assessment of mental status . This will be done again today. Continue hemodialysis, bronchodilators, antibiotics, steroids, added vancomycin to Zosyn today. Continue daily hemodialysis. Continue GI and DVT prophylaxis. Continue to monitor daily labs including renal profile, and electrolytes. Continue daily assessment of chest x-ray and ABG Continued daily assessment of mental status off sedation Daily assessment of ventilatory settings and adjustments accordingly based on the ABG. Continue enteral feeding. Considering his overall condition remains marginal, hence not ready for w eaning, patient may require tracheostomy and PEG tube placement, already seen by general surgery on consultation. Critical care time is 36 minute Time with Patient: Greater than 30
--- NOTE | 2019-08-30 12:46 | P.PN ---
Subjective Progress Note Date: 08/30/19 CHIEF COMPLAINT: Vent dependent respiratory failure HISTORY OF PRESENT ILLNESS: The patient is a 78-year-old male vent dependent respiratory failure and protein malnutrition. He is on full ventilatory support and on tube feeds. He has not made any significant improvement of his ventilatory status. No new issues overnight ROS: Past fevers. No chills. No new chest pain. PHYSICAL EXAM: VITAL SIGNS: Reviewed CONSTITUTIONAL: Well developed and in no acute distress. EYES: Conjuctivae without sclera icterus. Extraocular movements grossly intact. HEAD, EARS, NOSE, THROAT: Head is atraumatic, normocephalic. RESPIRATORY: Mechanical ventilation. CARDIOVASCULAR: Palpable 2+ radial pulses. ABDOMEN: Soft. No peritonitis. MUSCULOSKELETAL: No gross deformity of the lower extremities noted. No clubbing. No cyanosis. SKIN: Moderate psoriasis. NEUROLOGIC: No focal or lateralizing signs. PSYCH: Sedated. CLINICAL LABS: White blood cell count elevated over 21,000 to now 23,00 ASSESSMENT: 1. Vent dependent failure 2. Protein malnutrition PLAN: 1. He has been on the vent with minimal improvement 2. Tracheostomy and gastrostomy tube placement scheduled for tomorrow. Objective - Vital Signs Vital signs: Vital Signs Temp 98.4 F 08/30/19 09:12 Pulse 95 08/30/19 11:46 Resp 42 H 08/30/19 11:00 BP 118/72 08/30/19 09:12 Pulse Ox 90 L 08/30/19 11:00 Intake & Output 08/29/19 08/30/19 08/30/19 18:59 06:59 18:59 Intake Total 1085.113 759 2893.775 Output Total 084 995 9694 Balance 635.222 -400 -84.225 Weight 82.5 kg Intake: IV 340 240 220 Piperacillin-Tazobactam 3 100 100 .375 gm In Sodium Chloride 0.9% 100 ml @ 25 mls/hr IVPB Q12HR [facility] Rx #:[id number] d5w kvo 240 240 120 Intake, IV Titration 55.222 105.775 Amount Propofol 1,000 mg In 55.222 105.775 Empty Bag 1 bag @ Titrate IV .Q0M [facility] Rx#: [id number] Tube Feeding 390 120 150 Hemodialysis 300 Other 800 Output: Urine 450 760 360 Hemodialysis 0 500 Other 500 Other: Voiding Method Indwelling Catheter Indwelling Catheter Indwelling Catheter ABP, PAP, CO, CI - Last Documented Arterial Blood Pressure 128/58 - Labs CBC & Chem 7: 08/30/19 06:30 08/30/19 06:30 Labs: Abnormal Lab Results - Last 24 Hours (Table) 08/29/19 08/29/19 08/29/19 Range/Units 16:08 20:16 23:52 WBC (3.8-10.6) k/uL RBC (4.30-5.90) m/uL Hgb (13.0-17.5) gm/dL Hct (39.0-53.0) % Neutrophils # (1.3-7.7) k/uL Lymphocytes # (1.0-4.8) k/uL Monocytes # (0-1.0) k/uL ABG pO2 (83-108) mmHg ABG HCO3 (21-25) mmol/L ABG Total CO2 (19-24) mmol/L Sodium (137-145) mmol/L Chloride (98-107) mmol/L BUN (9-20) mg/dL Creatinine (0.66-1.25) mg/dL Glucose (74-99) mg/dL POC Glucose (mg/dL) 174 H 206 H 187 H (75-99) mg/dL 08/30/19 08/30/19 08/30/19 Range/Units 03:59 06:30 06:30 WBC 23.1 H (3.8-10.6) k/uL RBC 3.26 L (4.30-5.90) m/uL Hgb 10.6 L (13.0-17.5) gm/dL Hct 32.2 L (39.0-53.0) % Neutrophils # 21.2 H (1.3-7.7) k/uL Lymphocytes # 0.7 L (1.0-4.8) k/uL Monocytes # 1.1 H (0-1.0) k/uL ABG pO2 (83-108) mmHg ABG HCO3 (21-25) mmol/L ABG Total CO2 (19-24) mmol/L Sodium 133 L (137-145) mmol/L Chloride 95 L (98-107) mmol/L BUN 124 H* (9-20) mg/dL Creatinine 2.31 H (0.66-1.25) mg/dL Glucose 149 H (74-99) mg/dL POC Glucose (mg/dL) 173 H (75-99) mg/dL 08/30/19 08/30/19 08/30/19 Range/Units 07:21 08:44 11:51 WBC (3.8-10.6) k/uL RBC (4.30-5.90) m/uL Hgb (13.0-17.5) gm/dL Hct (39.0-53.0) % Neutrophils # (1.3-7.7) k/uL Lymphocytes # (1.0-4.8) k/uL Monocytes # (0-1.0) k/uL ABG pO2 77 L (83-108) mmHg ABG HCO3 26 H (21-25) mmol/L ABG Total CO2 28 H (19-24) mmol/L Sodium (137-145) mmol/L Chloride (98-107) mmol/L BUN (9-20) mg/dL Creatinine (0.66-1.25) mg/dL Glucose (74-99) mg/dL POC Glucose (mg/dL) 109 H 135 H (75-99) mg/dL Microbiology - Last 24 Hours (Table) 08/28/19 16:27 Gram Stain - Final Sputum Sputum Culture - Final Assessment and Plan (1) Protein-calorie malnutrition, moderate Current Visit: Yes Status: Acute Code(s): E44.0 - MODERATE PROTEIN-CALORIE MALNUTRITION SNOMED Code(s): 588104902 (2) Ventilator dependence Current Visit: Yes Status: Acute Code(s): Z99.11 - DEPENDENCE ON RESPIRATOR [VENTILATOR] STATUS SNOMED Code(s): 382303223 (3) Acute exacerbation of chronic obstructive pulmonary disease Current Visit: Yes Status: Acute Code(s): J44.1 - CHRONIC OBSTRUCTIVE PULMONARY DISEASE W (ACUTE) EXACERBATION SNOMED Code(s): 404471555
[2019-08-30 16:38] LABS: Glucose,Whole Blood 165 mg/dL (75-99)
[2019-08-30 20:51] LABS: Glucose,Whole Blood 196 mg/dL (75-99)
[2019-08-30] MEDS: INSULIN DETEMIR (LEVEMIR) 100 UNIT/ML SYR SQ SCH (21:01)
[2019-08-30] MEDS: CYCLOBENZAPRINE 10 MG TAB PO SCH (21:51)
[2019-08-31 00:04] LABS: Glucose,Whole Blood 140 mg/dL (75-99)
[2019-08-31] MEDS: INSULIN ASPART (NovoLOG) 100 UNIT/ML VIAL SQ SCH ×7 (00:08→23:57)
[2019-08-31] MEDS: methylPREDNISolone SOD SUCCI 40 MG/ML 1 ML VIAL IV SCH ×5 (00:34→23:57)
--- NOTE | 2019-08-31 00:54 | P.PN ---
Subjective Progress Note Date: 08/30/19 Principal diagnosis: Acute on chronic CHF with systolic dysfunction This is [address] rai. Chronic stable medical conditions include diabetes, hypertension, hyperlipidemia, osteoarthritis, chronic kidney disease, home oxygen 2-3 L, chronic low back pain and psoriatic.. Patient was brought in by his . Most history is obtained by the at the bedside. At her baseline patient very much sits down and watches television. Does not drive. Has a fair appetite. Normally able to get around the house. Patient started coughing became short of breath wheezing for 1 day, with a decreased oral intake. Became a bit more confused and presented ER. Patient was not willing to come to the hospital but brought him in. Was given IV Lasix in the ER , bronchodilators. Patient had been quite a bit short of breath. Bringing some sputum. No obvious fever or chills. admitted with a diagnosis of right-sided pneumonia, CHF exacerbation, COPD e xacerbation, acute delirium. Patient also found to have from recent renal ultrasound-bilateral hydronephrosis and possibly growth in the bladder.. Also acute kidney injury . Patient was started on Lasix drip and IV ceftriaxone, switched to IV Zosyn. Patient on the medical floor became lethargic and went into respiratory failure and was intubated on August 22. Patient was put on IV Lasix drip and IV propofol. Also in IV dobutamine-discontinued. 08/27/2019. Remains on the ventilator. FiO2 55% and a PEEP of 10. 2 feeding at 46 mL an hour. Remains on IV propofol. Sedated. Telemetry shows sinus rhythm. at the bedside. 08/28/2019 Patient is currently on mechanical ventilator and sedated. Renal function continues to get worse with BUN 161 and creatinine 3.36. WBC count went up to 18.5 and hemoglobin level X.7. Patient is having bilateral lower action the significant swelling and chest x-ray showed chronic parenchymal changes and patchy bibasilar infiltrates and tiny pleural effusion. Patient was started on Zosyn empirically. Cultures have been negative. Lasix is on hold due to worsening renal function. Nephrology and pulmonary is following. Planning for renal replacement therapy. 08/29/2019 Patient remained on mechanical ventilator. Patient was started on hemodialysis today. Creatinine level increased to 3.03 and BUN 169 today. WBC count increased to 21.4 and hemoglobin 11.3. Patient is currently on antibiotics in the form of Zosyn. ABG showed pH of 7.36, pCO2 56 and PaO2 64. Chest x-ray showed chronic changes, tiny pleural effusions. Bibasilar a telectasis/infiltrates. Pulmonary and nephrology is following. 08/30/2019 Patient remained on mechanical ventilator. Didn't receive hemodialysis today. Patient is currently sedated . chest x-ray showed new infiltrate/pneumonia involving the left lower lobe. Patient states being continued on Zosyn and vancomycin was added. Leukocytosis is worsening with WBC count 23.1. Gen. surgery was consulted for tracheostomy and PEG tube placement. Planning for OR tomorrow. Review of systems cannot be done as patient is intubated Current medications reviewed from today's electronic records Objective - Vital Signs Vital signs: Vital Signs Temp 98.2 F 08/30/19 16:00 Pulse 101 H 08/30/19 20:12 Resp 27 H 08/30/19 19:00 BP 118/72 08/30/19 09:12 Pulse Ox 93 L 08/30/19 19:00 Intake & Output 08/30/19 08/30/19 08/31/19 06:59 18:59 06:59 Intake Total 360 1911.905 120 Output Total 760 1765 155 Balance -400 146.905 -35 Weight 82.5 kg Intake: IV 240 340 60 Piperacillin-Tazobactam 3 100 .375 gm In Sodium Chloride 0.9% 100 ml @ 25 mls/hr IVPB Q12HR [facility] Rx #:[id number] d5w kvo 240 240 60 Intake, IV Titration 441.905 Amount Propofol 1,000 mg In 191.905 Empty Bag 1 bag @ Titrate IV .Q0M [facility] Rx#: [id number] Vancomycin 1,500 mg In 250 Sodium Chloride 0.9% 250 ml @ 125 mls/hr IVPB ONCE ONE Rx#:[id number] Tube Feeding 120 330 60 Other 800 Output: Urine 760 765 155 Hemodialysis 500 Other 500 Other: Voiding Method Indwelling Catheter Indwelling Catheter ABP, PAP, CO, CI - Last Documented Arterial Blood Pressure 86/41 - Exam GENERAL: Laying in bed, intubated EYES: Pupils equal. Conjunctiva normal. HEENT: External appearance of nose and ears normal, oral cavity dry., Endotracheal tube in place, on G-tube feedings NECK: JVD unable to assess,; masses not palpable. HEART: First and second heart sounds are normal; no edema. LUNGS: Respiratory rate increased, decreased breath sounds ABDOMEN: Soft, nontender, liver spleen not palpable, no masses palpable. DERMATOLOGICAL: Area of redness in both the groin,siver demarcated plaques, and both legs PSYCH: Unable to assess, intubated. NEUROLOGICAL: Pupils are reactive, making nonpurposeful movements INVESTIGATIONS, reviewed in the clinical context: White count 20.5 hemoglobin 10.9 Previous testing White count 12.4 hemoglobin 12.6 platelets 237 potassium 4.8 bun 61 creatinine 3.11 Troponin I 0.620, 0.807, influenza A and B both negative EKG tracing personally reviewed by me-personally reviewed by me shows normal sinus rhythm, poor R-wave progression, some T-wave changes in anterolateral leads Chest x-ray film personally reviewed by me-venous prominence, fluid in the fissure, right basilar infiltrate Abdominal ultrasound on 07/29/2019-severe left hydronephrosis and moderate right hydronephrosis, abnormally thickened urinary bladder wall seen multifocally, additionally a sessile mass questionable 2-D [id number]-26-25 percent - Labs CBC & Chem 7: 08/30/19 06:30 08/30/19 06:30 Labs: Abnormal Lab Results - Last 24 Hours (Table) 08/29/19 08/30/19 08/30/19 Range/Units 23:52 03:59 06:30 WBC 23.1 H (3.8-10.6) k/uL RBC 3.26 L (4.30-5.90) m/uL Hgb 10.6 L (13.0-17.5) gm/dL Hct 32.2 L (39.0-53.0) % Neutrophils # 21.2 H (1.3-7.7) k/uL Lymphocytes # 0.7 L (1.0-4.8) k/uL Monocytes # 1.1 H (0-1.0) k/uL ABG pO2 (83-108) mmHg ABG HCO3 (21-25) mmol/L ABG Total CO2 (19-24) mmol/L Sodium (137-145) mmol/L Chloride (98-107) mmol/L BUN (9-20) mg/dL Creatinine (0.66-1.25) mg/dL Glucose (74-99) mg/dL POC Glucose (mg/dL) 187 H 173 H (75-99) mg/dL 08/30/19 08/30/19 08/30/19 Range/Units 06:30 07:21 08:44 WBC (3.8-10.6) k/uL RBC (4.30-5.90) m/uL Hgb (13.0-17.5) gm/dL Hct (39.0-53.0) % Neutrophils # (1.3-7.7) k/uL Lymphocytes # (1.0-4.8) k/uL Monocytes # (0-1.0) k/uL ABG pO2 77 L (83-108) mmHg ABG HCO3 26 H (21-25) mmol/L ABG Total CO2 28 H (19-24) mmol/L Sodium 133 L (137-145) mmol/L Chloride 95 L (98-107) mmol/L BUN 124 H* (9-20) mg/dL Creatinine 2.31 H (0.66-1.25) mg/dL Glucose 149 H (74-99) mg/dL POC Glucose (mg/dL) 109 H (75-99) mg/dL 08/30/19 08/30/19 08/30/19 Range/Units 11:51 16:37 20:50 WBC (3.8-10.6) k/uL RBC (4.30-5.90) m/uL Hgb (13.0-17.5) gm/dL Hct (39.0-53.0) % Neutrophils # (1.3-7.7) k/uL Lymphocytes # (1.0-4.8) k/uL Monocytes # (0-1.0) k/uL ABG pO2 (83-108) mmHg ABG HCO3 (21-25) mmol/L ABG Total CO2 (19-24) mmol/L Sodium (137-145) mmol/L Chloride (98-107) mmol/L BUN (9-20) mg/dL Creatinine (0.66-1.25) mg/dL Glucose (74-99) mg/dL POC Glucose (mg/dL) 135 H 165 H 196 H (75-99) mg/dL Microbiology - Last 24 Hours (Table) 08/30/19 11:59 Sputum Culture - Preliminary Sputum 08/28/19 16:27 Gram Stain - Final Sputum Sputum Culture - Final Assessment and Plan Assessment: -Acute on chronic congestive heart failure exacerbation, from systolic and diastolic dysfunction EF 20-25%, slow improvement, was on IV Lasix-bolus. On hold due to ANIA. -Cardiogenic and septic shock requiring pressor support and IV dobutamine, stabilized -Severe Right-sided pneumonia, with new left-sided infiltrates. suspect gram-negative organism, slow to respond, POA, still having some fevers -Acute COPD exacerbation in a current smoker, slow to respond, POA, -Acute hypoxic and hypercapnic respiratory failure due to COPD and pneumonia, POA, requiring ventilator support -Bilateral hydronephrosis, with distal obstruction and evidence of chronic kidney disease on the left kidney, right hydronephrosis improved -Chronic kidney disease, baseline unknown, including obstructive pattern -Acute renal failure, nonoliguric. possibly combination of cardiorenal syndrome and obstructive pattern, including ATN, worsening restarted on hemodialysis on 08/29/2019 -Hyperkalemia secondary to renal failure, improved -Diabetes mellitus type 2 on oral hypoglycemic, uncontrolled with hyperglycemia -Hyperlipidemia -Essential hypertension -Primary osteoarthritis -Chronic kidney disease stage IV -Lactic acidosis from pneumonia -Troponin leak 2 positive possibly. Hemodynamic instability. Doubt acute coronary syndrome -Acute delirium from pneumonia sepsis Plan: Currently Lasix on hold. Continued on hemodialysis. Continue with antibiotics in the form of Zosyn. Vancomycin will be added.. Follow up renal function. Tube feedings feedings as tolerated.. Insulin doses being adjusted. Care discussed with the at the bedside. Prognosis remains guarded. On IV steroids and Pulmicort inhalation. Time with Patient: Greater than 30
[2019-08-31] MEDS: IPRATROPIUM-ALBUTEROL 3 ML NEB INHALATION SCH ×6 (02:50→23:40)
[2019-08-31 04:28] LABS: ABG Base Excess -2.2 mmol/L; ABG HCO3 24 mmol/L (21-25); ABG Oxygen Saturation 97.1 % (94-97); ABG PCO2 47 mmHg (35-45); ABG PH 7.32 (7.35-7.45); ABG PO2 98 mmHg (83-108); ABG TCO2 25 mmol/L (19-24); Allen Test Performed? Yes
[2019-08-31 04:37] LABS: Glucose,Whole Blood 131 mg/dL (75-99)
[2019-08-31 05:43] LABS: Basophils % (A) 0 %; Eosinophils % (A) 0 %; HCT 32.2 % (39.0-53.0); HGB 10.4 gm/dL (13.0-17.5); Lymphocytes # (A) 0.3 k/uL (1.0-4.8); Lymphocytes % (A) 1 %; MCHC 32.4 g/dL (31.0-37.0); MCV 98.8 fL (80.0-100.0); Mean Platelet Volume 10.3; Monocytes # (A) 0.6 k/uL (0-1.0); Monocytes % (A) 3 %; Neutrophils # (A) 22.6 k/uL (1.3-7.7); Neutrophils % (A) 96 %; Platelet Count 171 k/uL (150-450); RBC 3.25 m/uL (4.30-5.90); RDW 13.3 % (11.5-15.5); WBC 23.7 k/uL (3.8-10.6)
[2019-08-31 05:59] LABS: Calcium 8.7 mg/dL (8.4-10.2)
[2019-08-31 06:08] LABS: Potassium 4.2 mmol/L (3.5-5.1)
[2019-08-31] MEDS: PROPOFOL 1,000 MG in EMPTY BAG 1 BAG IV SCH ×4 (07:48→23:05)
[2019-08-31] MEDS ORDERED: VANCOMYCIN 1,500 MG in SODIUM CHLORIDE 0.9% 250 ML IVPB ONE (08:00)
[2019-08-31 08:07] LABS: Glucose,Whole Blood 144 mg/dL (75-99)
[2019-08-31] MEDS: CHLORHEXIDINE GLUCONATE 15 ML CUP MUCOUS MEM SCH ×2 (08:24→20:37)
[2019-08-31] MEDS: NYSTATIN 100,000 UNIT/GM POWD 15 GM TOPICAL SCH ×2 (08:24→20:37)
[2019-08-31] MEDS: NICOTINE 21MG/24HR PATCH TRANSDERM SCH (08:24)
[2019-08-31] MEDS: PANTOPRAZOLE 40 MG/10 ML VIAL IVP SCH ×2 (08:24→20:37)
[2019-08-31] MEDS: NYSTATIN 100,000 UNIT/ML SUSP 500,000 UNIT/5 ML CUP PO SCH ×4 (08:25→21:53)
--- NOTE | 2019-08-31 08:26 | XR ---
EXAMINATION TYPE: XR chest 1V portable DATE OF EXAM: 08/31/2019 COMPARISON: 08/30/2019 INDICATION: Intubated, ICU management TECHNIQUE: Single frontal view of the chest is obtained. FINDINGS: The heart size is normal. The pulmonary vasculature is normal. Right basilar infiltrates are present. The left lower lobe infiltrate is improving. Continued follow- up is recommended. Some mild developing right lower lobe infiltrate is present. Endotracheal tube tip is above the vidya. Nasogastric tube transverses the thorax with tip curled wi thin the left upper quadrant of the abdomen. Left central venous catheter is present with the tip in the superior vena cava region. IMPRESSION: 1. Left lower lobe infiltrate is improving from comparison. 2. Mild right lower lobe infiltrate may be some atelectasis. Follow-up is recommended. 3. Lines and catheters discussed above.
[2019-08-31] MEDS: PIPERACILLIN-TAZOBACTAM 3.375 GM in SODIUM CHLORIDE 0.9% 100 ML IVPB SCH ×2 (08:40→20:38)
[2019-08-31] MEDS: BUDESONIDE 1 MG/2 ML NEBU INHALATION SCH ×2 (08:45→19:26)
[2019-08-31] MEDS: HEPARIN SODIUM,PORCINE 5,000 UNIT/ML 1 ML VIAL SQ SCH ×2 (09:00→20:37)
[2019-08-31] MEDS: METOPROLOL TARTRATE 25 MG TAB PO SCH ×3 (09:00→21:53)
--- NOTE | 2019-08-31 11:25 | PN ---
PROGRESS NOTE PULMONARY/CRITICAL CARE PROGRESS NOTE: DATE OF SERVICE: August 31, 2019. CRITICAL CARE TIME: 35 minutes. This is a patient who was admitted way back on August 21 with acute kidney injury, non ST-segment elevation myocardial infarction, and COPD exacerbation. He was extubated a day later for acute respiratory failure on August 22 and has been vented since. Unfortunately, the patient has not made any progress toward weaning and extubation and today, or tomorrow, he will undergo a tracheostomy and PEG tube placement. Currently, he remains on the volume assist-control mode rate of 18, tidal volume 550, FiO2 of 50%, PEEP of 8. Blood gases show pO2 of 98, pCO2 of 47, and a pH 7.32. The patient is currently getting D5W at 20 mL an hour. Tube feeds are on hold in anticipation of a surgical procedure today and propofol is at 40 mcg/kg per minute. Currently, he is well sedated. He has been stable overnight according to the nurse. PHYSICAL EXAMINATION: VITAL SIGNS: Current vital signs are reviewed. Temperature is 98 degrees, heart rate 83, respiratory rate 18, blood pressure 117/53, mean is not recorded. Saturations are mid 90s on 50% and 8 of PEEP. GENERAL: Appears in no acute distress, currently sedated. HEENT: Examination is grossly unremarkable. He has got an orally placed endotracheal tube. NECK: Supple. Full range of motion. No adenopathy, thyromegaly or neck vein distention. CARDIOVASCULAR: Examination reveals regular rhythm and rate. Heart rate in mid 80s. S1, S2 normal. Heart sounds are distant. No heart murmur. LUNGS: Reveal coarse bilateral rhonchi. No wheezes or crackles. Breath sounds equal. ABDOMEN: Soft. Bowel sounds are not noted. EXTREMITIES: Are intact. No cyanosis, clubbing, or edema. SKIN: Without rash except for his plaque psoriasis. NEUROLOGIC: Examination is difficult to assess given his current level of sedation with propofol. LABS: Labs are reviewed. White count 23.7, hemoglobin 10.4, hematocrit 32.2, platelet count 171,000. Sodium 131, potassium 4.2, chloride 96, CO2 of 21. Anion gap is 14. BUN and creatinine were 109 and 2.22. Phosphorus is 9.5. Microbiology is negative except for Corynebacterium striatum in sputum from August 22. Chest x-ray shows left lower lobe infiltrate, which is improved and a minimal infiltrate in the right lower lobe, which may relate to atelectasis or fluid. MEDICATIONS: Current medications are reviewed. The patient is currently on Tylenol, aspirin, Lipitor, Pulmicort, chlorhexidine, vitamin D3, Flexeril, heparin, [place], NovoLog insulin, Levemir insulin, updrafts, Solu-Medrol, metoprolol, Narcan, nicotine patch, sublingual nitroglycerin, nystatin powder, Protonix, Zosyn, propofol and vancomycin. ASSESSMENT: 1. Acute hypoxemic hypercapnic respiratory failure secondary to bibasilar pneumonia, likely community-acquired involving the left and right lower lobes. 2. Acute exacerbation of chronic obstructive pulmonary disease. 3. Acute systolic heart failure. 4. Severe cardiomyopathy with ejection fraction of 20% to 25%. 5. Stage 3 chronic kidney disease. 6. Type 2 diabetes mellitus. 7. Benign essential hypertension. 8. Hyperlipidemia. 9. History of plaque psoriasis. 10.History of coronary artery disease with previous myocardial infarction. 11.Chronic back pain. PLAN: The patient remains on the ventilator. He likely will undergo tracheostomy and PEG tube placement today by Dr. Chowdhury. Tube feeds are on hold. He remains on propofol at 40 mcg/kg per minute. His overall prognosis remains guarded, given his plethora of medical problems. No vent changes at the current time. Additional recommendations and suggestions are forthcoming. Medications are reviewed and unnecessary medications discontinued. We will continue to follow. CRITICAL CARE TIME: 35 minutes. JESSICA / YVONNEN: [id number] /
[2019-08-31 11:47] LABS: Glucose,Whole Blood 176 mg/dL (75-99)
--- NOTE | 2019-08-31 14:39 | P.PN ---
Subjective [address] ari. Chronic stable medical conditions include diabetes, hypertension, hyperlipidemia, osteoarthritis, chronic kidney disease, home oxygen 2-3 L, chronic low back pain and psoriatic.. Patient was brought in by his . Most history is obtained by the at the bedside. At her baseline patient very much sits down and watches television. Does not drive. Has a fair appetite. Normally able to get around the house. Patient started coughing became short of breath wheezing for 1 day, with a decreased oral intake. Became a bit more confused and presented ER. Patient was not willing to come to the hospital but brought him in. Was given IV Lasix in the ER , bronchodilators. Patient had been quite a bit short of breath. Bringing some sputum. No obvious fever or chills. admitted with a diagnosis of right-sided pneumonia, CHF exacerbation, COPD exacerbation, acute delirium. Patient also found to have from recent renal ultrasound-bilateral hydronephrosis and possibly growth in the bladder.. Also acute kidney injury . Patient was started on Lasix drip and IV ceftriaxone, switched to IV Zosyn. Patient on the medical floor became lethargic and went into respiratory failure and was intubated on August 22. Patient was put on IV Lasix drip and IV propofol. Also in IV dobutamine-discontinued. 08/27/2019. Remains on the ventilator. FiO2 55% and a PEEP of 10. 2 feeding at 46 mL an hour. Remains on IV propofol. Sedated. Telemetry shows sinus rhythm. at the bedside. 08/28/2019 Patient is currently on mechanical ventilator and sedated. Renal function continues to get worse with BUN 161 and creatinine 3.36. WBC count went up to 18.5 and hemoglobin level X.7. Patient is having bilateral lower action the significant swelling and chest x-ray showed chronic parenchymal changes and patchy bibasilar infiltrates and tiny pleural effusion. Patient was started on Zosyn empirically. Cultures have been negative. Lasix is on hold due to worsening renal function. Nephrology and pulmonary is following. Planning for renal replacement therapy. 08/29/2019 Patient remained on mechanical ventilator. Patient was started on hemodialysis today. Creatinine level increased to 3.03 and BUN 169 today. WBC count increased to 21.4 and hemoglobin 11.3. Patient is currently on antibiotics in the form of Zosyn. ABG showed pH of 7.36, pCO2 56 and PaO2 64. Chest x-ray showed chronic changes, tiny pleural effusions. Bibasilar atelectasis/infiltrates. Pulmonary and nephrology is following. 08/30/2019 Patient remained on mechanical ventilator. Didn't receive hemodialysis today. Patient is currently sedated . chest x-ray showed new infiltrate/pneumonia involving the left lower lobe. Patient states being continued on Zosyn and vancomycin was added. Leukocytosis is worsening with WBC count 23.1. Gen. surgery was consulted for tracheostomy and PEG tube placement. Planning for OR tomorrow. 08/31/2019 Patient remains on mechanical ventilator. PEG tube and tracheostomy was planned for today. Had a lengthy discussion with the family. Patient overall prognosis extremely poor considering his poor pulmonary reserve patient uses 3 L of oxygen at home at baseline patient had EF of 20-25% with acute renal failure requiring hemodialysis along with pneumonia. Patient is being treated for cardiac shock.discussed with the family regarding the hospice and comfort care. Will hold off on the tube and tracheostomy placement today gives him time to the family to make decision regarding hospice or comfort care. review of systems: Unable to obtain due to his clinical condition All inpatient medications were reviewed and appropriate changes in these medications as dictated in the interval history and assessment and plan. Objective - Vital Signs Vital signs: Vital Signs Temp 98.0 F 08/31/19 04:00 Pulse 85 08/31/19 11:28 Resp 18 08/31/19 07:00 BP 118/72 08/30/19 09:12 Pulse Ox 95 08/31/19 07:00 Intake & Output 08/30/19 08/31/19 08/31/19 18:59 06:59 18:59 Intake Total 1911.905 420 100 Output Total 1765 820 Balance 146.905 -400 100 Weight 83 kg 83 kg Intake: IV 340 260 Piperacillin-Tazobactam 3 100 .375 gm In Sodium Chloride 0.9% 100 ml @ 25 mls/hr IVPB Q12HR EUGENIO Rx #:[id number] d5w kvo 240 260 Intake, IV Titration 441.905 100 100 Amount Propofol 1,000 mg In 191.905 100 100 Empty Bag 1 bag @ Titrate IV .Q0M EUGENIO Rx#: [id number] Vancomycin 1,500 mg In 250 Sodium Chloride 0.9% 250 ml @ 125 mls/hr IVPB ONCE ONE Rx#:[id number] Tube Feeding 330 60 Other 800 Output: Urine 765 820 Hemodialysis 500 Other 500 Other: Voiding Method Indwelling Catheter Indwelling Catheter # Voids 2 ABP, PAP, CO, CI - Last Documented Arterial Blood Pressure 117/53 - Exam PHYSICAL EXAMINATION: GENERAL: patient is presently intubated sedated HEENT: Pupils are round and equally reacting to light. EOMI. No scleral icterus. No conjunctival pallor. Normocephalic, atraumatic. No pharyngeal erythema. No thyromegaly. CARDIOVASCULAR: S1 and S2 present. No murmurs, rubs, or gallops. PULMONARY: Chest is clear to auscultation, no wheezing or crackles. ABDOMEN: Soft, nontender, nondistended, normoactive bowel sounds. No palpable organomegaly. MUSCULOSKELETAL: No joint swelling or deformity. EXTREMITIES: No cyanosis, clubbing, or pedal edema. NEUROLOGICAL: unable to assess SKIN: No rashes. - Labs CBC & Chem 7: 08/31/19 05:30 08/31/19 05:30 Labs: Abnormal Lab Results - Last 24 Hours (Table) 08/30/19 08/30/19 08/31/19 Range/Units 16:37 20:50 00:02 WBC (3.8-10.6) k/uL RBC (4.30-5.90) m/uL Hgb (13.0-17.5) gm/dL Hct (39.0-53.0) % Neutrophils # (1.3-7.7) k/uL Lymphocytes # (1.0-4.8) k/uL ABG pH (7.35-7.45) ABG pCO2 (35-45) mmHg ABG Total CO2 (19-24) mmol/L ABG O2 Saturation (94-97) % Sodium (137-145) mmol/L Chloride (98-107) mmol/L Carbon Dioxide (22-30) mmol/L BUN (9-20) mg/dL Creatinine (0.66-1.25) mg/dL Glucose (74-99) mg/dL POC Glucose (mg/dL) 165 H 196 H 140 H (75-99) mg/dL Phosphorus (2.5-4.5) mg/dL 08/31/19 08/31/19 08/31/19 Range/Units 04:25 04:35 05:30 WBC (3.8-10.6) k/uL RBC (4.30-5.90) m/uL Hgb (13.0-17.5) gm/dL Hct (39.0-53.0) % Neutrophils # (1.3-7.7) k/uL Lymphocytes # (1.0-4.8) k/uL ABG pH 7.32 L (7.35-7.45) ABG pCO2 47 H (35-45) mmHg ABG Total CO2 25 H (19-24) mmol/L ABG O2 Saturation 97.1 H (94-97) % Sodium 131 L (137-145) mmol/L Chloride 96 L (98-107) mmol/L Carbon Dioxide 21 L (22-30) mmol/L BUN 109 H* (9-20) mg/dL Creatinine 2.22 H (0.66-1.25) mg/dL Glucose 130 H (74-99) mg/dL POC Glucose (mg/dL) 131 H (75-99) mg/dL Phosphorus (2.5-4.5) mg/dL 08/31/19 08/31/19 08/31/19 Range/Units 05:30 05:30 08:05 WBC 23.7 H (3.8-10.6) k/uL RBC 3.25 L (4.30-5.90) m/uL Hgb 10.4 L (13.0-17.5) gm/dL Hct 32.2 L (39.0-53.0) % Neutrophils # 22.6 H (1.3-7.7) k/uL Lymphocytes # 0.3 L (1.0-4.8) k/uL ABG pH (7.35-7.45) ABG pCO2 (35-45) mmHg ABG Total CO2 (19-24) mmol/L ABG O2 Saturation (94-97) % Sodium (137-145) mmol/L Chloride (98-107) mmol/L Carbon Dioxide (22-30) mmol/L BUN (9-20) mg/dL Creatinine (0.66-1.25) mg/dL Glucose (74-99) mg/dL POC Glucose (mg/dL) 144 H (75-99) mg/dL Phosphorus 9.5 H* (2.5-4.5) mg/dL 08/31/19 Range/Units 11:45 WBC (3.8-10.6) k/uL RBC (4.30-5.90) m/uL Hgb (13.0-17.5) gm/dL Hct (39.0-53.0) % Neutrophils # (1.3-7.7) k/uL Lymphocytes # (1.0-4.8) k/uL ABG pH (7.35-7.45) ABG pCO2 (35-45) mmHg ABG Total CO2 (19-24) mmol/L ABG O2 Saturation (94-97) % Sodium (137-145) mmol/L Chloride (98-107) mmol/L Carbon Dioxide (22-30) mmol/L BUN (9-20) mg/dL Creatinine (0.66-1.25) mg/dL Glucose (74-99) mg/dL POC Glucose (mg/dL) 176 H (75-99) mg/dL Phosphorus (2.5-4.5) mg/dL Microbiology - Last 24 Hours (Table) 08/30/19 11:59 Gram Stain - Preliminary Sputum Sputum Culture - Preliminary 08/28/19 16:27 Gram Stain - Final Sputum Sputum Culture - Final Assessment and Plan Plan: -Acute on chronic congestive heart failure exacerbation, from systolic and diast olic dysfunction EF 20-25%, slow improvement, was on IV Lasix-bolus. On hold due to ANIA. -Cardiogenic and septic shock requiring pressor support and IV dobutamine, stabilized -Severe Right-sided pneumonia, with new left-sided infiltrates. continue with the Zosyn and vancomycin, sputum cultures are negative so far -Acute COPD exacerbation in a current smoker, slow to respond, POA, -Acute hypoxic and hypercapnic respiratory failure due to COPD and pneumonia, POA, requiring ventilator support, patient does have chronic hypercapnic respiratory failure on 3 L of oxygen at home. -Bilateral hydronephrosis, with distal obstruction and evidence of chronic kidney disease on the left kidney, right hydronephrosis improved -Chronic kidney disease, baseline unknown, including obstructive pattern -Acute renal failure, nonoliguric. possibly combination of cardiorenal syndrome and obstructive pattern, including ATN, worsening restarted on hemodialysis since 08/29/2019 -Hyperkalemia secondary to renal failure, improved -Diabetes mellitus type 2 on oral hypoglycemic, uncontrolled with hyperglycemia -Hyperlipidemia -Essential hypertension -Primary osteoarthritis -Chronic kidney disease stage IV -Lactic acidosis from pneumonia -Troponin leak 2 positive possibly. Hemodynamic instability. Doubt acute coronary syndrome -Acute delirium from pneumonia sepsis discussed with the family regarding hospice hold off on tracheostomy and PEG tube placement for today
[2019-08-31 16:01] LABS: Glucose,Whole Blood 182 mg/dL (75-99)
[2019-08-31] MEDS: ASPIRIN 81 MG PO SCH (16:11)
[2019-08-31] MEDS: ATORVASTATIN 40 MG TAB PO SCH (16:11)
--- NOTE | 2019-08-31 18:37 | PN ---
PROGRESS NOTE The patient is seen for followup for acute kidney injury. Currently he remains on the ventilator. The patient is going for trach and PEG this morning. He has had 2 treatments of hemodialysis. We will hold off on treatment today and plan for dialysis again tomorrow. Patient has had good urine output, about 50-75 mL an hour. BUN is significantly decreased to about 109 from 169. EXAMINATION: Blood pressure this morning was 102/42, heart rate about 90 per minute, patient is afebrile. Examination of the heart S1, S2. Examination of the lungs, decreased breath sounds at the bases. Abdomen is soft, nontender. Examination of lower extremities shows trace edema bilaterally. MICA SIZER exam cannot be performed. LABS: Show sodium 131, potassium 4.2, chloride 96, BUN 109, serum creatinine 2.2, phosphorus 9.5, hemoglobin 10.4 g/dL. ASSESSMENT: 1. Acute kidney injury, acute tubular necrosis with improving creatinine, however, BUN was significantly elevated at 169 from steroids as well as renal failure and hypercatabolic state. He has received 2 treatments of hemodialysis and he continues to have good urine output. I will hold off on treatment today and we will plan on dialysis again tomorrow. As long as his renal function continues to improve with good urine output, we will be able to hold off on further dialysis. Chest x-ray shows no significant pulmonary vascular congestion at this time. 2. Acute hypoxic respiratory failure, currently on the vent. 3. Chronic kidney disease stage 3 secondary to diabetic kidney disease, baseline creatinine around 2. 4. Hyponatremia, now resolved. PLAN: Hold hemodialysis today, repeat dialysis in a.m. and continue to monitor for continued renal recovery. MMODL / IJN: [id number] /
[2019-08-31] MEDS: FORMOTEROL FUMARATE 20 MCG/2 ML NEBU INHALATION SCH (19:26)
[2019-08-31 20:04] LABS: Glucose,Whole Blood 177 mg/dL (75-99)
[2019-08-31] MEDS: INSULIN DETEMIR (LEVEMIR) 100 UNIT/ML SYR SQ SCH (21:53)
[2019-08-31 23:47] LABS: Glucose,Whole Blood 178 mg/dL (75-99)
[2019-09-01] MEDS: IPRATROPIUM-ALBUTEROL 3 ML NEB INHALATION SCH ×6 (03:18→23:30)
[2019-09-01 04:09] LABS: Glucose,Whole Blood 170 mg/dL (75-99)
[2019-09-01 04:25] LABS: HCT 29.7 % (39.0-53.0); HGB 9.7 gm/dL (13.0-17.5); MCH 32.4 pg (25.0-35.0); MCHC 32.6 g/dL (31.0-37.0); MCV 99.4 fL (80.0-100.0); Mean Platelet Volume 11.8; Platelet Count 203 k/uL (150-450); RBC 2.99 m/uL (4.30-5.90); RDW 13.3 % (11.5-15.5)
[2019-09-01] MEDS: INSULIN ASPART (NovoLOG) 100 UNIT/ML VIAL SQ SCH ×5 (04:27→20:16)
[2019-09-01] MEDS ORDERED: SODIUM CHLORIDE 0.9% 1,000 ML IV ONE (04:31)
[2019-09-01 04:34] LABS: Calcium 8.4 mg/dL (8.4-10.2); Potassium 3.5 mmol/L (3.5-5.1)
[2019-09-01] MEDS: PROPOFOL 1,000 MG in EMPTY BAG 1 BAG IV SCH (04:34)
[2019-09-01 04:39] LABS: Vancomycin,Random 17.2 ug/mL
[2019-09-01 04:47] LABS: Phosphorus 9.7 mg/dL (2.5-4.5)
[2019-09-01 05:17] LABS: ABG Base Excess -5.7 mmol/L; ABG HCO3 21 mmol/L (21-25); ABG Oxygen Saturation 98.7 % (94-97); ABG PCO2 42 mmHg (35-45); ABG PO2 139 mmHg (83-108); ABG TCO2 22 mmol/L (19-24); Allen Test Performed? Yes
[2019-09-01] MEDS: CALCIUM ACETATE 667 MG TAB PO SCH ×3 (06:29→17:09)
[2019-09-01] MEDS: POTASSIUM BICARBONATE/CIT AC 20 MEQ TABLET.EFF NG-TUBE SCH ×2 (06:29→08:52)
[2019-09-01] MEDS: methylPREDNISolone SOD SUCCI 40 MG/ML 1 ML VIAL IV SCH ×3 (06:29→17:11)
[2019-09-01] MEDS: FORMOTEROL FUMARATE 20 MCG/2 ML NEBU INHALATION SCH ×2 (07:31→19:54)
[2019-09-01] MEDS: BUDESONIDE 1 MG/2 ML NEBU INHALATION SCH ×2 (07:31→19:54)
--- NOTE | 2019-09-01 08:24 | XR ---
EXAMINATION TYPE: XR chest 1V portable DATE OF EXAM: 09/01/2019 COMPARISON: 08/31/2019 HISTORY: Ventilatory dependent respiratory failure. TECHNIQUE: Single frontal view of the chest is obtained. FINDINGS: There are persistent bibasilar opacities with air bronchograms and pulmonary hyperinflatio n compatible with underlying COPD. Stable lines and tubes. Cardiomediastinal silhouette is nonenlarge d. No new pneumothorax or pleural effusion. IMPRESSION: Stable bibasilar airspace disease, possible multifocal pneumonia given air bronchograms. Underlying emphysema. Stable lines and tubes.
--- NOTE | 2019-09-01 08:47 | PN ---
PROGRESS NOTE PULMONARY/CRITICAL CARE PROGRESS NOTE: DATE OF SERVICE: September 01, 2019 CRITICAL CARE TIME: 34 minutes. This is a 78-year-old gentleman who was admitted back on August 21 with acute kidney injury, non ST-segment elevation myocardial infarction, and COPD exacerbation. He was intubated a day later on August 22 for acute respiratory failure. Since that time, he has been on ventilator and has not made any progress towards weaning and extubation. The plan yesterday was that he was going to undergo tracheostomy and PEG tube. The primary service talked to the family about withdraw of life support. The patient is a DNR. They are giving some consideration to comfort measures. That would not be unreasonable given his poor overall status. Nonetheless, he remains on mechanical ventilator on the volume assist-control mode rate of 18, tidal volume 550, FiO2 of 50% to be dropped down to 40%, and PEEP of 8. Blood gases show pO2 of 139, a pCO2 of 42, and a pH of 7.29. These gases are consistent with hyperoxia and a metabolic acidosis. He is currently on propofol at 40 mcg/kg per minute, D5W 20 mL an hour, 0.9 IV KVO and tube feeds are on hold. Again, the patient has been stable overnight but has not really shown much progress. Today we are going to try to remove the patient off his sedative to assess his mental status better. PHYSICAL EXAMINATION: VITAL SIGNS: Current vital signs are reviewed. Temperature is 97.6, heart rate 77, respiratory rate 20, blood pressure 132/52 with saturations of 98%. CVP is 4. GENERAL: Appears in no acute distress. Currently sedated. HEENT: Examination is grossly unremarkable. He has got an orally placed endotracheal tube and NG tube. NECK: Supple. Full range of motion. No adenopathy. Neck veins are flat. CARDIOVASCULAR: Examination reveals regular rhythm and rate. Heart rate in mid 70s. Heart sounds are distant. S1, S2 normal. No distinct murmur. LUNGS: Reveal coarse rhonchi bilaterally. No wheezes or crackles. Breath sounds equal. ABDOMEN: Soft. Bowel sounds are noted. EXTREMITIES: Are intact. He has got diffuse edema and anasarca. SKIN: Reveals evidence of plaque psoriasis. NEUROLOGIC: Examination could not be assessed given current level of sedation. A chest x-ray is done today. It does show bibasilar infiltrates, left greater than right. There also may be a small left-sided and/or bilateral effusions. Central line is noted to be in good position. Endotracheal tube is also in good position. Microbiologic studies show evidence of Corynebacterium striatum on August 22 from the sputum. LAB DATA: Lab data is reviewed. White count 23,000, hemoglobin 9.7, hematocrit 29.7, platelet count 203,000. Sodium 134, potassium 3.5, chloride 100, CO2 of 20. Anion gap is 14. BUN and creatinine were 116 and 2.74. Phosphorus is 9.7. MEDICATIONS: Medications are reviewed. He is currently on Tylenol, aspirin, Lipitor, Pulmicort, PhosLo, Peridex, formoterol, subcu heparin, insulin, updrafts, Solu-Medrol, Lopressor, Narcan, nicotine patch, nystatin, Protonix, Zosyn, potassium replacement, propofol and vancomycin. ASSESSMENT: 1. Acute hypoxemic and hypercapnic respiratory failure secondary to bibasilar pneumonia, likely community-acquired involving the left and right lower lobes. 2. Acute exacerbation of severe chronic obstructive pulmonary disease. 3. Acute systolic heart failure. 4. Severe cardiomyopathy with ejection fraction of 20% to 25%. 5. Stage 3 chronic kidney disease. 6. Type 2 diabetes mellitus. 7. Benign essential hypertension. 8. Hyperlipidemia. 9. History of plaque psoriasis. 10.History of coronary artery disease with previous myocardial infarction. 11.History of chronic back pain. 12.Failure to wean from mechanical ventilation. PLAN: The plan yesterday was to go ahead and proceed with tracheostomy and PEG tube placement. Apparently the family has had second thoughts and is considering withdrawal from life support. Will talk to them further about that. We will clean up his med list. Will discontinue the vancomycin. Will continue with Zosyn. Overall prognosis remains poor. The patient's FiO2 is dropped from 50% to 40%. Additional recommendations and suggestions forthcoming after discussion with the family. We will do a daily interruption of sedation today. CRITICAL CARE TIME: 34 minutes. JESSICA / CARIDAD: [id number] /
[2019-09-01] MEDS: ATORVASTATIN 40 MG TAB PO SCH (08:52)
[2019-09-01] MEDS: CHLORHEXIDINE GLUCONATE 15 ML CUP MUCOUS MEM SCH (08:52)
[2019-09-01] MEDS: METOPROLOL TARTRATE 25 MG TAB PO SCH ×3 (08:52→22:58)
[2019-09-01] MEDS: ASPIRIN 81 MG PO SCH (08:52)
[2019-09-01] MEDS: HEPARIN SODIUM,PORCINE 5,000 UNIT/ML 1 ML VIAL SQ SCH ×2 (08:52→20:41)
[2019-09-01] MEDS: NICOTINE 21MG/24HR PATCH TRANSDERM SCH (08:53)
[2019-09-01] MEDS: PANTOPRAZOLE 40 MG/10 ML VIAL IVP SCH ×2 (08:53→20:41)
[2019-09-01] MEDS: NYSTATIN 100,000 UNIT/GM POWD 15 GM TOPICAL SCH ×2 (08:53→20:41)
[2019-09-01] MEDS: NYSTATIN 100,000 UNIT/ML SUSP 500,000 UNIT/5 ML CUP PO SCH ×4 (08:53→23:00)
[2019-09-01] MEDS: PIPERACILLIN-TAZOBACTAM 3.375 GM in SODIUM CHLORIDE 0.9% 100 ML IVPB SCH ×2 (08:53→20:42)
[2019-09-01] MEDS ORDERED: VANCOMYCIN 1,500 MG in SODIUM CHLORIDE 0.9% 250 ML IVPB ONE (09:00)
[2019-09-01 11:45] LABS: Glucose,Whole Blood 161 mg/dL (75-99)
--- NOTE | 2019-09-01 11:46 | CDI ---
Documentation Clarification Form Date: 09/01/2019 11:27:46 AM From: Dimple PerezGRACIELA, CCDS Admit Date: 08/21/2019 12:04:00 PM Patient Name: John Iqbal Visit Number: [id number] Discharge Date: ATTENTION: The Clinical Documentation Specialists (CDI) and [facility] Coding Staff appreciate your assistance in clarifying documentation. Please respond to the clarification below the line at the bottom and electronically sign. The CDI & [facility] Coding staff will review the response and follow-up if needed. Please note: Queries are made part of the Legal Health Record. If you have any questions, please contact the author of this message via ITS. Dr. Lalit Santos: Per the 08/31 attending progress note: "Acute delirium from pneumonia sepsis." There is documented confusion and delirium throughout the record. History/Risk Factors: CHF, COPD, DM II, Hyperlipidemia, hypertension & CKD stage IV. Clinical Indicators: SOB, cough, wheezing, appetite fair, decreased oral intake, more confused. Given a sitter on admission. Diagnosed with acute on chronic CHF combined systolic & diastolic, gram neg Sepsis secondary to pneumonia, acute COPD exacerbation in current smoker, Lactic acidosis & delirium from pneumonia. VS: T 98.6, P 130^, R 20 (sob, cough), BP 123/65, PO 78 RA - 93 3Lnc. Labs: WBC 12.4^, Hgb 12.6*, Neut 9.9^, BUN 61^, Cr 3.11^, glucose 132^, Lactic Acid 2.3^^, Mag 2.5^, Trop 0.620^^, 0.807^^, 1.140^. 08/22: pH 7.27*, pCO2 59^, pO2 70*, HCO3 27^, Total CO2 29^, O2 sat 93.3*. Treatment: IV Solumedrol, IV fl 100, INH Albuterol, IV Rocephin, IV Lasix, IV Heparin. Intubated on 10/22, remains on vent with failure to wean. Hemodialys started 08/29. Trach & PEG was scheduled but put on hold 09/01: IV Vanco, has NGT, IV fluid bolus, INH Perforomist. Family considering comfort care and/or hospice. Consults: Nephrology, Surgery for trach & PEG, Vascular for HD catheter. In your professional opinion, can you please clarify the specific type of Encephalopathy, if known? Metabolic Encephalopathy Septic Encephalopathy Toxic Encephalopathy Other, please specify Unable to determine (Last Revision: December 2017) Metabolic encephalopathy MTDD
[2019-09-01] MEDS ORDERED: LORazepam 2 MG/ML INJ IV PRN (14:48)
[2019-09-01 17:09] LABS: Glucose,Whole Blood 134 mg/dL (75-99)
--- NOTE | 2019-09-01 18:09 | PN ---
PROGRESS NOTE The patient is seen for followup for acute kidney injury. Family decided to extubate the patient with no plans for re-intubation and he did not go for trach and PEG yesterday. The patient continues to have good urine output at about 80-100 an hour. He is not on any IV fluids. He is maintained on IV antibiotics. The patient is currently awake. He has been shouting out occasionally. Not following commands. Blood pressure this morning was 138/50, heart rate of 90 per minute. Patient is afebrile. Examination of the heart S1, S2. Examination of lungs decreased breath sounds at bases. Abdomen is distended, soft. Exam of lower extremities shows no significant edema. Chronic skin changes are noted. MORTGAGE FUNDER exam cannot be performed. LABS: Sodium 134, potassium 3.5, chloride 100, CO2 is 20, BUN 116, serum creatinine 2.74, phosphorus 9.7, hemoglobin 9.7 g/dL. ASSESSMENT: 1. Acute kidney injury, acute tubular necrosis, status post 2 treatments of hemodialysis, mainly for significantly elevated BUN. The patient continues to have good urine output. His serum creatinine had actually started to improve before the dialysis was initiated. However, he had a BUN of about 169, and therefore patient had 2 treatments of dialysis. Since family has decided against trach and PEG with no plans for re-intubation and patient remaining fairly stable, I will hold off on hemodialysis today. If he is stable in a.m. and they want to pursue aggressive medical therapy, we will plan to dialyze him tomorrow. 2. Acute hypoxic respiratory failure status post extubation with no plans for re- intubation. 3. 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 4. Hyponatremia, now resolved. 5. Chronic obstructive pulmonary disease. 6. Cardiomyopathy, ejection fraction 20-25 percent. PLAN: Hold hemodialysis today and if the patient is stable tomorrow and if family wants to proceed with aggressive therapy, we will plan to dialyze him tomorrow. MMODL / IJN: [id number] /
[2019-09-01 20:00] LABS: Glucose,Whole Blood 128 mg/dL (75-99)
[2019-09-01] MEDS: INSULIN DETEMIR (LEVEMIR) 100 UNIT/ML SYR SQ SCH (20:41)
--- NOTE | 2019-09-01 20:42 | P.PN ---
Progress Note - Text Progress Note Date: 09/01/19 Chief Complaint: Short of breath, cough Interval history: This is [address] rai. Chronic stable medical conditions include diabetes, hypertension, hyperlipidemia, osteoarthritis, chronic kidney disease, home oxygen 2-3 L, chronic low back pain and psoriatic.. Patient was brought in by his . Most history is obtained by the at the bedside. At her baseline patient very much sits down and watches television. Does not drive. Has a fair appetite. Normally able to get around the house. Patient started coughing became short of breath wheezing for 1 day, with a decreased oral intake. Became a bit more confused and presented ER. Patient was not willing to come to the hospital but brought him in. Was given IV Lasix in the ER , bronchodilators. Patient had been quite a bit short of breath. Bringing some sputum. No obvious fever or chills. admitted with a diagnosis of right-sided pneumonia, CHF exacerbation, COPD exacerbation, acute delirium. Patient also found to have from recent renal ultrasound-bilateral hydronephrosis and possibly growth in the bladder.. Also acute kidney injury . Patient was started on Lasix drip and IV ceftriaxone, switched to IV Zosyn. Patient on the medical floor became lethargic and went into respiratory failure and was intubated on August 22. Patient was put on IV Lasix drip and IV propofol. Also in IV dobutamine-discontinued. Patient was extubated on 09/01/2019. Today-ICU. Pulmonary had talked to the patient's family about a PEG tube and tracheostomy. They decided against the same. And patient was extubated this morning. Patient on 6 L oxygen. He is talking. Sometimes bit delirious. Patient and daughter the bedside. Review of systems cannot be done as patient somewhat delirious Active Medications Acetaminophen (Tylenol Tab) 650 mg PO Q4HR PRN PRN Reason: Fever and/ or Pain Last Admin: 08/26/19 12:02 Dose: 650 mg Documented by: Albuterol/Ipratropium (Duoneb 0.5 Mg-3 Mg/3 Ml Soln) 3 ml INHALATION RT-Q4H [facility] Last Admin: 09/01/19 19:54 Dose: 3 ml Documented by: Aspirin (Aspirin) 81 mg PO DAILY [facility] Last Admin: 09/01/19 08:52 Dose: 81 mg Documented by: Atorvastatin Calcium (Lipitor) 40 mg PO DAILY [facility] Last Admin: 09/01/19 08:52 Dose: 40 mg Documented by: Budesonide (Pulmicort) 1 mg INHALATION RT-BID [facility] Last Admin: 09/01/19 19:54 Dose: 1 mg Documented by: Calcium Acetate (Phoslo) 667 mg PO TID-W/MEALS [facility] Last Admin: 09/01/19 17:09 Dose: Not Given Documented by: Formoterol Fumarate (Perforomist) 20 mcg INHALATION RT-BID [facility] Last Admin: 09/01/19 19:54 Dose: 20 mcg Documented by: Heparin Sodium (Porcine) (Heparin) 5,000 unit SQ Q12HR [facility] Last Admin: 09/01/19 08:52 Dose: 5,000 unit Documented by: Piperacillin Sod/Tazobactam (Sod 3.375 gm/ Sodium Chloride) 100 mls @ 25 mls/hr IVPB Q12HR [facility] Last Admin: 09/01/19 08:53 Dose: 25 mls/hr Documented by: Insulin Aspart (Novolog) 0 unit SQ Q4H [facility]; Protocol Last Admin: 09/01/19 20:16 Dose: Not Given Documented by: Insulin Detemir (Levemir) 18 unit SQ HS [facility] Lorazepam (Ativan) 1 mg IV Q6HR PRN PRN Reason: Anxiety Methylprednisolone Sodium Succinate (Solu-Medrol) 40 mg IV Q6HR [facility] Last Admin: 09/01/19 17:11 Dose: 40 mg Documented by: Metoprolol Tartrate (Lopressor) 25 mg PO TID [facility] Last Admin: 09/01/19 17:09 Dose: Not Given Documented by: Miscellaneous Information (Potassium Per Protocol) 1 each MISCELLANE DAILY PRN; Protocol PRN Reason: Per Protocol Naloxone HCl (Narcan) 0.2 mg IV Q2M PRN PRN Reason: Opioid Reversal Nicotine (Habitrol 21mg/24hr Patch) 1 patch TRANSDERM DAILY [facility] Last Admin: 09/01/19 08:53 Dose: 1 patch Documented by: Nystatin (Mycostatin Powder) 1 applic TOPICAL BID [facility] Last Admin: 09/01/19 08:53 Dose: 1 applic Documented by: Nystatin (Mycostatin Oral Susp) 500,000 unit PO QID [facility] Last Admin: 09/01/19 17:10 Dose: 500,000 unit Documented by: Pantoprazole Sodium (Protonix) 40 mg IVP BID [facility] Last Admin: 09/01/19 08:53 Dose: 40 mg Documented by: Physical examination: VITAL SIGNS: 98, 97, 50, 144/52, but he 5% on 6 L GENERAL: Laying in bed, awake with nasal cannula EYES: Pupils equal. Conjunctiva normal. HEENT: External appearance of nose and ears normal, oral cavity dry., Tongue coated NECK: JVD unable to assess,; masses not palpable. HEART: First and second heart sounds are normal; no edema. LUNGS: Respiratory rate increased, decreased breath sounds ABDOMEN: Soft, nontender, liver spleen not palpable, no masses palpable. DERMATOLOGICAL: Area of redness in both the groin,siver demarcated plaques, and both legs PSYCH: Following commands. NEUROLOGICAL: Moving all 4 limbs, talking low-grade delirious INVESTIGATIONS, reviewed in the clinical context: White count 23 hemoglobin 9.7 potassium 3.5 bun 116 creatinine 2.74 Previous testing White count 12.4 hemoglobin 12.6 platelets 237 potassium 4.8 bun 61 creatinine 3.11 Troponin I 0.620, 0.807, influenza A and B both negative EKG tracing personally reviewed by me-personally reviewed by me shows normal sinus rhythm, poor R-wave progression, some T-wave changes in anterolateral leads Chest x-ray film personally reviewed by me-venous prominence, fluid in the fissure, right basilar infiltrate Abdominal ultrasound on 07/29/2019-severe left hydronephrosis and moderate right hydronephrosis, abnormally thickened urinary bladder wall seen multifocally, additionally a sessile mass questionable 2-D [id number] percent Assessment: -Acute on chronic congestive heart failure exacerbation, from systolic and diastolic dysfunction EF 20-25%, -Cardiogenic and septic shock requiring pressor support and IV dobutamine, stabilized -Severe Right-sided pneumonia, suspect gram-negative organism, , POA, -Acute COPD exacerbation in a current smoker, POA, -Acute hypoxic and hypercapnic respiratory failure due to COPD and pneumonia, POA, requiring ventilator support, extubated today on September 01 -Bilateral hydronephrosis, with distal obstruction and evidence of chronic kidney disease on the left kidney, right hydronephrosis improved -Chronic kidney disease, baseline unknown, including obstructive pattern -Acute renal failure, possibly combination of cardiorenal syndrome and obstructive pattern, including ATN, -Hyperkalemia secondary to renal failure, improved -Diabetes mellitus type 2 on oral hypoglycemic, uncontrolled with hyperglycemia -Hyperlipidemia -Essential hypertension -Primary osteoarthritis -Chronic kidney disease stage IV -Lactic acidosis from pneumonia -Troponin leak 2 positive possibly. Hemodynamic instability. Doubt acute coronary syndrome -Acute delirium from pneumonia sepsis -CODE STATUS DO NOT RESUSCITATE. Plan: Spoke to the and the daughter the bedside. Prognosis remains guarded. Patient was extubated today. They do not wish the patient to be intubated. Patient on 6 L of nasal cannula. Oral tolerate to be done. Patient with IV Zosyn. IV Solu-Medrol. Bronchodilators.
[2019-09-02 00:03] LABS: Glucose,Whole Blood 155 mg/dL (75-99)
[2019-09-02 00:49] LABS: Glucose,Whole Blood 161 mg/dL (75-99)
[2019-09-02] MEDS: INSULIN ASPART (NovoLOG) 100 UNIT/ML VIAL SQ SCH ×6 (00:51→20:10)
[2019-09-02] MEDS: methylPREDNISolone SOD SUCCI 40 MG/ML 1 ML VIAL IV SCH ×4 (00:55→16:50)
[2019-09-02] MEDS: IPRATROPIUM-ALBUTEROL 3 ML NEB INHALATION SCH ×5 (03:20→20:22)
[2019-09-02 04:33] LABS: Glucose,Whole Blood 111 mg/dL (75-99)
[2019-09-02 04:44] LABS: Basophils % (A) 0 %; Eosinophils % (A) 0 %; HCT 30.3 % (39.0-53.0); HGB 9.8 gm/dL (13.0-17.5); Lymphocytes # (A) 0.2 k/uL (1.0-4.8); Lymphocytes % (A) 1 %; MCH 31.5 pg (25.0-35.0); MCHC 32.3 g/dL (31.0-37.0); MCV 97.5 fL (80.0-100.0); Mean Platelet Volume 10.3; Monocytes # (A) 0.5 k/uL (0-1.0); Monocytes % (A) 2 %; Neutrophils # (A) 19.4 k/uL (1.3-7.7); Neutrophils % (A) 96 %; Platelet Count 225 k/uL (150-450); RBC 3.11 m/uL (4.30-5.90); RDW 13.4 % (11.5-15.5); WBC 20.1 k/uL (3.8-10.6)
[2019-09-02 04:54] LABS: Calcium 8.4 mg/dL (8.4-10.2); Potassium 3.2 mmol/L (3.5-5.1)
[2019-09-02] MEDS: CALCIUM ACETATE 667 MG TAB PO SCH ×3 (06:31→16:49)
[2019-09-02] MEDS: POTASSIUM CHLORIDE 10 MEQ in WATER FOR INJECTION 1 100ML.BAG IVPB SCH ×4 (06:46→16:48)
--- NOTE | 2019-09-02 07:56 | XR ---
EXAMINATION TYPE: XR chest 1V portable DATE OF EXAM: 09/02/2019 COMPARISON: 09/01/2019 HISTORY: Shortness of breath TECHNIQUE: Frontal and lateral views of the chest are obtained. FINDINGS: Scattered senescent parenchymal changes noted. Hyperinflation compatible with COPD. Endotracheal and NG tubes have been removed. Left subclavian central venous line remains in place. There is pulmonary venous congestion without pleural effusions and mild cardiomegaly has progressed p rior study. Mediastinal structures are stable and grossly unremarkable. No evidence for hilar prominence. Degenerative changes dorsal spine. IMPRESSION: 1. Mildly progressive congestive failure.
[2019-09-02] MEDS: ASPIRIN 81 MG PO SCH (07:58)
[2019-09-02] MEDS: ATORVASTATIN 40 MG TAB PO SCH (07:59)
[2019-09-02] MEDS: METOPROLOL TARTRATE 25 MG TAB PO SCH ×3 (07:59→21:44)
[2019-09-02] MEDS ORDERED: VANCOMYCIN IV PER PHARMACY 1 EACH MISC MISCELLANE PRN (08:40)
[2019-09-02] MEDS: HEPARIN SODIUM,PORCINE 5,000 UNIT/ML 1 ML VIAL SQ SCH ×2 (08:41→20:11)
[2019-09-02] MEDS: NICOTINE 21MG/24HR PATCH TRANSDERM SCH (08:41)
[2019-09-02] MEDS: NYSTATIN 100,000 UNIT/GM POWD 15 GM TOPICAL SCH ×2 (08:42→20:17)
[2019-09-02] MEDS: NYSTATIN 100,000 UNIT/ML SUSP 500,000 UNIT/5 ML CUP PO SCH ×4 (08:42→21:44)
[2019-09-02] MEDS: BUDESONIDE 1 MG/2 ML NEBU INHALATION SCH ×2 (08:42→20:22)
[2019-09-02] MEDS: FORMOTEROL FUMARATE 20 MCG/2 ML NEBU INHALATION SCH ×2 (08:42→20:22)
[2019-09-02] MEDS: PANTOPRAZOLE 40 MG/10 ML VIAL IVP SCH ×2 (08:42→20:11)
[2019-09-02] MEDS ORDERED: METOPROLOL TARTRATE 5 MG/5 ML VIAL IVP PRN (08:56)
--- NOTE | 2019-09-02 10:32 | PN ---
PROGRESS NOTE PULMONARY/CRITICAL CARE PROGRESS NOTE: DATE OF SERVICE: 09/02/2019 This is a 78-year-old gentleman who was admitted back on August 21 with acute kidney injury, non ST-segment elevation myocardial infarction, and COPD exacerbation. He was intubated for respiratory failure on the following day, August 22. Since that time, he had not been making any progress toward weaning and extubation. The patient was to undergo a tracheostomy and PEG tube placement, but apparently the family did not want that and decided to make the patient a DNR and they wanted the patient to be extubated. They realized that post extubation, the patient may pass, but they were willing to take that chance. Interestingly, he had pretty reasonable weaning parameters and he was extubated yesterday and he is doing very well. The patient is not to be reintubated. The patient currently is resting comfortably. He is on O2 at 6 L by nasal cannula and his IV is saline at KVO. The patient apparently did show some evidence of methicillin- resistant Staph aureus in the sputum. He is currently on vancomycin. Zosyn will be discontinued. The patient could be transferred out to the general medical floor without telemetry. Again, we had a long conversation with the family yesterday. They are clear about the fact that he should not be reintubated or resuscitated should his heart stop or respiratory status decline. They also reiterated the fact that they did not want a tracheostomy tube or a feeding tube. Current vital signs are reviewed, temperature is 97.8, heart rate 95, respiratory rate 17, blood pressure 145/54, and saturations are 93%-94% on 6 L. Appears in no acute distress. He is yelling out but not really making much sense. HEENT: Examination is grossly unremarkable. Nasal O2 noted. NECK: Supple. Full range of motion. No adenopathy, thyromegaly or neck vein distention. CARDIOVASCULAR: Examination reveals regular rhythm and rate. Heart rate about 90 beats per minute. S1, S2 normal. LUNGS: Reveal a few scattered coarse rhonchi. Breath sounds are equal. No crackles. No wheezes. He does not take real deep breaths. ABDOMEN: Soft. Bowel sounds are heard. EXTREMITIES: Intact. Mild edema noted. Skin: With evidence of severe plaque psoriasis. NEUROLOGIC: Examination is difficult to assess but he does respond verbally. Most of what he says is jumbled and not particularly coherent. He does move all 4 extremities. Microbiology is positive for sputum showing Corynebacterium striatum and methicillin- resistant Staph aureus. The patient is on vancomycin. LABS: Reviewed. White count 20.1, hemoglobin 9.8, hematocrit 30.3, platelet count 325,000. Sodium 141, potassium 3.2, chloride is 111, CO2 is 21, anion gap is 9. BUN and creatinine were 108 and 2.11 respectively. Phosphorus is 5.2. A chest x-ray from today, September 02, shows some fluid overload/interstitial edema. Medications are reviewed. ASSESSMENT: 1. Acute hypoxemic and hypercapnic respiratory failure, secondary to bibasilar pneumonia, community-acquired, involving both left and right lower lobes. 2. Acute exacerbation of severe chronic obstructive pulmonary disease, status post intubation on August 22 and successful extubation on September 01, 2019. 3. Acute systolic heart failure. 4. Severe cardiomyopathy with ejection fraction of 20% to 25%. 5. Stage III chronic kidney disease. 6. Type 2 diabetes mellitus. 7. Benign essential hypertension. 8. Hyperlipidemia. 9. History of plaque psoriasis. 10.History of coronary artery disease with previous myocardial infarction. 11.History of chronic back pain. PLAN: The patient was successfully extubated on September 01. The patient remains on nasal O2 and a basic IV. Will transfer him out to the floor. He is a DO NOT RESUSCITATE/DO NOT INTUBATE. His sputum is showing evidence of methicillin-resistant Staph aureus. Remain on vancomycin. Zosyn will be discontinued. The patient could be transferred to the general medical floor without telemetry. His overall prognosis remains very guarded. MMODL / IJN: [id number] /
[2019-09-02 11:57] LABS: Glucose,Whole Blood 121 mg/dL (75-99)
--- NOTE | 2019-09-02 16:07 | PN ---
PROGRESS NOTE Patient is seen for follow up for acute kidney injury. The patient was extubated yesterday with no plans for reintubation. We held dialysis yesterday and this morning the patient is noted to have an improvement in his BUN and creatinine. He continues to have good urine output. Family is present at bedside. He is hemodynamically stable; however, the patient has not slept for quite a few days. He has not been eating much. He failed the swallow evaluation. PHYSICAL EXAMINATION: On examination this morning, blood pressure 145/54, heart rate 92 per minute. Patient is afebrile. Examination of the heart: S1 and S2. Examination of the lungs: Bilateral breath sounds are heard. Decreased breath sounds at the bases. Abdomen is soft, nontender. Examination of the lower extremities shows no significant edema. LABORATORY DATA: Laboratory show hemoglobin 9.8, sodium 141, potassium 3.2, chloride 111, CO2 is 21, BUN 108, creatinine 2.1, phosphorus 5.2. ASSESSMENT: 1. Acute kidney injury. ATN currently improving. We will hold off on dialysis. Patient has had two treatments. His renal function is currently improving. 2. Hypokalemia, being replaced. 3. Hypoxic respiratory failure status post extubation. 4. Pneumonia with sputum culture growing methicillin-resistant Staphylococcus aureus and Corynebacterium striatum. 5. Hyperphosphatemia from renal failure, maintained on PhosLo. 6. Disproportionately elevated BUN from steroids, renal failure, and hypercatabolic state, currently improved post-dialysis. PLAN: Continue to hold off on dialysis for now. Repeat laboratories in a.m. Continue off of intravenous fluids. MMODL / IJN: [id number] /
[2019-09-02 16:45] LABS: Glucose,Whole Blood 145 mg/dL (75-99)
[2019-09-02 20:04] LABS: Glucose,Whole Blood 148 mg/dL (75-99)
[2019-09-02] MEDS: INSULIN DETEMIR (LEVEMIR) 100 UNIT/ML SYR SQ SCH (20:11)
[2019-09-03] MEDS: INSULIN ASPART (NovoLOG) 100 UNIT/ML VIAL SQ SCH ×7 (00:09→20:32)
[2019-09-03] MEDS: methylPREDNISolone SOD SUCCI 40 MG/ML 1 ML VIAL IV SCH ×4 (00:12→23:04)
[2019-09-03 00:19] LABS: Glucose,Whole Blood 118 mg/dL (75-99)
--- NOTE | 2019-09-03 00:20 | P.PN ---
Progress Note - Text Progress Note Date: 09/02/19 Chief Complaint: Short of breath, cough Interval history: This is [address] rai. Chronic stable medical conditions include diabetes, hypertension, hyperlipidemia, osteoarthritis, chronic kidney disease, home oxygen 2-3 L, chronic low back pain and psoriatic.. Patient was brought in by his . Most history is obtained by the at the bedside. At her baseline patient very much sits down and watches television. Does not drive. Has a fair appetite. Normally able to get around the house. Patient started coughing became short of breath wheezing for 1 day, with a decreased oral intake. Became a bit more confused and presented ER. Patient was not willing to come to the hospital but brought him in. Was given IV Lasix in the ER , bronchodilators. Patient had been quite a bit short of breath. Bringing some sputum. No obvious fever or chills. admitted with a diagnosis of right-sided pneumonia, CHF exacerbation, COPD exacerbation, acute delirium. Patient also found to have from recent renal ultrasound-bilateral hydronephrosis and possibly growth in the bladder.. Also acute kidney injury . Patient was started on Lasix drip and IV ceftriaxone, switched to IV Zosyn. Patient on the medical floor became lethargic and went into respiratory failure and was intubated on August 22. Patient was put on IV Lasix drip and IV propofol. Also in IV dobutamine-discontinued. Patient was extubated on 09/01/2019. Today-ICU. Patient answering questions. No symptoms delirious. Not eating. Moving about on all his limbs. On nasal cannula. Review of systems: Was attempted for constitutional, cardiovascular, GI, pulm onary. relevant finding as above Active Medications Acetaminophen (Tylenol Tab) 650 mg PO Q4HR PRN PRN Reason: Fever and/ or Pain Last Admin: 08/26/19 12:02 Dose: 650 mg Documented by: Albuterol/Ipratropium (Duoneb 0.5 Mg-3 Mg/3 Ml Soln) 3 ml INHALATION RT-Q4H [facility] Last Admin: 09/02/19 20:22 Dose: 3 ml Documented by: Aspirin (Aspirin) 81 mg PO DAILY [facility] Last Admin: 09/02/19 07:58 Dose: Not Given Documented by: Atorvastatin Calcium (Lipitor) 40 mg PO DAILY [facility] Last Admin: 09/02/19 07:59 Dose: Not Given Documented by: Budesonide (Pulmicort) 1 mg INHALATION RT-BID [facility] Last Admin: 09/02/19 20:22 Dose: 1 mg Documented by: Calcium Acetate (Phoslo) 667 mg PO TID-W/MEALS [facility] Last Admin: 09/02/19 16:49 Dose: 667 mg Documented by: Formoterol Fumarate (Perforomist) 20 mcg INHALATION RT-BID [facility] Last Admin: 09/02/19 20:22 Dose: 20 mcg Documented by: Heparin Sodium (Porcine) (Heparin) 5,000 unit SQ Q12HR [facility] Last Admin: 09/02/19 20:11 Dose: 5,000 unit Documented by: Insulin Aspart (Novolog) 0 unit SQ Q4H [facility]; Protocol Last Admin: 09/03/19 00:09 Dose: Not Given Documented by: Insulin Detemir (Levemir) 18 unit SQ HS [facility] Last Admin: 09/02/19 20:11 Dose: 18 unit Documented by: Lorazepam (Ativan) 1 mg IV Q6HR PRN PRN Reason: Anxiety Last Admin: 09/01/19 23:06 Dose: 1 mg Documented by: Methylprednisolone Sodium Succinate (Solu-Medrol) 40 mg IV Q6HR [facility] Last Admin: 09/03/19 00:12 Dose: 40 mg Documented by: Metoprolol Tartrate (Lopressor) 25 mg PO TID [facility] Last Admin: 09/02/19 21:44 Dose: 25 mg Documented by: Miscellaneous Information (Potassium Per Protocol) 1 each MISCELLANE DAILY PRN; Protocol PRN Reason: Per Protocol Miscellaneous Information (Pharmacy To Dose Iv Vancomycin) 1 each MISCELLANE DIRECTED PRN PRN Reason: Per Protocol Naloxone HCl (Narcan) 0.2 mg IV Q2M PRN PRN Reason: Opioid Reversal Nicotine (Habitrol 21mg/24hr Patch) 1 patch TRANSDERM DAILY [facility] Last Admin: 09/02/19 08:41 Dose: 1 patch Documented by: Nystatin (Mycostatin Powder) 1 applic TOPICAL BID [facility] Last Admin: 09/02/19 20:17 Dose: 1 applic Documented by: Nystatin (Mycostatin Oral Susp) 500,000 unit PO QID [facility] Last Admin: 09/02/19 21:44 Dose: 500,000 unit Documented by: Pantoprazole Sodium (Protonix) 40 mg IVP BID [facility] Last Admin: 09/02/19 20:11 Dose: 40 mg Documented by: Physical examination: VITAL SIGNS: 97.8, 92, 20, 145/54, 93% on 6 L GENERAL: Laying in bed, awake with nasal cannula, talking EYES: Pupils equal. Conjunctiva normal. HEENT: External appearance of nose and ears normal, oral cavity dry., Tongue coated NECK: JVD unable to assess,; masses not palpable. HEART: First and second heart sounds are normal; no edema. LUNGS: Respiratory rate increased, decreased breath sounds, occasional crackles ABDOMEN: Soft, nontender, liver spleen not palpable, no masses palpable. DERMATOLOGICAL: Area of redness in both the groin,siver demarcated plaques, and both legs PSYCH: Following commands. Answers occasional questions NEUROLOGICAL: Moving all 4 limbs, talking low-grade delirious INVESTIGATIONS, reviewed in the clinical context: White count 20.1 hemoglobin 9.8 compression 3.2 bun 108 creatinine 2.1 on Previous testing White count 12.4 hemoglobin 12.6 platelets 237 potassium 4.8 bun 61 creatinine 3.11 Troponin I 0.620, 0.807, influenza A and B both negative EKG tracing personally reviewed by me-personally reviewed by me shows normal sinus rhythm, poor R-wave progression, some T-wave changes in anterolateral leads Chest x-ray film personally reviewed by me-venous prominence, fluid in the fissure, right basilar infiltrate Abdominal ultrasound on 07/29/2019-severe left hydronephrosis and moderate right hydronephrosis, abnormally thickened urinary bladder wall seen multifocally, additionally a sessile mass questionable 2-D [id number] percent Assessment: -Acute on chronic congestive heart failure exacerbation, from systolic and diastolic dysfunction EF 20-25%, compensated -Cardiogenic and septic shock requiring pressor support and IV dobutamine, stabilized -Severe Right-sided pneumonia, suspect gram-negative organism, , POA, -Acute COPD exacerbation in a current smoker, POA, -Acute hypoxic and hypercapnic respiratory failure due to COPD and pneumonia, POA, requiring ventilator support, extubated today on September 01 -Bilateral hydronephrosis, with distal obstruction and evidence of chronic kidney disease on the left kidney, right hydronephrosis improved -Chronic kidney disease, baseline unknown, including obstructive pattern -Acute renal failure, possibly combination of cardiorenal syndrome and obstructive pattern, including ATN, -Hyperkalemia secondary to renal failure, improved -Diabetes mellitus type 2 on oral hypoglycemic, uncontrolled with hyperglycemia -Hyperlipidemia -Essential hypertension -Primary osteoarthritis -Chronic kidney disease stage IV -Lactic acidosis from pneumonia -Troponin leak 2 positive possibly. Hemodynamic instability. Doubt acute coronary syndrome -Acute delirium from pneumonia sepsis -CODE STATUS DO NOT RESUSCITATE. Plan: Patient slowly improving. The overall prognosis guarded. Patient will verbalize you. Continue no family the brother bedside. Decrease a dose of Solu-Medrol. Continue with bronchodilators. Patient on insulin.
[2019-09-03] MEDS: IPRATROPIUM-ALBUTEROL 3 ML NEB INHALATION SCH ×7 (00:37→23:03)
[2019-09-03 04:10] LABS: Glucose,Whole Blood 91 mg/dL (75-99)
[2019-09-03 08:05] LABS: Glucose,Whole Blood 103 mg/dL (75-99)
[2019-09-03 08:07] LABS: Potassium 3.5 mmol/L (3.5-5.1)
[2019-09-03 08:26] LABS: Vancomycin,Random 16.7 ug/mL
[2019-09-03] MEDS: NYSTATIN 100,000 UNIT/ML SUSP 500,000 UNIT/5 ML CUP PO SCH ×4 (08:52→20:32)
[2019-09-03] MEDS: ATORVASTATIN 40 MG TAB PO SCH (08:53)
[2019-09-03] MEDS: NYSTATIN 100,000 UNIT/GM POWD 15 GM TOPICAL SCH ×2 (08:53→20:34)
[2019-09-03] MEDS: CALCIUM ACETATE 667 MG TAB PO SCH ×3 (08:53→17:41)
[2019-09-03] MEDS: METOPROLOL TARTRATE 25 MG TAB PO SCH ×3 (08:53→20:32)
[2019-09-03] MEDS: HEPARIN SODIUM,PORCINE 5,000 UNIT/ML 1 ML VIAL SQ SCH ×2 (08:53→20:32)
[2019-09-03] MEDS: PANTOPRAZOLE 40 MG/10 ML VIAL IVP SCH ×2 (08:53→20:32)
[2019-09-03] MEDS: NICOTINE 21MG/24HR PATCH TRANSDERM SCH (08:53)
[2019-09-03] MEDS: ASPIRIN 81 MG PO SCH (08:53)
[2019-09-03] MEDS: FORMOTEROL FUMARATE 20 MCG/2 ML NEBU INHALATION SCH ×2 (08:54→20:50)
[2019-09-03] MEDS: BUDESONIDE 1 MG/2 ML NEBU INHALATION SCH ×2 (08:54→20:50)
[2019-09-03] MEDS ORDERED: VANCOMYCIN 1,500 MG in SODIUM CHLORIDE 0.9% 250 ML IVPB ONE (09:00)
--- NOTE | 2019-09-03 11:43 | P.PN ---
Subjective Progress Note Date: 09/03/19 Principal diagnosis: Acute hypoxemic and hypercapnic respiratory failure secondary to bibasilar MRSA pneumonia, healthcare acquired On 09/03/2019 patient seen in follow-up on medical surgical floor. He is awake and alert, he is in no acute distress, somewhat confused, he remains on 3 L of oxygen his pulse ox of 93%, hemodynamically stable, patient is afebrile. Sputum cultures positive for Corynebacterium stratum, and methicillin-resistant staph aureus, and patient is on vancomycin, he had been on Zosyn prior to that in the Zosyn has been discontinued. Remains on IV Solu-Medrol, breathing treatments. No worsening dyspnea, patient has generalized weakness, he is working with physical therapy but most likely will require subacute rehab placement. Renal function is improving, creatinine is down to 1.87. Potassium is 3.5. No other labs for today, no new chest x-rays, reveal diminished breath sounds bilaterally. Objective - Vital Signs Vital signs: Vital Signs Temp 98.1 F 09/03/19 07:12 Pulse 94 09/03/19 09:25 Resp 16 09/03/19 07:12 BP 144/80 09/03/19 07:12 Pulse Ox 93 L 09/03/19 07:12 Intake & Output 09/02/19 09/03/19 09/03/19 18:59 06:59 18:59 Intake Total 620 220 Output Total 680 1110 Balance -60 -890 Intake: IV 620 120 Potassium Chloride 10 meq 400 In Water For Injection 1 100ml.bag @ 100 mls/hr IVPB Q1HR REPLACED BY [facility] Rx#: [id number] kvo 220 120 Oral 100 Output: Urine 680 260 Stool 850 Other: Voiding Method Indwelling Catheter Indwelling Catheter Indwelling Catheter # Voids 2 ABP, PAP, CO, CI - Last Documented Arterial Blood Pressure 145/54 - Exam GENERAL EXAM: Alert, very pleasant, 78-year-old white male, slightly confused, on 3 L of oxygen with a pulse ox of 96% comfortable in no apparent distress. HEAD: Normocephalic/atraumatic. EYES: Normal reaction of pupils, equal size. Conjunctiva pink, sclera white. NOSE: Clear with pink turbinates. THROAT: No erythema or exudates. NECK: No masses, no JVD, no thyroid enlargement, no adenopathy. CHEST: No chest wall deformity. Symmetrical expansion. LUNGS: Equal air entry with no crackles, wheeze, rhonchi or dullness. CVS: Regular rate and rhythm, normal S1 and S2, no gallops, no murmurs, no rubs ABDOMEN: Soft, nontender. No hepatosplenomegaly, normal bowel sounds, no guardi ng or rigidity. EXTREMITIES: No clubbing, no edema, no cyanosis, 2+ pulses and upper and lower extremities. MUSCULOSKELETAL: Muscle strength and tone normal. SPINE: No scoliosis or deformity SKIN: No rashes CENTRAL NERVOUS SYSTEM: Alert and oriented -1. No focal deficits, tone is normal in all 4 extremities. PSYCHIATRIC: Alert and oriented -1. Appropriate affect. Intact judgment and insight. - Labs CBC & Chem 7: 09/02/19 04:30 09/03/19 07:28 Labs: Abnormal Lab Results - Last 24 Hours (Table) 09/02/19 09/02/19 09/02/19 Range/Units 11:55 16:43 20:02 Creatinine (0.66-1.25) mg/dL POC Glucose (mg/dL) 121 H 145 H 148 H (75-99) mg/dL 09/03/19 09/03/19 09/03/19 Range/Units 00:07 07:28 08:03 Creatinine 1.87 H (0.66-1.25) mg/dL POC Glucose (mg/dL) 118 H 103 H (75-99) mg/dL Microbiology - Last 24 Hours (Table) 08/30/19 11:59 Gram Stain - Final Sputum Sputum Culture - Final Methicillin resist S. aureus Corynebacterium striatum Assessment and Plan Plan: Assessment: #1. Acute hypoxemic and hypercapnic respiratory failure related to bilateral pneumonia with sputum cultures positive for methicillin-resistant staph aureus #2. Acute exacerbation of severe chronic obstructive pulmonary disease status post intubation on August 22 and successful extubation on 09/01/2019 #3. Acute exacerbation of systolic heart failure #4. History of severe cardiomyopathy with ejection fraction of 20-25% #5. Stage III chronic kidney disease #6. Type 2 diabetes mellitus #7. Benign essential hypertension #8. Hyperlipidemia #9. History of plaque psoriasis #10. History of coronary artery disease with previous myocardial infarction #11. History of chronic back pain Plan: Continue vancomycin, continue nebulized treatments, continue IV steroids, increase activity as tolerated, deep breathing and coughing, no new chest x-ray today, vital signs are stable, patient has been afebrile, hemodynamically stable, provided incentive spirometry. We'll continue to follow I performed a history & physical examination of the patient and discussed their management with my nurse practitioner, Bailey Madsen. I reviewed the nurse practitioner's note and agree with the documented findings and plan of care. Lung sounds are positive for diminished breath sounds. The findings and the impression was discussed with the patient. I attest to the documentation by the nurse practitioner. Time with Patient: Less than 30
[2019-09-03 12:08] LABS: Glucose,Whole Blood 143 mg/dL (75-99)
[2019-09-03 17:34] LABS: Glucose,Whole Blood 139 mg/dL (75-99)
--- NOTE | 2019-09-03 18:08 | PN ---
PROGRESS NOTE Patient is seen for followup for acute kidney injury. Patient has had 2 treatments of dialysis, and hemodialysis is currently on hold. Patient denies any significant complaints. He has not slept much. They will try to feed him later on today. PHYSICAL EXAMINATION: On examination today, blood pressure was 144/80, heart rate 96 per minute. Patient is afebrile. EXAMINATION OF THE HEART: S1 and S2. EXAMINATION OF LUNGS: Bilateral breath sounds are heard. ABDOMEN: Soft, non-tender. Examination of lower extremities shows no significant edema. ADVERTISING MANAGER exam is grossly intact. LABS: Creatinine 1.87, down from 2.1. Potassium is 3.5. ASSESSMENT: 1. Acute kidney injury, acute tubular necrosis, status post 2 treatments of hemodialysis with improving renal function. Continue off of IV fluids. Monitor vancomycin levels closely. We will continue to hold off on dialysis for now. Repeat labs in a.m. 2. Hypoxic respiratory failure, status post extubation. Doing well. 3. Disproportionately elevated BUN secondary to steroids, hypercatabolic state, now improved. Repeat labs in a.m. 4. Hyperphosphatemia from renal failure, maintained on PhosLo. Check phosphorus level in a.m., as patient has not been eating much. As renal function continues to improve, we may be able to discontinue the PhosLo. PLAN: Hold dialysis. Repeat labs in a.m. MMAMILCARL / YVONNEN: [id number] /
[2019-09-03 20:29] LABS: Glucose,Whole Blood 180 mg/dL (75-99)
[2019-09-03] MEDS: INSULIN DETEMIR (LEVEMIR) 100 UNIT/ML SYR SQ SCH (20:32)
[2019-09-03] MEDS: ACETAMINOPHEN TAB 325 MG TAB PO PRN (20:36)
--- NOTE | 2019-09-03 22:34 | P.PN ---
Progress Note - Text Progress Note Date: 09/03/19 Chief Complaint: Short of breath, cough Interval history: This is [address] rai. Chronic stable medical conditions include diabetes, hypertension, hyperlipidemia, osteoarthritis, chronic kidney disease, home oxygen 2-3 L, chronic low back pain and psoriatic.. Patient was brought in by his . Most history is obtained by the at the bedside. At her baseline patient very much sits down and watches television. Does not drive. Has a fair appetite. Normally able to get around the house. Patient started coughing became short of breath wheezing for 1 day, with a decreased oral intake. Became a bit more confused and presented ER. Patient was not willing to come to the hospital but brought him in. Was given IV Lasix in the ER , bronchodilators. Patient had been quite a bit short of breath. Bringing some sputum. No obvious fever or chills. admitted with a diagnosis of right-sided pneumonia, CHF exacerbation, COPD exacerbation, acute delirium. Patient also found to have from recent renal ultrasound-bilateral hydronephrosis and possibly growth in the bladder.. Also acute kidney injury . Patient was started on Lasix drip and IV ceftriaxone, switched to IV Zosyn. Patient on the medical floor became lethargic and went into respiratory failure and was intubated on August 22. Patient was put on IV Lasix drip and IV propofol. Also in IV dobutamine-discontinued. Patient was extubated on 09/01/2019. Today-on medical floor. awake. Intermittent delirium. at the bedside.started on a dysphagia diet. Review of systems: patient delirious Active Medications Acetaminophen (Tylenol Tab) 650 mg PO Q4HR PRN PRN Reason: Fever and/ or Pain Last Admin: 09/03/19 20:36 Dose: 650 mg Documented by: Albuterol/Ipratropium (Duoneb 0.5 Mg-3 Mg/3 Ml Soln) 3 ml INHALATION RT-Q4H [facility] Last Admin: 09/03/19 20:50 Dose: 3 ml Documented by: Aspirin (Aspirin) 81 mg PO DAILY [facility] Last Admin: 09/03/19 08:53 Dose: 81 mg Documented by: Atorvastatin Calcium (Lipitor) 40 mg PO DAILY [facility] Last Admin: 09/03/19 08:53 Dose: 40 mg Documented by: Budesonide (Pulmicort) 1 mg INHALATION RT-BID [facility] Last Admin: 09/03/19 20:50 Dose: 1 mg Documented by: Calcium Acetate (Phoslo) 667 mg PO TID-W/MEALS [facility] Last Admin: 09/03/19 17:41 Dose: 667 mg Documented by: Formoterol Fumarate (Perforomist) 20 mcg INHALATION RT-BID [facility] Last Admin: 09/03/19 20:50 Dose: 20 mcg Documented by: Heparin Sodium (Porcine) (Heparin) 5,000 unit SQ Q12HR [facility] Last Admin: 09/03/19 20:32 Dose: 5,000 unit Documented by: Insulin Aspart (Novolog) 0 unit SQ ACHS [facility]; Protocol Last Admin: 09/03/19 20:32 Dose: 2 unit Documented by: Insulin Detemir (Levemir) 18 unit SQ HS [facility] Last Admin: 09/03/19 20:32 Dose: 18 unit Documented by: Lorazepam (Ativan) 1 mg IV Q6HR PRN PRN Reason: Anxiety Last Admin: 09/01/19 23:06 Dose: 1 mg Documented by: Methylprednisolone Sodium Succinate (Solu-Medrol) 40 mg IV Q8HR [facility] Last Admin: 09/03/19 17:41 Dose: 40 mg Documented by: Metoprolol Tartrate (Lopressor) 25 mg PO TID [facility] Last Admin: 09/03/19 20:32 Dose: 25 mg Documented by: Miscellaneous Information (Potassium Per Protocol) 1 each MISCELLANE DAILY PRN; Protocol PRN Reason: Per Protocol Miscellaneous Information (Pharmacy To Dose Iv Vancomycin) 1 each MISCELLANE DIRECTED PRN PRN Reason: Per Protocol Naloxone HCl (Narcan) 0.2 mg IV Q2M PRN PRN Reason: Opioid Reversal Nicotine (Habitrol 21mg/24hr Patch) 1 patch TRANSDERM DAILY [facility] Last Admin: 09/03/19 08:53 Dose: 1 patch Documented by: Nystatin (Mycostatin Powder) 1 applic TOPICAL BID [facility] Last Admin: 09/03/19 20:34 Dose: 1 applic Documented by: Nystatin (Mycostatin Oral Susp) 500,000 unit PO QID [facility] Last Admin: 09/03/19 20:32 Dose: 500,000 unit Documented by: Pantoprazole Sodium (Protonix) 40 mg IVP BID [facility] Last Admin: 09/03/19 20:32 Dose: 40 mg Documented by: Physical examination: VITAL SIGNS: 99.1, 119, 16, 142/67, 93% on 3 L GENERAL: Laying in bed, awake with nasal cannula,a bit delirious EYES: Pupils equal. Conjunctiva normal. HEENT: External appearance of nose and ears normal, oral cavity dry., Tongue coated NECK: JVD unable to assess,; masses not palpable. HEART: First and second heart sounds are normal; no edema. LUNGS: Respiratory rate increased, decreased breath sounds, occasional crackles ABDOMEN: Soft, nontender, liver spleen not palpable, no masses palpable. DERMATOLOGICAL: Area of redness in both the groin,siver demarcated plaques, and both legs PSYCH: Following commands. Answers occasional questions NEUROLOGICAL: Moving all 4 limbs, talking somee delirious INVESTIGATIONS, reviewed in the clinical context: White count 20.1 hemoglobin 9.8 compression 3.2 bun 108 creatinine 2.1 on Previous testing White count 12.4 hemoglobin 12.6 platelets 237 potassium 4.8 bun 61 creatinine 3.11 Troponin I 0.620, 0.807, influenza A and B both negative EKG tracing personally reviewed by me-personally reviewed by me shows normal sinus rhythm, poor R-wave progression, some T-wave changes in anterolateral leads Chest x-ray film personally reviewed by me-venous prominence, fluid in the fissure, right basilar infiltrate Abdominal ultrasound on 07/29/2019-severe left hydronephrosis and moderate right hydronephrosis, abnormally thickened urinary bladder wall seen multifocally, additionally a sessile mass questionable 2-D [id number] percent Assessment: -Acute on chronic congestive heart failure exacerbation, from systolic and diastolic dysfunction EF 20-25%, compensated -Cardiogenic and septic shock requiring pressor support and IV dobutamine, stabilized -Severe Right-sided pneumonia, suspect gram-negative organism, , POA, -Acute COPD exacerbation in a current smoker, POA, -Acute hypoxic and hypercapnic respiratory failure due to COPD and pneumonia, POA, requiring ventilator support, extubated today on September 01 -Bilateral hydronephrosis, with distal obstruction and evidence of chronic kidney disease on the left kidney, right hydronephrosis improved -Chronic kidney disease, baseline unknown, including obstructive pattern -Acute renal failure, possibly combination of cardiorenal syndrome and obstructive pattern, including ATN, -Hyperkalemia secondary to renal failure, improved -Diabetes mellitus type 2 on oral hypoglycemic, uncontrolled with hyperglycemia -Hyperlipidemia -Essential hypertension -Primary osteoarthritis -Chronic kidney disease stage IV -Lactic acidosis from pneumonia -Troponin leak 2 positive possibly. Hemodynamic instability. Doubt acute coronary syndrome -Acute delirium from pneumonia sepsis, slow to improve -CODE STATUS DO NOT RESUSCITATE. Plan: care was discussed with the patient at the bedside. Prognosis guarded. Was a Solu-Medrol was cut back yesterday. Encourage oral intake. All feeding to be supervised. Repeat labs in the morning.
[2019-09-04] MEDS: IPRATROPIUM-ALBUTEROL 3 ML NEB INHALATION SCH ×6 (03:22→23:11)
[2019-09-04 07:39] LABS: Glucose,Whole Blood 170 mg/dL (75-99)
[2019-09-04 07:40] LABS: Calcium 9.2 mg/dL (8.4-10.2); Phosphorus 4.8 mg/dL (2.5-4.5); Potassium 4.1 mmol/L (3.5-5.1)
[2019-09-04] MEDS: FORMOTEROL FUMARATE 20 MCG/2 ML NEBU INHALATION SCH ×2 (07:41→19:39)
[2019-09-04] MEDS: BUDESONIDE 1 MG/2 ML NEBU INHALATION SCH ×2 (07:41→19:39)
[2019-09-04] MEDS: CALCIUM ACETATE 667 MG TAB PO SCH ×3 (08:16→17:16)
[2019-09-04] MEDS: ASPIRIN 81 MG PO SCH (08:16)
[2019-09-04] MEDS: INSULIN ASPART (NovoLOG) 100 UNIT/ML VIAL SQ SCH ×4 (08:17→20:36)
[2019-09-04] MEDS: ACETAMINOPHEN TAB 325 MG TAB PO PRN ×2 (08:17→17:16)
[2019-09-04] MEDS: ATORVASTATIN 40 MG TAB PO SCH (08:17)
[2019-09-04] MEDS: METOPROLOL TARTRATE 25 MG TAB PO SCH ×3 (08:17→21:28)
[2019-09-04] MEDS: NYSTATIN 100,000 UNIT/ML SUSP 500,000 UNIT/5 ML CUP PO SCH ×4 (08:18→21:28)
[2019-09-04] MEDS: HEPARIN SODIUM,PORCINE 5,000 UNIT/ML 1 ML VIAL SQ SCH (08:18)
[2019-09-04] MEDS: methylPREDNISolone SOD SUCCI 40 MG/ML 1 ML VIAL IV SCH ×2 (08:18→17:20)
[2019-09-04] MEDS: PANTOPRAZOLE 40 MG/10 ML VIAL IVP SCH ×2 (08:19→21:28)
[2019-09-04] MEDS: NICOTINE 21MG/24HR PATCH TRANSDERM SCH (08:20)
[2019-09-04] MEDS: NYSTATIN 100,000 UNIT/GM POWD 15 GM TOPICAL SCH ×2 (08:29→21:35)
[2019-09-04 08:47] LABS: Vancomycin,Random 20.2 ug/mL
[2019-09-04] MEDS ORDERED: DEXTROSE 5%-0.9% NACL 1,000 ML IV SCH (09:15)
[2019-09-04] MEDS ORDERED: VANCOMYCIN 1,500 MG in SODIUM CHLORIDE 0.9% 250 ML IVPB ONE (11:00)
--- NOTE | 2019-09-04 11:20 | P.PN ---
Subjective Progress Note Date: 09/04/19 Principal diagnosis: Acute hypoxemic and hypercapnic respiratory failure secondary to bibasilar MRSA pneumonia, healthcare acquired On 09/03/2019 patient seen in follow-up on medical surgical floor. He is awake and alert, he is in no acute distress, somewhat confused, he remains on 3 L of oxygen his pulse ox of 93%, hemodynamically stable, patient is afebrile. Sputum cultures positive for Corynebacterium stratum, and methicillin-resistant staph aureus, and patient is on vancomycin, he had been on Zosyn prior to that in the Zosyn has been discontinued. Remains on IV Solu-Medrol, breathing treatments. No worsening dyspnea, patient has generalized weakness, he is working with physical therapy but most likely will require subacute rehab placement. Renal function is improving, creatinine is down to 1.87. Potassium is 3.5. No other labs for today, no new chest x-rays, reveal diminished breath sounds bilaterally. On 09/04/2019 patient seen in follow-up on medical surgical floor. he is more awake today, he is resting in bed, still has quite severe generalized weakness, but clinically he appears to be stable, no worsening dyspnea, he is on 3 L of oxygen and the pulse ox of 95%. 's been afebrile, hemodynamically stable, no specific complaints, speech therapy has evaluated the patient, and initially patient was started out on thickened liquids however reevaluation was done this morning, and patient passed bedside swallow evaluation with thin liquids, and he is being allowed water and thin liquids, and he is drinking water liberally. These labs have been reviewed, showing serum sodium of 149, potassium of 4.1, chloride is 119, Bun is 79 creatinine is 1.71. Patient remains on vancomycin for MRSA pneumonia. Has had no fever. No significant cough or congestion, remains on breathing treatments. Objective - Vital Signs Vital signs: Vital Signs Temp 97.7 F 09/04/19 07:00 Pulse 90 09/04/19 08:00 Resp 16 09/04/19 09:24 BP 167/103 09/04/19 07:00 Pulse Ox 95 09/04/19 07:00 Intake & Output 09/03/19 09/04/19 09/04/19 18:59 06:59 18:59 Intake Total 280 100 80 Output Total 800 Balance 280 -700 80 Weight 82.7 kg 83.5 kg Intake: Oral 280 100 80 Output: Urine 800 Other: Voiding Method Indwelling Catheter Indwelling Catheter Indwelling Catheter # Voids 3 ABP, PAP, CO, CI - Last Documented Arterial Blood Pressure 145/54 - Exam GENERAL EXAM: Alert, very pleasant, 78-year-old white male, slightly confused, on 3 L of oxygen with a pulse ox of 96% comfortable in no apparent distress. HEAD: Normocephalic/atraumatic. EYES: Normal reaction of pupils, equal size. Conjunctiva pink, sclera white. NOSE: Clear with pink turbinates. THROAT: No erythema or exudates. NECK: No masses, no JVD, no thyroid enlargement, no adenopathy. CHEST: No chest wall deformity. Symmetrical expansion. LUNGS: Equal air entry with no crackles, wheeze, rhonchi or dullness. CVS: Regular rate and rhythm, normal S1 and S2, no gallops, no murmurs, no rubs ABDOMEN: Soft, nontender. No hepatosplenomegaly, normal bowel sounds, no guarding or rigidity. EXTREMITIES: No clubbing, no edema, no cyanosis, 2+ pulses and upper and lower extremities. MUSCULOSKELETAL: Muscle strength and tone normal. SPINE: No scoliosis or deformity SKIN: No rashes CENTRAL NERVOUS SYSTEM: Alert and oriented -1. No focal deficits, tone is normal in all 4 extremities. PSYCHIATRIC: Alert and oriented -1. Appropriate affect. Intact judgment and insight. - Labs CBC & Chem 7: 09/02/19 04:30 09/04/19 07:06 Labs: Abnormal Lab Results - Last 24 Hours (Table) 09/03/19 09/03/19 09/03/19 Range/Units 12:06 17:32 20:18 Sodium (137-145) mmol/L Chloride (98-107) mmol/L BUN (9-20) mg/dL Creatinine (0.66-1.25) mg/dL Glucose (74-99) mg/dL POC Glucose (mg/dL) 143 H 139 H 180 H (75-99) mg/dL Phosphorus (2.5-4.5) mg/dL 09/04/19 09/04/19 Range/Units 07:06 07:25 Sodium 149 H (137-145) mmol/L Chloride 119 H (98-107) mmol/L BUN 79 H (9-20) mg/dL Creatinine 1.71 H (0.66-1.25) mg/dL Glucose 174 H (74-99) mg/dL POC Glucose (mg/dL) 170 H (75-99) mg/dL Phosphorus 4.8 H (2.5-4.5) mg/dL Assessment and Plan Plan: Assessment: #1. Acute hypoxemic and hypercapnic respiratory failure related to bilateral pneumonia with sputum cultures positive for methicillin-resistant staph aureus #2. Acute exacerbation of severe chronic obstructive pulmonary disease status post intubation on August 22 and successful extubation on 09/01/2019 #3. Acute exacerbation of systolic heart failure #4. History of severe cardiomyopathy with ejection fraction of 20-25% #5. Stage III chronic kidney disease #6. Type 2 diabetes mellitus #7. Benign essential hypertension #8. Hyperlipidemia #9. History of plaque psoriasis #10. History of coronary artery disease with previous myocardial infarction #11. History of chronic back pain #12. Hypernatremia related to free water deficit Plan: Continue current medical treatment, continue vancomycin, there is are being tapered, breathing appears to be stable, patient is on 3 L of oxygen, maintain aspiration precautions, patient has been evaluated by speech therapy, and passed bedside evaluation with thin liquids, he is drinking water ad alex. recheck labs tomorrow, renal profile is improving. Discharge planning is in progress for discharge to [facility] subacute rehab. I performed a history & physical examination of the patient and discussed their management with my nurse practitioner, Bailey Madsen. I reviewed the nurse practitioner's note and agree with the documented findings and plan of care. Lung sounds are positive for diminished breath sounds. The findings and the impression was discussed with the patient. I attest to the documentation by the nurse practitioner. Time with Patient: Less than 30
[2019-09-04 11:28] LABS: Glucose,Whole Blood 152 mg/dL (75-99)
[2019-09-04 17:08] LABS: Glucose,Whole Blood 114 mg/dL (75-99)
--- NOTE | 2019-09-04 18:32 | PN ---
PROGRESS NOTE Patient is seen for followup for acute kidney injury. He is currently sitting up in bed. Family was present at bedside when patient was seen in the morning. His renal function has improved. We will continue to hold off on dialysis and likely discontinue the dialysis catheter by tomorrow. PHYSICAL EXAMINATION: On examination this morning, blood pressure was 167/103, heart rate of 103 per minute. Patient is afebrile. EXAMINATION OF THE HEART: S1 and S2. EXAMINATION OF LUNGS: Bilateral breath sounds are heard. ABDOMEN: Soft, non-tender. Examination of lower extremities shows no significant edema. NETTING WEAVER exam shows patient moving all 4 extremities. LABS: Sodium 149, potassium 4.1, chloride 119, BUN 79, creatinine 1.71. ASSESSMENT: 1. Acute kidney injury, acute tubular necrosis, currently nonoliguric and improving. 2. Disproportionately elevated BUN, currently improving. Etiology was steroids as well as hypercatabolic state. Patient has received 2 treatments of hemodialysis, and at this time we continue to hold off on dialysis, as patient's renal function continues to improve. 3. Hypernatremia associated with free water deficit. Patient is encouraged to increase free water intake. I will also change his IV to D5W at 40 mL/hour. 4. Pneumonia with sputum culture growing methicillin-resistant Staphylococcus aeruginosa and Corynebacterium striatum, maintained on vancomycin. 5. Hyperphosphatemia, currently on PhosLo with improvement in phosphorus levels. I will likely discontinue the PhosLo in 1 to 2 days' time as renal function continues to improve. 6. Generalized debility. 7. Hypoxic respiratory failure, status post extubation, with no plans for re- intubation. PLAN: No plans for dialysis. We will likely discontinue the femoral catheter over the weekend. MMODL / IJN: [id number] /
--- NOTE | 2019-09-04 19:20 | P.PN ---
Progress Note - Text Progress Note Date: 09/04/19 Chief Complaint: Short of breath, cough Interval history: This is [address] rai. Chronic stable medical conditions include diabetes, hypertension, hyperlipidemia, osteoarthritis, chronic kidney disease, home oxygen 2-3 L, chronic low back pain and psoriatic.. Patient was brought in by his . Most history is obtained by the at the bedside. At her baseline patient very much sits down and watches television. Does not drive. Has a fair appetite. Normally able to get around the house. Patient started coughing became short of breath wheezing for 1 day, with a decreased oral intake. Became a bit more confused and presented ER. Patient was not willing to come to the hospital but brought him in. Was given IV Lasix in the ER , bronchodilators. Patient had been quite a bit short of breath. Bringing some sputum. No obvious fever or chills. admitted with a diagnosis of right-sided pneumonia, CHF exacerbation, COPD exacerbation, acute delirium. Patient also found to have from recent renal ultrasound-bilateral hydronephrosis and possibly growth in the bladder.. Also acute kidney injury . Patient was started on Lasix drip and IV ceftriaxone, switched to IV Zosyn. Patient on the medical floor became lethargic and went into respiratory failure and was intubated on August 22. Patient was put on IV Lasix drip and IV propofol. Also in IV dobutamine-discontinued. Patient was extubated on 09/01/2019. Today-a bit more awake. Slightly less delirious. Oral intake has been variable. 8 about 80% of his breakfast and only 20% of his supper. refused lunch. Family the bedside. Sitting up in a chair tired Review of systems: patient less delirious Active Medications Acetaminophen (Tylenol Tab) 650 mg PO Q4HR PRN PRN Reason: Fever and/ or Pain Last Admin: 09/04/19 17:16 Dose: 650 mg Documented by: Albuterol/Ipratropium (Duoneb 0.5 Mg-3 Mg/3 Ml Soln) 3 ml INHALATION RT-Q4H [facility] Last Admin: 09/04/19 16:47 Dose: 3 ml Documented by: Aspirin (Aspirin) 81 mg PO DAILY [facility] Last Admin: 09/04/19 08:16 Dose: 81 mg Documented by: Atorvastatin Calcium (Lipitor) 40 mg PO DAILY [facility] Last Admin: 09/04/19 08:17 Dose: 40 mg Documented by: Budesonide (Pulmicort) 1 mg INHALATION RT-BID [facility] Last Admin: 09/04/19 07:41 Dose: 1 mg Documented by: Calcium Acetate (Phoslo) 667 mg PO TID-W/MEALS [facility] Last Admin: 09/04/19 17:16 Dose: 667 mg Documented by: Formoterol Fumarate (Perforomist) 20 mcg INHALATION RT-BID [facility] Last Admin: 09/04/19 07:41 Dose: 20 mcg Documented by: Heparin Sodium (Porcine) (Heparin) 5,000 unit SQ Q12HR [facility] Last Admin: 09/04/19 08:18 Dose: 5,000 unit Documented by: Insulin Aspart (Novolog) 0 unit SQ ACHS [facility]; Protocol Last Admin: 09/04/19 17:09 Dose: Not Given Documented by: Insulin Detemir (Levemir) 18 unit SQ HS [facility] Last Admin: 09/03/19 20:32 Dose: 18 unit Documented by: Lorazepam (Ativan) 1 mg IV Q6HR PRN PRN Reason: Anxiety Last Admin: 09/01/19 23:06 Dose: 1 mg Documented by: Methylprednisolone Sodium Succinate (Solu-Medrol) 40 mg IV Q8HR [facility] Last Admin: 09/04/19 17:20 Dose: 40 mg Documented by: Metoprolol Tartrate (Lopressor) 25 mg PO TID [facility] Last Admin: 09/04/19 17:16 Dose: 25 mg Documented by: Miscellaneous Information (Potassium Per Protocol) 1 each MISCELLANE DAILY PRN; Protocol PRN Reason: Per Protocol Miscellaneous Information (Pharmacy To Dose Iv Vancomycin) 1 each MISCE[facility]ANE DIRECTED PRN PRN Reason: Per Protocol Naloxone HCl (Narcan) 0.2 mg IV Q2M PRN PRN Reason: Opioid Reversal Nicotine (Habitrol 21mg/24hr Patch) 1 patch TRANSDERM DAILY [facility] Last Admin: 09/04/19 08:20 Dose: 1 patch Documented by: Nystatin (Mycostatin Powder) 1 applic TOPICAL BID [facility] Last Admin: 09/04/19 08:29 Dose: 1 applic Documented by: Nystatin (Mycostatin Oral Susp) 500,000 unit PO QID [facility] Last Admin: 09/04/19 17:22 Dose: 500,000 unit Documented by: Pantoprazole Sodium (Protonix) 40 mg IVP BID [facility] Last Admin: 09/04/19 08:19 Dose: 40 mg Documented by: Physical examination: VITAL SIGNS: 97.9, 103, 15, 159/85, 97% on 3 L GENERAL: sitting upon a chair, slightly more awake. Delirious EYES: Pupils equal. Conjunctiva normal. HEENT: External appearance of nose and ears normal, oral cavity dry., Tongue coated NECK: JVD unable to assess,; masses not palpable. HEART: First and second heart sounds are normal; no edema. LUNGS: Respiratory rate increased, decreased breath sounds, occasional crackles ABDOMEN: Soft, nontender, liver spleen not palpable, no masses palpable. DERMATOLOGICAL: Area of redness in both the groin,siver demarcated plaques, and both legs PSYCH: on 6 some questions but present posterior delirious NEUROLOGICAL: Moving all 4 limbs, S delirious INVESTIGATIONS, reviewed in the clinical context: sodium 149 bun 79 creatinine 1.7 on Previous testing White count 12.4 hemoglobin 12.6 platelets 237 potassium 4.8 bun 61 creatinine 3.11 Troponin I 0.620, 0.807, influenza A and B both negative EKG tracing personally reviewed by me-personally reviewed by me shows normal sinus rhythm, poor R-wave progression, some T-wave changes in anterolateral leads Chest x-ray film personally reviewed by me-venous prominence, fluid in the fissure, right basilar infiltrate Abdominal ultrasound on 07/29/2019-severe left hydronephrosis and moderate right hydronephrosis, abnormally thickened urinary bladder wall seen multifocally, additionally a sessile mass questionable 2-D [id number]-[id number]-60-25 percent sputum-MRSA Assessment: -Acute on chronic congestive heart failure exacerbation, from systolic and diastolic dysfunction EF 20-25%, compensated -Cardiogenic and septic shock requiring pressor support and IV dobutamine, stabilized -Severe Right-sided pneumonia, MRSA, , POA, -Acute COPD exacerbation in a current smoker, POA, -Acute hypoxic and hypercapnic respiratory failure due to COPD and pneumonia, POA, requiring ventilator support, extubated today on September 01 -Bilateral hydronephrosis, with distal obstruction and evidence of chronic kid mark disease on the left kidney, right hydronephrosis improved -Chronic kidney disease, baseline unknown, including obstructive pattern -Acute renal failure, possibly combination of cardiorenal syndrome and obstructive pattern, including ATN, -Hyperkalemia secondary to renal failure, improved -Diabetes mellitus type 2 on oral hypoglycemic, uncontrolled with hyperglycemia -Hyperlipidemia -Essential hypertension -Primary osteoarthritis -Chronic kidney disease stage IV -Lactic acidosis from pneumonia -Troponin leak 2 positive possibly. Hemodynamic instability. Doubt acute coronary syndrome -Acute delirium from pneumonia sepsis, slow to improve -CODE STATUS DO NOT RESUSCITATE. Plan: given patient's renal function will DC vancomycin changed to daptomycin. Patient's sodium was starting to climb because of decreased oral intake and free water deficit. We'll gently put the patient on half saline at 50 mL an hour. Discussed with the patient's family the bedside. Encourage oral intake. We'll give a short course of Diflucan for the oropharyngeal candidiasis
[2019-09-04] MEDS ORDERED: FLUCONAZOLE 100 MG TAB PO ONE (19:30)
[2019-09-04 20:36] LABS: Glucose,Whole Blood 191 mg/dL (75-99)
[2019-09-04] MEDS: INSULIN DETEMIR (LEVEMIR) 100 UNIT/ML SYR SQ SCH (20:44)
[2019-09-04] MEDS: SODIUM CHLORIDE 0.45% 1,000 ML IV SCH (20:48)
[2019-09-04] MEDS: DAPTOmycin 500 MG in SODIUM CHLORIDE 0.9% 50 ML IVPB SCH (21:39)
[2019-09-05] MEDS: IPRATROPIUM-ALBUTEROL 3 ML NEB INHALATION SCH ×6 (04:06→23:24)
[2019-09-05] MEDS: methylPREDNISolone SOD SUCCI 40 MG/ML 1 ML VIAL IV SCH ×2 (05:41→17:18)
[2019-09-05 07:10] LABS: Glucose,Whole Blood 106 mg/dL (75-99)
[2019-09-05] MEDS: FORMOTEROL FUMARATE 20 MCG/2 ML NEBU INHALATION SCH ×2 (07:15→19:58)
[2019-09-05] MEDS: BUDESONIDE 1 MG/2 ML NEBU INHALATION SCH ×2 (07:15→19:58)
[2019-09-05] MEDS: INSULIN ASPART (NovoLOG) 100 UNIT/ML VIAL SQ SCH ×4 (07:16→22:05)
[2019-09-05 07:30] LABS: Calcium 8.8 mg/dL (8.4-10.2); Potassium 3.7 mmol/L (3.5-5.1)
[2019-09-05] MEDS: PANTOPRAZOLE 40 MG/10 ML VIAL IVP SCH ×2 (07:33→22:09)
[2019-09-05] MEDS: NICOTINE 21MG/24HR PATCH TRANSDERM SCH (07:33)
[2019-09-05] MEDS: CALCIUM ACETATE 667 MG TAB PO SCH (07:34)
[2019-09-05] MEDS: ATORVASTATIN 40 MG TAB PO SCH (07:34)
[2019-09-05] MEDS: NYSTATIN 100,000 UNIT/ML SUSP 500,000 UNIT/5 ML CUP PO SCH ×4 (07:34→22:08)
[2019-09-05] MEDS: METOPROLOL TARTRATE 25 MG TAB PO SCH ×4 (07:34→22:00)
[2019-09-05] MEDS: ASPIRIN 81 MG PO SCH (07:34)
[2019-09-05] MEDS: NYSTATIN 100,000 UNIT/GM POWD 15 GM TOPICAL SCH ×2 (07:35→22:10)
[2019-09-05] MEDS: ENOXAPARIN 40 MG/0.4 ML SYRINGE SQ SCH (07:38)
[2019-09-05 07:47] LABS: Vancomycin,Random 20.5 ug/mL
--- NOTE | 2019-09-05 10:51 | PN ---
PROGRESS NOTE The patient is seen for followup for acute kidney injury. Renal function has improved significantly. Patient has not had dialysis after the initial 2 treatments. His creatinine is down to 1.3. PHYSICAL EXAMINATION: On examination today, patient is resting comfortably. He is actually sleeping. He is comfortable. Blood pressure is 143/76, heart rate 93 per minute, patient is afebrile. Examination of the heart S1, S2. Examination of the lungs, bilateral breath sounds are heard. Decreased breath sounds at the bases. Abdomen is soft, nontender. Examination of lower extremities shows no significant edema. LABS: Sodium 142, potassium 3.7, BUN 65, creatinine 1.3. ASSESSMENT: 1. Acute kidney injury, acute tubular necrosis, currently improving. We will discontinue the femoral catheter. 2. Hypoxic respiratory failure status post extubation, currently improved. 3. Pneumonia with sputum culture growing MRSA and Corynebacterium striatum, maintained on antibiotics and improving. 4. Hyperphosphatemia secondary to renal failure currently improved. I will discontinue the PhosLo. Continue to encourage increased oral intake as tolerated. PLAN: DC PhosLo. DC femoral catheter as patient does not need any further dialysis treatments. MMODL / IJN: [id number] /
[2019-09-05 12:11] LABS: Glucose,Whole Blood 148 mg/dL (75-99)
[2019-09-05] MEDS: DRONABINOL 2.5 MG CAP PO SCH ×3 (12:33→17:14)
[2019-09-05] MEDS: FLUCONAZOLE 100 MG TAB PO SCH (12:34)
--- NOTE | 2019-09-05 14:03 | PN ---
PROGRESS NOTE PULMONARY/CRITICAL CARE: DATE OF SERVICE: September 05, 2019 This is a 78-year-old gentleman seen in followup on the medical-surgical floor. He is much more awake and alert. His appetite is poor though. He has significant generalized weakness. Apparently there are plans to transfer [facility] to [facility]. He remains on O2 at 2 3 L/minute. He denies any chest pain or pressure. He does have a bit of a cough. Not producing any phlegm. Overall, his status has improved, although, he still has got a long way to go. The patient remains on vancomycin for methicillin-resistant Staph aureus pneumonia. No fever, chills. No chest pain or chest discomfort. No nausea, vomiting or diarrhea. No genitourinary complaints. PHYSICAL EXAMINATION: VITAL SIGNS: Current vital signs are reviewed. His temperature is 98.1. Heart rate 88, respiratory rate 17, blood pressure 161/87 mean 113. 3 L saturation 93%. Appears in no acute distress. HEENT examination is grossly unremarkable. Mucous membranes are moist. No oral lesions. NECK: Supple. Full range of motion. No adenopathy. Neck veins are flat. CARDIOVASCULAR examination reveals regular rhythm and rate. Heart rate about 90 beats per minute. S1, S2 normal. There is no S3, S4, or murmur. LUNGS: A few scattered rhonchi. No wheezes. No crackles. Breath sounds are equal bilaterally. Breath sounds are diminished throughout. ABDOMEN: Soft. Bowel sounds are noted. EXTREMITIES are intact. Minimal edema. No cyanosis or clubbing. SKIN: Without rash. NEUROLOGIC: Examination is brief but nonfocal. LABS: Reviewed. No new labs from today except for a sodium 142, potassium 3.7, chloride 111. CO2 24, anion gap is 7, BUN and creatinine were 65 and 1.3 compared to 79 and 1.7, in improvement, and his vancomycin level 20.5. Microbiologic study show evidence of Methicillin-resistant Staph aureus in the sputum from August 30. No recent chest x-ray to report. The last chest x-ray done on the shows some stable bibasilar airspace disease. Medications are reviewed. ASSESSMENT: 1. Acute hypoxemic and hypercapnic respiratory failure, secondary to bilateral pneumonia, secondary to methicillin-resistant Staph aureus, currently on vancomycin. 2. Acute exacerbation of severe chronic obstructive pulmonary disease, status post intubation on August 22 with successful extubation on September 01. 3. Acute exacerbation of systolic heart failure. 4. History of severe cardiomyopathy with ejection fraction of 20% to 25%. 5. Stage 3 chronic kidney disease. 6. Type 2 diabetes mellitus. 7. Benign essential hypertension. 8. Hyperlipidemia. 9. History of plaque psoriasis. 10.History of coronary artery disease with previous myocardial infarction. 11.History of chronic back pain. 12.Hyponatremia, improved. PLAN: Overall, the patient is doing much better. To enhance his appetite, we add Marinol 5 mg twice a day. The patient is currently being evaluated for possible rehab placement. He is a DO NOT RESUSCITATE, DO NOT REINTUBATE patient. The family understands that his prognosis is poor. We are hoping the Marinol will help him with his appetite. He is still very weak. JESSICA / CARIDAD: [id number] /
--- NOTE | 2019-09-05 14:06 | PN ---
PROGRESS NOTE ADDENDUM/PROGRESS NOTE: DATE OF SERVICE: September 05, [address] Santos DC the vancomycin in favor of daptomycin. My comment on that is daptomycin is effective against MRSA except in the lung where it is inactivated by surfactant. I would recommend placing the patient back on vancomycin. Additional recommendations and suggestions are forthcoming. MMODL / IJN: [id number] /
[2019-09-05] MEDS: SODIUM CHLORIDE 0.45% 1,000 ML IV SCH (15:58)
[2019-09-05 16:51] LABS: Glucose,Whole Blood 161 mg/dL (75-99)
[2019-09-05 20:22] LABS: Glucose,Whole Blood 133 mg/dL (75-99)
[2019-09-05] MEDS: DAPTOmycin 500 MG in SODIUM CHLORIDE 0.9% 50 ML IVPB SCH (20:37)
--- NOTE | 2019-09-05 21:29 | P.PN ---
Progress Note - Text Progress Note Date: 09/05/19 Chief Complaint: Short of breath, cough Interval history: This is [address] rai. Chronic stable medical conditions include diabetes, hypertension, hyperlipidemia, osteoarthritis, chronic kidney disease, home oxygen 2-3 L, chronic low back pain and psoriatic.. Patient was brought in by his . Most history is obtained by the at the bedside. At her baseline patient very much sits down and watches television. Does not drive. Has a fair appetite. Normally able to get around the house. Patient started coughing became short of breath wheezing for 1 day, with a decreased oral intake. Became a bit more confused and presented ER. Patient was not willing to come to the hospital but brought him in. Was given IV Lasix in the ER , bronchodilators. Patient had been quite a bit short of breath. Bringing some sputum. No obvious fever or chills. admitted with a diagnosis of right-sided pneumonia, CHF exacerbation, COPD exacerbation, acute delirium. Patient also found to have from recent renal ultrasound-bilateral hydronephrosis and possibly growth in the bladder.. Also acute kidney injury . Patient was started on Lasix drip and IV ceftriaxone, switched to IV Zosyn. Patient on the medical floor became lethargic and went into respiratory failure and was intubated on August 22. Patient was put on IV Lasix drip and IV propofol. Also in IV dobutamine-discontinued. Patient was extubated on 09/01/2019. Today-oral intake still fluctuating. Intermittently delirious. Family the bedside. Some shortness of breath. Review of systems: patient delirious Physical examination: VITAL SIGNS: 98.4, 106, 17, 144/78, 97% on 3 L GENERAL: propped up in bed, delirious EYES: Pupils equal. Conjunctiva normal. HEENT: External appearance of nose and ears normal, oral cavity dry., Tongue coated NECK: JVD unable to assess,; masses not palpable. HEART: First and second heart sounds are normal; no edema. LUNGS: Respiratory rate increased, decreased breath sounds, occasional crackles ABDOMEN: Soft, nontender, liver spleen not palpable, no masses palpable. DERMATOLOGICAL: Area of redness in both the groin,siver demarcated plaques, and both legs PSYCH: we'll answer occasional question NEUROLOGICAL: Moving all 4 limbs, S delirious INVESTIGATIONS, reviewed in the clinical context: bun 65 creatinine 1.30 progression 3.7 Previous testing White count 12.4 hemoglobin 12.6 platelets 237 potassium 4.8 bun 61 creatinine 3.11 Troponin I 0.620, 0.807, influenza A and B both negative EKG tracing personally reviewed by me-personally reviewed by me shows normal sinus rhythm, poor R-wave progression, some T-wave changes in anterolateral leads Chest x-ray film personally reviewed by me-venous prominence, fluid in the fissure, right basilar infiltrate Abdominal ultrasound on 07/29/2019-severe left hydronephrosis and moderate right hydronephrosis, abnormally thickened urinary bladder wall seen multifocally, additionally a sessile mass questionable 2-D [id number]-47-25 percent sputum-MRSA Assessment: -Acute on chronic congestive heart failure exacerbation, from systolic and diastolic dysfunction EF 20-25%, compensated -Cardiogenic and septic shock requiring pressor support and IV dobutamine, stabilized -Severe Right-sided pneumonia, MRSA, , POA, -Acute COPD exacerbation in a current smoker, POA, -Acute hypoxic and hypercapnic respiratory failure due to COPD and pneumonia, POA, requiring ventilator support, extubated today on September 01 -Bilateral hydronephrosis, with distal obstruction and evidence of chronic kidney disease on the left kidney, right hydronephrosis improved -Chronic kidney disease, baseline unknown, including obstructive pattern -Acute renal failure, possibly combination of cardiorenal syndrome and obstructive pattern, including ATN, -Hyperkalemia secondary to renal failure, improved -Diabetes mellitus type 2 on oral hypoglycemic, uncontrolled with hyperglycemia -Hyperlipidemia -Essential hypertension -Primary osteoarthritis -Chronic kidney disease stage IV -Lactic acidosis from pneumonia -Troponin leak 2 positive possibly. Hemodynamic instability. Doubt acute coronary syndrome -Acute delirium from pneumonia sepsis, slow to improve -CODE STATUS DO NOT RESUSCITATE. Plan: sodium is coming on. Talked to the family to encourage oral intake. We'll DC the IV fluids. Other medications to continue. Prognosis guarded.repeat checks x-ray in the morning.
[2019-09-05] MEDS: INSULIN DETEMIR (LEVEMIR) 100 UNIT/ML SYR SQ SCH (22:07)
[2019-09-06] MEDS: IPRATROPIUM-ALBUTEROL 3 ML NEB INHALATION SCH ×6 (03:20→22:56)
[2019-09-06] MEDS: methylPREDNISolone SOD SUCCI 40 MG/ML 1 ML VIAL IV SCH ×2 (05:39→17:44)
[2019-09-06] MEDS: INSULIN ASPART (NovoLOG) 100 UNIT/ML VIAL SQ SCH ×4 (07:15→20:51)
[2019-09-06 07:17] LABS: Glucose,Whole Blood 107 mg/dL (75-99)
[2019-09-06] MEDS: BUDESONIDE 1 MG/2 ML NEBU INHALATION SCH ×2 (07:29→19:40)
[2019-09-06] MEDS: FORMOTEROL FUMARATE 20 MCG/2 ML NEBU INHALATION SCH ×2 (07:29→19:40)
--- NOTE | 2019-09-06 08:39 | XR ---
EXAMINATION TYPE: XR chest 2V DATE OF EXAM: 09/06/2019 HISTORY: follow-up pneumonia. REFERENCE: Previous study dated 09/02/2019. FINDINGS: Lung volumes are prominent. Heart size upper limits of normal is vascular congestion and im proving interstitial change. There are small, bilateral effusions with ease and improved. IMPRESSION: RESOLVING CHANGES OF PULMONARY EDEMA.
[2019-09-06] MEDS: PANTOPRAZOLE 40 MG/10 ML VIAL IVP SCH (09:04)
[2019-09-06] MEDS: NICOTINE 21MG/24HR PATCH TRANSDERM SCH (09:04)
[2019-09-06] MEDS: ENOXAPARIN 40 MG/0.4 ML SYRINGE SQ SCH (09:04)
[2019-09-06] MEDS: NYSTATIN 100,000 UNIT/GM POWD 15 GM TOPICAL SCH ×2 (09:07→20:41)
[2019-09-06] MEDS: FLUCONAZOLE 100 MG TAB PO SCH (10:12)
[2019-09-06] MEDS: ASPIRIN 81 MG PO SCH (10:12)
[2019-09-06] MEDS: DRONABINOL 2.5 MG CAP PO SCH ×2 (10:13→16:27)
[2019-09-06] MEDS: METOPROLOL TARTRATE 25 MG TAB PO SCH ×3 (10:13→20:41)
[2019-09-06] MEDS: ATORVASTATIN 40 MG TAB PO SCH (10:13)
[2019-09-06] MEDS: NYSTATIN 100,000 UNIT/ML SUSP 500,000 UNIT/5 ML CUP PO SCH ×5 (10:16→22:09)
--- NOTE | 2019-09-06 10:30 | P.PN ---
Subjective Progress Note Date: 09/06/19 Principal diagnosis: Acute hypoxemic/hypercapnic respiratory failure secondary to bilateral pneumonia and fluid volume overload. The patient is seen today 09/06/2019 in follow-up on the regular medical floor. He is currently resting comfortably in bed. No worsening shortness of breath, cough or congestion. Chest x-ray is showing improvement. He is maintaining O2 saturation in the 90s on 3 L/m per nasal cannula. His sputum was positive for MRSA and Corynebacterium striatum. He was initially on vancomycin that was switched to daptomycin per medicine. He remains on bronchodilators and IV Solu- Medrol. Objective - Vital Signs Vital signs: Vital Signs Temp 98.2 F 09/06/19 00:47 Pulse 96 09/06/19 07:57 Resp 12 09/06/19 00:47 BP 138/74 09/06/19 00:47 Pulse Ox 95 09/06/19 00:47 Intake & Output 09/05/19 09/06/19 09/06/19 18:59 06:59 18:59 Intake Total 400 240 Output Total 900 Balance 400 -900 240 Weight 83 kg Intake: Oral 400 240 Output: Urine 900 Other: Voiding Method Indwelling Catheter Indwelling Catheter ABP, PAP, CO, CI - Last Documented Arterial Blood Pressure 145/54 - Exam GENERAL EXAM: Alert, disheveled 78-year-old gentleman, on 3 L nasal cannula comfortable in no apparent distress. HEAD: Normocephalic. EYES: Normal reaction of pupils, equal size. NOSE: Clear with pink turbinates. THROAT: No erythema or exudates. NECK: No masses, no JVD. CHEST: No chest wall deformity. LUNGS: Equal air entry with faint end expiratory wheeze, crackles in the posterior bases, diminished. CVS: S1 and S2 normal with no audible murmur, regular rhythm. ABDOMEN: No hepatosplenomegaly, normal bowel sounds, no guarding or rigidity. SPINE: No scoliosis or deformity SKIN: No rashes CENTRAL NERVOUS SYSTEM: No focal deficits, tone is normal in all 4 extremities. EXTREMITIES: There is no peripheral edema. No clubbing, no cyanosis. Peripheral pulses are intact. - Labs CBC & Chem 7: 09/02/19 04:30 09/06/19 06:49 Labs: Abnormal Lab Results - Last 24 Hours (Table) 1209/05/19 09/05/19 Range/Units 12:09 16:46 20:10 Creatinine (0.66-1.25) mg/dL POC Glucose (mg/dL) 148 H 161 H 133 H (75-99) mg/dL 09/06/19 09/06/19 Range/Units 06:49 07:13 Creatinine 1.35 H (0.66-1.25) mg/dL POC Glucose (mg/dL) 107 H (75-99) mg/dL Assessment and Plan Assessment: #1 Acute hypoxic/hypercapnic respiratory failure secondary to an acute exacerbation chronic obstructive pulmonary disease, acute exacerbation of chronic systolic congestive heart failure #2 Cardiogenic and septic shock, improved. #3 Acute exacerbation of chronic obstructive pulmonary disease. #4 Acute exacerbation of chronic systolic congestive heart failure. #5 Acute on chronic renal failure and #6 Diabetes mellitus, type II. #7 Benign he sent hypertension. #8 Hyperlipidemia. #9 History of plaque psoriasis. #10 History of coronary disease and previous myocardial infarction. #11 Chronic back pain. #12 Poor overall functional performance based on the multiple above-mentioned comorbidities. Plan: The patient was seen and evaluated by Dr. Powers. Chest x-ray reviewed. There is some improvement. His overall prognosis remains quite poor. He is a DO NOT RESUSCITATE/DO NOT INTUBATE CODE STATUS. We'll continue with the current treatment plan for now. We will continue to follow. I, the cosigning physician, performed a history & physical examination of the patient. Lungs sounds with faint end expiratory wheeze, crackles in the posterior bases, diminished. Maintaining good O2 saturations in the 90s on 3 L/m per nasal cannula. I discussed the assessment and plan of care with my nurse practitioner, Perla Franco. I attest to the above note as dictated by her.
[2019-09-06 11:58] LABS: Glucose,Whole Blood 187 mg/dL (75-99)
[2019-09-06] MEDS: PANTOPRAZOLE SODIUM 40 MG GRANULE PKT PO SCH (16:28)
[2019-09-06 17:31] LABS: Glucose,Whole Blood 119 mg/dL (75-99)
--- NOTE | 2019-09-06 19:26 | PN ---
PROGRESS NOTE The patient is seen for followup for acute kidney injury. His renal function has improved. Patient has not had any dialysis treatments except two initial treatments. His femoral catheter will be discontinued tomorrow. EXAMINATION: Patient is comfortable. Blood pressure 132/78, heart rate 101 per minute, patient is afebrile. Examination of the heart S1, S2. Examination of the lungs, bilateral breath sounds are heard. ABDOMEN: Soft, nontender. Examination of lower extremities shows no significant edema. CHUTE OPERATOR exam shows patient moving all 4 extremities. LABS: Shows serum creatinine 1.35. We do not have any other labs from today. Serum sodium yesterday was 142, potassium of 3.7. ASSESSMENT: 1. Acute kidney injury, acute tubular necrosis, currently improved. The patient had 2 treatments of hemodialysis. His dialysis catheter will be discontinued tomorrow. 2. Hypoxic respiratory failure status post extubation with no plans for reintubation. 3. Pneumonia with sputum culture growing MRSA and Corynebacterium bacterium striatum. 4. Generalized debility. 5. Diabetes. 6. Metabolic acidosis, now improved. 7. Hyperkalemia, currently improved. Patient is encouraged to increase free water intake. PLAN: Repeat labs in a.m. Continue to encourage increased oral intake. D/C dialysis catheter in a.m. MMODL / IJN: [id number] /
--- NOTE | 2019-09-06 20:13 | P.PN ---
Progress Note - Text Progress Note Date: 09/06/19 Chief Complaint: Short of breath, cough Interval history: This is [address] rai. Chronic stable medical conditions include diabetes, hypertension, hyperlipidemia, osteoarthritis, chronic kidney disease, home oxygen 2-3 L, chronic low back pain and psoriatic.. Patient was brought in by his . Most history is obtained by the at the bedside. At her baseline patient very much sits down and watches television. Does not drive. Has a fair appetite. Normally able to get around the house. Patient started coughing became short of breath wheezing for 1 day, with a decreased oral intake. Became a bit more confused and presented ER. Patient was not willing to come to the hospital but brought him in. Was given IV Lasix in the ER , bronchodilators. Patient had been quite a bit short of breath. Bringing some sputum. No obvious fever or chills. admitted with a diagnosis of right-sided pneumonia, CHF exacerbation, COPD exacerbation, acute delirium. Patient also found to have from recent renal ultrasound-bilateral hydronephrosis and possibly growth in the bladder.. Also acute kidney injury . Patient was started on Lasix drip and IV ceftriaxone, switched to IV Zosyn. Patient on the medical floor became lethargic and went into respiratory failure and was intubated on August 22. Patient was put on IV Lasix drip and IV propofol. Also in IV dobutamine-discontinued. Patient was extubated on 09/01/2019. Today-patient has been refusing food most of the times. Family is been trying hard. Still has some element of delirium but does seem to understand. Does answer questions. Nurse also started feeding him. Patient was put on Marinol yesterday. Review of systems: Attempted Physical examination: VITAL SIGNS: 97.6, 101, 17, 132/78, 96% on 2 L GENERAL: reclined in bed tired EYES: Pupils equal. Conjunctiva normal. HEENT: External appearance of nose and ears normal, oral cavity dry., Tongue coated NECK: JVD unable to assess,; masses not palpable. HEART: First and second heart sounds are normal; no edema. LUNGS: Respiratory rate increased, decreased breath sounds, occasional crackles ABDOMEN: Soft, nontender, liver spleen not palpable, no masses palpable. DERMATOLOGICAL: Area of redness in both the groin,siver demarcated plaques, and both legs PSYCH: Does answer simple questions NEUROLOGICAL: Moving all 4 limbs, decreased delirious INVESTIGATIONS, reviewed in the clinical context: Accu-Cheks noted Previous testing White count 12.4 hemoglobin 12.6 platelets 237 potassium 4.8 bun 61 creatinine 3.11 Troponin I 0.620, 0.807, influenza A and B both negative EKG tracing personally reviewed by me-personally reviewed by me shows normal sinus rhythm, poor R-wave progression, some T-wave changes in anterolateral leads Chest x-ray film personally reviewed by me-venous prominence, fluid in the fissure, right basilar infiltrate Abdominal ultrasound on 07/29/2019-severe left hydronephrosis and moderate right hydronephrosis, abnormally thickened urinary bladder wall seen multifocally, a dditionally a sessile mass questionable 2-D [id number] percent sputum-MRSA Assessment: -Acute on chronic congestive heart failure exacerbation, from systolic and diastolic dysfunction EF 20-25%, compensated -Cardiogenic and septic shock requiring pressor support and IV dobutamine, stabilized -Severe Right-sided pneumonia, MRSA, , POA, -Acute COPD exacerbation in a current smoker, POA, -Acute hypoxic and hypercapnic respiratory failure due to COPD and pneumonia, POA, requiring ventilator support, extubated today on September 01 -Bilateral hydronephrosis, with distal obstruction and evidence of chronic kidney disease on the left kidney, right hydronephrosis improved -Chronic kidney disease, baseline unknown, including obstructive pattern -Acute renal failure, possibly combination of cardiorenal syndrome and obstructive pattern, including ATN, -Hyperkalemia secondary to renal failure, improved -Diabetes mellitus type 2 on oral hypoglycemic, uncontrolled with hyperglycemia -Hyperlipidemia -Essential hypertension -Primary osteoarthritis -Chronic kidney disease stage IV -Lactic acidosis from pneumonia -Troponin leak 2 positive possibly. Hemodynamic instability. Doubt acute coronary syndrome -Acute delirium from pneumonia sepsis, slow to improve -CODE STATUS DO NOT RESUSCITATE. Plan: Patient appetite continues to be poor. Had a lengthy did talk with patient's and daughter. Options are limited. They do understand that if patient doesn't eat his prognosis itself is not good. Overall feels because much worse. We'll watch for another 24 hours. PEG tube was not a good idea and family is not really keen for that.
[2019-09-06] MEDS: DAPTOmycin 500 MG in SODIUM CHLORIDE 0.9% 50 ML IVPB SCH (20:23)
[2019-09-06 20:28] LABS: Glucose,Whole Blood 154 mg/dL (75-99)
[2019-09-06] MEDS: INSULIN DETEMIR (LEVEMIR) 100 UNIT/ML SYR SQ SCH (20:42)
[2019-09-07] MEDS: IPRATROPIUM-ALBUTEROL 3 ML NEB INHALATION SCH ×5 (02:46→20:03)
[2019-09-07] MEDS: methylPREDNISolone SOD SUCCI 40 MG/ML 1 ML VIAL IV SCH ×2 (04:56→18:19)
[2019-09-07 06:43] LABS: Glucose,Whole Blood 109 mg/dL (75-99)
[2019-09-07 07:24] LABS: Potassium 4.5 mmol/L (3.5-5.1)
[2019-09-07] MEDS: INSULIN ASPART (NovoLOG) 100 UNIT/ML VIAL SQ SCH ×4 (08:34→20:09)
[2019-09-07] MEDS: ATORVASTATIN 40 MG TAB PO SCH (08:38)
[2019-09-07] MEDS: METOPROLOL TARTRATE 25 MG TAB PO SCH ×3 (08:38→20:08)
[2019-09-07] MEDS: ACETAMINOPHEN TAB 325 MG TAB PO PRN (08:38)
[2019-09-07] MEDS: ASPIRIN 81 MG PO SCH (08:39)
[2019-09-07] MEDS: NICOTINE 21MG/24HR PATCH TRANSDERM SCH (08:39)
[2019-09-07] MEDS: BUDESONIDE 1 MG/2 ML NEBU INHALATION SCH ×2 (08:40→20:03)
[2019-09-07] MEDS: FORMOTEROL FUMARATE 20 MCG/2 ML NEBU INHALATION SCH ×2 (08:40→20:03)
[2019-09-07] MEDS: PANTOPRAZOLE SODIUM 40 MG GRANULE PKT PO SCH ×2 (08:47→17:46)
[2019-09-07] MEDS: NYSTATIN 100,000 UNIT/ML SUSP 500,000 UNIT/5 ML CUP PO SCH ×4 (08:47→20:08)
--- NOTE | 2019-09-07 10:30 | P.PN ---
Subjective Patient is seen in follow-up for acute kidney injury. Renal function has been gradually improving. Creatinine 1.2 today. He is nonoliguric. Denies chest pain. Family present at bedside. Vital signs are stable. General: The patient appeared well nourished and normally developed. HEENT: Head exam is unremarkable. Neck is without jugular venous distension. LUNGS: Lungs are clear to auscultation and percussion. Breath sounds decreased. HEART: Rate and Rhythm are regular. First and second heart sounds normal. No murmurs, rubs or gallops. ABDOMEN: Abdominal exam reveals normal bowel sounds. EXTREMITITES: No clubbing, cyanosis, or edema. Objective - Vital Signs Vital signs: Vital Signs Temp 98.0 F 09/07/19 07:43 Pulse 115 H 09/07/19 07:43 Resp 18 09/07/19 07:43 BP 142/85 09/07/19 07:43 Pulse Ox 93 L 09/07/19 07:43 Intake & Output 09/06/19 09/07/19 09/07/19 18:59 06:59 18:59 Intake Total 840 1050 25 Output Total 1150 Balance 840 -100 25 Weight 81.5 kg Intake: Intake, IV Titration 570 Amount DAPTOmycin 500 mg In 550 Sodium Chloride 0.9% 50 ml @ 100 mls/hr IVPB Q24H [facility] Rx#:[id number] Sodium Chloride 0.45% 1, 20 000 ml @ 50 mls/hr IV . Q20H [facility] Rx#:[id number] Oral 840 480 25 Output: Urine 950 Stool 200 Other: Voiding Method Indwelling Catheter ABP, PAP, CO, CI - Last Documented Arterial Blood Pressure 145/54 - Labs CBC & Chem 7: 09/02/19 04:30 09/07/19 06:40 Labs: Abnormal Lab Results - Last 24 Hours (Table) 09/06/19 09/06/19 09/06/19 Range/Units 11:55 17:13 20:17 Chloride (98-107) mmol/L Carbon Dioxide (22-30) mmol/L BUN (9-20) mg/dL Glucose (74-99) mg/dL POC Glucose (mg/dL) 187 H 119 H 154 H (75-99) mg/dL 09/07/19 09/07/19 Range/Units 06:40 06:41 Chloride 109 H (98-107) mmol/L Carbon Dioxide 20 L (22-30) mmol/L BUN 57 H (9-20) mg/dL Glucose 108 H (74-99) mg/dL POC Glucose (mg/dL) 109 H (75-99) mg/dL Assessment and Plan Plan: Assessment: 1. Acute kidney injury secondary to ATN secondary to hypotension and component of cardiorenal syndrome. Renal function improving. Creatinine 1.2 today. Trace proteinuria on UA. Status post hemodialysis earlier this admission. 2. Chronic kidney disease stage III. Patient's creatinine in March 2019 was near 2. This admission it is down to 1.2. Etiology is most likely diabetic kidney disease. 3. Acute hypoxic and hypercapnic respiratory failure. Extubated. 4. Volume overload. Improved. 5. Acute systolic CHF with ejection fraction of 20-25%. 6. Bilateral hydronephrosis. Urology following. Repeat ultrasound revealed resolution of right-sided hydronephrosis. 7. Insulin-dependent diabetes mellitus. 8. Metabolic acidosis secondary to acute kidney injury. Plan: Discontinue dialysis catheter. No further need for renal replacement therapy at this time. Avoid nephrotoxins. Monitor volume status. May need to resume diuretics in the next 24-48 hours. Repeat electrolytes in the morning.
[2019-09-07] MEDS: ENOXAPARIN 40 MG/0.4 ML SYRINGE SQ SCH (11:25)
[2019-09-07 11:37] LABS: Glucose,Whole Blood 141 mg/dL (75-99)
[2019-09-07] MEDS ORDERED: HYDROcodone/APAP 5-325MG 1 EACH TAB PO PRN (11:49)
--- NOTE | 2019-09-07 11:54 | P.PN ---
Subjective Progress Note Date: 09/07/19 09/07/2019 the patient is doing poorly. He is quite lethargic but she is resting comfortably in bed. He remains in oxygen at 3 L. Is producing adequate amount of urine output through the Caldwell catheter. Hemodialysis catheter was removed. Noted the patient was in the ICU for along period of time and he was extubated on 09/01/2019. Since then, the patient has not demonstrated adequate recovery. He is currently being considered for home with hospice care. Objective - Vital Signs Vital signs: Vital Signs Temp 98.0 F 09/07/19 07:43 Pulse 115 H 09/07/19 07:43 Resp 18 09/07/19 07:43 BP 142/85 09/07/19 07:43 Pulse Ox 93 L 09/07/19 07:43 Intake & Output 09/06/19 09/07/19 09/07/19 18:59 06:59 18:59 Intake Total 840 1050 25 Output Total 1150 Balance 840 -100 25 Weight 81.5 kg Intake: Intake, IV Titration 570 Amount DAPTOmycin 500 mg In 550 Sodium Chloride 0.9% 50 ml @ 100 mls/hr IVPB Q24H [facility] Rx#:[id number] Sodium Chloride 0.45% 1, 20 000 ml @ 50 mls/hr IV . Q20H [facility] Rx#:[id number] Oral 840 480 25 Output: Urine 950 Stool 200 Other: Voiding Method Indwelling Catheter Indwelling Catheter ABP, PAP, CO, CI - Last Documented Arterial Blood Pressure 145/54 - Exam GENERAL EXAM: Alert, disheveled 78-year-old gentleman, on 3 L nasal cannula comfortable in no apparent distress. HEAD: Normocephalic. EYES: Normal reaction of pupils, equal size. NOSE: Clear with pink turbinates. THROAT: No erythema or exudates. NECK: No masses, no JVD. CHEST: No chest wall deformity. LUNGS: Equal air entry with faint end expiratory wheeze, crackles in the posterior bases, diminished. CVS: S1 and S2 normal with no audible murmur, regular rhythm. ABDOMEN: No hepatosplenomegaly, normal bowel sounds, no guarding or rigidity. SPINE: No scoliosis or deformity SKIN: No rashes CENTRAL NERVOUS SYSTEM: No focal deficits, tone is normal in all 4 extremities. EXTREMITIES: There is no peripheral edema. No clubbing, no cyanosis. Peripheral pulses are intact. - Labs CBC & Chem 7: 09/02/19 04:30 09/07/19 06:40 Labs: Abnormal Lab Results - Last 24 Hours (Table) 09/06/19 09/06/19 09/06/19 Range/Units 11:55 17:13 20:17 Chloride (98-107) mmol/L Carbon Dioxide (22-30) mmol/L BUN (9-20) mg/dL Glucose (74-99) mg/dL POC Glucose (mg/dL) 187 H 119 H 154 H (75-99) mg/dL 09/07/19 09/07/19 09/07/19 Range/Units 06:40 06:41 11:30 Chloride 109 H (98-107) mmol/L Carbon Dioxide 20 L (22-30) mmol/L BUN 57 H (9-20) mg/dL Glucose 108 H (74-99) mg/dL POC Glucose (mg/dL) 109 H 141 H (75-99) mg/dL Assessment and Plan Plan: 1 acute hypoxic/hypercapnic respiratory failure, multifactorial, likely secondary to decompensated CHF/pulmonary edema in addition to pneumonia possibly involving the right lower lobe. Impaired LV function with an EF of around 20- 25%. the patient also developed a MRSA pneumonia. 2 congestion heart failure with likely systolic dysfunction, awaiting echocardiogram, EF around 20-25% 3 CAD with previous old OK with Q waves involving the inferior leads. 4 acute Kidney injury, recovered 5 diabetes mellitus 6 COPD with chronic hypoxic respiratory failure and the patient on 3 L of oxygen by nasal cannula. 7 hypertension 8 hyperlipidemia 9 extensive psoriasis 10 altered mentation secondary to above-mentioned comorbidities 11 cardiogenic shock, improved 12 poor overall functional performance status and the family is considering hospice Plan the patient's condition is poor. Recovery has been slow. He is very much debilitated. Family is considering hospice care and the patient will be discharged home with hospice. Mily for pain control. pulmonary critical care services we'll sign off.
[2019-09-07] MEDS: DRONABINOL 2.5 MG CAP PO SCH ×2 (12:15→18:12)
[2019-09-07] MEDS: FLUCONAZOLE 100 MG TAB PO SCH (12:16)
[2019-09-07] MEDS ORDERED: traMADol 50 MG TAB PO PRN (13:43)
[2019-09-07 16:40] LABS: Glucose,Whole Blood 103 mg/dL (75-99)
[2019-09-07] MEDS: INSULIN DETEMIR (LEVEMIR) 100 UNIT/ML SYR SQ SCH (20:08)
[2019-09-07] MEDS: DAPTOmycin 500 MG in SODIUM CHLORIDE 0.9% 50 ML IVPB SCH (20:08)
[2019-09-07 20:12] LABS: Glucose,Whole Blood 117 mg/dL (75-99)
--- NOTE | 2019-09-07 20:58 | P.PN ---
Progress Note - Text Progress Note Date: 09/07/19 Chief Complaint: Short of breath, cough Interval history: This is [address] rai. Chronic stable medical conditions include diabetes, hypertension, hyperlipidemia, osteoarthritis, chronic kidney disease, home oxygen 2-3 L, chronic low back pain and psoriatic.. Patient was brought in by his . Most history is obtained by the at the bedside. At her baseline patient very much sits down and watches television. Does not drive. Has a fair appetite. Normally able to get around the house. Patient started coughing became short of breath wheezing for 1 day, with a decreased oral intake. Became a bit more confused and presented ER. Patient was not willing to come to the hospital but brought him in. Was given IV Lasix in the ER , bronchodilators. Patient had been quite a bit short of breath. Bringing some sputum. No obvious fever or chills. admitted with a diagnosis of right-sided pneumonia, CHF exacerbation, COPD exacerbation, acute delirium. Patient also found to have from recent renal ultrasound-bilateral hydronephrosis and possibly growth in the bladder.. Also acute kidney injury . Patient was started on Lasix drip and IV ceftriaxone, switched to IV Zosyn. Patient on the medical floor became lethargic and went into respiratory failure and was intubated on August 22. Patient was put on IV Lasix drip and IV propofol. Also in IV dobutamine-discontinued. Patient was extubated on 09/01/2019. Today-patient oral intake continues to be low. Patient's at the bedside. Quite distraught the fact that patient refuses eat food. Patient occasionally eats some food.. Review of systems: Attempted Active Medications Acetaminophen (Tylenol Tab) 650 mg PO Q4HR PRN PRN Reason: Fever and/ or Mild Pain Last Admin: 09/07/19 08:38 Dose: 650 mg Documented by: Albuterol/Ipratropium (Duoneb 0.5 Mg-3 Mg/3 Ml Soln) 3 ml INHALATION RT-Q4H [facility] Last Admin: 09/07/19 20:03 Dose: 3 ml Documented by: Aspirin (Aspirin) 81 mg PO DAILY [facility] Last Admin: 09/07/19 08:39 Dose: 81 mg Documented by: Atorvastatin Calcium (Lipitor) 40 mg PO DAILY [facility] Last Admin: 09/07/19 08:38 Dose: 40 mg Documented by: Budesonide (Pulmicort) 1 mg INHALATION RT-BID [facility] Last Admin: 09/07/19 20:03 Dose: 1 mg Documented by: Dronabinol (Marinol) 5 mg PO AC-BID [facility] Last Admin: 09/07/19 18:12 Dose: Not Given Documented by: Enoxaparin Sodium (Lovenox) 40 mg SQ DAILY [facility] Last Admin: 09/07/19 11:25 Dose: Not Given Documented by: Fluconazole (Diflucan) 100 mg PO DAILY@1200 [facility] Last Admin: 09/07/19 12:16 Dose: 100 mg Documented by: Formoterol Fumarate (Perforomist) 20 mcg INHALATION RT-BID [facility] Last Admin: 09/07/19 20:03 Dose: 20 mcg Documented by: Daptomycin 500 mg/ Sodium (Chloride) 50 mls @ 100 mls/hr IVPB Q24H [facility]; Protocol Last Admin: 09/07/19 20:08 Dose: 100 mls/hr Documented by: Insulin Aspart (Novolog) 0 unit SQ ACHS [facility]; Protocol Last Admin: 09/07/19 20:09 Dose: Not Given Documented by: Insulin Detemir (Levemir) 18 unit SQ HS [facility] Last Admin: 09/07/19 20:08 Dose: 18 unit Documented by: Lorazepam (Ativan) 1 mg IV Q6HR PRN PRN Reason: Anxiety Last Admin: 09/01/19 23:06 Dose: 1 mg Documented by: Metoprolol Tartrate (Lopressor) 25 mg PO TID [facility] Last Admin: 09/07/19 20:08 Dose: 25 mg Documented by: Miscellaneous Information (Potassium Per Protocol) 1 each MISCELLANE DAILY PRN; Protocol PRN Reason: Per Protocol Naloxone HCl (Narcan) 0.2 mg IV Q2M PRN PRN Reason: Opioid Reversal Nicotine (Habitrol 21mg/24hr Patch) 1 patch TRANSDERM DAILY [facility] Last Admin: 09/07/19 08:39 Dose: 1 patch Documented by: Nystatin (Mycostatin Oral Susp) 500,000 unit PO QID [facility] Last Admin: 09/07/19 20:08 Dose: 500,000 unit Documented by: Pantoprazole Sodium (Protonix) 40 mg PO AC-BID [facility] Last Admin: 09/07/19 17:46 Dose: 40 mg Documented by: Prednisone () 40 mg PO DAILY [facility] Tramadol HCl (Ultram) 50 mg PO QID PRN PRN Reason: Moderate Pain Physical examination: VITAL SIGNS: 98, 115, 18, 142/85, 93% on 3 L GENERAL: laying in bed, tired awake EYES: Pupils equal. Conjunctiva normal. HEENT: External appearance of nose and ears normal, oral cavity dry., Tongue coated NECK: JVD unable to assess,; masses not palpable. HEART: First and second heart sounds are normal; no edema. LUNGS: Respiratory rate increased, decreased breath sounds, occasional crackles ABDOMEN: Soft, nontender, liver spleen not palpable, no masses palpable. DERMATOLOGICAL: Area of redness in both the groin,siver demarcated plaques, and both legs PSYCH: Does answer simple questions, some delirium present NEUROLOGICAL: Moving all 4 limbs, decreased delirious INVESTIGATIONS, reviewed in the clinical context: potassium 4.5 157 creatinine 1.20 Previous testing White count 12.4 hemoglobin 12.6 platelets 237 potassium 4.8 bun 61 creatinine 3.11 Troponin I 0.620, 0.807, influenza A and B both negative EKG tracing personally reviewed by me-personally reviewed by me shows normal sinus rhythm, poor R-wave progression, some T-wave changes in anterolateral leads Chest x-ray film personally reviewed by me-venous prominence, fluid in the fissure, right basilar infiltrate Abdominal ultrasound on 07/29/2019-severe left hydronephrosis and moderate right hydronephrosis, abnormally thickened urinary bladder wall seen multifocally, additionally a sessile mass questionable 2-D [id number]-45-25 percent sputum-MRSA Assessment: -Acute on chronic congestive heart failure exacerbation, from systolic and diastolic dysfunction EF 20-25%, compensated -Cardiogenic and septic shock requiring pressor support and IV dobutamine, stabilized -Severe Right-sided pneumonia, MRSA, , POA, -Acute COPD exacerbation in a current smoker, POA, -Acute hypoxic and hypercapnic respiratory failure due to COPD and pneumonia, POA, requiring ventilator support, extubated today on September 01 -Bilateral hydronephrosis, with distal obstruction and evidence of chronic kidney disease on the left kidney, right hydronephrosis improved -Chronic kidney disease, baseline unknown, including obstructive pattern -Acute renal failure, possibly combination of cardiorenal syndrome and obstructive pattern, including ATN, -Hyperkalemia secondary to renal failure, improved -Diabetes mellitus type 2 on oral hypoglycemic, uncontrolled with hyperglycemia -Hyperlipidemia -Essential hypertension -Primary osteoarthritis -Chronic kidney disease stage IV -Lactic acidosis from pneumonia -Troponin leak 2 positive possibly. Hemodynamic instability. Doubt acute coronary syndrome -Acute delirium from pneumonia sepsis, slow to improve -CODE STATUS DO NOT RESUSCITATE. Plan: continue current medication treatment plan. Prognosis guarded. We'll change the IV Solu-Medrol to by mouth Solu-Medrol. Patient is having pain around his buttock. We will use Ultram. Encouraged patient to increase oral intake Advanced care planning: Had a lengthy talk with patient's at the bedside. She understands patient overall guarded prognosis. To start off with at a baseline patient was not actively. With mostly second portion no vision in a chair and smoke. Patient is refusing to eat. Does eat small amounts intermittently. At this point has patient has been made to proceed with hospice and patient will. Discharge after decision fronto case management manager and the hospice team as to where he he might be placed. No artificial feeding. Patient would like to use [facility]. Discussed with. case management manager Bhumi to look into different options. About 25 minutes was spent in advanced care planning.
[2019-09-08] MEDS: IPRATROPIUM-ALBUTEROL 3 ML NEB INHALATION SCH ×4 (00:27→12:05)
[2019-09-08 06:42] LABS: Glucose,Whole Blood 112 mg/dL (75-99)
[2019-09-08 07:35] VITALS: RESP 18
[2019-09-08 07:55] LABS: Calcium 8.7 mg/dL (8.4-10.2); Magnesium 1.7 mg/dL (1.6-2.3); Potassium 4.8 mmol/L (3.5-5.1)
[2019-09-08] MEDS: BUDESONIDE 1 MG/2 ML NEBU INHALATION SCH (08:12)
[2019-09-08] MEDS: FORMOTEROL FUMARATE 20 MCG/2 ML NEBU INHALATION SCH (08:12)
[2019-09-08] MEDS: INSULIN ASPART (NovoLOG) 100 UNIT/ML VIAL SQ SCH (08:50)
[2019-09-08] MEDS: METOPROLOL TARTRATE 25 MG TAB PO SCH (08:50)
[2019-09-08] MEDS: ENOXAPARIN 40 MG/0.4 ML SYRINGE SQ SCH (08:50)
[2019-09-08] MEDS: ASPIRIN 81 MG PO SCH (08:50)
[2019-09-08] MEDS: NICOTINE 21MG/24HR PATCH TRANSDERM SCH (08:50)
[2019-09-08] MEDS: ATORVASTATIN 40 MG TAB PO SCH (08:50)
[2019-09-08] MEDS: NYSTATIN 100,000 UNIT/ML SUSP 500,000 UNIT/5 ML CUP PO SCH (08:51)
[2019-09-08] MEDS: PANTOPRAZOLE SODIUM 40 MG GRANULE PKT PO SCH (08:51)
[2019-09-08] MEDS: DRONABINOL 2.5 MG CAP PO SCH (08:57)
[2019-09-08] MEDS ORDERED: predniSONE 20 MG TAB PO SCH (09:00)
--- NOTE | 2019-09-08 11:33 | P.PN ---
Subjective Patient is seen in follow-up for acute kidney injury. Renal function has been gradually improving. Creatinine 1.14 today. He is nonoliguric. Denies chest pain. Family present at bedside. Plan for home hospice. Vital signs are stable. General: The patient appeared well nourished and normally developed. HEENT: Head exam is unremarkable. Neck is without jugular venous distension. LUNGS: Lungs are clear to auscultation and percussion. Breath sounds decreased. HEART: Rate and Rhythm are regular. First and second heart sounds normal. No mur murs, rubs or gallops. ABDOMEN: Abdominal exam reveals normal bowel sounds. EXTREMITITES: No clubbing, cyanosis, or edema. Objective - Vital Signs Vital signs: Vital Signs Temp 97.7 F 09/08/19 07:00 Pulse 96 09/08/19 08:33 Resp 18 09/08/19 08:00 BP 139/81 09/08/19 07:00 Pulse Ox 99 09/08/19 07:00 Intake & Output 09/07/19 09/08/19 09/08/19 18:59 06:59 18:59 Intake Total 25 50 Output Total 550 900 Balance -525 -850 Weight 78 kg Intake: Intake, IV Titration 50 Amount DAPTOmycin 500 mg In 50 Sodium Chloride 0.9% 50 ml @ 100 mls/hr IVPB Q24H [facility] Rx#:[id number] Oral 25 Output: Urine 350 900 Stool 200 Other: Voiding Method Indwelling Catheter Indwelling Catheter Indwelling Catheter # Voids 750 ABP, PAP, CO, CI - Last Documented Arterial Blood Pressure 145/54 - Labs CBC & Chem 7: 09/02/19 04:30 09/08/19 06:54 Labs: Abnormal Lab Results - Last 24 Hours (Table) 09/07/19 09/07/19 09/07/19 Range/Units 11:30 16:38 20:00 BUN (9-20) mg/dL Glucose (74-99) mg/dL POC Glucose (mg/dL) 141 H 103 H 117 H (75-99) mg/dL 09/08/19 09/08/19 Range/Units 06:40 06:54 BUN 52 H (9-20) mg/dL Glucose 111 H (74-99) mg/dL POC Glucose (mg/dL) 112 H (75-99) mg/dL Assessment and Plan Plan: Assessment: 1. Acute kidney injury secondary to ATN secondary to hypotension and component of cardiorenal syndrome. Renal function improving. Creatinine 1.14 today. Trace proteinuria on UA. Status post hemodialysis earlier this admission. 2. Chronic kidney disease stage III. Patient's creatinine in March 2019 was near 2. This admission it is down to 1.2. Etiology is most likely diabetic kidney disease. 3. Acute hypoxic and hypercapnic respiratory failure. Extubated. 4. Volume overload. Improved. 5. Acute systolic CHF with ejection fraction of 20-25%. 6. Bilateral hydronephrosis. Urology following. Repeat ultrasound revealed resolution of right-sided hydronephrosis. 7. Insulin-dependent diabetes mellitus. 8. Metabolic acidosis secondary to acute kidney injury. Better. Plan: Discontinued dialysis catheter. No further need for renal replacement therapy at this time. Avoid nephrotoxins. Plan for home hospice, possible discharge today.
[2019-09-08 11:50] LABS: Glucose,Whole Blood 177 mg/dL (75-99)
[2019-09-08 14:29] VITALS: BP 128/78; PULSE 86; TEMP 97.8
[2019-09-08 14:33] VITALS: BMI 26.1
== END 2019-09-08 14:30 | disposition hospice, home (50) | DRG 870 ==
LOC: EC 09:39 → 3SCARD 12:04 → 2SICU 08-22 02:30 → 4SSUR 09-02 22:59
PROVIDERS: ADMIT Hospitalist; ATTEND Hospitalist
PROC: 5A1955Z Respiratory Ventilation, Greater than 96 Consecutive Hours (ICD-10-PCS; principal; 2019-08-22)
PROC: 0BH17EZ Insertion of Endotracheal Airway into Trachea, Via Natural or Artificial Opening (ICD-10-PCS; 2019-08-22)
PROC: 06HY33Z Insertion of Infusion Device into Lower Vein, Percutaneous Approach (ICD-10-PCS; 2019-08-22)
PROC: 02HV33Z Insertion of Infusion Device into Superior Vena Cava, Percutaneous Approach (ICD-10-PCS; 2019-08-22)
PROC: 5A1D70Z Performance of Urinary Filtration, Intermittent, Less than 6 Hours Per Day (ICD-10-PCS; 2019-08-29)
DX: A41.02 Sepsis due to Methicillin resistant Staphylococcus aureus (principal); I50.23 Acute on chronic systolic (congestive) heart failure; J15.212 Pneumonia due to Methicillin resistant Staphylococcus aureus; J96.21 Acute and chronic respiratory failure with hypoxia; J96.22 Acute and chronic respiratory failure with hypercapnia; N17.0 Acute kidney failure with tubular necrosis; R57.0 Cardiogenic shock; R65.21 Severe sepsis with septic shock; G93.41 Metabolic encephalopathy; E44.0 Moderate protein-calorie malnutrition; E87.0 Hyperosmolality and hypernatremia; E87.1 Hypo-osmolality and hyponatremia; E87.4 Mixed disorder of acid-base balance; G25.9 Extrapyramidal and movement disorder, unspecified; I13.0 Hypertensive heart and chronic kidney disease with heart failure and stage 1 through stage 4 chronic kidney disease, or unspecified chronic kidney disease; I42.9 Cardiomyopathy, unspecified; J44.0 Chronic obstructive pulmonary disease with (acute) lower respiratory infection; J44.1 Chronic obstructive pulmonary disease with (acute) exacerbation; J98.11 Atelectasis; N13.30 Unspecified hydronephrosis; N18.4 Chronic kidney disease, stage 4 (severe); D18.00 Hemangioma unspecified site; E11.22 Type 2 diabetes mellitus with diabetic chronic kidney disease; E11.65 Type 2 diabetes mellitus with hyperglycemia; E78.5 Hyperlipidemia, unspecified; E83.39 Other disorders of phosphorus metabolism; E86.9 Volume depletion, unspecified; E87.6 Hypokalemia; F17.200 Nicotine dependence, unspecified, uncomplicated; F41.9 Anxiety disorder, unspecified; G89.29 Other chronic pain; I25.10 Atherosclerotic heart disease of native coronary artery without angina pectoris; I25.2 Old myocardial infarction; L40.0 Psoriasis vulgaris; M19.91 Primary osteoarthritis, unspecified site; N20.0 Calculus of kidney; T38.0X5A Adverse effect of glucocorticoids and synthetic analogues, initial encounter; T50.2X5A Adverse effect of carbonic-anhydrase inhibitors, benzothiadiazides and other diuretics, initial encounter; M19.90 Unspecified osteoarthritis, unspecified site; M54.5 Low back pain; N13.9 Obstructive and reflux uropathy, unspecified; R79.89 Other specified abnormal findings of blood chemistry; R32 Unspecified urinary incontinence; E87.5 Hyperkalemia; I34.0 Nonrheumatic mitral (valve) insufficiency; R59.9 Enlarged lymph nodes, unspecified; D18.09 Hemangioma of other sites; Z66 Do not resuscitate; Z79.82 Long term (current) use of aspirin; Z79.899 Other long term (current) drug therapy; Z79.84 Long term (current) use of oral hypoglycemic drugs; Z99.81 Dependence on supplemental oxygen; Z87.440 Personal history of urinary (tract) infections; Z96.60 Presence of unspecified orthopedic joint implant; Z82.49 Family history of ischemic heart disease and other diseases of the circulatory system; Y95 Nosocomial condition
CPT/HCPCS: 36415; 36600; 71045; 71046; 74150; 76770; 80048; 80053; 80061; 80202; 81001; 82565; 82805; 83605; 83735; 83880; 84100; 84132; 84484; 85025; 85027; 85610; 85730; 86704; 86706; 86713; 87040; 87070; 87077; 87086; 87186; 87205; 87340; 87502; 90935; 93005; 93306; 94002; 94003; 94640; 94660; 94760; 96361; 96365; 96375; 96376; 99291